=== PATIENT | female | born 1940 | race Caucasian/White ===

== ENCOUNTER 2019-01-29 08:20 | Emergency (ER) | payer OTHER, SELFPAY ==
[2019-01-29 08:32] VITALS: BP 151/79; PULSE 101; RESP 14; TEMP 36.7; O2SAT 96
--- NOTE | 2019-01-29 08:33 | DI.RAD_ITS ---
SYMPTOM/DIAGNOSIS: SOB, COUGH PA AND LATERAL CHEST: There are no prior comparison exams. The heart size is normal. The aorta is mildly tortuous. Surgical clips are seen in the left axilla. There is a patchy area of increased density seen in the lingula suspicious for a pneumonia. There is no evidence of pleural effusion. The bones appear osteopenic. There are severe degenerative changes of both shoulders. Scoliosis is noted at the thoracolumbar junction. There are mild mid-thoracic compression fractures likely old. IMPRESSION: Lingular infiltrates. Follow up exam is recommended following treatment.
[2019-01-29 08:54] LABS: Abs Immature Grans 0.02 k/cumm (0.0-0.09); Absolute Basophil Count 0.01 k/cumm (0.0-0.2); Absolute Eosinophil Count 0.37 k/cumm (0.0-0.7); Absolute Lymphocyte Count 0.78 k/cumm (1.2-3.4); Absolute Monocyte Count 1.53 k/cumm (0.11-0.7); Absolute Neutrophil Count 5.83 k/cumm (1.2-6.7); Basophils % 0.1; Eosinophils % 4.3; HCT 34.1 % (36.0-46.0); HGB 11.3 g/dL (12.0-15.5); Immature Grans % 0.2; Lymphocytes % 9.1; Mean Corp. HGB Concentration 33.1 g/dL (32.0-36.0); Mean Corpuscular Hemoglobin 27.8 pg (27.0-33.0); Mean Corpuscular Volume 83.8 fL (80-95); Monocytes % 17.9; Neutrophils % 68.4; Platelet Count 239 x1000/uL (130-400); RBC 4.07 m/cumm (4.00-5.20); RBC Distribution Width 14.5 % (11.7-14.6); White Blood Cell Count 8.54 k/cumm (4.4-10.8)
--- NOTE | 2019-01-29 08:58 | ED.GENADUL_ITS ---
Discharge Plan Disposition Patient Disposition: HOME Condition: Stable Discharge Details Chief Complaint: SOB Primary Care Provider: Nia Delcid ED Provider: Kenny Lara Home Meds and New Rx's Prescriptions: New prednisone 20 mg tablet 40 mg PO DAILY Qty: 8 RF: 0 amoxicillin-pot clavulanate 1,000-62.5 mg tablet extended release 12 hr 2 tab PO BID 10 Days Qty: 40 RF: 0 benzonatate 100 mg capsule 100 mg PO TID PRN (Reason: cough) Qty: 30 RF: 0 Continued multivitamin [Daily Multiple] 1 EACH tablet 1 ea PO DAILY RF: 0 aspirin 81 MG tablet,chewable 81 mg PO DAILY RF: 0 calcium-vitamin D3-vitamin K 1 EACH tablet,chewable 1 ea PO DAILY RF: 0 sucralfate 1 GM tablet 1 g PO QID Qty: 28 RF: 3 cetirizine [Zyrtec] 10 MG tablet 10 mg PO PRN PRNRF: 0 omeprazole 40 MG capsule,delayed release(DR/EC) 40 mg PO DAILY@0730 Qty: 30 RF: 3 Discharge Data Discharge Date/Time-TO BE ENTERED AT DEPARTURE: 01/29/19 13:15 Medical Decision Making <Kenny Lara REFRIGERATING TECHNICIAN - Last Filed: 02/02/19 11:54> Patient presenting to the emergency department for chief complaint of shortness of breath and coughing. She states that this is been going on for 1 week and has worsened over the past couple days. Patient states some chest discomfort that she mostly associated with coughing but denies any cardiac chest pain, irregular heartbeats. Patient is a smoker who has been diagnosed with COPD but has not required any medications or home oxygen at this point. Physical exam shows nontoxic appearing female patient with no obvious signs of respiratory distress, no hypoxia on room air, mild tachycardia, diffuse wheezing throughout all lung sounds. Plan to do chest x-ray, labs including d-dimer for rule out of PE, and EKG. I doubt at this time this is ACS or cardiac in nature but have suspicion of pneumonia versus COPD exacerbation. Pending results patient given DuoNeb. Review of results show no leukocytosis or anemia is noted, patient does have elevated anion gap, slightly low sodium, low magnesium of 1.3, negative troponin. Chest x-ray shows concerning findings for consolidation in the left lobe consistent with pneumonia. Patient does have an elevated d-dimer so I do feel that CT imaging of the chest is warranted. Pending these results patient given IV fluids along with magnesium. Pending CT imaging due to concerning findings of pneumonia patient given oral doxycycline and IV Rocephin. Review of CT imaging shows no signs of pulmonary embolism but confirmed suspicion of consolidation and concern of pneumonia. After further review of the literature decided to place patient on Augmentin, g osmel patient steroid burst, and albuterol inhaler. Patient's curb 65 score is low and given no severe signs of respiratory distress I do feel that she is an appropriate outpatient candidate. Did speak with on-call primary care provider whom stated that patient would be able to get an appointment in the next 1 to 2 days for reassessment. Patient was informed to call the office and arrange his appointment as soon as possible. Return precautions were discussed with patient and family. After discussion of diagnosis and plan of care patient and family have no further needs, questions, or concerns and states clear understanding to return to the emergency department for any worsening symptoms. <Wade Gutierrez MD - Last Filed: 01/30/19 14:50> 9:32 -- ecg reviewed and interpreted by me: nsr 94bpm, nl axis, rsr(v1). qrsd 79, qtc 440, nondiagnostic. HPI <Kenny Lara NP - Last Filed: 02/02/19 11:54> General Mode of arrival: ambulatory . Date/Time Provider Initiated Documentation: 01/29/19 08:25 . Limitations to Documentation: no limitations . Information obtained by: patient and RN notes reviewed . History of Present Illness 78 year old F presents to the emergency department with the chief complaint of Shortness of breath, described as moderate, with intensity rated at 2. Quality is described as aching, and is localized to the chest. Patient reports no radiation. Patient started experiencing this week(s) (1) and it has been constant. No relieving factors improve symptom(s), Other factors that worsen symptoms (Coughing increases chest discomfort) . Related Data Home Medications Medication Instructions Recorded Confirmed aspirin 81 mg PO DAILY tab-cap 01/27/17 02/05/17 calcium-vitamin D3-vitamin K 1 ea PO DAILY tab.chew 01/27/17 02/05/17 multivitamin [Daily Multiple] 1 ea PO DAILY 01/27/17 02/05/17 cetirizine [Zyrtec] 10 mg PO PRN PRN 02/05/17 02/05/17 omeprazole 40 mg PO DAILY@0730 #30 capcr 02/05/17 sucralfate 1 g PO QID #28 tab-cap 02/25/17 amoxicillin-pot clavulanate 2 tab PO BID 10 Days #40 tab 01/29/19 benzonatate 100 mg PO TID PRN #30 cap 01/29/19 prednisone 40 mg PO DAILY #8 tab 01/29/19 Previous Rx's Medication Instructions Recorded omeprazole 40 mg PO DAILY@0730 #30 capcr 02/05/17 amoxicillin-pot clavulanate 2 tab PO BID 10 Days #40 tab 01/29/19 benzonatate 100 mg PO TID PRN #30 cap 01/29/19 prednisone 40 mg PO DAILY #8 tab 01/29/19 Allergies Allergy/AdvReac Type Severity Reaction Status Date / Time No Known Allergies Allergy Unverified 02/05/17 11:40 General Stated Complaint: SOB YADY: 3 Review of Systems <Kenny Lara NP - Last Filed: 02/02/19 11:54> Constitutional Denies chills, Denies fever(s) and Denies malaise Cardiovascular Reports as per HPI, Denies chest pain, Reports chest pain with activity, Denies syncope, Denies irregular heart rhythm, Denies palpitations and Reports dyspnea Respiratory Reports as per HPI, Reports cough, Reports hemoptysis and Reports dyspnea Gastrointestinal Denies abdominal pain, Denies nausea and Denies vomiting Neurologic Denies syncope Psychiatric Denies anxiety Endocrine Denies palpitations PFSH <Kenny Lara NP - Last Filed: 02/02/19 11:54> Surgical History EGD - MAC (02/05/17) Family History Mother Lung disease Social History Smoking/Tobacco Use Status: Current every day Drug use: Never Exam <Kenny Lara NP - Last Filed: 02/02/19 11:54> Const General: cooperative, healthy appearing, comfortable, no acute distress, not diaphoretic and not ill appearing Nutritional Appearance: average body habitus Orientation: alert, awake and oriented x3 Limitations: mental status not altered Neck Neck: normal visual inspection, full ROM, trachea midline, supple and no anterior neck swelling Thyroid: thyroid normal Carotids: normal carotid upstroke and no bruits Chest Chest: normal inspection of the chest Resp Effort & Inspection: normal respiratory effort and able to speak in complete sentences Auscultation: wheezes expiratory wheezes and scattered wheezes Cardio Jugular venous pressure: no JVD Palpation: normal PMI Rate: regular rate Rhythm: regular rhythm Heart Sounds: S1 normal, S2 normal, no click, no gallops, no murmurs and no rubs Bruits: no abdominal aortic bruits and no carotid bruits Pulses: radial pulses present bilaterally 2+ GI Inspection: normal to inspection Palpation: soft, no aortic enlargement, no pulsatile masses and nontender Auscultation: normal bowel sounds Skin General skin exam: no rashes or lesions noted Neuro General: alert, awake, oriented x3, tone normal and moves all extremities Course <Kenny Lara NP - Last Filed: 02/02/19 11:54> Vital Signs Temperature 36.7 C 01/29/19 08:32 Pulse 101 H 01/29/19 08:32 Respiratory Rate 14 01/29/19 08:32 Blood Pressure 151/79 H 01/29/19 08:32 Pulse Oximetry 96 01/29/19 08:32 Temperature 36.7 C 01/29/19 08:32 Temperature Source Temporal Artery Scan 01/29/19 08:32 Pulse 101 H 01/29/19 08:32 Respiratory Rate 14 01/29/19 08:32 Blood Pressure 151/79 H 01/29/19 08:32 Blood Pressure Position Supine 01/29/19 08:32 Pulse Oximetry 96 01/29/19 08:32 Oxygen Delivery Method Room Air 01/29/19 08:32 Oxygen Flow Rate 0 01/29/19 08:32 Lab/Test Results Lab/Test Results: Laboratory Tests Range/Units 01/29/19 08:45 WBC (4.4-10.8) k/cumm 8.54 RBC (4.00-5.20) m/cumm 4.07 Hgb (12.0-15.5) g/dL 11.3 L Hct (36.0-46.0) % 34.1 L MCV (80-95) fL 83.8 MCH (27.0-33.0) pg 27.8 MCHC (32.0-36.0) g/dL 33.1 RDW (11.7-14.6) % 14.5 Plt Count (130-400) x1000/uL 239 MPV (8.0-11.0) fL 12.0 H Immature Gran % 0.2 Neutrophils % 68.4 Lymphocytes % 9.1 Monocytes % 17.9 Eosinophils % 4.3 Basophils % 0.1 Absolute Neutrophils (1.2-6.7) k/cumm 5.83 Absolute Lymphocytes (1.2-3.4) k/cumm 0.78 L Absolute Monocytes (0.11-0.7) k/cumm 1.53 H Absolute Eosinophils (0.0-0.7) k/cumm 0.37 Absolute Basophils (0.0-0.2) k/cumm 0.01
[2019-01-29 09:02] VITALS: RESP 18
[2019-01-29 09:08] LABS: PTT Activated 25.7 sec (21.0-31.4)
[2019-01-29 09:16] LABS: ALT 20 U/L (12-78); AST 37 U/L (15-37); Albumin 3.2 g/dL (3.4-5.0); Alkaline Phosphatase 91 U/L (46-116); Anion Gap 15.3 mmol/L (3-11); BUN 15 mg/dL (7-18); Bilirubin, Total 0.5 mg/dL (0.2-1.0); CO2 21.7 mmol/L (21.0-32.0); CREATININE 0.61 mg/dL (0.55-1.02); Calcium 9.1 mg/dL (8.5-10.1); Chloride 98 mmol/L (98-107); Glucose 109 mg/dL (70-100); Magnesium 1.3 mg/dL (1.8-2.4); Potassium 3.8 mmol/L (3.5-5.1); Sodium 135 mmol/L (136-145); Total Protein 8.2 g/dL (6.4-8.2)
[2019-01-29 09:18] LABS: Troponin I < 0.05 ng/mL (0.00-0.06)
[2019-01-29 09:22] LABS: D-Dimer 1352 ng/mlFEU (<500)
--- NOTE | 2019-01-29 09:22 | NUR.NOTE ---
pt taken to xray by [facility] Nursing Note:
--- NOTE | 2019-01-29 09:43 | DI.VRAD_ITS ---
EXAM: XR Chest, 2 Views EXAM DATE/TIME: 01/29/2019 8:35 AM CLINICAL HISTORY: 78 years old, female; Cough and shortness of breath; Patient HX: Cough/sob TECHNIQUE: Imaging protocol: XR of the chest, 2 views. COMPARISON: No relevant prior studies available. FINDINGS: Lungs: There are changes of COPD. There is patchy consolidation within the lingula of the left upper lobe. The findings are consistent with pneumonia in the proper clinical setting. An underlying neoplastic lesion cannot be excluded. Followup imaging to confirm resolution of this abnormality is recommended. Pleural space: No pleural effusion or pneumothorax is identified. Heart/Mediastinum: The cardiomediastinal silhouette and pulmonary vasculature are within normal limits. Bones/joints: Unremarkable. Soft tissues: The patient is status post partial left mastectomy. There are multiple surgical clips within the left axilla. IMPRESSION: Patchy consolidation within the lingula consistent with pneumonia. The proper clinical setting. Followup imaging to confirm resolution of this abnormality is recommended. Dictated and Authenticated by: Skyler Gandhi MD. Ordering:SUHAIL Cox MD
[2019-01-29] MEDS: Normal Saline Flush 10 ML SYR IVP (10:13)
[2019-01-29] MEDS: Normal Saline 250 ML IV (10:13)
[2019-01-29] MEDS: Albuterol/Ipratropium 3 ML UPD VIAL UPD (10:13)
[2019-01-29] MEDS: MAGNESIUM SULFATE 2 GM/50 ML BAG IVPB (10:14)
--- NOTE | 2019-01-29 10:17 | NUR.NOTE ---
pt medicated as per mdo provided with breathing treatment tolorating well lLAB AT BEDSIDE FOR 2ED SET OF BC Nursing Note:
--- NOTE | 2019-01-29 10:50 | NUR.NOTE ---
pt to ct Nursing Note:
--- NOTE | 2019-01-29 11:07 | DI.CT_ITS ---
SYMPTOM/DIAGNOSIS: SHORTNESS OF BREATH CHEST CT FOR PULMONARY EMBOLISM: CT angiography was performed with multi slice acquisition and multi planar and 3D reconstruction. Comparison is made with chest x-ray performed earlier the same day. The patchy infiltrate with some consolidation is seen in the lingula. There is underlying mild bronchiectasis as well as emphysematous changes. No pleural or pericardial effusions are seen. There is no evidence of pulmonary emboli or aortic dissection. The pulmonary arteries appear normal in diameter. There is some dilatation of the ascending aorta with a diameter of 3.7 cm. Coronary artery calcifications are seen. There is atherosclerotic plaque involving the descending aorta. The scan was continued to the upper abdomen. There is a small hiatal hernia. The liver, spleen, adrenals, pancreas and kidneys are unremarkable. There is question of tiny stones in independent portion of the gallbladder. There is no biliary dilatation or gallbladder wall thickening. The visualized portions of the bowel are unremarkable. The visualized vasculature appears intact. There is calcification of the abdominal aorta with no evidence of aneurysm. Degenerative changes and scoliosis are noted in the spine. IMPRESSION: Lingular pneumonia. No evidence of pulmonary emboli.
[2019-01-29] MEDS: Omnipaque 350 MG/ML 100 ML BTL IJ (11:08)
--- NOTE | 2019-01-29 11:26 | DI.VRAD_ITS ---
EXAM: CT Angiography Chest Without And With Contrast EXAM DATE/TIME: 01/29/2019 9:26 AM CLINICAL HISTORY: 78 years old, female; Shortness of breath; Patient HX: Copd TECHNIQUE: Imaging protocol: Axial computed tomographic angiography images of the chest without and with intravenous contrast using CT angiography protocol. Coronal and sagittal reformatted images were created and reviewed. 3D rendering: MIP reconstructed images were created and reviewed. Radiation optimization: All CT scans at this facility use at least one of these dose optimization techniques: automated exposure control; mA and/or kV adjustment per patient size (includes targeted exams where dose is matched to clinical indication); or iterative reconstruction. Contrast material: OMNI 350; Contrast volume: 53 ml; Contrast route: IV; COMPARISON: SC XR CHEST 2V PA LATERAL 01/29/2019 9:20 AM FINDINGS: Pulmonary arteries: Slightly suboptimal opacification of the pulmonary arteries. No filling defects identified to indicate pulmonary embolism. Aorta: Mild atherosclerosis of the thoracic aorta. Dilatation of the ascending thoracic aorta, measuring 3.4 cm in AP diameter. No thoracic aortic dissection. Moderate atherosclerosis of the abdominal aorta. Lungs: Consolidation within the anterior left upper lobe, consistent with pneumonia in the proper clinical setting. Followup CT scan to confirm resolution is recommended. No obstructing endobronchial mass identified. Minimal atelectasis and/or scar in the medial right lung base. Diffuse centrilobular pulmonary emphysema, most severe in the upper lung zones. Pleural space: Unremarkable. No pneumothorax. No pleural effusion. Heart: Mild coronary atherosclerosis. No cardiomegaly or pericardial effusion. Stomach and bowel: Small gastric hiatus hernia. Lymph nodes: Multiple slightly prominent mediastinal and left hilar lymph nodes, likely reactive. Bones/joints: Degenerative spondylosis of the thoracic and upper lumbar spine. No acute fracture. Soft tissues: Unremarkable. IMPRESSION: 1. Left upper lobe consolidation consistent with pneumonia in the proper clinical setting. Followup CT scan of the chest is recommended to confirm resolution. 2. Pulmonary emphysema. 3. Mild aneurysmal dilatation of the ascending thoracic aorta. 4. No pulmonary embolism. Dictated and Authenticated by: Skyler Gandhi MD. Ordering:SUHAIL Cox MD
[2019-01-29] MEDS: cefTRIAXone 1 GM/50 ML BAG IVPB (11:29)
[2019-01-29] MEDS: Doxycycline Hyclate 100 MG CAP PO (11:29)
--- NOTE | 2019-01-29 11:32 | NUR.NOTE ---
pt medicated as per mdo iv antibiotics in fusing pt resting in bed resp even unlabored no distress noted none stated Nursing Note:
[2019-01-29] MEDS: Albuterol HFA 8 GM 60 PUFF INH IH (12:46)
[2019-01-29] MEDS: Inhaler, Assist Device 1 EACH MC (12:48)
[2019-01-29] MEDS: predniSONE 20 MG TAB 40 MG PO (12:54)
--- NOTE | 2019-01-29 12:55 | NUR.NOTE ---
practioner at bedside for review of treatment pt medicated as per mdo vs no distress noted resp even unlabored iv removed dc/rx reviewed with pt able to verblize understnading Nursing Note:
== END 2019-01-29 13:15 | disposition home or self-care (01) ==
PROVIDERS: Emergency Provider Nurse Practitioner Family; PCP Family Medicine
DX: J18.9 Pneumonia, unspecified organism (principal); R79.89 Other specified abnormal findings of blood chemistry
CPT/HCPCS: 36415; 71275; 80053; 87040; 93005; 96361; 96365; 96366; 96368; 99285; 71046; 83735; 84484; 85025; 85379; 85610; 85730; 93010; 99284; J0696; J3490; J7512; J7620

== ENCOUNTER 2019-02-03 20:52 | Inpatient (IN) | payer OTHER, SELFPAY ==
[2019-02-03] VITALS (19 sets, daily range): BP systolic 108–131; BP diastolic 55–72; PULSE 78–108; RESP 8–40; TEMP 36.5–36.8; O2SAT 92–100
--- NOTE | 2019-02-03 21:23 | W.ED.GENAD ---
Discharge Plan Disposition Patient Disposition: [facility] INPATIENT Condition: Fair Discharge Details Chief Complaint: RespSymp Clinical Impression: COPD exacerbation, Pneumonia, Hypokalemia, Hypomagnesemia Primary Care Provider: Nia Delcid ED Provider: Alex Wellington Bonfield Jonas and New Rx's Prescriptions: No Action multivitamin [Daily Multiple] 1 EACH tablet 1 ea PO DAILY RF: 0 aspirin 81 MG tablet,chewable 81 mg PO DAILY RF: 0 calcium-vitamin D3-vitamin K 1 EACH tablet,chewable 1 ea PO DAILY RF: 0 amoxicillin-pot clavulanate 1,000-62.5 mg tablet extended release 12 hr 2 tab PO BID 10 Days Qty: 40 RF: 0 omeprazole 40 MG capsule,delayed release(DR/EC) 40 mg PO DAILY@0730 Qty: 30 RF: 3 albuterol sulfate 90 mcg/actuation Hfa Aerosol Inhaler 2 puff INHALATION Q6H PRNRF: 0 Chantix Starting Month Box 0.5 mg (11)- 1 mg (42) Tablets,Dose Pack See Rx Instructions .ROUTE .COMPLEX RF: 0 Medical Decision Making Patient presenting with worsening shortness of breath and wheezing despite steroids, antibiotics, albuterol. She has diminished breath sounds at the bases and some scattered wheezing. She denies chest pain or pressure. Will give DuoNeb and albuterol neb here. Will obtain EKG, laboratory studies, chest x-ray. Will likely need admission given the fact that she is already maxed out on outpatient therapy and worsening. Patient doing a little better after neb treatments. Steroids have been given. Her EKG shows no acute changes. Laboratory studies significant for a white count of 14.4 which could be related to steroids. Mild anemia with a hemoglobin of 11.1. Significant electrolyte abnormalities including a potassium of 2.7 and a magnesium of 1.4 both of which are being repleted IV. She is also ordered for oral potassium. Troponin is negative. Chest x-ray is read as improved lingular consolidation but new right perihilar consolidation. We will continue on her oral Augmentin and add IV doxycycline. Case discussed with hospitalist. Because of electrolyte abnormalities and IV replacement she will need telemetry. She is admitted in stable condition for further management of COPD exacerbation, pneumonia, electrolyte abnormalities. Medical Records Medical records reviewed: Yes I reviewed the patient's medical records. Imaging Data Radiologic Study: Imaging: X-Ray Radiologist's impression: TECHNIQUE: Imaging protocol: XR of the chest, 2 views. COMPARISON: SC XR CHEST 2V PA LATERAL 01/29/2019 9:20 AM FINDINGS: Lungs: Lungs are hyperinflated. Subtle, patchy consolidations. Pleural space: Unremarkable. No evidence of pneumothorax. Heart/Mediastinum: Unremarkable. Heart size within normal limits for technique. Bones/joints: Unremarkable. IMPRESSION: Patchy lung consolidations. The lingular consolidation has improved slightly. There is new, subtle right perihilar patchy airspace disease. Most likely a bronchopneumonia. Dictated and Authenticated by: Juan Humphrey MD. Lab Data Lab results reviewed: Yes I reviewed the patient's lab results. ECG Data Attestation: I personally reviewed and interpreted this ECG (s) as follows: Prior ECG tracings: not available for review Interpretation: Normal sinus rhythm at a rate of 87. Normal axis and intervals. No acute ST changes noted. HPI General Mode of arrival: wheelchair. Date/Time Provider Initiated Documentation: 02/03/19 21:16. Limitations to Documentation: no limitations. Information obtained by: patient. HPI Narrative: Patient presents to ED with increasing shortness of breath since last night. She was seen here last weekend and diagnosed with COPD/pneumonia. She has been on Augmentin and prednisone. She was also given an albuterol inhaler. The prednisone finished yesterday. She is still on the Augmentin. She has been using the inhaler. In the last 24 hours, she has had worsening shortness of breath. She has used the albuterol inhaler at least 6 or 7 times today. She denies having chest pain or tightness. She is unable to sleep because of difficulty breathing. She continues to have cough. She has no fever she is aware of. She does have some low back pain. There is no direct injury. She thinks is from coughing so much. Related Data Home Medications Medication Instructions Recorded Confirmed aspirin 81 mg PO DAILY tab-cap 01/27/17 02/03/19 calcium-vitamin D3-vitamin K 1 ea PO DAILY tab.chew 01/27/17 02/03/19 multivitamin [Daily Multiple] 1 ea PO DAILY 01/27/17 02/03/19 omeprazole 40 mg PO DAILY@0730 #30 capcr 06/30/17 06/28/19 amoxicillin-pot clavulanate 2 tab PO BID 10 Days #40 tab 01/29/19 02/03/19 albuterol sulfate 2 puff INHALATION Q6H PRN 02/03/19 02/03/19 varenicline [Chantix Starting See Rx Instructions .ROUTE .COMPLEX 02/03/19 02/03/19 Month Box] Previous Rx's Medication Instructions Recorded omeprazole 40 mg PO DAILY@0730 #30 capcr 02/05/17 amoxicillin-pot clavulanate 2 tab PO BID 10 Days #40 tab 01/29/19 Allergies Allergy/AdvReac Type Severity Reaction Status Date / Time No Known Allergies Allergy Unverified 02/03/19 21:38 General YADY: 3 Review of Systems Review of Systems 05/22 Review of Systems completed and is negative except as stated above in HPI (Systems reviewed: Const, Eyes, ENT, Resp, CV, GI, , MSK, Skin, Neuro) PFSH Medical History COPD (chronic obstructive pulmonary disease) (Chronic) GERD (gastroesophageal reflux disease) (Chronic) Breast cancer (Resolved) Surgical History Status post THR (total hip replacement) (Chronic) S/P breast lumpectomy (Inactive) EGD - MAC (Inactive 02/05/17) Social History Smoking/Tobacco Use Status: Current every day Tobacco Type: cigarettes Alcohol Intake: current Alcohol Intake frequency: holidays/special occasions only Drug use: Never Do you feel safe at home: Yes Do you feel safe in your relationship?: Yes Exam Narrative Exam Narrative: Vitals: Afebrile with normal vital signs and normal O2 sats on room air. Const: WDWN elderly female in NAD. HEENT: NC/AT. Normal facial exam. Eyes: Normal conjunctiva and sclera. Neck: Supple. Trachea midline. Lungs: Increased work of breathing with prolong expiratory phase. Lungs are diminished at the bases. There are scattered wheezing throughout. Cor: RRR without murmur/gallop. Good radial pulses. GI: Soft. NT/ND. No guarding or rebound. Back: No CVAT. Neuro: A+O x 3. CN grossly in tact. Good strength and no focal deficit. Ext: No C/C/E. No deformity or tenderness. Skin: Warm and dry without rash.
[2019-02-03] MEDS: Albuterol/Ipratropium 3 ML UPD VIAL UPD (21:43)
--- NOTE | 2019-02-03 22:14 | DI.RAD_ITS ---
SYMPTOM/DIAGNOSIS: WORSENING SOB/COUGH AP AND LATERAL CHEST: Comparison is made with 29 January 2019. There has been some improvement in the previously noted left lingular infiltrate. No new infiltrate, effusion or pneumothorax is seen. There are underlying fibrotic changes and emphysematous changes. IMPRESSION Mild interval improvement of lingular infiltrate.
[2019-02-03 22:24] LABS: Abs Immature Grans 0.06 k/cumm (0.0-0.09); Absolute Lymphocyte Count 1.55 k/cumm (1.2-3.4); Absolute Monocyte Count 1.93 k/cumm (0.11-0.7); Basophils % 0.1; Eosinophils % 2.8; HCT 33.9 % (36.0-46.0); HGB 11.1 g/dL (12.0-15.5); Immature Grans % 0.4; Lymphocytes % 10.7; Mean Corp. HGB Concentration 32.7 g/dL (32.0-36.0); Mean Corpuscular Hemoglobin 27.3 pg (27.0-33.0); Mean Corpuscular Volume 83.3 fL (80-95); Mean Platelet Volume 11.3 fL (8.0-11.0); Monocytes % 13.4; Neutrophils % 72.6; Platelet Count 370 x1000/uL (130-400); RBC 4.07 m/cumm (4.00-5.20); RBC Distribution Width 14.9 % (11.7-14.6); White Blood Cell Count 14.44 k/cumm (4.4-10.8)
[2019-02-03] MEDS: methylPREDNISolone SUCC 125 MG VIAL IVP (22:27)
[2019-02-03] MEDS: Albuterol 2.5 MG/3 ML INH SOLN VIAL UPD (22:27)
[2019-02-03 22:36] LABS: Absolute Basophil Count 0.01 k/cumm (0.0-0.2); Absolute Neutrophil Count 10.48 k/cumm (1.2-6.7)
[2019-02-03 22:38] LABS: ALT 20 U/L (12-78); AST 15 U/L (15-37); Albumin 3.3 g/dL (3.4-5.0); Alkaline Phosphatase 85 U/L (46-116); BUN 10 mg/dL (7-18); Bilirubin, Total 0.3 mg/dL (0.2-1.0); CREATININE 0.65 mg/dL (0.55-1.02); Calcium 9.1 mg/dL (8.5-10.1); Chloride 102 mmol/L (98-107); Glucose 98 mg/dL (70-100); Magnesium 1.4 mg/dL (1.8-2.4); NT-proBNP 152 pg/mL; Sodium 138 mmol/L (136-145); Total Protein 7.5 g/dL (6.4-8.2)
[2019-02-03 22:41] LABS: Potassium 2.7 mmol/L (3.5-5.1); Troponin I < 0.05 ng/mL (0.00-0.06)
[2019-02-03 22:52] LABS: Diff Comment Diff Reviewed; RBC Morphology Normal
--- NOTE | 2019-02-03 22:52 | DI.VRAD_ITS ---
EXAM: XR Chest, 2 Views EXAM DATE/TIME: 02/03/2019 10:15 PM CLINICAL HISTORY: 78 years old, female; Shortness of breath; Patient HX: SOB TECHNIQUE: Imaging protocol: XR of the chest, 2 views. COMPARISON: SC XR CHEST 2V PA LATERAL 01/29/2019 9:20 AM FINDINGS: Lungs: Lungs are hyperinflated. Subtle, patchy consolidations. Pleural space: Unremarkable. No evidence of pneumothorax. Heart/Mediastinum: Unremarkable. Heart size within normal limits for technique. Bones/joints: Unremarkable. IMPRESSION: Patchy lung consolidations. The lingular consolidation has improved slightly. There is new, subtle right perihilar patchy airspace disease. Most likely a bronchopneumonia. Dictated and Authenticated by: Juan Humphrey MD. Ordering:CHARO Johnson MD
[2019-02-03] MEDS: POTASSIUM CHLORIDE 20 MEQ, POTASSIUM CHLORIDE 10 MEQ 30 MEQ PO (23:10)
[2019-02-03] MEDS: DOXYCYCLINE 100 MG in Normal Saline 100 ML IVPB (23:11)
[2019-02-03] MEDS: MAGNESIUM SULFATE 2 GM/50 ML BAG IVPB (23:45)
--- NOTE | 2019-02-03 23:58 | W.PM.HP.N ---
Date of service: 02/03/19 Time of Service: 23:58 Assessment and Plan (1) COPD exacerbation: Start date: 02/03/19 Current visit: Yes Status: Acute This is a 78-year-old lady with recent exacerbation of COPD and left lingular pneumonia treated as an outpatient now not improving off oral prednisone and continuing on Augmentin. She will be admitted for IV antibiotics including Rocephin and doxycycline with IV Solu-Medrol and more aggressive nebulizer treatments. She appears comfortable and responding to treatment. She is full code. (2) Pneumonia: Start date: 02/03/19 Current visit: Yes Status: Acute IV antibiotics as above. Convert to oral therapy as she improves. Qualifiers: Laterality: bilateral Lung location: unspecified part of lung Pneumonia type: due to unspecified organism Qualified Code(s): J18.9 - Pneumonia, unspecified organism (3) Hypokalemia: Start date: 02/03/19 Current visit: Yes Status: Acute Continue IV and oral supplement with monitoring of labs and desk monitor. Patient is not chronically on diuretics and this may be a consequence of her recent prednisone pulse therapy. (4) Hypomagnesemia: Start date: 02/03/19 Current visit: Yes Status: Acute Patient has been given IV magnesium and will follow-up lab in the morning. History of Present Illness Chief Complaint: Persistent cough with shortness of breath Narrative: This is a 78-year-old lady who on his last week had exacerbation of COPD with left lingular pneumonia treated with Augmentin and oral prednisone after being seen in the ED last weekend. She slightly improved but prednisone finished the day prior to admission and she was having continued cough and shortness of breath. She also has some low back pain from persistent coughing. The patient did not improve with nebulizer treatments in the ED and was found to have electrolyte abnormalities after hydration and treatments. She was admitted for continued IV replacement of potassium and magnesium on cardiac monitoring during this process. She also had exacerbation of COPD and was started on IV Solu-Medrol with her antibiotic coverage expanded because of the new infiltrate in the right lung and partial clearing of her left lingular infiltrate seen on previous chest x-ray. At this time I saw the patient she was arousable but fatigued and sleepy after her long day. She offered no further history or new complaints on review of systems. Review of Systems Review of Systems 13 point review of systems otherwise unrevealing or stable. [facility] Medical History COPD (chronic obstructive pulmonary disease) (Chronic) GERD (gastroesophageal reflux disease) (Chronic) Breast cancer (Resolved) Surgical History Status post THR (total hip replacement) (Chronic) S/P breast lumpectomy (Inactive) EGD - MAC (Inactive 02/05/17) Family History Mother Lung disease Social History Smoking/Tobacco Use Status: Current every day Tobacco Type: cigarettes Alcohol Intake: current Alcohol Intake frequency: holidays/special occasions only Drug use: Never Do you feel safe at home: Yes Do you feel safe in your relationship?: Yes Meds Home Medications Medication Instructions Recorded Confirmed Type aspirin 81 mg PO DAILY tab-cap 01/27/17 02/03/19 History calcium-vitamin D3-vitamin K 1 ea PO DAILY tab.chew 01/27/17 02/03/19 History multivitamin [Daily Multiple] 1 ea PO DAILY 01/27/17 02/03/19 History omeprazole 40 mg PO DAILY@0730 #30 capcr 02/05/17 02/03/19 Rx amoxicillin-pot clavulanate 2 tab PO BID 10 Days #40 tab 01/29/19 02/03/19 Rx albuterol sulfate 2 puff INHALATION Q6H PRN 02/03/19 02/03/19 History varenicline [Chantix Starting See Rx Instructions .ROUTE .COMPLEX 02/03/19 02/03/19 History Month Box] Allergies Allergy/AdvReac Type Severity Reaction Status Date / Time No Known Allergies Allergy Unverified 02/03/19 21:38 Exam Narrative Exam Narrative: General: Patient appears appropriate for age, thin and well-developed. She is in no acute distress. She is alert and oriented x3. HEENT: Normocephalic. Eyes with pupils equal and reactive to light symmetrically, extraocular movements intact and sclera anicteric. Ears normal. Oropharynx with slightly dry oral mucosa and full denture plates above and below. Neck: Supple without JVD. Back: Slightly kyphotic without CVA tenderness. Lungs: Bronchovesicular breath sounds diffusely with fair aeration, increased expiratory phase with slight expiratory wheeze diffusely. No focalizing rales or rhonchi. Heart: Tachycardic rate with normal rhythm, no murmurs gallops appreciated and S1-S2 normal. Breast: Exam deferred. Abdomen: Scaphoid contour, soft and nontender to palpation with no palpable hepatosplenomegaly. Bowel sounds positive in all quadrants. Genitalia/rectal: Exam deferred. Extremities: Without clubbing, cyanosis or edema. Skin: Pale,warm and dry with no rashes appreciated. Neuro: Cranial nerves II through XII grossly intact, no focalizing motor deficits. Psych: Normal affect normal mood. Remote and recent memory appear to be intact. Results Imaging Imaging Studies: EXAM: XR Chest, 2 Views EXAM DATE/TIME: 02/03/2019 10:15 PM CLINICAL HISTORY: 78 years old, female; Shortness of breath; Patient HX: SOB TECHNIQUE: Imaging protocol: XR of the chest, 2 views. COMPARISON: SC XR CHEST 2V PA LATERAL 01/29/2019 9:20 AM FINDINGS: Lungs: Lungs are hyperinflated. Subtle, patchy consolidations. Pleural space: Unremarkable. No evidence of pneumothorax. Heart/Mediastinum: Unremarkable. Heart size within normal limits for technique. Bones/joints: Unremarkable. IMPRESSION: Patchy lung consolidations. The lingular consolidation has improved slightly. There is new, subtle right perihilar patchy airspace disease. Most likely a bronchopneumonia. Dictated and Authenticated by: Juan Humphrey MD. Labs : 02/03/19 21:58 02/03/19 21:58 Laboratory Results - last 24 hr 02/03/19 02/03/19 21:58 21:58 WBC 14.44 H RBC 4.07 Hgb 11.1 L Hct 33.9 L MCV 83.3 MCH 27.3 MCHC 32.7 RDW 14.9 H Plt Count 370 D MPV 11.3 H Immature Gran % 0.4 Neutrophils % 72.6 Lymphocytes % 10.7 Monocytes % 13.4 Eosinophils % 2.8 Basophils % 0.1 Absolute Neutrophils 10.48 H Absolute Lymphocytes 1.55 Absolute Monocytes 1.93 H Absolute Eosinophils 0.40 Absolute Basophils 0.01 Differential Comment Diff reviewed RBC Morphology Normal Sodium 138 Potassium 2.7 L* Chloride 102 Carbon Dioxide 24.0 Anion Gap 12.0 H BUN 10 Creatinine 0.65 Estimated GFR/1.73 m2 >= 60.00 Glucose 98 Calcium 9.1 Magnesium 1.4 L Total Bilirubin 0.3 AST 15 ALT 20 Alkaline Phosphatase 85 Troponin I < 0.05 NT-Pro-B Natriuret Pep 152 Total Protein 7.5 Albumin 3.3 L Last Vital Signs Temp 36.8 C 02/03/19 23:48 Pulse 101 H 02/03/19 23:31 Resp 21 02/03/19 23:31 BP 109/62 02/03/19 23:31 Pulse Ox 93 L 02/03/19 23:31
[2019-02-04] VITALS (23 sets, daily range): BP systolic 86–124; BP diastolic 49–71; PULSE 82–110; RESP 1–28; TEMP 36.5–37.4; O2SAT 92–98
[2019-02-04] MEDS: POTASSIUM CHLORIDE 10 MEQ/100 ML BAG 100 MEQ IVPB (00:20)
[2019-02-04] MEDS: POTASSIUM CHLORIDE/0.9% NACL 1,000 ML 125 MEQ IV ×2 (02:06→10:00)
[2019-02-04] MEDS: Albuterol/Ipratropium 3 ML UPD VIAL UPD ×4 (02:23→17:49)
[2019-02-04 02:41] LABS: Anion Gap 13.3 mmol/L (3-11); BUN 9 mg/dL (7-18); CO2 20.7 mmol/L (21.0-32.0); Calcium 8.6 mg/dL (8.5-10.1); Chloride 104 mmol/L (98-107); Glucose 131 mg/dL (70-100); Potassium 3.4 mmol/L (3.5-5.1); Sodium 138 mmol/L (136-145)
[2019-02-04] MEDS: methylPREDNISolone SUCC 125 MG VIAL 80 MG IVP ×3 (05:27→22:31)
[2019-02-04] MEDS: Heparin 5,000 UNITS/ML VIAL 5000 UNITS SC ×3 (05:28→22:31)
[2019-02-04 07:09] LABS: ALT 18 U/L (12-78); AST 9 U/L (15-37); Albumin 2.9 g/dL (3.4-5.0); Alkaline Phosphatase 77 U/L (46-116); Anion Gap 12.4 mmol/L (3-11); BUN 8 mg/dL (7-18); Bilirubin, Total 0.3 mg/dL (0.2-1.0); CO2 21.6 mmol/L (21.0-32.0); CREATININE 0.58 mg/dL (0.55-1.02); Calcium 8.5 mg/dL (8.5-10.1); Chloride 105 mmol/L (98-107); Glucose 151 mg/dL (70-100); Magnesium 1.8 mg/dL (1.8-2.4); Potassium 3.9 mmol/L (3.5-5.1); Sodium 139 mmol/L (136-145); Total Protein 6.9 g/dL (6.4-8.2)
[2019-02-04 07:16] LABS: TSH (W/Ref FT4) 0.19 uIU/mL (0.358-3.74)
--- NOTE | 2019-02-04 08:28 | PGE_ITS ---
Date of Service Date of service: 02/04/19 Time of Service: 08:26 Assessment and Plan (1) COPD exacerbation: Current visit: Yes Status: Acute Continue doxycycline, rocephin, IV steroids, nebs. Add symbicort. Obtain sputum culture. Add antitussives, acapella. (2) CAP (community acquired pneumonia): Current visit: Yes Status: Acute S/p failed outpatient therapy. As above (3) Hypokalemia: Current visit: Yes Status: Resolved D/c IVF with potassium (4) Hypomagnesemia: Current visit: Yes Status: Resolved Monitor (5) GERD (gastroesophageal reflux disease): Current visit: Yes Status: Chronic on PPI (6) Discharge planning issues: Current visit: Yes Status: Acute Full code (7) DVT prophylaxis: Current visit: Yes Status: Acute Heparin SC, TEDs, SCD's Subjective Interval history since last seen: C/o 03/18 headache overnight - resolved now. Denies dizziness, chest pain. Shortness of breath is a little better, but coughing spells are making her lissette lly short of breath. She is bringing up yellowish thick sputum. Denies nausea/vomiting/abdominal pain. Required 1 L of O2 last night; on room air now - 94%. Dropped to 88% last night - why 1L was started. 1200 cc voided overnight. Exam Narrative Exam Narrative: General: Very pleasant elderly female, A&Ox3, has several coughing spells while in front of me HEENT: EOMI, MMM Heart: RRR, no m/r/g Lungs: wheezing on expiration B GI: abdomen is soft, nontender, nondistended Extremities: no e/c/c BLE's Objective Objective Clinical Data: Abnormal lab results 02/03/19 02/03/19 02/04/19 Range/Units 21:58 21:58 02:15 WBC 14.44 H (4.4-10.8) k/cumm Hgb 11.1 L (12.0-15.5) g/dL Hct 33.9 L (36.0-46.0) % RDW 14.9 H (11.7-14.6) % MPV 11.3 H (8.0-11.0) fL Absolute Neutrophils 10.48 H (1.2-6.7) k/cumm Absolute Monocytes 1.93 H (0.11-0.7) k/cumm Potassium 2.7 L* 3.4 L (3.5-5.1) mmol/L Carbon Dioxide 20.7 L (21.0-32.0) mmol/L Anion Gap 12.0 H 13.3 H (3-11) mmol/L Glucose 131 H (70-100) mg/dL Magnesium 1.4 L (1.8-2.4) mg/dL AST (15-37) U/L Albumin 3.3 L (3.4-5.0) g/dL TSH (0.358-3.74) uIU/mL Free T4 (0.76-1.46) ng/dL 02/04/19 02/04/19 Range/Units 06:40 06:40 WBC (4.4-10.8) k/cumm Hgb (12.0-15.5) g/dL Hct (36.0-46.0) % RDW (11.7-14.6) % MPV (8.0-11.0) fL Absolute Neutrophils (1.2-6.7) k/cumm Absolute Monocytes (0.11-0.7) k/cumm Potassium (3.5-5.1) mmol/L Carbon Dioxide (21.0-32.0) mmol/L Anion Gap 12.4 H (3-11) mmol/L Glucose 151 H (70-100) mg/dL Magnesium (1.8-2.4) mg/dL AST 9 L (15-37) U/L Albumin 2.9 L (3.4-5.0) g/dL TSH 0.19 L (0.358-3.74) uIU/mL Free T4 1.50 H (0.76-1.46) ng/dL Vital Signs Temperature 36.5 C 02/04/19 03:00 Temperature Source Temporal Artery Scan 02/04/19 03:00 Pulse 93 H 02/04/19 02:53 Pulse 85 02/04/19 03:44 Respiratory Rate 21 02/04/19 03:44 Respiratory Effort 02/04/19 01:10 Respiratory Depth Shallow 02/04/19 01:10 Blood Pressure 108/67 02/04/19 03:44 Blood Pressure Mean 77 02/04/19 03:44 Blood Pressure Position Sitting 02/03/19 21:29 Pulse Oximetry 98 02/04/19 03:44 Oxygen Delivery Method Nasal Cannula 02/04/19 01:10 Oxygen Flow Rate 1 02/04/19 01:10 Pain Level 2 02/04/19 00:47 Intake & Output 02/03/19 02/03/19 02/04/19 11:59 23:59 11:59 Intake Total 250 / 250 Balance 250 / 250 Weight 43.091 kg 45.7 kg Intake: IV 250 / 250 Laboratory Results WBC 14.44 k/cumm (4.4-10.8) H 02/03/19 21:58 RBC 4.07 m/cumm (4.00-5.20) 02/03/19 21:58 Hgb 11.1 g/dL (12.0-15.5) L 02/03/19 21:58 Hct 33.9 % (36.0-46.0) L 02/03/19 21:58 MCV 83.3 fL (80-95) 02/03/19 21:58 MCH 27.3 pg (27.0-33.0) 02/03/19 21:58 MCHC 32.7 g/dL (32.0-36.0) 02/03/19 21:58 RDW 14.9 % (11.7-14.6) H 02/03/19 21:58 Plt Count 370 x1000/uL (130-400) D 02/03/19 21:58 MPV 11.3 fL (8.0-11.0) H 02/03/19 21:58 Immature Gran % 0.4 02/03/19 21:58 Neutrophils % 72.6 02/03/19 21:58 Lymphocytes % 10.7 02/03/19 21:58 Monocytes % 13.4 02/03/19 21:58 Eosinophils % 2.8 02/03/19 21:58 Basophils % 0.1 02/03/19 21:58 Absolute Neutrophils 10.48 k/cumm (1.2-6.7) H 02/03/19 21:58 Absolute Lymphocytes 1.55 k/cumm (1.2-3.4) 02/03/19 21:58 Absolute Monocytes 1.93 k/cumm (0.11-0.7) H 02/03/19 21:58 Absolute Eosinophils 0.40 k/cumm (0.0-0.7) 02/03/19 21:58 Absolute Basophils 0.01 k/cumm (0.0-0.2) 02/03/19 21:58 Differential Comment Diff reviewed 02/03/19 21:58 RBC Morphology Normal 02/03/19 21:58 Sodium 139 mmol/L (136-145) 02/04/19 06:40 Potassium 3.9 mmol/L (3.5-5.1) 02/04/19 06:40 Chloride 105 mmol/L (98-107) 02/04/19 06:40 Carbon Dioxide 21.6 mmol/L (21.0-32.0) 02/04/19 06:40 Anion Gap 12.4 mmol/L (3-11) H 02/04/19 06:40 BUN 8 mg/dL (7-18) 02/04/19 06:40 Creatinine 0.58 mg/dL (0.55-1.02) 02/04/19 06:40 Estimated GFR/1.73 m2 >= 60.00 (mL/min/1.73m2) 02/04/19 06:40 Glucose 151 mg/dL (70-100) H 02/04/19 06:40 Calcium 8.5 mg/dL (8.5-10.1) 02/04/19 06:40 Magnesium 1.8 mg/dL (1.8-2.4) 02/04/19 06:40 Total Bilirubin 0.3 mg/dL (0.2-1.0) 02/04/19 06:40 AST 9 U/L (15-37) L 02/04/19 06:40 ALT 18 U/L (12-78) 02/04/19 06:40 Alkaline Phosphatase 77 U/L (46-116) 02/04/19 06:40 Troponin I < 0.05 ng/mL (0.00-0.06) 02/03/19 21:58 NT-Pro-B Natriuret Pep 152 pg/mL (-299) 02/03/19 21:58 Total Protein 6.9 g/dL (6.4-8.2) 02/04/19 06:40 Albumin 2.9 g/dL (3.4-5.0) L 02/04/19 06:40 TSH 0.19 uIU/mL (0.358-3.74) L 02/04/19 06:40 Free T4 1.50 ng/dL (0.76-1.46) H 02/04/19 06:40
[2019-02-04 08:43] LABS: Abs Immature Grans 0.07 k/cumm (0.0-0.09); Absolute Basophil Count 0.01 k/cumm (0.0-0.2); Absolute Lymphocyte Count 0.54 k/cumm (1.2-3.4); Absolute Monocyte Count 0.09 k/cumm (0.11-0.7); Absolute Neutrophil Count 13.81 k/cumm (1.2-6.7); Basophils % 0.1; HCT 31.9 % (36.0-46.0); HGB 10.4 g/dL (12.0-15.5); Immature Grans % 0.5; Lymphocytes % 3.7; Mean Corp. HGB Concentration 32.6 g/dL (32.0-36.0); Mean Corpuscular Hemoglobin 27.4 pg (27.0-33.0); Mean Corpuscular Volume 84.2 fL (80-95); Mean Platelet Volume 11.8 fL (8.0-11.0); Monocytes % 0.6; Neutrophils % 95.1; Platelet Count 347 x1000/uL (130-400); RBC 3.79 m/cumm (4.00-5.20); White Blood Cell Count 14.52 k/cumm (4.4-10.8)
[2019-02-04] MEDS: Aspirin 81 MG CHEW PO (09:03)
[2019-02-04] MEDS: Omeprazole 20 MG CAPCR 40 MG PO (09:03)
--- NOTE | 2019-02-04 12:07 | PHARADMIT ---
Admission Pharmacy Clinical Review COPD exacerbation, pneumonia, electrolyte abnormality Code Status Full Code Current Weight 45.7 kg Renally Cleared and Narrow Therapeutic Index Meds Crcl ~43.16 mL/min current meds okay QTc Value / Action Taken QTc 423 BP Control, Fever BP 111/57 afebrile Electrolytes reviewed K+ 3.4 DVT Prophylaxis heparin Opiate Usage / Scheduled Bowel Regimen Ordered no/prn Plt/SCr for Heparin / Enoxaparin plt 347 SCr 0.60 INR for Warfarin n/a H/H stable, WBC/Bands h/h 10.4/31.9 wbc 14.52 Antibiotic appropriateness ceftriaxone and doxycyline Cultures and Sensitivities none Surgical ABX d/c within 24 hr n/a DM control / Insulin Dosing BG 131 none Heart Failure (Check EF%) (JIMENEZ's, B-Block, Diuretics) none IV to PO Switch n/a Home Meds Reviewed -multivitamin may increase the absorption of aluminum from sucralfate leading to an increase serum aluminum concentration; avoid chronic/excessive use of this combination and watch for aluminum related toxicity -separate admin of multivitamin from calcium Home Meds Not Ordered augmentin(failed this), calcium/vitD/vitK, multivitamin, sucralfate, varenicline Comments
[2019-02-04] MEDS: cefTRIAXone 1 GM/50 ML BAG IVPB (12:12)
[2019-02-04] MEDS: DOXYCYCLINE 100 MG in Normal Saline 100 ML IVPB (12:45)
[2019-02-04] MEDS: Benzonatate 100 MG CAP PO ×2 (14:50→20:23)
[2019-02-04] MEDS: Normal Saline Flush 10 ML SYR IVP ×2 (14:52→15:25)
[2019-02-04] MEDS: guaiFENesin 600 MG TABCR PO ×2 (15:24→20:23)
--- NOTE | 2019-02-04 15:52 | PDOC.CMIN ---
Care Management Initial Assess REASON FOR HOSPITALIZATION:: COPD Exacerbation, Pneumonia, Electrolyte abnormality PAST MEDICAL HISTORY/PAST SURGICAL HISTORY:: Medical: COPD (chronic obstructive pulmonary disease) (Chronic). GERD (gastroesophageal reflux disease) (Chronic); Breast cancer (Resolved). Surgical: Status post THR (total hip replacement) (Chronic); S/P breast lumpectomy (Inactive), EGD - MAC (Inactive 02/05/17) PREVIOUS FUNCTIONAL STATUS/SOCIAL/FAMILY SUPPORTS:: Lives in an apartment at Daughter and ADIS's home. Family is supportive. Independent at baseline and still drives to manage her errands. CURRENT FUNCTIONAL STATUS:: Lying in bed resting. [place] and has had several respiratory infections. Says everyone at [facility] has had a cold or something going on all year. ADVANCE DIRECTIVES:: None on file Has patient been provided with information about the portal?: No Did the patient sign up for the portal?: No CODE STATUS:: Full Code INSURANCE COVERAGE / FINANCIAL ISSUES:: [facility] PPO CURRENT HOME/COMMUNITY SERVICES/EQUIPMENT:: None at this time PRIMARY CARE PHYSICIAN:: Nia Delcid NP PATIENT/FAMILY EDUCATION NEEDS:: Discharge instructions ANTICIPATED BARRIERS TO DISCHARGE:: None identified TRANSPORTATION:: Family will transport by car PLAN:: Zulema will return home and no services will be needed. Readmission - Within the Past 30 Days Yes or No: N
--- NOTE | 2019-02-04 16:07 | NUR.NOTE ---
Nursing Note: Patient transferred from ICU bed 222 to Med/Surg bed 215 at 1345 via wheelchair
[2019-02-04] MEDS: Budesonide/Formoterol 160/4.5 6 GM 60 PUFF INH IH (20:37)
[2019-02-05] VITALS (7 sets, daily range): BP systolic 100–134; BP diastolic 63–74; PULSE 93–98; RESP 16–19; TEMP 36.6–37.7; O2SAT 93–97
[2019-02-05] MEDS: DOXYCYCLINE 100 MG in Normal Saline 100 ML IVPB ×3 (00:11→23:58)
[2019-02-05] MEDS: Albuterol/Ipratropium 3 ML UPD VIAL UPD ×4 (00:11→17:47)
[2019-02-05] MEDS: Heparin 5,000 UNITS/ML VIAL 5000 UNITS SC ×3 (05:42→21:40)
[2019-02-05] MEDS: methylPREDNISolone SUCC 125 MG VIAL 80 MG IVP ×2 (05:42→13:21)
[2019-02-05] MEDS: Normal Saline Flush 10 ML SYR IVP ×4 (05:43→23:57)
[2019-02-05 07:39] LABS: Abs Immature Grans 0.12 k/cumm (0.0-0.09); Absolute Lymphocyte Count 0.67 k/cumm (1.2-3.4); Basophils % 0.1; HGB 9.5 g/dL (12.0-15.5); Immature Grans % 0.6; Lymphocytes % 3.5; Mean Corp. HGB Concentration 32.8 g/dL (32.0-36.0); Mean Corpuscular Hemoglobin 27.5 pg (27.0-33.0); Mean Corpuscular Volume 83.8 fL (80-95); Mean Platelet Volume 11.6 fL (8.0-11.0); Monocytes % 3.3; Neutrophils % 92.5; Platelet Count 340 x1000/uL (130-400); RBC 3.46 m/cumm (4.00-5.20); White Blood Cell Count 19.01 k/cumm (4.4-10.8)
[2019-02-05 07:43] LABS: Anion Gap 13.1 mmol/L (3-11); BUN 15 mg/dL (7-18); CO2 18.9 mmol/L (21.0-32.0); CREATININE 0.53 mg/dL (0.55-1.02); Calcium 8.8 mg/dL (8.5-10.1); Chloride 108 mmol/L (98-107); Glucose 169 mg/dL (70-100); Magnesium 1.4 mg/dL (1.8-2.4); Sodium 140 mmol/L (136-145)
[2019-02-05] MEDS: Budesonide/Formoterol 160/4.5 6 GM 60 PUFF INH IH ×2 (07:45→19:59)
[2019-02-05 07:46] LABS: Absolute Basophil Count 0.02 k/cumm (0.0-0.2); Absolute Monocyte Count 0.63 k/cumm (0.11-0.7); Absolute Neutrophil Count 17.58 k/cumm (1.2-6.7)
[2019-02-05] MEDS: Benzonatate 100 MG CAP PO ×2 (08:08→16:42)
[2019-02-05] MEDS: guaiFENesin 600 MG TABCR PO ×2 (08:08→19:59)
[2019-02-05] MEDS: Omeprazole 20 MG CAPCR 40 MG PO (08:09)
[2019-02-05] MEDS: Aspirin 81 MG CHEW PO (08:09)
--- NOTE | 2019-02-05 09:41 | DI.RAD_ITS ---
SYMPTOM/DIAGNOSIS: FOLLOW UP PNEUMONIA PA AND LATERAL CHEST: 02/05/19 Comparison is made with 03 February 2019 There has been continued improvement of the lingular infiltrate. Underlying emphysematous and fibrotic changes are again noted. The heart size remains normal. Prominent scoliosis is noted at the thoracolumbar junction. There are surgical clips in the left axilla. IMPRESSION: Continued improvement of lingular infiltrate.
[2019-02-05] MEDS: Potassium Chloride 20 MEQ TABCR 40 MEQ PO ×2 (10:44→16:17)
[2019-02-05] MEDS: cefTRIAXone 1 GM/50 ML BAG IVPB (11:14)
[2019-02-05 11:27] LABS: Lactate-non-spesis 2.8 mmol/l (0.6-1.4)
--- NOTE | 2019-02-05 12:07 | DI.VRAD_ITS ---
EXAM: XR Chest, 2 Views EXAM DATE/TIME: 02/05/2019 11:08 AM CLINICAL HISTORY: 78 years old, female; Other: Follow up pneumonia TECHNIQUE: Imaging protocol: XR of the chest, 2 views. COMPARISON: CR XR CHEST 2V PA LATERAL 02/03/2019 10:11 PM FINDINGS: Lungs: Improving aeration bilaterally, with mild patchy opacities remaining in the left midlung zone. Pleural space: Unremarkable. No pleural effusion. No pneumothorax. Heart/Mediastinum: Unremarkable. No cardiomegaly. Bones/joints: Unremarkable. IMPRESSION: Improving aeration bilaterally, with mild patchy opacities remaining in the left midlung zone. Dictated and Authenticated by: Orin Caicedo MD. Ordering:ALANIS Mckeon MD
[2019-02-05] MEDS: MAGNESIUM SULFATE 4 GM/100 ML BAG IVPB (12:20)
--- NOTE | 2019-02-05 16:56 | INITIAL_ITS ---
Care Management Initial Assess REASON FOR HOSPITALIZATION:: COPD Exacerbation, Pneumonia, Electrolyte abnormality PAST MEDICAL HISTORY/PAST SURGICAL HISTORY:: Medical: COPD (chronic obstructive pulmonary disease) (Chronic). GERD (gastroesophageal reflux disease) (Chronic); Breast cancer (Resolved). Surgical: Status post THR (total hip replacement) (Chronic); S/P breast lumpectomy (Inactive), EGD - MAC (Inactive 02/05/17) PREVIOUS FUNCTIONAL STATUS/SOCIAL/FAMILY SUPPORTS:: Lives in an apartment at Daughter and ADIS's home. Family is supportive. Independent at baseline and still drives to manage her errands. CURRENT FUNCTIONAL STATUS:: Lying in bed resting. States [place] and has had several respiratory infections. Says everyone at [facility] has had a cold or something going on all year. ADVANCE DIRECTIVES:: None on file Has patient been provided with information about the portal?: No Did the patient sign up for the portal?: No CODE STATUS:: Full Code INSURANCE COVERAGE / FINANCIAL ISSUES:: [facility] PPO CURRENT HOME/COMMUNITY SERVICES/EQUIPMENT:: None at this time PRIMARY CARE PHYSICIAN:: Nia Delcid NP PATIENT/FAMILY EDUCATION NEEDS:: Discharge instructions ANTICIPATED BARRIERS TO DISCHARGE:: None identified TRANSPORTATION:: Family will transport by car PLAN:: Zulema will return home and no services will be needed. Readmission - Within the Past 30 Days Yes or No: N
--- NOTE | 2019-02-05 16:56 | PDOC.CMPRO ---
Care Management Progress Note S/O: Lying in bed watching TV. States she is feeling much better today but still gets SOB with activity. A: 78 y..o. female admitted for COPD Exacerbation, pneumonia and electrolyte abnormalities. P: Zulema will return home and no services will be needed.
--- NOTE | 2019-02-05 17:32 | W.PM.PROGNOT ---
Date of Service Date of service: 02/05/19 Time of Service: 17:32 Assessment and Plan (1) COPD exacerbation: Current visit: Yes Status: Acute Improved. Continue doxycycline, rocephin. Convert steroids to PO given drastic improvement. Continue symbicort and nebs. Continue antitussives, acapella. (2) CAP (community acquired pneumonia): Current visit: Yes Status: Acute With marked improvement both clinically and radiologically. S/p failed outpatient therapy. As above I expect that the patient will be able to be discharged home tomorrow (3) Hypokalemia: Current visit: Yes Status: Acute Replete (4) Hypomagnesemia: Current visit: Yes Status: Acute Replete (5) GERD (gastroesophageal reflux disease): Current visit: Yes Status: Chronic Continue PPI (6) Discharge planning issues: Current visit: Yes Status: Acute Full code Expected discharge home tomorrow (7) DVT prophylaxis: Current visit: Yes Status: Acute Heparin SC, TEDs, SCD's Subjective Interval history since last seen: States she feels a lot better - well enough that she would like to go home tomorrow. Cough and wheezing have both gotten better. Denies dizziness, chest pain, nausea, vomiting. Not requiring oxygen. Exam Narrative Exam Narrative: General: Very pleasant elderly female, A&Ox3, looks much better HEENT: EOMI, MMM Heart: RRR, no m/r/g Lungs: very minimal rhonchi heard on expiration B GI: abdomen is soft, nontender, nondistended Extremities: no e/c/c BLE's Objective Objective Clinical Data: Abnormal lab results 02/05/19 02/05/19 02/05/19 Range/Units 07:17 07:17 11:17 WBC 19.01 H D (4.4-10.8) k/cumm RBC 3.46 L (4.00-5.20) m/cumm Hgb 9.5 L (12.0-15.5) g/dL Hct 29.0 L (36.0-46.0) % RDW 15.0 H (11.7-14.6) % MPV 11.6 H (8.0-11.0) fL Absolute Neutrophils 17.58 H (1.2-6.7) k/cumm Absolute Lymphocytes 0.67 L (1.2-3.4) k/cumm Potassium 3.0 L (3.5-5.1) mmol/L Chloride 108 H (98-107) mmol/L Carbon Dioxide 18.9 L (21.0-32.0) mmol/L Anion Gap 13.1 H (3-11) mmol/L Creatinine 0.53 L (0.55-1.02) mg/dL Glucose 169 H (70-100) mg/dL Lactate 2.8 H (0.6-1.4) mmol/l Magnesium 1.4 L (1.8-2.4) mg/dL Vital Signs Temperature 37.4 C 02/05/19 15:50 Temperature Source Tympanic 02/05/19 15:50 Pulse 97 H 02/05/19 15:50 Pulse Rhythm Regular 02/05/19 08:10 Pulse 93 H 02/04/19 09:54 Respiratory Rate 16 02/05/19 15:50 Respiratory Effort Incrsd Work of Breathing 02/05/19 08:10 Respiratory Depth Shallow 02/05/19 08:10 Respiratory Pattern Tachypnea 02/05/19 08:10 Blood Pressure 106/63 02/05/19 15:50 Blood Pressure Mean 70 02/04/19 09:54 Blood Pressure Position Sitting 02/03/19 21:29 Pulse Oximetry 94 L 02/05/19 15:50 Oxygen Delivery Method Room Air 02/05/19 15:50 Oxygen Flow Rate 0 02/05/19 15:50 Pain Level 0 02/05/19 15:50 Intake & Output 02/04/19 02/05/19 02/05/19 23:59 11:59 23:59 Intake Total 1328.083 / 3125.583 1140 / 2180 1040 / 2180 Output Total 700 / 2260 200 / 400 200 / 400 Balance 628.083 / 865.583 940 / 1780 840 / 1780 Weight 44.2 kg Intake: IV 848.083 / 5.583 160 / 360 200 / 360 Oral 480 / 1040 980 / 1820 840 / 1820 Output: Urine 700 / 2260 200 / 400 200 / 400 Other: Urine Color Yellow Yellow Yellow Urine Appearance Clear Clear Clear Urine Odor Normal Comment pt states that she voided in the toilet Stool Size Moderate Moderate Stool Characteristics Soft Liquid Formed Liquid Brown Voiding Methods Toilet Toilet Toilet Laboratory Results WBC 19.01 k/cumm (4.4-10.8) H D 02/05/19 07:17 RBC 3.46 m/cumm (4.00-5.20) L 02/05/19 07:17 Hgb 9.5 g/dL (12.0-15.5) L 02/05/19 07:17 Hct 29.0 % (36.0-46.0) L 02/05/19 07:17 MCV 83.8 fL (80-95) 02/05/19 07:17 MCH 27.5 pg (27.0-33.0) 02/05/19 07:17 MCHC 32.8 g/dL (32.0-36.0) 02/05/19 07:17 RDW 15.0 % (11.7-14.6) H 02/05/19 07:17 Plt Count 340 x1000/uL (130-400) 02/05/19 07:17 MPV 11.6 fL (8.0-11.0) H 02/05/19 07:17 Immature Gran % 0.6 02/05/19 07:17 Neutrophils % 92.5 02/05/19 07:17 Lymphocytes % 3.5 02/05/19 07:17 Monocytes % 3.3 02/05/19 07:17 Eosinophils % 0.0 02/05/19 07:17 Basophils % 0.1 02/05/19 07:17 Absolute Neutrophils 17.58 k/cumm (1.2-6.7) H 02/05/19 07:17 Absolute Lymphocytes 0.67 k/cumm (1.2-3.4) L 02/05/19 07:17 Absolute Monocytes 0.63 k/cumm (0.11-0.7) 02/05/19 07:17 Absolute Eosinophils 0.00 k/cumm (0.0-0.7) 02/05/19 07:17 Absolute Basophils 0.02 k/cumm (0.0-0.2) 02/05/19 07:17 Differential Comment Diff reviewed 02/03/19 21:58 RBC Morphology Normal 02/03/19 21:58 Sodium 140 mmol/L (136-145) 02/05/19 07:17 Potassium 3.0 mmol/L (3.5-5.1) L 02/05/19 07:17 Chloride 108 mmol/L (98-107) H 02/05/19 07:17 Carbon Dioxide 18.9 mmol/L (21.0-32.0) L 02/05/19 07:17 Anion Gap 13.1 mmol/L (3-11) H 02/05/19 07:17 BUN 15 mg/dL (7-18) D 02/05/19 07:17 Creatinine 0.53 mg/dL (0.55-1.02) L 02/05/19 07:17 Estimated GFR/1.73 m2 >= 60.00 (mL/min/1.73m2) 02/05/19 07:17 Glucose 169 mg/dL (70-100) H 02/05/19 07:17 Lactate 2.8 mmol/l (0.6-1.4) H 02/05/19 11:17 Calcium 8.8 mg/dL (8.5-10.1) 02/05/19 07:17 Magnesium 1.4 mg/dL (1.8-2.4) L 02/05/19 07:17 Total Bilirubin 0.3 mg/dL (0.2-1.0) 02/04/19 06:40 AST 9 U/L (15-37) L 02/04/19 06:40 ALT 18 U/L (12-78) 02/04/19 06:40 Alkaline Phosphatase 77 U/L (46-116) 02/04/19 06:40 Troponin I < 0.05 ng/mL (0.00-0.06) 02/03/19 21:58 NT-Pro-B Natriuret Pep 152 pg/mL (-299) 02/03/19 21:58 Total Protein 6.9 g/dL (6.4-8.2) 02/04/19 06:40 Albumin 2.9 g/dL (3.4-5.0) L 02/04/19 06:40 TSH 0.19 uIU/mL (0.358-3.74) L 02/04/19 06:40 Free T4 1.50 ng/dL (0.76-1.46) H 02/04/19 06:40 CXR: Improving aeration bilaterally, with mild patchy opacities remaining in the left midlung zone.
[2019-02-05] MEDS: predniSONE 20 MG TAB 60 MG PO (20:00)
[2019-02-05] MEDS: Magnesium Chloride 64 MG TABCR PO (20:00)
[2019-02-05] MEDS: Normal Saline 500 ML 30 ML IV (23:57)
[2019-02-06] VITALS (10 sets, daily range): BP systolic 115–134; BP diastolic 69–85; PULSE 81–113; RESP 2–95; TEMP 36.6–37.1; O2SAT 95–98
[2019-02-06] MEDS: Benzonatate 100 MG CAP PO ×2 (00:03→07:34)
[2019-02-06] MEDS: Albuterol/Ipratropium 3 ML UPD VIAL UPD ×3 (00:04→11:47)
[2019-02-06] MEDS: Heparin 5,000 UNITS/ML VIAL 5000 UNITS SC (06:43)
[2019-02-06] MEDS: Aspirin 81 MG CHEW PO (07:34)
[2019-02-06] MEDS: Magnesium Chloride 64 MG TABCR PO (07:34)
[2019-02-06] MEDS: Omeprazole 20 MG CAPCR 40 MG PO (07:34)
[2019-02-06] MEDS: predniSONE 20 MG TAB 60 MG PO (07:34)
[2019-02-06] MEDS: guaiFENesin 600 MG TABCR PO (07:34)
[2019-02-06] MEDS: Budesonide/Formoterol 160/4.5 6 GM 60 PUFF INH IH (07:39)
[2019-02-06 07:42] LABS: HCT 30.7 % (36.0-46.0); HGB 9.9 g/dL (12.0-15.5); Mean Corp. HGB Concentration 32.2 g/dL (32.0-36.0); Mean Corpuscular Hemoglobin 26.8 pg (27.0-33.0); Mean Corpuscular Volume 83.2 fL (80-95); Mean Platelet Volume 11.5 fL (8.0-11.0); Platelet Count 333 x1000/uL (130-400); RBC 3.69 m/cumm (4.00-5.20); White Blood Cell Count 13.91 k/cumm (4.4-10.8)
[2019-02-06 08:05] LABS: Absolute Lymphocyte Count 1.39 k/cumm (1.2-3.4); Absolute Monocyte Count 0.42 k/cumm (0.11-0.7); Atypical Lymphocytes % 2; Diff Comment Manual Differential
[2019-02-06 08:06] LABS: Anisocytosis 1+; Poikilocytes 2+; Polychromasia Present
[2019-02-06 08:07] LABS: BUN 17 mg/dL (7-18); CO2 20.9 mmol/L (21.0-32.0); CREATININE 0.71 mg/dL (0.55-1.02); Calcium 8.8 mg/dL (8.5-10.1); Glucose 124 mg/dL (70-100); Magnesium 1.9 mg/dL (1.8-2.4)
[2019-02-06 08:40] LABS: Anion Gap 14.1 mmol/L (3-11); Chloride 107 mmol/L (98-107); Potassium 3.3 mmol/L (3.5-5.1); Sodium 142 mmol/L (136-145)
[2019-02-06] MEDS: Potassium Chloride 20 MEQ TABCR 40 MEQ PO (10:48)
[2019-02-06] MEDS: DOXYCYCLINE 100 MG in Normal Saline 100 ML IVPB (11:24)
[2019-02-06] MEDS: Normal Saline Flush 10 ML SYR IVP (11:25)
[2019-02-06 11:38] LABS: Lactate-non-spesis 2.1 mmol/l (0.6-1.4)
--- NOTE | 2019-02-06 11:42 | PDOC.CMDIS ---
- If Service Date Differs Date of service: 02/06/19 Time of Service: 11:42 LACE Index Scoring Tool - Questions: Length of Stay (in days): 3 Acuity (Admit via E.D.?): Yes Comorbidities: Chronic Pulmonary Disease, Any Tumor E.D. Visits: 2 - Answers: Total Score: 13 Risk of Readmission: High Risk Care Management Discharge Reason for Hospitalization: COPD Exacerbation, Pneumonia, Electrolyte abnormality Discharge Plan: Zulema is being discharged home today she will have new medications including antibioitcs and oral steroids. She will follow up with her provider on 02/13/19 at 11:25. Zulema will be transported home by family at time of discharge. Patient/Family Education Needs: Discharge plan, limitations and follow up plan.
--- NOTE | 2019-02-06 12:04 | DSE_ITS ---
Date of service: 02/06/19 Time of Service: 12:01 DS: Diagnosis Discharge Diagnosis (1) COPD exacerbation: Status: Acute (2) CAP (community acquired pneumonia): Status: Acute (3) Hypokalemia: Status: Acute (4) Hypomagnesemia: Status: Acute (5) GERD (gastroesophageal reflux disease): Status: Chronic Discharge Plan Disposition Patient Disposition: HOME Condition: Good Discharge Details Reason For Visit: COPD EXACERBATION;PNEUMONIA;ELECTROLYTE ABNORMALIT Admit Date/Time: 02/03/19 23:17 Admit Provider: Sandeep Garland Attending Provider: Sandeep Garland Primary Care Provider: Nia Delcid [facility] Course Hospital Course: Ms Pierson is a 78 year old female with PMHx of COPD, GERD, tobacco abuse, GERD, admitted to [facility] on 02/03/19 for acute exacerbation of COPD due to L lingular pneumonia, having failed outpatient therapy with augmentin. In the hospital, she was initiated on IV rocephin, doxycycline, IV solumedrol, and nebs. With this therapy, we saw rapid improvement in symptoms. On 02/06/19, the patient is tolerating oral steroids, reporting improvement to the point of feeling ready to be discharged home. She does not require oxygen on ambulatory pulse ox testing. We do think that she would benefit from having a nebulizer at home, which we are prescribing on discharge. The patient has received 3 days of antibiotics in the hospital - we will discharge her home with 2 more days (ceftin, doxycycine) in addition to a steroid taper. The patient may take zyrtec during high allergen times to see if it helps her not get exacerbations of COPD. Labs are to be rechecked in 1 week. 45 minutes were spent on care of patient as well as completion of discharge paperwork on the day of discharge Home Meds and New Rx's Prescriptions: New ipratropium-albuterol 0.5 mg-3 mg(2.5 mg base)/3 mL Solution For Nebulization 3 ml UPD Q4H PRN PRN (Reason: shortness of breath or wheezing) Qty: 180 RF: 1 benzonatate 100 mg Capsule 100 mg PO Q8H PRN PRNQty: 0 RF: 0 Symbicort 160-4.5 mcg/actuation Hfa Aerosol Inhaler 2 puff Inhalation BID Qty: 6 RF: 0 prednisone 20 mg Tablet See Rx Instructions .ROUTE .COMPLEX Qty: 26 RF: 0 magnesium chloride [Mag 64] 64 mg Tablet,Delayed Release (Dr/Ec) 64 mg PO BID Qty: 20 RF: 0 guaifenesin [Mucinex] 600 mg Tablet Extended Release 12hr 600 mg PO BID Qty: 10 RF: 0 cefuroxime axetil 250 mg tablet 250 mg PO Q12H 2 Days Qty: 4 RF: 0 doxycycline hyclate 100 mg capsule 100 mg PO BID Qty: 5 RF: 0 Continued multivitamin [Daily Multiple] 1 EACH tablet 1 ea PO DAILY RF: 0 aspirin 81 MG tablet,chewable 81 mg PO DAILY RF: 0 calcium-vitamin D3-vitamin K 1 EACH tablet,chewable 1 ea PO DAILY RF: 0 omeprazole 40 MG capsule,delayed release(DR/EC) 40 mg PO DAILY@0730 Qty: 30 RF: 3 albuterol sulfate 90 mcg/actuation Hfa Aerosol Inhaler 2 puff INHALATION Q6H PRNRF: 0 Chantix Starting Month Box 0.5 mg (11)- 1 mg (42) Tablets,Dose Pack See Rx Instructions .ROUTE .COMPLEX RF: 0 Discontinued amoxicillin-pot clavulanate 1,000-62.5 mg tablet extended release 12 hr 2 tab PO BID 10 Days Qty: 40 RF: 0 Discharge Instructions Instructions: Cefuroxime (By mouth), Doxycycline (By mouth), Prednisone (By mouth), Budesonide/Formoterol (By breathing), How to Use a Nebulizer (DC) Additional Instructions: Finish your antibiotics and steroids as prescribed. Return to the hospital with any fever, bleeding, chest pain, or shortness of breath. Follow up with your PCP as scheduled. Continue to attempt to quit smoking. Bloodwork in 1 week. Stand Alone Forms: Nursing Discharge Form Referrals: Nia Delcid [Primary Care Provider] - 02/13/19 11:25 am Activity:: Activity as Tolerated Equipment/Supplies:: nebulizer Diet:: As Tolerated Discharge Orders Discharge Orders: Discharge Order (Routine); Ordered 02/06/19 Ordered By: Linda López Other Ambulatory Orders: Basic Metabolic Panel (Routine) Timeframe: 1 Week Location: Determined by Patient Ordered By: Linda López Magnesium (Routine) Timeframe: 1 Week Location: Determined by Patient Ordered By: Linda López Exam Narrative Exam Narrative: General: Very pleasant elderly female, A&Ox3, seen while ambulating in the hallway - looks much better HEENT: EOMI, MMM Heart: RRR, no m/r/g Lungs: quiet expiratory wheezing bilaterally. GI: abdomen is soft, nontender, nondistended Extremities: no e/c/c BLE's DS: Data Vitals/I&O Vitals and I&O: Vital Signs Temperature 36.7 C 02/06/19 07:31 Temperature Source Tympanic 02/06/19 07:31 Pulse 87 02/06/19 07:31 Pulse Rhythm Regular 02/06/19 07:26 Pulse 93 H 02/04/19 09:54 Respiratory Rate 17 02/06/19 07:31 Respiratory Effort Non-Labored 02/06/19 07:26 Respiratory Depth Normal 02/06/19 07:26 Respiratory Pattern Normal 02/06/19 07:26 Blood Pressure 115/74 02/06/19 07:31 Blood Pressure Mean 70 02/04/19 09:54 Blood Pressure Position Sitting 02/03/19 21:29 Pulse Oximetry 97 02/06/19 08:25 Oxygen Delivery Method Room Air 02/06/19 08:25 Oxygen Flow Rate 0 02/06/19 08:25 Pain Level 0 02/05/19 15:50 Intake & Output 02/05/19 02/06/19 02/06/19 23:59 11:59 23:59 Intake Total 1770 / 2910 1018.5 / 1018.5 Output Total 1200 / 1400 500 / 500 Balance 570 / 1510 518.5 / 518.5 Weight 44.2 kg Intake: IV 200 / 360 118.5 / 118.5 Oral 1570 / 2550 900 / 900 Output: Urine 1200 / 1400 500 / 500 Other: Urine Color Yellow Yellow Urine Appearance Clear Clear Urine Odor None Normal Comment pt gets up AD AHMET to void. Stool Size Moderate Small Stool Characteristics Liquid Voiding Methods Toilet Toilet Completed studies during hospitalization [Text1]: CXR 02/03/19: Mild interval improvement of lingular infiltrate. CXR 02/05/19: Continued improvement of lingular infiltrate. Labs on day of discharge: Labs from last 24 hours 02/06/19 02/06/19 02/06/19 11:16 07:28 07:28 WBC 13.91 H RBC 3.69 L Hgb 9.9 L Hct 30.7 L MCV 83.2 MCH 26.8 L MCHC 32.2 RDW 15.0 H Plt Count 333 MPV 11.5 H Immature Gran % 0.0 Neutrophils % 87.0 Lymphocytes % 8.0 Atypical Lymphs % 2 Monocytes % 3.0 Eosinophils % 0.0 Basophils % 0.0 Absolute Neutrophils 12.10 H Absolute Lymphocytes 1.39 Absolute Monocytes 0.42 Absolute Eosinophils 0.00 Absolute Basophils 0.00 Differential Comment Manual differential RBC Morphology See below Polychromasia Present Poikilocytosis 2+ Anisocytosis 1+ Sodium 142 Potassium 3.3 L Chloride 107 Carbon Dioxide 20.9 L Anion Gap 14.1 H BUN 17 Creatinine 0.71 Estimated GFR/1.73 m2 >= 60.00 Glucose 124 H Lactate 2.1 H Calcium 8.8 Magnesium 1.9 Preliminary micro results at discharge 02/04/19 15:30 Sputum Culture - Preliminary Sputum YEAST Normal Lauren [facility] Medical History COPD (chronic obstructive pulmonary disease) (Chronic) GERD (gastroesophageal reflux disease) (Chronic) Breast cancer (Resolved) Surgical History Status post THR (total hip replacement) (Chronic) S/P breast lumpectomy (Inactive) EGD - MAC (Inactive 02/05/17) Family History Mother Lung disease Social History Smoking/Tobacco Use Status: Current every day Tobacco Type: cigarettes Alcohol Intake: current Alcohol Intake frequency: holidays/special occasions only Drug use: Never Do you feel safe at home: Yes Do you feel safe in your relationship?: Yes
[2019-02-06] MEDS: cefTRIAXone 1 GM/50 ML BAG IVPB (12:49)
== END 2019-02-06 13:39 | disposition home or self-care (01) | DRG 190 ==
LOC: ER 23:40 → ICU 02-04 00:55 → MS 02-04 13:58 → ICU 02-08 10:44 → MS 02-08 10:44
PROVIDERS: Admitting Provider Family Medicine; Emergency Provider Emergency Medicine; PCP Family Medicine; Visit Provider Internal Medicine
DX: J44.0 Chronic obstructive pulmonary disease with (acute) lower respiratory infection (principal); J18.9 Pneumonia, unspecified organism; J44.1 Chronic obstructive pulmonary disease with (acute) exacerbation; E83.42 Hypomagnesemia; K21.9 Gastro-esophageal reflux disease without esophagitis; F17.210 Nicotine dependence, cigarettes, uncomplicated; R09.02 Hypoxemia; E87.6 Hypokalemia
CPT/HCPCS: 36415; 80048; 80053; 85027; 87077; 93005; 94618; 94640; 96365; 96367; 99223; 99232; 99239; 99285; 71046; 83605; 83735; 83880; 84439; 84443; 84484; 85025; 87070; 87205; 93010; J0696; J1644; J2930; J3475; J3480; J7512; J7613; J7620

== ENCOUNTER 2019-02-16 15:10 | Outpatient (REF) | payer OTHER, SELFPAY ==
[2019-02-16 20:53] LABS: HCT 33.5 % (36.0-46.0); HGB 11.1 g/dL (12.0-15.5); Mean Corp. HGB Concentration 33.1 g/dL (32.0-36.0); Mean Corpuscular Volume 87.5 fL (80-95); Mean Platelet Volume 11.8 fL (8.0-11.0); Platelet Count 225 x1000/uL (130-400); RBC 3.83 m/cumm (4.00-5.20); RBC Distribution Width 16.6 % (11.7-14.6); White Blood Cell Count 8.43 k/cumm (4.4-10.8)
[2019-02-16 21:26] LABS: Anion Gap 13.7 mmol/L (3-11); BUN 16 mg/dL (7-18); CO2 22.3 mmol/L (21.0-32.0); CREATININE 0.45 mg/dL (0.55-1.02); Calcium 9.2 mg/dL (8.5-10.1); Chloride 99 mmol/L (98-107); Glucose 95 mg/dL (70-100); NT-proBNP 60 pg/mL; Potassium 3.2 mmol/L (3.5-5.1); Sodium 135 mmol/L (136-145)
== END 2019-02-16 15:30 ==
LOC: NCHCN 15:10
PROVIDERS: PCP Nurse Practitioner Family; Visit Provider Nurse Practitioner Family
DX: J44.9 Chronic obstructive pulmonary disease, unspecified (principal); R06.89 Other abnormalities of breathing
CPT/HCPCS: 80048; 85027; 83880

== ENCOUNTER 2019-02-16 15:21 | Outpatient (CLI) | payer OTHER, SELFPAY ==
--- NOTE | 2019-02-16 15:05 | DI.RAD_ITS ---
SYMPTOM/DIAGNOSIS: COPD, J44.9 PA AND LATERAL CHEST: Comparison is made with 02/05/19. Heart size and pulmonary vasculature are within normal limits. The lungs are hyperinflated consistent with COPD. There has been continued improvement of the left infiltrate. No new infiltrates, effusions or pneumothoraces are identified. There is a thoracolumbar scoliosis present. Age appropriate degenerative changes are seen in the spine. There are surgical clips in the left axilla. IMPRESSION: Near complete resolution of the left lingular infiltrate since 02/05/19.
== END 2019-02-16 15:41 ==
PROVIDERS: PCP Nurse Practitioner Family; Visit Provider Nurse Practitioner Family
DX: R91.8 Other nonspecific abnormal finding of lung field (principal); J44.9 Chronic obstructive pulmonary disease, unspecified
CPT/HCPCS: 71046

== ENCOUNTER 2019-02-28 13:06 | Emergency (ER) | payer OTHER, SELFPAY ==
[2019-02-28 13:11] VITALS: BP 120/65; PULSE 81; RESP 18; TEMP 36.7; O2SAT 96
--- NOTE | 2019-02-28 13:50 | DI.CT_ITS ---
SYMPTOMS/DIAGNOSIS: UPPER ABDOMINAL PAIN, NAUSEA, VOMITING, ? CHOLELITHIASIS/APPENDICITIS/SMALL BOWEL OBSTRUCTION CT SCAN OF THE ABDOMEN AND PELVIS: CT scan examination was performed following the uneventful administration of intravenous contrast material. Emphysematous changes are seen in the lung bases. There is an infiltrate seen in the right lung base. This may represent atelectasis, scarring or pneumonia. The liver is normal in size. There is focal fatty infiltration seen at the ligamentum teres. No suspicious hepatic masses seen. The portal, superior mesenteric and splenic vein are patent. The gallbladder is negative. There is no biliary ductal dilatation. The pancreas is unremarkable, as are the spleen and adrenal glands. The kidneys show normal and symmetric enhancement. No evidence of obstruction is seen. The urinary bladder is intact. There are calcifications seen in the uterus consistent with calcified fibroids. The abdominal aorta is of normal caliber. no evidence of abdominal or pelvic adenopathy, ascites or pneumoperitoneum. The bowel shows no evidence of obstruction or inflammation. No evidence of an acute appendicitis is present. There is a moderate-sized hiatal hernia. There is apparent thickening of the wall of the proximal stomach. This may be due to underdistention, but gastritis cannot be excluded. The patient has orthopedic hardware in the hips bilaterally. This does obscure the pelvic structures. Degenerative changes are seen in the spine. The bones are osteopenic. Multilevel central spinal canal neural foraminal stenosis is seen in the spine. There is a right convex scoliotic curvature of the thoracolumbar spine. IMPRESSION: Gastric wall thickening. This may be due to underdistention versus an infectious or inflammatory process. Otherwise, no evidence of an acute abdomen. The findings were discussed with the Emergency Department on the date of the examination.
--- NOTE | 2019-02-28 13:52 | W.ED.GENAD ---
Discharge Plan Disposition Patient Disposition: HOME Condition: Improving Discharge Details Chief Complaint: Abd Prob Clinical Impression: Abdominal pain, Nausea & vomiting Primary Care Provider: Nia Delcid ED Provider: Estrella Greenfield Home Meds and New Rx's Prescriptions: New ondansetron HCl [Zofran] 4 mg tablet 4 mg PO Q6H PRN (Reason: nausea and vomiting) Qty: 7 RF: 0 famotidine [Pepcid] 20 mg tablet 20 mg PO DAILY Qty: 14 RF: 0 Continued multivitamin [Daily Multiple] 1 EACH tablet 1 ea PO DAILY RF: 0 aspirin 81 MG tablet,chewable 81 mg PO DAILY RF: 0 calcium-vitamin D3-vitamin K 1 EACH tablet,chewable 1 ea PO DAILY RF: 0 omeprazole 40 MG capsule,delayed release(DR/EC) 40 mg PO DAILY@0730 Qty: 30 RF: 3 albuterol sulfate 90 mcg/actuation Hfa Aerosol Inhaler 2 puff INHALATION Q6H PRNRF: 0 Chantix Starting Month Box 0.5 mg (11)- 1 mg (42) Tablets,Dose Pack See Rx Instructions .ROUTE .COMPLEX RF: 0 ipratropium-albuterol 0.5 mg-3 mg(2.5 mg base)/3 mL Solution For Nebulization 3 ml UPD Q4H PRN PRN (Reason: shortness of breath or wheezing) Qty: 180 RF: 1 benzonatate 100 mg Capsule 100 mg PO Q8H PRN PRNQty: 0 RF: 0 Symbicort 160-4.5 mcg/actuation Hfa Aerosol Inhaler 2 puff Inhalation BID Qty: 6 RF: 0 guaifenesin [Mucinex] 600 mg Tablet Extended Release 12hr 600 mg PO BID Qty: 10 RF: 0 Discharge Instructions Instructions: Acute Nausea and Vomiting (ED), Abdominal Pain (ED) Additional Instructions: Take the Zofran as needed directed for any nausea or vomiting. Take the Pepcid daily for the next 2 weeks. Follow-up with your primary care doctor in 2 days for reevaluation and for referral to surgery if your symptoms do not improve or worsen for further evaluation or possible endoscopy. Return immediately to the emergency department if you develop any worsening or new concerning symptoms. Referrals: Iman Villaseñor MD [ [facility] STAFF PHYSICIAN] - Discharge Data Discharge Date/Time-TO BE ENTERED AT DEPARTURE: 02/28/19 18:50 Discharge Physician: Estrella Greenfield Medical Decision Making 78-year-old female with a history of GERD, breast cancer and COPD who presents with epigastric abdominal pain and vomiting 2 times for the past week. She was admitted last month for pneumonia and finished antibiotics 2 weeks ago. Vitals within normal limits. She appears nontoxic. She denies any chest pain or shortness of breath and history presentation not consistent with ACS. Considering patient's age and history, will do a cardiac work-up in addition to screening labs and CT abdomen and pelvis. Labs reviewed and note a normal white blood cell count. Potassium 3, repleted. Magnesium 1.6, repleted. Troponin negative. Lipase within normal limits. UA notes 3-5 WBCs, trace leukocyte esterase, negative nitrite. Urine culture sent. Patient has no fever and normal white blood cell count so we will hold on antibiotics at this time EKG notes a rate of 74, sinus with no acute ST elevation or depression. Chest x-ray unremarkable. CT notes findings consistent with gastritis but no other acute abdominal process. Patient was able to drink fluids and eat crackers and feels much better and is requesting to go home. She is instructed to follow-up with primary care doctor and for referral to surgery if her symptoms not improve or worsen for possible endoscopy for evaluation for possible peptic ulcer disease, gastritis, esophagitis or GERD. Patient advised to return here at any time if worse. Medical Records Medical records reviewed: Yes I reviewed the patient's medical records. Imaging Data Radiologic Study: Radiologist's impression: CT SCAN OF THE ABDOMEN AND PELVIS: CT scan examination was performed following the uneventful administration of intravenous contrast material. Emphysematous changes are seen in the lung bases. There is an infiltrate seen in the right lung base. This may represent atelectasis, scarring or pneumonia. The liver is normal in size. There is focal fatty infiltration seen at the ligamentum teres. No suspicious hepatic masses seen. The portal, superior mesenteric and splenic vein are patent. The gallbladder is negative. There is no biliary ductal dilatation. The pancreas is unremarkable, as are the spleen and adrenal glands. The kidneys show normal and symmetric enhancement. No evidence of obstruction is seen. The urinary bladder is intact. There are calcifications seen in the uterus consistent with calcified fibroids. The abdominal aorta is of normal caliber. no evidence of abdominal or pelvic adenopathy, ascites or pneumoperitoneum. The bowel shows no evidence of obstruction or inflammation. No evidence of an acute appendicitis is present. There is a moderate-sized hiatal hernia. There is apparent thickening of the wall of the proximal stomach. This may be due to underdistention, but gastritis cannot be excluded. The patient has orthopedic hardware in the hips bilaterally. This does obscure the pelvic structures. Degenerative changes are seen in the spine. The bones are osteopenic. Multilevel central spinal canal neural foraminal stenosis is seen in the spine. There is a right convex scoliotic curvature of the thoracolumbar spine. IMPRESSION: Gastric wall thickening. This may be due to underdistention versus an infectious or inflammatory process. Otherwise, no evidence of an acute abdomen. Lab Data Lab results reviewed: Yes I reviewed the patient's lab results. 02/28/19 15:27 Urine - Reflex from Ua Urine Culture - Pending Laboratory Tests Range/Units 02/28/19 02/28/19 02/28/19 13:35 13:35 13:35 WBC (4.4-10.8) k/cumm 5.13 RBC (4.00-5.20) m/cumm 4.11 Hgb (12.0-15.5) g/dL 11.5 L Hct (36.0-46.0) % 34.9 L MCV (80-95) fL 84.9 MCH (27.0-33.0) pg 28.0 MCHC (32.0-36.0) g/dL 33.0 RDW (11.7-14.6) % 16.8 H Plt Count (130-400) x1000/uL 280 MPV (8.0-11.0) fL 11.0 Immature Gran % 0.2 Neutrophils % 71.7 Lymphocytes % 14.0 Monocytes % 12.1 Eosinophils % 1.8 Basophils % 0.2 Absolute Neutrophils (1.2-6.7) k/cumm 3.68 Absolute Lymphocytes (1.2-3.4) k/cumm 0.72 L Absolute Monocytes (0.11-0.7) k/cumm 0.62 Absolute Eosinophils (0.0-0.7) k/cumm 0.09 Absolute Basophils (0.0-0.2) k/cumm 0.01 Sodium (136-145) mmol/L 133 L Potassium (3.5-5.1) mmol/L 3.0 L Chloride (98-107) mmol/L 96 L Carbon Dioxide (21.0-32.0) mmol/L 25.1 Anion Gap (3-11) mmol/L 11.9 H BUN (7-18) mg/dL 10 Creatinine (0.55-1.02) mg/dL 0.49 L Estimated GFR/1.73 m2 (mL/min/1.73m2) >= 60.00 Glucose (70-100) mg/dL 100 Calcium (8.5-10.1) mg/dL 10.1 Magnesium (1.8-2.4) mg/dL 1.6 L Total Bilirubin (0.2-1.0) mg/dL 0.4 AST (15-37) U/L 9 L ALT (12-78) U/L 19 Alkaline Phosphatase (46-116) U/L 79 Troponin I (0.00-0.06) ng/mL < 0.05 Total Protein (6.4-8.2) g/dL 7.5 Albumin (3.4-5.0) g/dL 3.4 Lipase (73-393) U/L 149 Urine Color (Yellow) Urine Clarity (Clear) Urine pH (5-8) Ur Specific [place] (1.005-1.025) Urine Protein (Negative) mg/dL Urine Ketones (Negative) mg/dL Urine Blood (Negative) Urine Nitrite (Negative) Urine Bilirubin (Negative) Urine Urobilinogen (Up TO 0.2) EU/dL Ur Leukocyte Esterase (Negative) Urine RBC (0-2) Urine WBC (0-5) HPF Ur Epithelial Cells (Negative) HPF Urine Crystals (Negative) HPF Urine Bacteria (Negative) HPF Urine Casts (Negative) LPF Urine Mucus (Negative) Urine Other (Negative) Ur Culture Indicated? Urine Glucose (Negative) mg/dL Range/Units 02/28/19 15:27 WBC (4.4-10.8) k/cumm RBC (4.00-5.20) m/cumm Hgb (12.0-15.5) g/dL Hct (36.0-46.0) % MCV (80-95) fL MCH (27.0-33.0) pg MCHC (32.0-36.0) g/dL RDW (11.7-14.6) % Plt Count (130-400) x1000/uL MPV (8.0-11.0) fL Immature Gran % Neutrophils % Lymphocytes % Monocytes % Eosinophils % Basophils % Absolute Neutrophils (1.2-6.7) k/cumm Absolute Lymphocytes (1.2-3.4) k/cumm Absolute Monocytes (0.11-0.7) k/cumm Absolute Eosinophils (0.0-0.7) k/cumm Absolute Basophils (0.0-0.2) k/cumm Sodium (136-145) mmol/L Potassium (3.5-5.1) mmol/L Chloride (98-107) mmol/L Carbon Dioxide (21.0-32.0) mmol/L Anion Gap (3-11) mmol/L BUN (7-18) mg/dL Creatinine (0.55-1.02) mg/dL Estimated GFR/1.73 m2 (mL/min/1.73m2) Glucose (70-100) mg/dL Calcium (8.5-10.1) mg/dL Magnesium (1.8-2.4) mg/dL Total Bilirubin (0.2-1.0) mg/dL AST (15-37) U/L ALT (12-78) U/L Alkaline Phosphatase (46-116) U/L Troponin I (0.00-0.06) ng/mL Total Protein (6.4-8.2) g/dL Albumin (3.4-5.0) g/dL Lipase (73-393) U/L Urine Color (Yellow) Yellow Urine Clarity (Clear) Cloudy Urine pH (5-8) 8.5 H Ur Specific [place] (1.005-1.025) 1.015 Urine Protein (Negative) mg/dL Negative Urine Ketones (Negative) mg/dL 15 H Urine Blood (Negative) Negative Urine Nitrite (Negative) Negative Urine Bilirubin (Negative) Negative Urine Urobilinogen (Up TO 0.2) EU/dL 0.2 Ur Leukocyte Esterase (Negative) Trace H Urine RBC (0-2) 0-2 Urine WBC (0-5) HPF 3-5 Ur Epithelial Cells (Negative) HPF Rare Urine Crystals (Negative) HPF Many amorphous Urine Bacteria (Negative) HPF Few Urine Casts (Negative) LPF 10-20 coarsegranular Urine Mucus (Negative) Negative Urine Other (Negative) Ur Culture Indicated? Yes Urine Glucose (Negative) mg/dL Negative ECG Data Attestation: I personally reviewed and interpreted this ECG (s) as follows: Interpretation: Rate of 74, sinus, T wave inversion in V2 which is new from previous, T wave inversion in aVL which is seen in previous EKG. No acute ST elevation or depression. QTc 406. QRS 77. HPI General Mode of arrival: ambulatory. Date/Time Provider Initiated Documentation: 02/28/19 13:13. Limitations to Documentation: no limitations. Information obtained by: patient. HPI Narrative: Patient is a 78-year-old female with a history of GERD, breast cancer and COPD who presents to the ED with complaint of abdominal pain for the past 4 days and nausea and vomiting 2 times over the past week. She states the abdominal pain has been constant and crampy worse in the upper abdomen. She states the pain is worse when she is supine and better with nothing. She has not taken any medication for symptoms. She admits to decreased appetite. She states the vomitus was bile in consistency. She denies any diarrhea and states she was more constipated over the past few days for which she is mag citrate 2 times in the past week which cleaned her out. She denies fever, chest pain, shortness of breath or urinary symptoms. Of note, patient was admitted here 1 month ago for pneumonia and was on a regimen of antibiotics which she states had caused diarrhea for several days. She states she finished the antibiotics 2 weeks ago. Related Data Home Medications Medication Instructions Recorded Confirmed aspirin 81 mg PO DAILY tab-cap 01/27/17 02/28/19 calcium-vitamin D3-vitamin K 1 ea PO DAILY tab.chew 01/27/17 02/28/19 multivitamin [Daily Multiple] 1 ea PO DAILY 01/27/17 02/28/19 omeprazole 40 mg PO DAILY@0730 #30 capcr 02/05/17 02/28/19 Chantix Starting Month Box See Rx Instructions .ROUTE .COMPLEX 02/03/19 02/28/19 albuterol sulfate 2 puff INHALATION Q6H PRN 02/03/19 02/28/19 Symbicort 2 puff INHALATION BID #6 gm 02/06/19 02/28/19 benzonatate 100 mg PO Q8H PRN PRN #0 cap 02/06/19 02/28/19 guaifenesin [Mucinex] 600 mg PO BID #10 tab 02/06/19 02/28/19 ipratropium-albuterol 3 ml UPD Q4H PRN PRN #180 ml 02/06/19 02/28/19 famotidine [Pepcid] 20 mg PO DAILY #14 tab 02/28/19 ondansetron HCl [Zofran] 4 mg PO Q6H PRN #7 tab 02/28/19 Previous Rx's Medication Instructions Recorded omeprazole 40 mg PO DAILY@729 #30 capcr 02/05/17 Symbicort 2 puff INHALATION BID #6 gm 02/06/19 benzonatate 100 mg PO Q8H PRN PRN #0 cap 02/06/19 guaifenesin [Mucinex] 600 mg PO BID #10 tab 02/06/19 ipratropium-albuterol 3 ml UPD Q4H PRN PRN #180 ml 02/06/19 famotidine [Pepcid] 20 mg PO DAILY #14 tab 02/28/19 ondansetron HCl [Zofran] 4 mg PO Q6H PRN #7 tab 02/28/19 Allergies Allergy/AdvReac Type Severity Reaction Status Date / Time No Known Allergies Allergy Unverified 02/28/19 13:18 General Stated Complaint: Abd Prob YADY: 3 Review of Systems Review of Systems All systems reviewed & are unremarkable except as noted in HPI and below Constitutional Reports as per HPI, Denies chills and Denies fever(s) Eyes Denies blurry vision ENT Denies dizziness, Denies sore throat and Denies throat swelling Cardiovascular Denies chest pain and Denies dyspnea Respiratory Denies cough and Denies dyspnea Gastrointestinal Denies abdominal pain, Denies diarrhea and Denies vomiting Genitourinary Reports hematuria and Denies dysuria Musculoskeletal Denies back pain and Denies numbness Integumentary/Breasts Denies lesions and Denies rash Neurologic Denies dizziness, Denies focal weakness and Denies numbness Allergic/Immunologic Denies throat swelling PFSH Medical History Breast cancer (Resolved) COPD (chronic obstructive pulmonary disease) (Chronic) GERD (gastroesophageal reflux disease) (Chronic) Surgical History EGD - MAC (Inactive 02/05/17) S/P breast lumpectomy (Inactive) Status post THR (total hip replacement) (Chronic) Family History Mother Lung disease Social History Smoking/Tobacco Use Status: Current every day Tobacco Type: cigarettes Alcohol Intake: current Alcohol Intake frequency: holidays/special occasions only Drug use: Never Do you feel safe at home: Yes Do you feel safe in your relationship?: Yes Exam Const General: cooperative, healthy appearing and no acute distress HENMT Head: normal to inspection Face and sinus: normal facial exam Eyes General: appearance normal, both eyes and all related structures EOM: EOM intact bilaterally Neck Neck: normal visual inspection and No submandibular swelling Lymphatic: no lymphadenopathy noted Chest Chest: normal inspection of the chest and no tenderness Resp Effort & Inspection: normal respiratory effort and able to speak in complete sentences Auscultation: clear to auscultation bilaterally Cardio Rate: regular rate Rhythm: regular rhythm GI Inspection: normal to inspection Palpation: soft, not firm, not rigid and tender in the epigastrum, in the LUQ and in the RUQ Auscultation: normal bowel sounds Skin General skin exam: no rashes or lesions noted Neuro General: alert, awake and oriented x3 Cognition: normal cognition Speech: speech normal Motor: muscle tone normal throughout Sensory Exam: no sensory deficits noted Extrem General: normal to inspection, full ROM, normal capillary refill, no calf tenderness bilaterally and no edema Psych Appearance: grossly normal Mental Status: mental status grossly normal Speech and Movement: speech and movement normal Affect: normal affect Course Vital Signs Temperature 98.1 F 02/28/19 13:11 Pulse 81 02/28/19 13:11 Respiratory Rate 18 02/28/19 13:11 Blood Pressure 120/65 02/28/19 13:11 Pulse Oximetry 96 02/28/19 13:11 Temperature 98.1 F 02/28/19 13:11 Temperature Source Oral 02/28/19 13:11 Pulse 81 02/28/19 13:11 Respiratory Rate 18 02/28/19 13:11 Respiratory Effort Non-Labored 02/28/19 13:17 Blood Pressure 120/65 02/28/19 13:11 Blood Pressure Position Sitting 02/28/19 13:11 Pulse Oximetry 96 02/28/19 13:11 Oxygen Delivery Method Room Air 02/28/19 13:11 Oxygen Flow Rate 0 02/28/19 13:11 Pain Level 10 02/28/19 13:11
[2019-02-28] MEDS: Normal Saline 250 ML IV (14:00)
--- NOTE | 2019-02-28 14:00 | DI.RAD_ITS ---
SYMPTOMS/DIAGNOSIS: EPIGASTRIC PAIN, RECENT PNEUMONIA, ? ACUTE DISEASE CHEST X-RAY, FRONTAL AND LATERAL VIEWS: Comparison is 02/16/19. The heart size and pulmonary vasculature are stable and within normal limits. The lungs are clear. No effusions or pneumothoraces are identified. The lungs are hyperinflated consistent with underlying COPD. Age- appropriate degenerative changes are seen in the spine. Surgical clips are seen in the left axilla. IMPRESSION: No acute pulmonary process.
[2019-02-28 14:09] LABS: Abs Immature Grans 0.01 k/cumm (0.0-0.09); Absolute Basophil Count 0.01 k/cumm (0.0-0.2); Absolute Eosinophil Count 0.09 k/cumm (0.0-0.7); Absolute Lymphocyte Count 0.72 k/cumm (1.2-3.4); Absolute Monocyte Count 0.62 k/cumm (0.11-0.7); Absolute Neutrophil Count 3.68 k/cumm (1.2-6.7); Basophils % 0.2; Eosinophils % 1.8; HCT 34.9 % (36.0-46.0); HGB 11.5 g/dL (12.0-15.5); Immature Grans % 0.2; Mean Corpuscular Volume 84.9 fL (80-95); Monocytes % 12.1; Neutrophils % 71.7; Platelet Count 280 x1000/uL (130-400); RBC 4.11 m/cumm (4.00-5.20); RBC Distribution Width 16.8 % (11.7-14.6); White Blood Cell Count 5.13 k/cumm (4.4-10.8)
[2019-02-28] MEDS: Ondansetron 4 MG/2 ML VIAL IVP (14:24)
[2019-02-28 14:28] LABS: ALT 19 U/L (12-78); AST 9 U/L (15-37); Albumin 3.4 g/dL (3.4-5.0); Alkaline Phosphatase 79 U/L (46-116); Anion Gap 11.9 mmol/L (3-11); BUN 10 mg/dL (7-18); Bilirubin, Total 0.4 mg/dL (0.2-1.0); CO2 25.1 mmol/L (21.0-32.0); CREATININE 0.49 mg/dL (0.55-1.02); Calcium 10.1 mg/dL (8.5-10.1); Chloride 96 mmol/L (98-107); Glucose 100 mg/dL (70-100); Sodium 133 mmol/L (136-145); Total Protein 7.5 g/dL (6.4-8.2)
[2019-02-28 14:32] LABS: Lipase 149 U/L (73-393); Magnesium 1.6 mg/dL (1.8-2.4)
[2019-02-28 14:34] LABS: Troponin I < 0.05 ng/mL (0.00-0.06)
[2019-02-28] MEDS: Omnipaque 350 MG/ML 100 ML BTL IJ (15:00)
[2019-02-28 15:33] LABS: Bilirubin Negative (Negative); Blood Negative (Negative); Clarity Cloudy (Clear); Glucose Negative (Negative); Ketones 15 mg/dL (Negative); Leukocyte Esterase Trace (Negative); Nitrite Negative (Negative); Specific Gravity 1.015 (1.005-1.025); Urobilinogen 0.2 EU/dL (Up TO 0.2); pH 8.5 (5-8)
[2019-02-28] MEDS: Potassium Chloride 20 MEQ TABCR 40 MEQ PO (15:39)
[2019-02-28] MEDS: FAMOTIDINE 20 MG/50 ML BAG 200 MG IVPB (15:39)
[2019-02-28 15:45] LABS: Bacteria Few HPF (Negative); Epithelial Cells Rare HPF (Negative); RBC 0-2 (0-2)
[2019-02-28 15:46] LABS: C & S Indicated? Yes; Crystals Many Amorphous HPF (Negative); Mucus Negative (Negative)
--- NOTE | 2019-02-28 15:51 | NUR.NOTE ---
pt medicated as per mdo tolorating po intake Nursing Note:
[2019-02-28] MEDS: MAGNESIUM SULFATE 1 GM/100 ML BAG IVPB (16:01)
--- NOTE | 2019-02-28 16:44 | NUR.NOTE ---
pt tolorating po intake well ivf infusing Nursing Note:
[2019-02-28 18:45] VITALS: BP 136/84; PULSE 77; RESP 16; O2SAT 97
== END 2019-02-28 18:50 | disposition home or self-care (01) ==
PROVIDERS: Emergency Provider Physician Assistant; PCP Family Medicine
DX: R10.13 Epigastric pain (principal); R11.2 Nausea with vomiting, unspecified; J44.9 Chronic obstructive pulmonary disease, unspecified; F17.210 Nicotine dependence, cigarettes, uncomplicated
CPT/HCPCS: 36415; 80053; 83690; 93005; 96361; 96365; 96375; 99285; 71046; 74177; 81003; 81015; 83735; 84484; 85025; 87086; 93010; J2405; J3475; J3490

== ENCOUNTER 2019-03-06 16:59 | Emergency (ER) | payer OTHER, SELFPAY ==
[2019-03-06 17:11] VITALS: BP 126/71; PULSE 80; RESP 16; TEMP 36.6; O2SAT 98
--- NOTE | 2019-03-06 17:31 | ED.GENADUL_ITS ---
Discharge Plan Disposition Patient Disposition: HOME Condition: Stable Discharge Details Chief Complaint: Abd Prob Clinical Impression: Constipation Primary Care Provider: Nia Delcid ED Provider: Gordy Patrick Home Meds and New Rx's Prescriptions: [place] Bisacodyl 10 mg/30 mL enema 10 mg UT DAILY PRN (Reason: constipation) Qty: 888 RF: 0 No Action multivitamin [Daily Multiple] 1 EACH tablet 1 ea PO DAILY RF: 0 aspirin 81 MG tablet,chewable 81 mg PO DAILY RF: 0 calcium-vitamin D3-vitamin K 1 EACH tablet,chewable 1 ea PO DAILY RF: 0 ondansetron HCl [Zofran] 4 mg tablet 4 mg PO Q6H PRN (Reason: nausea and vomiting) Qty: 7 RF: 0 famotidine [Pepcid] 20 mg tablet 20 mg PO DAILY Qty: 14 RF: 0 omeprazole 40 MG capsule,delayed release(DR/EC) 40 mg PO DAILY@0730 Qty: 30 RF: 3 albuterol sulfate 90 mcg/actuation Hfa Aerosol Inhaler 2 puff INHALATION Q6H PRNRF: 0 Chantix Starting Month Box 0.5 mg (11)- 1 mg (42) Tablets,Dose Pack See Rx Instructions .ROUTE .COMPLEX RF: 0 ipratropium-albuterol 0.5 mg-3 mg(2.5 mg base)/3 mL Solution For Nebulization 3 ml UPD Q4H PRN PRN (Reason: shortness of breath or wheezing) Qty: 180 RF: 1 benzonatate 100 mg Capsule 100 mg PO Q8H PRN PRNQty: 0 RF: 0 Symbicort 160-4.5 mcg/actuation Hfa Aerosol Inhaler 2 puff Inhalation BID Qty: 6 RF: 0 guaifenesin [Mucinex] 600 mg Tablet Extended Release 12hr 600 mg PO BID Qty: 10 RF: 0 Discharge Instructions Instructions: Constipation (ED) Additional Instructions: if symptoms continue follow up with your primary care provider if you have severe abdominal pain or persistent vomit or feel more ill return to the emergency department for reevaluation Medical Decision Making 78 yo female comes in with complaints of not having a bowel movement for 9 days. She was seen earlier this month for abdominal pain with negative labs and ct showing possible gastritis otherwise unremarkable. She states her pain is gone and has not had any vomit, just hasn't had a bm. She is in no distress on exam, no distention or tenderness on abdominal exam so doubt sbo, appendicitis or other surgical pathology. I suspect constipation and she has had decreased appetitie so is likely notmaking as much stool as before. Will have nursing try enema and reassess. pt had a BM and feels better, still no abdominal pain. Given her exam I doubt sbo but still offered to do labs and imaging but she declined this at this time. Will d/c and advised f/u with pcp and return precautions given Differential Diagnosis constipation, sbo, ileus HPI General Mode of arrival: ambulatory . Date/Time Provider Initiated Documentation: 03/06/19 17:17 . Limitations to Documentation: no limitations . Information obtained by: patient . History of Present Illness 78 year old F presents to the emergency department with the chief complaint of not able to have bowel movement, and it has been constant. No relieving factors improve symptom(s), No exacerbating factors reported . Related Data Home Medications Medication Instructions Recorded Confirmed aspirin 81 mg PO DAILY tab-cap 01/27/17 02/28/19 calcium-vitamin D3-vitamin K 1 ea PO DAILY tab.chew 01/27/17 02/28/19 multivitamin [Daily Multiple] 1 ea PO DAILY 01/27/17 02/28/19 omeprazole 40 mg PO DAILY@0730 #30 capcr 02/05/17 02/28/19 Chantix Starting Month Box See Rx Instructions .ROUTE .COMPLEX 02/03/19 02/28/19 albuterol sulfate 2 puff INHALATION Q6H PRN 02/03/19 02/28/19 Symbicort 2 puff INHALATION BID #6 gm 02/06/19 02/28/19 benzonatate 100 mg PO Q8H PRN PRN #0 cap 02/06/19 02/28/19 guaifenesin [Mucinex] 600 mg PO BID #10 tab 02/06/19 02/28/19 ipratropium-albuterol 3 ml UPD Q4H PRN PRN #180 ml 02/06/19 02/28/19 famotidine [Pepcid] 20 mg PO DAILY #14 tab 02/28/19 ondansetron HCl [Zofran] 4 mg PO Q6H PRN #7 tab 02/28/19 bisacodyl [Fleet Bisacodyl] 10 mg UT DAILY PRN #888 ml 03/06/19 Previous Rx's Medication Instructions Recorded omeprazole 40 mg PO DAILY@0730 #30 capcr 02/05/17 Symbicort 2 puff INHALATION BID #6 gm 02/06/19 benzonatate 100 mg PO Q8H PRN PRN #0 cap 02/06/19 guaifenesin [Mucinex] 600 mg PO BID #10 tab 02/06/19 ipratropium-albuterol 3 ml UPD Q4H PRN PRN #180 ml 02/06/19 famotidine [Pepcid] 20 mg PO DAILY #14 tab 02/28/19 ondansetron HCl [Zofran] 4 mg PO Q6H PRN #7 tab 02/28/19 bisacodyl [Fleet Bisacodyl] 10 mg UT DAILY PRN #888 ml 03/06/19 Allergies Allergy/AdvReac Type Severity Reaction Status Date / Time No Known Allergies Allergy Unverified 02/28/19 13:18 General Stated Complaint: Abd Prob YADY: 3 Review of Systems Review of Systems All systems reviewed & are unremarkable except as noted in HPI and below Constitutional Denies chills, Denies fever(s) and Denies weakness Cardiovascular Denies chest pain and Denies dyspnea Respiratory Denies cough and Denies dyspnea Gastrointestinal Denies abdominal pain, Denies nausea and Denies vomiting Integumentary/Breasts Denies rash Neurologic Denies weakness [facility] Social History Smoking/Tobacco Use Status: Current every day Tobacco Type: cigarettes Alcohol Intake: current Alcohol Intake frequency: holidays/special occasions only Drug use: Never Do you feel safe at home: Yes Do you feel safe in your relationship?: Yes Exam Const General: no acute distress Orientation: alert HENMT Head: normal to inspection Ears: external ears normal General nose exam: external nose normal Mouth: moist mucous membranes Eyes General: appearance normal, both eyes and all related structures Neck Neck: normal visual inspection Resp Effort & Inspection: normal respiratory effort and able to speak in complete sentences Cardio Rate: regular rate GI Palpation: soft Skin General skin exam: no rashes or lesions noted Neuro General: alert and oriented x3 Extrem General: normal to inspection Psych Mental Status: mental status grossly normal Course Vital Signs Temperature 36.6 C 03/06/19 17:11 Pulse 80 03/06/19 17:11 Respiratory Rate 16 03/06/19 17:11 Blood Pressure 126/71 03/06/19 17:11 Pulse Oximetry 98 03/06/19 17:11 Temperature 36.6 C 03/06/19 17:11 Temperature Source Skin 03/06/19 17:11 Pulse 80 03/06/19 17:11 Respiratory Rate 16 03/06/19 17:11 Blood Pressure 126/71 03/06/19 17:11 Blood Pressure Position Sitting 03/06/19 17:11 Pulse Oximetry 98 03/06/19 17:11 Oxygen Delivery Method Room Air 03/06/19 17:11 Oxygen Flow Rate 0 03/06/19 17:11 Pain Level 1 03/06/19 17:11
--- NOTE | 2019-03-06 18:29 | NUR.NOTE ---
Nursing Note: pt has one small brown BM, pt states that she feels, much better.
[2019-03-06 19:08] VITALS: BP 97/69; PULSE 86; RESP 16; O2SAT 97
== END 2019-03-06 19:10 | disposition home or self-care (01) ==
PROVIDERS: Emergency Provider Emergency Medicine; PCP Family Medicine
DX: K59.00 Constipation, unspecified (principal)
CPT/HCPCS: 99282

== ENCOUNTER 2019-03-13 16:26 | Outpatient (REF) | payer OTHER, SELFPAY | END 2019-03-13 16:46 | LOC: NCHCN 16:26 | PROVIDERS: PCP Family Medicine; Visit Provider Family Medicine | DX: R30.0 Dysuria (principal) | CPT/HCPCS: 87077; 87086; 87186 ==

== ENCOUNTER → 2019-04-06 10:11 | Outpatient (BNVA) | payer OTHER, SELFPAY | PROVIDERS: PCP Family Medicine; Referring Provider Family Medicine; Visit Provider Physical Therapy Assistant | DX: R13.10 Dysphagia, unspecified (principal); J44.9 Chronic obstructive pulmonary disease, unspecified; Z87.891 Personal history of nicotine dependence | CPT/HCPCS: 99213 ==

== ENCOUNTER 2019-04-14 09:56 | Day surgery (SDC) | payer OTHER, SELFPAY ==
[2019-04-14 10:20] VITALS: BP 156/91; PULSE 98; RESP 18; TEMP 35.9; O2SAT 96
[2019-04-14] MEDS: Lactated Ringers 1,000 ML 80 ML IV (10:27)
--- NOTE | 2019-04-14 10:43 | W.PM.DSUDISC ---
Discharge Plan Disposition Patient Disposition: HOME Condition: Good Discharge Details Reason For Visit: EGD Attending Provider: Inez Ruffin Primary Care Provider: Nia Delcid Home Meds and New Rx's Prescriptions: New sucralfate [Carafate] 100 mg/mL suspension 10 ml PO BID Qty: 600 RF: 1 Continued benzonatate 100 mg capsule 100 mg PO Q8H PRN RF: 0 multivitamin [Daily Multiple] 1 EACH tablet 1 ea PO DAILY RF: 0 aspirin 81 MG tablet,chewable 81 mg PO DAILY RF: 0 calcium-vitamin D3-vitamin K 1 EACH tablet,chewable 1 ea PO DAILY RF: 0 omeprazole 40 MG capsule,delayed release(DR/EC) 40 mg PO DAILY@0730 Qty: 30 RF: 3 albuterol sulfate 90 mcg/actuation Hfa Aerosol Inhaler 2 puff INHALATION Q6H PRNRF: 0 Symbicort 160-4.5 mcg/actuation Hfa Aerosol Inhaler 2 puff Inhalation BID PRNQty: 6 RF: 0 Discharge Instructions Additional Instructions: Findings: Your EGD showed a hiatal hernia with some chronic inflammation in the esophagus. A dilation was performed. Biopsies were done, my office will call with biopsy results. Follow up: Call if symptoms return for repeat dilation. Please call if you develop: fevers >101.5 Nausea or Vomiting Abdominal pain that is not transient DAY SURGERY UNIT POST EGD INSTRUCTIONS 1. Because there will be medication in your system for the next 24 hours, you may feel a little sleepy. Your coordination will be affected. Therefore: a. Do not drive or operate dangerous equipment for 24 hours. b. Do not drink alcohol beverages for 24 hours (not even beer). c. Plan to go home and rest for the day. 2. Generally there are no restrictions on your activity after a day or so has gone by, but you may feel a bit fatigued for a few days. 3 After you arrive home you may have a light meal and return to a normal diet as you can tolerate it without feeling sick to your stomach. 4. After surgery, you may feel pain or discomfort. This should be only transient, but if it persists please contact your doctor. 5. If there are any questions regarding the findings of your procedure, please feel free to contact your doctor. 6. If you are unable to contact your doctor with a problem, contact the hospital at [phone]. 7. Continue all your regular medications unless directed otherwise. I understand the above instructions and have no questions. Signature of Patient or Responsible Adult Escort Date/Time Name of Responsible Adult Escort Signature of Nurse Date/Time Activity:: Activity as Tolerated Diet:: As Tolerated Discharge Orders Discharge Orders: Discharge Order (Routine); Ordered 04/14/19 Ordered By: Inez Ruffin DS: Diagnosis Discharge Diagnosis (1) GERD (gastroesophageal reflux disease): Status: Chronic (2) Hiatal hernia: Status: Chronic
--- NOTE | 2019-04-14 10:58 | ESO_PTH ---
PATIENT: Zulema Urban LOC: [facility] U#:[id number] AGE/SX: 79/F ROOM: RE04/14/[address]: Inez Ruffin MD : [id number] BED: DIS: 04/14/2019 SPEC #: [id number] RECD: 04/14/19 12:41 STATUS: ZELALEM BIANCHI #: [id number] KERRI: 04/14/19 10:[address]: Inez Ruffin DEPT: Surgical Specimen RECD BY: Alicia Anderson ENTERED: 04/14/19 12:42 SP TYPE: Eso OTHR DR: Nia Delcid Tissues: 1 - ESOPHAGUS BIOPSY Procedures: GROSS AND MICRO LEVEL 4 Comments: [id number]
[2019-04-14 11:40] VITALS: BP 135/87; PULSE 78; RESP 16; TEMP 36.1; O2SAT 96
--- NOTE | 2019-04-14 13:30 | ENDO_ITS ---
REPORT OF OPERATIVE PROCEDURE DATE OF PROCEDURE April 14, 2019 PREOPERATIVE DIAGNOSIS Dysphagia. POSTOPERATIVE DIAGNOSES 1. Chronic esophagitis. 2. 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 3. Hiatal hernia. PROCEDURES 1. EGD with distal esophageal biopsies and balloon dilation of the esophagus. SURGEON Inez Ruffin M.D. ANESTHESIA General. INDICATION This is a 79-year-old woman, dysphagia frequently for solid foods. She has needed EGD with dilation t wo years ago and also prior to that. PROCEDURE DESCRIPTION She was placed in the left lateral decubitus position. Propofol was titrated to sedation. The scope w as advanced into the esophagus under direct visualization and down into the stomach and the duodenum. 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 There was no inflammation. The stomach itself showed no inf lammation. Retroflexed view of the fundus and the lesser curvature showed a moderate size hiatal niraj ia. The GE junction exhibited chronic inflammatory change extending from the GE junction about 5 cent imeters into the proximal esophagus. There was relative narrowing associated with that. The scope pas sed through it, but the lumen was felt not to be much larger than the EGD scope. There was no Schatzk i ring. There were some changes possibly consistent with Beasley's esophagus that were biopsied. The 10, 11, 12-mm balloon was selected and inflated. The 10-mm size was too loose, as was the 11, but the 12 mm appeared to be the proper size. This was held in place for a minute and deflated. There was no significant trauma to the vicinity. The air was suctioned from the stomach and the scope withdrawn w ith no other esophageal lesions found. She tolerated the procedure well and was stable to Recovery. W ith the hiatal hernia, it is likely she will have continued reflux with inflammation and narrowing. A t this point, I advised adding Carafate to her antacid regimen. It is likely she will need a dilation in the future. We also briefly discussed laparoscopic Jerri fundoplication, however, the patient pr efers not to have surgery at her age, so we agreed to start with additional medical management. She w ill contact me if her symptoms persist or return. CC: Nia Delcid M.D.
== END 2019-04-14 12:03 | disposition home or self-care (01) ==
PROVIDERS: PCP Family Medicine; Visit Provider Surgery
PROC: 0D758ZZ Dilation of Esophagus, Via Natural or Artificial Opening Endoscopic (ICD-10-PCS; CPT 43249; principal; 2019-04-14 12:00)
DX: R13.10 Dysphagia, unspecified (principal); K22.70 Barrett's esophagus without dysplasia; K20.9 Esophagitis, unspecified; K44.9 Diaphragmatic hernia without obstruction or gangrene; K22.2 Esophageal obstruction; J44.9 Chronic obstructive pulmonary disease, unspecified
CPT/HCPCS: 43249; 43239; 88305

== ENCOUNTER 2019-05-10 11:48 | Inpatient (IN) | payer OTHER, SELFPAY ==
[2019-05-10] VITALS (35 sets, daily range): BP systolic 100–166; BP diastolic 60–135; PULSE 78–98; RESP 16–20; TEMP 36.4–36.7; O2SAT 94–100
--- NOTE | 2019-05-10 11:57 | DI.RAD_ITS ---
EXAM: XR FEMUR LT INDICATION: fracture distal femur. COMPARISON: XR KNEE LT 2V AP,LAT from 05/10/2019 TECHNIQUE: 2D digital imaging was performed. FINDINGS: There is a comminuted fracture through the distal metaphysis of the left femur. The distal fracture and lower leg are posteriorly displaced relative to the proximal femur. On the lateral view of the kn ee, there is a question of irregularity involving the posterior aspect of the patella. A nondisplace d fracture cannot be excluded. Note is made of an intramedullary jane and screw within the proximal l eft femur. The orthopedic hardware appears unremarkable. There is soft tissue swelling around the k nee. Vascular calcifications are present. The bones are osteopenic. IMPRESSION: Comminuted displaced fracture through the distal metaphysis of the left femur. The distal fracture i s posteriorly displaced relative to the femoral shaft.
--- NOTE | 2019-05-10 11:57 | DI.RAD_ITS ---
EXAM: XR CHEST 1V IN DI DEPT INDICATION: pre-op xray. COMPARISON: XR CHEST 2V PA LATERAL from 02/28/2019 TECHNIQUE: 2D digital imaging was performed. FINDINGS: The heart size is within normal limits. The pulmonary vasculature is unremarkable. The lungs are hy perinflated suggesting underlying COPD. No focal consolidating infiltrates, effusions, or pneumothor aces are identified. There is a right convex scoliotic curvature of the thoracolumbar spine. Surgic al clips are seen in the left axilla. IMPRESSION: No acute pulmonary process.
--- NOTE | 2019-05-10 12:01 | W.ED.GENAD ---
Discharge Plan Disposition Patient Disposition: [facility] INPATIENT Condition: Stable Discharge Details Chief Complaint: Trauma Clinical Impression: Femoral distal fracture, Patellar fracture, Fracture of tibial plateau Primary Care Provider: Nia Delcid ED Provider: Royal Chaudhary Home Meds and New Rx's Prescriptions: No Action benzonatate 100 mg capsule 100 mg PO Q8H PRN RF: 0 multivitamin [Daily Multiple] 1 EACH tablet 1 ea PO DAILY RF: 0 aspirin 81 MG tablet,chewable 81 mg PO DAILY RF: 0 calcium-vitamin D3-vitamin K 1 EACH tablet,chewable 1 ea PO DAILY RF: 0 sucralfate [Carafate] 100 mg/mL suspension 10 ml PO BID Qty: 600 RF: 1 omeprazole 40 MG capsule,delayed release(DR/EC) 40 mg PO DAILY@0730 Qty: 30 RF: 3 albuterol sulfate 90 mcg/actuation Hfa Aerosol Inhaler 2 puff INHALATION Q6H PRNRF: 0 Symbicort 160-4.5 mcg/actuation Hfa Aerosol Inhaler 2 puff Inhalation BID PRNQty: 6 RF: 0 Medical Decision Making This is a pleasant 79-year-old female with a past medical history of osteopenia, previous fractures, previous left knee fracture, who presents today for evaluation of suspected left femur fracture. She fell earlier today via mechanical fall. She denies any syncope. She did lightly bumped her left forehead. She had no loss of consciousness. She was unable to get up secondary to the pain in her left leg. EMS was called, required aircraft electrical systems specialist for pain management, patient was brought to the ER in the splint. Notable deformity of the distal femur, bedside ultrasound shows notable comminuted fracture. Suspect femur fracture. Pain is currently 1 out of 10. No evidence of neurovascular compromise distal to the injury site, no evidence of any other trauma. No midline cervical spine tenderness, no restriction for range of motion for the neck. No evidence of clinical pathology for the neck. CT scan of the head will be ordered, get a screening chest x-ray for suspected operative management, EKG and basic labs. 5:14 PM X-ray shows evidence of acute distal femur fracture, confirming initial suspicions. CT head and chest x-ray negative for acute process. Case is discussed with orthopedics Dr. Abel, he does request CT scan for further assessment. CT scan shows evidence of comminuted impacted distal femur fracture, as well as a mildly depressed tibial plateau fracture, and a nondisplaced patella fracture. Did discuss the case with the orthopedic surgeon and medicine team, and per med staff the patient will be admitted to medicine and consulted with Ortho. I discussed the case with , he agrees with the assessment and plan. I have extensively reviewed the treatment plan with the patient. I have addressed all patient concerns at this time. I have also discussed the plan with the admitting physician and they agree with the current assessment and plan and have agreed to assume responsibility for the patient. All parties demonstrate verbal understanding and agreement with our assessment and plan at this time. At time of disposition to the floor the patient maintained good neurovascular status, showing no evidence of significant neurovascular compromise. We have asked anesthesia to come in place a femoral block for better pain management. EKG 12: 09 Rate 94, RI 148, QTc 475, sinus rhythm, no significant ST elevations or depressions, no evidence of STEMI. Significant T wave inversions except for in V1. No large Q waves. FINDINGS: The heart size is within normal limits. The pulmonary vasculature is unremarkable. The lungs are hyperinflated suggesting underlying COPD. No focal consolidating infiltrates, effusions, or pneumothoraces are identified. There is a right convex scoliotic curvature of the thoracolumbar spine. Surgical clips are seen in the left axilla. IMPRESSION: No acute pulmonary process. FINDINGS: There is a comminuted fracture through the distal metaphysis of the left femur. The distal fracture and lower leg are posteriorly displaced relative to the proximal femur. On the lateral view of the knee, there is a question of irregularity involving the posterior aspect of the patella. A nondisplaced fracture cannot be excluded. Note is made of an intramedullary jane and screw within the proximal left femur. The orthopedic hardware appears unremarkable. There is soft tissue swelling around the knee. Vascular calcifications are present. The bones are osteopenic. IMPRESSION: Comminuted displaced fracture through the distal metaphysis of the left femur. The distal fracture is posteriorly displaced relative to the femoral shaft. FINDINGS: There is a comminuted fracture through the distal metaphysis of the left femur. The distal fracture and lower leg are posteriorly displaced relative to the proximal femur. On the lateral view of the knee, there is a question of irregularity involving the posterior aspect of the patella. A nondisplaced fracture cannot be excluded. Note is made of an intramedullary jane and screw within the proximal left femur. The orthopedic hardware appears unremarkable. There is soft tissue swelling around the knee. Vascular calcifications are present. The bones are osteopenic. IMPRESSION: Comminuted displaced fracture through the distal metaphysis of the left femur. The distal fracture is posteriorly displaced relative to the femoral shaft. FINDINGS: Ventricles and Extra axial spaces: Normal in size and morphology for the patient's age. Hemorrhage: None. Cerebral parenchyma: Normal. Midline shift: None. Brainstem/Cerebellum: Normal. Calvarium: Normal. Visualized Paranasal sinuses/Mastoids: Mild mucosal thickening seen in the left maxillary sinus. The remaining visualized paranasal sinuses are clear. IMPRESSION: No acute intracranial process. DATA REPOSITORY: All CT scans at this facility are submitted to the National Radiology Data Registry (NRDR) Dose Index Registry (DIR) with the [employer] (ACR). RADIATION OPTIMIZATION: All CT scans at this facility use at least one of these dose optimization techniques: automated exposure control; mA and/or kV adjustment per patient size (includes targeted exams where dose is matched to clinical indication); or iterative reconstruction. FINDINGS: There is a comminuted fracture involving the distal left femur. There is a transverse component to the fracture through the distal metaphysis. There is also a component of the fracture that extends into the intercondylar notch. The fracture is impacted. The condylar components of the fracture are displaced. There also appears to be a nondisplaced fracture involving the superior and posterior patella. There is a mildly depressed fracture involving the medial tibial plateau. There is a hemarthrosis present. IMPRESSION: 1. Comminuted impacted fracture involving the distal femur. The fracture involves the distal metaphysis and extends distally into the intercondylar notch. 2. Mildly depressed medial tibial plateau fracture. 3. Nondisplaced patellar fracture. HPI General Date/Time Provider Initiated Documentation: 05/10/19 11:56. HPI Narrative: This is a pleasant 79-year-old female with a past medical history of osteopenia, multiple orthopedic fractures in the past including previous fracture of her left knee, who presents today for evaluation of suspected fracture. Patient states that she was at home today when she had a mechanical slip and landed on her right knee. She did lightly bump her left front forehead. She recalls the entire event, she did not lose consciousness. She has notable deformity of the left distal femur, she was unable to get herself up, EMS was contacted, aircraft electrical systems specialist was eventually contacted for pain control. Patient denies any numbness or tingling. Pain seems to be localized at the left knee. She denies any chest head neck abdominal pain. No pain in her upper extremities. No other complaints at this time. She does not take any blood thinners but does take a daily aspirin. Related Data Home Medications Medication Instructions Recorded Confirmed aspirin 81 mg PO DAILY tab-cap 01/27/17 04/14/19 calcium-vitamin D3-vitamin K 1 ea PO DAILY tab.chew 01/27/17 04/14/19 multivitamin [Daily Multiple] 1 ea PO DAILY 01/27/17 04/14/19 omeprazole 40 mg PO DAILY@0730 #30 capcr 02/05/17 04/14/19 albuterol sulfate 2 puff INHALATION Q6H PRN 02/03/19 04/14/19 benzonatate 100 mg capsule 100 mg PO Q8H PRN cap 04/06/19 04/14/19 Symbicort 2 puff INHALATION BID PRN #6 gm 04/12/19 04/14/19 sucralfate [Carafate] 10 ml PO BID #600 ml 04/14/19 Previous Rx's Medication Instructions Recorded omeprazole 40 mg PO DAILY@0730 #30 capcr 02/05/17 Symbicort 2 puff INHALATION BID PRN #6 gm 04/12/19 sucralfate [Carafate] 10 ml PO BID #600 ml 04/14/19 Allergies Allergy/AdvReac Type Severity Reaction Status Date / Time varenicline [From Chantix] AdvReac stomach Verified 05/10/19 12:00 problems General Stated Complaint: Trauma YADY: 3 Review of Systems Review of Systems ROS Unobtainable: All systems reviewed & are unremarkable except as noted in HPI and below PFS Medical History (Updated 04/14/19 @ 11:18 by Inez Ruffin MD) BCC (basal cell carcinoma), face (Acute) Bilateral hip pain (Acute) Breast cancer (Resolved) Chronic insomnia (Acute) COPD (chronic obstructive pulmonary disease) (Chronic) Depression (Chronic) DVT prophylaxis (Inactive) Dysphagia (Acute) Former smoker (Acute) GERD (gastroesophageal reflux disease) (Chronic) Hiatal hernia (Chronic) History of breast cancer (Acute) History of traumatic fracture of hip (Acute) Hypokalemia (Acute) Hypomagnesemia (Acute) Irregular heart rate (Acute) Left knee pain (Acute) Low back pain (Acute) Surgical History EGD - MAC (Inactive 02/05/17) Dr Marcial, [facility], EGD with balloon dilation. S/P breast lumpectomy (Inactive) Status post THR (total hip replacement) (Chronic) Social History (Updated 04/06/19 @ 10:56 by JOANNA Velasquez) Smoking/Tobacco Use Status: Current every day Tobacco Type: cigarettes Alcohol Intake: current Alcohol Intake frequency: holidays/special occasions only Drug use: Never Do you feel safe at home: Yes Do you feel safe in your relationship?: Yes Exam Narrative Exam Narrative: 1.Const: Well-nourished, Well-developed, appearing stated age 2.Eyes: PERRL, no conjunctival injection, and symmetrical lids. 3.ENT: Atraumatic external nose and ears. Moist MM. Neck: Symmetric, trachea midline, No thyromegaly. There is no evidence of raccoon eyes, maya sign, CSF rhinorrhea, mastoid tenderness, cranial crepitus, hemotympanum, exophthalmos, or hyphema. Patient demonstrates intact dentition with no signs of tooth avulsion or fracture, no signs of jaw deformity, no evidence of a LeFort's fracture, with an intact palate, nose and orbital region. There is no evidence of a nasal septal hematoma. No proptosis. Jaw closes symmetrically. Airway is clear. 4.CVS: +S1/S2, No murmurs or gallops. Peripheral pulses 2+ and equal in all extremities. Brisk capillary refill in all extremities. 5.RESP: Unlabored respiratory effort. Clear to auscultation bilaterally. No wheezes rales or rhonchi 6.GI: Soft, Nontender/Nondistended, No hepatosplenomegaly. No guarding or rebound. 7.MSK: Notable swelling and tenderness over the distal femur on the left lower extremity, minimal pain in the left knee. No pain in the tibia or fibula. Patient is able to plantar and dorsiflex, she has normal sensation throughout the foot, no evidence of decreased sensation. Capillary refill is brisk, dorsalis pedis and posterior tibial pulse +2 bilaterally. No significant tenderness at the proximal or midshaft of the femur. No significant hip pain. Patient is currently splinted. No midline cervical spine tenderness, no evidence of trauma on the head or scalp. Portable limited bedside ultrasound demonstrates evidence of distal femur fracture. 8.Skin: Warm, Dry. No rashes or lesions. 9.Neuro: coil wrapper II-XII grossly intact. Sensation grossly intact, no focal neurologic deficits. 10.Psych: (AAO) x3. Appropriate mood and affect Course Vital Signs Vital signs: Vital Signs Temperature 36.7 C 05/10/19 11:50 Pulse 97 H 05/10/19 11:50 Respiratory Rate 20 05/10/19 11:50 Blood Pressure 166/87 H 05/10/19 11:50 Pulse Oximetry 98 05/10/19 11:50 Temperature 36.7 C 05/10/19 11:50 Temperature Source Skin 05/10/19 11:50 Pulse 97 H 05/10/19 11:50 Respiratory Rate 20 05/10/19 11:50 Respiratory Effort Non-Labored 05/10/19 11:55 Respiratory Depth Normal 05/10/19 11:55 Respiratory Pattern Normal 05/10/19 11:55 Blood Pressure 166/87 H 05/10/19 11:50 Blood Pressure Position Supine 05/10/19 11:50 Pulse Oximetry 98 05/10/19 11:50 Oxygen Delivery Method Room Air 05/10/19 11:50 Oxygen Flow Rate 0 05/10/19 11:50 Pain Level 1 05/10/19 11:55
[2019-05-10 12:35] LABS: Absolute Lymphocyte Count 0.72 k/cumm (1.2-3.4); Absolute Monocyte Count 0.69 k/cumm (0.11-0.7); Absolute Neutrophil Count 6.88 k/cumm (1.2-6.7); HCT 29.9 % (36.0-46.0); HGB 9.5 g/dL (12.0-15.5); Lymphocytes % 8.7; Mean Corp. HGB Concentration 31.8 g/dL (32.0-36.0); Mean Corpuscular Hemoglobin 27.2 pg (27.0-33.0); Mean Corpuscular Volume 85.7 fL (80-95); Mean Platelet Volume 11.5 fL (8.0-11.0); Monocytes % 8.3; Platelet Count 271 x1000/uL (130-400); RBC 3.49 m/cumm (4.00-5.20); RBC Distribution Width 14.7 % (11.7-14.6); White Blood Cell Count 8.29 k/cumm (4.4-10.8)
[2019-05-10] MEDS: fentaNYL 100 MCG/2 ML VIAL ×2 (12:40→13:16)
[2019-05-10 12:45] LABS: PTT Activated 21.9 sec (21.0-31.4)
[2019-05-10 12:52] LABS: ALT 16 U/L (14-59); AST 16 U/L (15-37); Albumin 3.6 g/dL (3.4-5.0); Alkaline Phosphatase 78 U/L (46-116); Anion Gap 10.9 mmol/L (3-11); BUN 17 mg/dL (7-18); Bilirubin, Total 0.3 mg/dL (0.2-1.0); CO2 24.1 mmol/L (21.0-32.0); CREATININE 0.59 mg/dL (0.55-1.02); Calcium 9.1 mg/dL (8.5-10.1); Chloride 103 mmol/L (98-107); Glucose 123 mg/dL (70-100); Potassium 3.3 mmol/L (3.5-5.1); Sodium 138 mmol/L (136-145); Total Protein 7.3 g/dL (6.4-8.2)
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
--- NOTE | 2019-05-10 14:01 | DI.CT_ITS ---
EXAM: CT LOWER EXTREMITY LT WO CLINICAL HISTORY: distal femur fracture. TECHNIQUE: Multiple contiguous axial images of the left femur were obtained. Sagittal and coronal r eformatted images were evaluated. COMPARISON: XR FEMUR LT from 05/10/2019 XR KNEE LT 2V AP,LAT from 05/10/2019 FINDINGS: There is a comminuted fracture involving the distal left femur. There is a transverse component to t he fracture through the distal metaphysis. There is also a component of the fracture that extends in to the intercondylar notch. The fracture is impacted. The condylar components of the fracture are d isplaced. There also appears to be a nondisplaced fracture involving the superior and posterior reed lla. There is a mildly depressed fracture involving the medial tibial plateau. There is a hemarthro sis present. IMPRESSION: 1. Comminuted impacted fracture involving the distal femur. The fracture involves the distal metaphy sis and extends distally into the intercondylar notch. 2. Mildly depressed medial tibial plateau fracture. 3. Nondisplaced patellar fracture.
[2019-05-10] MEDS: Bupivacaine LIPOSOME/PF 133 MG/10 ML VIAL IJ (17:01)
[2019-05-10] MEDS: Bupivacaine 0.5% Pres-Free 30 ML VIAL (17:01)
--- NOTE | 2019-05-10 17:13 | OCONE_ITS ---
Date of service: 05/10/19 Time of Service: 17:13 History of Present Illness Narrative: Chief Complaint: Left thigh pain HPI: 79-year-old female status post mechanical fall today onto left side with left distal thigh pain and knee pain significant deformity unable to bear weight. Pain was severe and sudden in onset. Prior history of left knee arthritic pain managed at [facility] with hyaluronic acid injections. Last done 1 month ago. Also history of severe chronic nearly disabling arthritic and low back pain. Managed by a pain management provider. Relevant history of left hip fracture and intramedullary nailing. Also history of right hip fracture and intramedullary narrowing and bilateral proximal humerus fractures. Severe osteoporosis. prior injury: As above and also past left knee fracture as well numbness/tingling: Denies PMH: Largely negative except for above arthritic and low back pain diabetes: Denies allergies: Chantix FH: non-contributory SH: hand dominance: Right occupation: Retired smoke cigarettes: Yes currently half pack per day Consult Reason Orthopedic surgical evaluation and management Assessment and Plan Assessment and plan (1) Closed fracture of left distal femur: Status: Acute Assessment and plan: 79-year-old female with left distal femur intra- articular fracture and significant history of fragility fractures and prior ipsilateral left hip fracture and cephalo-medullary nailing -Recommend medical admission and optimization for orthopedic surgical intervention -Knee immobilizer immobilization and elevation while on bedrest pending surgery -SCDs and NINO stockings on right lower extremity for mechanical DVT prophylaxis -Recommend repeating H&H prior to starting any chemo DVT prophylaxis as patient's hemoglobin is only 9 and will likely trend lower given her femur fracture. Ideally preoperative hemoglobin would be above 8 or 9 prior to open femur surgery. -Planned surgery left distal femur ORIF on Saturday 05/12 around noon -Anesthesia consult for regional nerve block done by ER -Recommend fragility fracture work-up and optimization of osteoporosis as outpatient -Case discussed with Dr. Galvan who agrees with assessment, plan, and will assist with surgery All questions answered Patient and daughter agree and understand treatment plan Will call if any changes or concerns Qualifiers: Encounter type: initial encounter Fracture morphology: other fracture Qualified Code(s): S72.492A - Other fracture of lower end of left femur, initial encounter for closed fracture Review of Systems Review of Systems ROS Unobtainable: All systems reviewed & are unremarkable except as noted in HPI and below Constitutional Constitutional: Denies chills and Denies fever(s) Eyes Eyes: Denies diplopia and Denies loss of vision ENT Ears, Nose, Mouth, and Throat: Denies dental pain and Denies other (cavities) Comments: Dentures Cardiovascular Cardiovascular: Denies chest pain with activity, Denies irregular heart rhythm and Denies dyspnea Respiratory Respiratory: Denies cough and Denies dyspnea Gastrointestinal Gastrointestinal: Denies nausea and Denies vomiting Musculoskeletal Musculoskeletal: Reports as per HPI Integumentary/Breasts Skin/Breast: Denies rash and Denies wounds Neurologic Neurologic: Reports as per HPI and Denies loss of vision Psychiatric Psychiatric: Denies anxiety and Denies depression Hematologic/Lymphatic Hematologic/Lymphatic: Denies easy bleeding and Denies easy bruising Allergic/Immunologic Allergic/Immunologic: Reports as per HPI [facility] Medical History BCC (basal cell carcinoma), face (Acute) Bilateral hip pain (Acute) Breast cancer (Resolved) Chronic insomnia (Acute) COPD (chronic obstructive pulmonary disease) (Chronic) Depression (Chronic) DVT prophylaxis (Inactive) Dysphagia (Acute) Former smoker (Acute) GERD (gastroesophageal reflux disease) (Chronic) Hiatal hernia (Chronic) History of breast cancer (Acute) History of traumatic fracture of hip (Acute) Hypokalemia (Acute) Hypomagnesemia (Acute) Irregular heart rate (Acute) Left knee pain (Acute) Low back pain (Acute) Surgical History EGD - MAC (Inactive 02/05/17) Dr Marcial, [facility], EGD with balloon dilation. S/P breast lumpectomy (Inactive) Status post THR (total hip replacement) (Chronic) Family History Mother Lung disease Social History Smoking/Tobacco Use Status: Current every day Tobacco Type: cigarettes Alcohol Intake: current Alcohol Intake frequency: holidays/special occasions only Drug use: Never Do you feel safe at home: Yes Do you feel safe in your relationship?: Yes Exam Narrative Exam Narrative: Left lower extremity obvious deformity and external rotation at the distal femur. All thigh and leg compartments soft and compressible. Brisk cap refill neurovascularly intact distally Able to straight leg from field splint and placed into knee immobilizer No skin breakdown Const General: cooperative, comfortable and no acute distress Orientation: alert, awake and not confused Limitations: mental status not altered and no language barrier [facility] Head: normocephalic and atraumatic Neck Neck: normal visual inspection and full ROM Resp Effort & Inspection: normal respiratory effort, able to speak in complete sentences, no audible wheezes and no grunting Cardio Other: No pedal edema. 2+ dorsalis pedis pulse. General: deferred Skin General skin exam: no rashes or lesions noted Neuro General: alert, awake and oriented x3 Cognition: normal cognition Speech: speech normal Psych Appearance: grossly normal Mental Status: mental status grossly normal Speech and Movement: speech and movement normal Affect: normal affect Attitude: cooperative Results Last Vital Signs Temp 36.7 C 05/10/19 11:50 Pulse 87 05/10/19 16:15 Resp 20 05/10/19 11:50 BP 133/63 05/10/19 16:15 Pulse Ox 99 05/10/19 16:20 Labs Result diagrams: 05/10/19 12:20 05/10/19 12:20 Labs: Laboratory Results - last 24 hr 05/10/19 05/10/19 05/10/19 12:20 12:20 12:20 WBC 8.29 RBC 3.49 L Hgb 9.5 L Hct 29.9 L MCV 85.7 MCH 27.2 MCHC 31.8 L RDW 14.7 H Plt Count 271 MPV 11.5 H Immature Gran % 0.0 Neutrophils % 83.0 Lymphocytes % 8.7 Monocytes % 8.3 Eosinophils % 0.0 Basophils % 0.0 Absolute Neutrophils 6.88 H Absolute Lymphocytes 0.72 L Absolute Monocytes 0.69 Absolute Eosinophils 0.00 Absolute Basophils 0.00 PT 10.0 INR 1.0 APTT 21.9 Sodium 138 Potassium 3.3 L Chloride 103 Carbon Dioxide 24.1 Anion Gap 10.9 BUN 17 Creatinine 0.59 Estimated GFR/1.73 m2 >= 60.00 Glucose 123 H Calcium 9.1 Total Bilirubin 0.3 AST 16 ALT 16 Alkaline Phosphatase 78 Total Protein 7.3 Albumin 3.6 Imaging Additional studies: Left knee and femur x-rays independently reviewed as well as CT scan of the left femur: Complex, intra-articular distal femur fracture low to the knee joint with significant comminution and osteoporosis. Intact left hip cephalo-medullary nailing.
[2019-05-10 18:12] LABS: Magnesium 1.6 mg/dL (1.8-2.4)
[2019-05-10] MEDS: fentaNYL 100 MCG/2 ML VIAL IVP (19:06)
[2019-05-10] MEDS: Heparin 5,000 UNITS/ML VIAL 5000 UNITS SC (19:21)
[2019-05-10] MEDS: Normal Saline Flush 10 ML SYR IVP (19:22)
[2019-05-10] MEDS: Potassium Chloride 10 MEQ TABCR 20 MEQ PO (20:17)
[2019-05-10] MEDS: Potassium Chloride 20 MEQ TABCR 40 MEQ PO ×2 (20:18→20:37)
[2019-05-10] MEDS: ACETAMINOPHEN 1,000 MG/100 ML BTL 400 MG IVPB (20:20)
--- NOTE | 2019-05-10 21:28 | W.PM.HP.N ---
Date of service: 05/10/19 Time of Service: 21:29 Assessment and Plan Assessment and plan (1) Closed fracture of left distal femur: Status: Acute Assessment and plan: immobilization; analgesic control; orthopedic consultation for ORIF Qualifiers: Encounter type: initial encounter Fracture morphology: other fracture Qualified Code(s): S72.492A - Other fracture of lower end of left femur, initial encounter for closed fracture (2) Hypokalemia: Status: Chronic Assessment and plan: I have ordered oral supplementation and will recheck her levels in the a.m. This is probably nutritional in origin and exacerbated by her chronic use of PPI causing her low magnesium levels. (3) Hypomagnesemia: Status: Chronic Assessment and plan: probably nutritional and due to chronic PPI use. I have ordered both iv and PO supplementation and will repeat her levels in the a.m. (4) GERD (gastroesophageal reflux disease): Status: Chronic Assessment and plan: She has hx of dysphagia which has improved since her EGD and esophageal dilatation in 04/14/2019. she is maintained on carafate and omeprazole Qualifiers: Esophagitis presence: with esophagitis Qualified Code(s): K21.0 - Gastro-esophageal reflux disease with esophagitis (5) COPD (chronic obstructive pulmonary disease): Status: Chronic Assessment and plan: stable. she is not chronically on aerosols or inhalers. Although she has Symbicort from her treatment of her COPD and pneumonia last summer, she does not regularly use her Symbicort and is asymptomatic from any wheezing or chronic cough. She is not on chronic oxygen nor has she been on chronic prednisone. Qualifiers: COPD type: unspecified COPD Qualified Code(s): J44.9 - Chronic obstructive pulmonary disease, unspecified (6) Normocytic normochromic anemia: Status: Acute Assessment and plan: probably d/t chronic blood loss from her esophagitis although no active bleeding was noted at time of her EGD on 04/14/2019 but she was noted to have chronic esophagitis. I will check iron levels, B12 and folate levels as well as LDH and reticulocyte. I suspect she has a chronic iron deficiency. As long as her Hb remains around 9 gm she will probably not require transfusion but if she drops significantly prior to her surgery, then I would recommend preoperative transfusion to keep her above 8 gm. If her iron levels are low, then I would give her parenteral iron since she has chronic esophagitis w/ hx of esophageal narrowing and oral iron would only worsen her symptoms. (7) Bilateral carotid bruits: Status: Acute Assessment and plan: symptomatic. she did not have syncope w/ her fall; nevertheless I will assess her carotids w/ US in the a.m. She denies any stroke like symptoms and denies any PMH of CVA. History of Present Illness History of Present Illness Chief Complaint: left distal femur fracture Narrative: 79 yr old female w/ PMH of GERD, chronic anemia, breast CA s/p lumpectomy, smoker, COPD, fragility fractures (s/p prior R. and L. hip fractures w/ ORIF w/ IM nailing; prior bilateral prox. humeral fractures, chronic back pain from spinal stenosis, osteoporosis who presents w/ mechanical fall w/out LOC who landed on her left knee and was unable to stand up on her own due to severe pain in her left leg and knee. She arrived to the ER via EMS and found to have obvious deformity of her distal left femur. X-rays of her left femur and knee demonstrated a comminuted fracture through her distal metaphysis of her left femur with posterior displacement of the distal femur relative to the proximal femur. CT scan of her leg confirmed the x-ray findings. Because she sustained a soft tissue contusion to her head a CT scan of her head was performed and demonstrated no acute intracranial findings. Lab demonstrated a chronic anemia w/ hemoglobin of 9.5 gm and HCT of 29%. Coagulation studies (protime and aPtt) were normal. CMP demonstrated low potassium of 3.3 and magnesium of 1.6 but otherwise normal electrolytes and renal and liver function tests. EKG demonstrated NSR rate of 74 bpm with no acute ischemic ST-T changes. The patient was treated w/ morphine and fentanyl while in the ER and anesthesia was consulted to perform a femoral nerve block to help control her pain. Dr. Abel, orthopedics was consulted by Dr. Chaudahry for orthopedic management and the patient was admitted to the hospitalist service. The patient is scheduled for surgical repair of her fracture on Wednesday. Review of Systems Review of Systems ROS Unobtainable: All systems reviewed & are unremarkable except as noted in HPI and below Constitutional Constitutional: Reports system reviewed and no additional complaints, except as docu Cardiovascular Cardiovascular: Reports system reviewed and no additional complaints, except as docu, Denies chest pain, Denies chest pain at rest, Denies chest pain with activity, Denies syncope, Denies rapid heart rate and Denies lightheadedness Respiratory Respiratory: Reports system reviewed and no additional complaints, except as docu Gastrointestinal Gastrointestinal: Reports system reviewed and no additional complaints, except as docu, Denies abdominal pain, Denies melena and Denies hematochezia Musculoskeletal Musculoskeletal: Reports as per HPI Neurologic Neurologic: Reports system reviewed and no additional complaints, except as docu and Denies syncope Hematologic/Lymphatic Hematologic/Lymphatic: Reports system reviewed and no additional complaints, except as docu PFSH Medical History (Updated 05/10/19 @ 23:06 by Antony Reed) BCC (basal cell carcinoma), face (Acute) Bilateral hip pain (Acute) Breast cancer (Resolved) Chronic insomnia (Acute) COPD (chronic obstructive pulmonary disease) (Chronic) COPD exacerbation (Resolved) Depression (Chronic) DVT prophylaxis (Inactive) Dysphagia (Acute) Former smoker (Acute) GERD (gastroesophageal reflux disease) (Chronic) Hiatal hernia (Chronic) History of breast cancer (Acute) History of traumatic fracture of hip (Acute) Hypokalemia (Chronic) Hypomagnesemia (Chronic) Irregular heart rate (Acute) Left knee pain (Acute) Low back pain (Acute) Pneumonia (Inactive) Surgical History (Updated 05/10/19 @ 22:43 by Antony Reed) EGD - MAC (Inactive 02/05/17) Dr Marcial, [facility], EGD with balloon dilation; repeat procedure 04/14/2019, Dr. Inez Ruffin S/P breast lumpectomy (Inactive) left breast lumpectomy; follow up XRT, 2002 Status post THR (total hip replacement) (Chronic) Family History (Updated 05/10/19 @ 22:44 by Antony Reed) Mother Lung disease Daughter Lung disease Substance abuse Social History (Updated 05/10/19 @ 22:45 by Antony Reed) Smoking/Tobacco Use Status: Current every day Tobacco Type: cigarettes Alcohol Intake: current Alcohol Intake frequency: holidays/special occasions only Drug use: Never Household members: children What is your relationship status?: Panel score (0-1 are the most socially isolated patients): 0 Do you feel safe at home: Yes Do you feel safe in your relationship?: Yes History History 3 Para Hx # Term Pregnancies 3 Multiple births Hx # Pregnancies Ectopic pregnancies AB induced Hx Number of Living Children 2 AB spontaneous Meds Home Medications and Allergies Home Medications Medication Instructions Recorded Confirmed Type aspirin 81 mg PO DAILY tab-cap 01/27/17 05/10/19 History calcium-vitamin D3-vitamin K 1 ea PO DAILY tab.chew 01/27/17 05/10/19 History multivitamin [Daily Multiple] 1 ea PO DAILY 01/27/17 05/10/19 History omeprazole 40 mg PO DAILY@0730 #30 capcr 02/05/17 05/10/19 Rx Symbicort 2 puff INHALATION BID PRN #6 gm 04/12/19 05/10/19 Rx sucralfate [Carafate] 10 ml PO BID #600 ml 04/14/19 05/10/19 Rx Allergies Allergy/AdvReac Type Severity Reaction Status Date / Time varenicline [From Chantix] AdvReac stomach Verified 05/10/19 12:00 problems Exam Const General: cooperative, comfortable and frail appearing Nutritional Appearance: thin and underweight Orientation: alert, awake and oriented x3 HENMT Head: normal to inspection, no palpable skull fracture and normocephalic Ears: hearing grossly normal bilaterally, external ears normal and TM's normal bilaterally General nose exam: external nose normal, nares normal and nasal mucous membranes and turbinates normal Face and sinus: normal facial exam and face symmetric Mouth: oral mucosae normal, lip normal, tongue normal and oropharynx normal Teeth and gingiva: poor dentition (edentulous on upper; only few front teeth on lower row) Eyes Visual May: normal visual may by confrontation Alignment and Position: alignment normal Periorbital: periorbital findings normal Eyelids: eyelids normal Conjunctivae: conjunctivae normal Sclera: sclerae normal Cornea: corneas normal Pupils: pinpoint bilaterally EOM: EOM intact bilaterally Neck Neck: normal visual inspection, full ROM, no lymphadenopathy, trachea midline, supple and no JVD Thyroid: thyroid normal Carotids: normal carotid upstroke and bruit bilaterally Lymphatic: no lymphadenopathy noted Chest Chest: normal inspection of the chest and normal palpation of entire chest wall Resp Effort & Inspection: normal respiratory effort and able to speak in complete sentences Auscultation: clear to auscultation bilaterally Cardio Jugular venous pressure: no JVD Palpation: normal PMI Rate: regular rate Rhythm: regular rhythm Heart Sounds: S1 normal, S2 normal and normal, physiologic split S2 Bruits: no abdominal aortic bruits and carotid bruit bilaterally Pulses: normal peripheral pulses GI Inspection: scaphoid Palpation: soft and no hepatosplenomegaly Percussion: normal to percussion Auscultation: normal bowel sounds Rectal Exam - female: deferred Skin General skin exam: no rashes or lesions noted, elasticity normal and turgor normal Neuro General: alert, awake, oriented x3, normal light touch, pain and propioception, no focal motor deficits and CN's II-XI intact bilaterally Motor: muscle tone normal throughout, strength 5/5 throughout (unable to assess strenght nor range of motion in her left femur d/t frx) and no movement abnormalities noted Sensory Exam: no sensory deficits noted Plantar Reflexes: Downgoing: bilateral Extrem General: normal capillary refill and no clubbing, cyanosis or edema Left lower extremity: knee (left thigh and knee in immobilizer d/t frx and therefore unable to assess) Psych Appearance: grossly normal Mental Status: mental status grossly normal Speech and Movement: speech and movement normal Mood: congruent mood Affect: normal affect Attitude: cooperative Thought Process: normal Thought Content: normal Insight: insight good Judgment: judgment good Results Imaging Chest x-ray: report reviewed (No acute pulmonary process.) Additional studies: Exam(s) a RAD:XR femur LT EXAM: XR FEMUR LT INDICATION: fracture distal femur. COMPARISON: XR KNEE LT 2V AP,LAT from 05/10/2019 TECHNIQUE: 2D digital imaging was performed. FINDINGS: There is a comminuted fracture through the distal metaphysis of the left femur. The distal fracture and lower leg are posteriorly displaced relative to the proximal femur. On the lateral view of the knee, there is a question of irregularity involving the posterior aspect of the patella. A nondisplaced fracture cannot be excluded. Note is made of an intramedullary jane and screw within the proximal left femur. The orthopedic hardware appears unremarkable. There is soft tissue swelling around the knee. Vascular calcifications are present. The bones are osteopenic. IMPRESSION: Comminuted displaced fracture through the distal metaphysis of the left femur. The distal fracture is posteriorly displaced relative to the femoral shaft. Ordered By: Royal Chaudhary DO CC: Dictated By: Alex Nelson M.D. 05/10/19 1412 Exam(s) a RAD:XR knee LT 2V AP,lat EXAM: XR FEMUR LT INDICATION: fracture distal femur. COMPARISON: XR KNEE LT 2V AP,LAT from 05/10/2019 TECHNIQUE: 2D digital imaging was performed. FINDINGS: There is a comminuted fracture through the distal metaphysis of the left femur. The distal fracture and lower leg are posteriorly displaced relative to the proximal femur. On the lateral view of the knee, there is a question of irregularity involving the posterior aspect of the patella. A nondisplaced fracture cannot be excluded. Note is made of an intramedullary jane and screw within the proximal left femur. The orthopedic hardware appears unremarkable. There is soft tissue swelling around the knee. Vascular calcifications are present. The bones are osteopenic. IMPRESSION: Comminuted displaced fracture through the distal metaphysis of the left femur. The distal fracture is posteriorly displaced relative to the femoral shaft. Ordered By: Royal Chaudhary DO CC: Dictated By: Alex Nelson M.D. 05/10/19 1412 EKG: image reviewed Imaging Studies: Exam(s) a CT:CT lower extremity LT wo EXAM: CT LOWER EXTREMITY LT WO CLINICAL HISTORY: distal femur fracture. TECHNIQUE: Multiple contiguous axial images of the left femur were obtained. Sagittal and coronal reformatted images were evaluated. COMPARISON: XR FEMUR LT from 05/10/2019 XR KNEE LT 2V AP,LAT from 05/10/2019 FINDINGS: There is a comminuted fracture involving the distal left femur. There is a transverse component to the fracture through the distal metaphysis. There is also a component of the fracture that extends into the intercondylar notch. The fracture is impacted. The condylar components of the fracture are displaced. There also appears to be a nondisplaced fracture involving the superior and posterior patella. There is a mildly depressed fracture involving the medial tibial plateau. There is a hemarthrosis present. IMPRESSION: 1. Comminuted impacted fracture involving the distal femur. The fracture involves the distal metaphysis and extends distally into the intercondylar notch. 2. Mildly depressed medial tibial plateau fracture. 3. Nondisplaced patellar fracture. [id number]: Total DLP = 0.00 mGy-cm Ordered By: Royal Chaudhary DO CC: Dictated By: Alex Nelson M.D. 05/10/19 1540 05/10/19 0746 Transcribed By: Karan Nelson Labs Result diagrams: 05/10/19 12:20 05/10/19 12:20 Labs: Laboratory Results - last 24 hr 05/10/19 05/10/19 05/10/19 12:20 12:20 12:20 WBC 8.29 RBC 3.49 L Hgb 9.5 L Hct 29.9 L MCV 85.7 MCH 27.2 MCHC 31.8 L RDW 14.7 H Plt Count 271 MPV 11.5 H Immature Gran % 0.0 Neutrophils % 83.0 Lymphocytes % 8.7 Monocytes % 8.3 Eosinophils % 0.0 Basophils % 0.0 Absolute Neutrophils 6.88 H Absolute Lymphocytes 0.72 L Absolute Monocytes 0.69 Absolute Eosinophils 0.00 Absolute Basophils 0.00 PT 10.0 INR 1.0 APTT 21.9 Sodium 138 Potassium 3.3 L Chloride 103 Carbon Dioxide 24.1 Anion Gap 10.9 BUN 17 Creatinine 0.59 Estimated GFR/1.73 m2 >= 60.00 Glucose 123 H Calcium 9.1 Magnesium 1.6 L Total Bilirubin 0.3 AST 16 ALT 16 Alkaline Phosphatase 78 Total Protein 7.3 Albumin 3.6 Last Vital Signs Temp 36.5 C 05/10/19 19:26 Pulse 85 05/10/19 19:26 Resp 16 10/02/19 19:26 BP 126/68 05/10/19 19:26 Pulse Ox 96 05/10/19 19:26
[2019-05-10] MEDS: Budesonide/Formoterol 160/4.5 6 GM 60 PUFF INH IH (21:30)
[2019-05-10] MEDS: MAGNESIUM SULFATE 4 GM/100 ML BAG IVPB (23:18)
[2019-05-11] MEDS: ACETAMINOPHEN 1,000 MG/100 ML BTL 400 MG IVPB ×3 (01:26→18:26)
[2019-05-11] MEDS: Normal Saline Flush 10 ML SYR IVP ×9 (01:30→22:36)
[2019-05-11] MEDS: Heparin 5,000 UNITS/ML VIAL 5000 UNITS SC (01:31)
--- NOTE | 2019-05-11 01:55 | NUR.NOTE ---
Nursing Note: Pt was admitted in Rm 227, AO x 3, with hip/knee/leg left pain, pulses positive on affected pedals. Immobilizer inplaced, Medicated with fentanyl IVP and with good relief. Pt complaints of lots of pain when repositioning on the left side. Vasques draining well. Oriented care transition mgr lights system.
[2019-05-11] MEDS: fentaNYL 100 MCG/2 ML VIAL IVP ×4 (05:53→11:58)
--- NOTE | 2019-05-11 07:00 | DI.US_ITS ---
EXAM: US CAROTID CLINICAL HISTORY: bilateral carotid bruits; s/p fall. TECHNIQUE: Ultrasound performed using standard protocol. COMPARISON: US OR ANESTHESIA from 05/10/2019 FINDINGS: Duplex evaluation of the carotid circulation was performed according to the usual protocol. There is moderate calcific plaque noted in the carotid bulb on the left. Proximal internal carotid artery sh ows flow velocity elevation to 266 cm/second consistent with greater than 70 percent luminal diameter ICA stenosis. Right common and internal carotid artery carotid artery show normal vascular flow. T here is bilateral antegrade vertebral flow. IMPRESSION: Findings consistent with greater than 70 percent luminal diameter stenosis proximal left ICA, maximum observed systolic velocity was 266 cm/second.
[2019-05-11 07:15] LABS: Absolute Eosinophil Count 0.04 k/cumm (0.0-0.7); Absolute Lymphocyte Count 1.07 k/cumm (1.2-3.4); Absolute Monocyte Count 0.94 k/cumm (0.11-0.7); Absolute Neutrophil Count 4.06 k/cumm (1.2-6.7); Eosinophils % 0.7; HCT 27.6 % (36.0-46.0); HGB 8.4 g/dL (12.0-15.5); Lymphocytes % 17.5; Mean Corp. HGB Concentration 30.4 g/dL (32.0-36.0); Mean Corpuscular Hemoglobin 26.3 pg (27.0-33.0); Mean Corpuscular Volume 86.5 fL (80-95); Mean Platelet Volume 11.9 fL (8.0-11.0); Monocytes % 15.4; Neutrophils % 66.4; Platelet Count 265 x1000/uL (130-400); RBC 3.19 m/cumm (4.00-5.20); RBC Distribution Width 14.6 % (11.7-14.6); Reticulocyte 1.7 % (0.5-2.4); White Blood Cell Count 6.11 k/cumm (4.4-10.8)
[2019-05-11 07:38] VITALS: BP 110/69; PULSE 81; RESP 18; TEMP 37; O2SAT 95
[2019-05-11 07:47] LABS: Anion Gap 8.5 mmol/L (3-11); BUN 14 mg/dL (7-18); CO2 25.5 mmol/L (21.0-32.0); CREATININE 0.66 mg/dL (0.55-1.02); Calcium 8.5 mg/dL (8.5-10.1); Chloride 103 mmol/L (98-107); Ferritin 19 ng/mL (8-388); Glucose 110 mg/dL (70-100); Magnesium 2.6 mg/dL (1.8-2.4); Potassium 4.7 mmol/L (3.5-5.1); Sodium 137 mmol/L (136-145)
[2019-05-11 07:58] LABS: Anisocytosis 1+; Diff Comment RBC Morph Reviewed
[2019-05-11 07:59] LABS: Hypochromasia 2+; Microcytosis 1+; Polychromasia Present
[2019-05-11 08:00] LABS: Poikilocytes 1+
[2019-05-11 08:07] LABS: LDH 141 U/L (81-234)
[2019-05-11 08:11] LABS: Folate 19.7 ng/mL (8.6-20.0); Vitamin B12 440 pg/mL (193-986)
[2019-05-11 08:13] LABS: Iron 17 ug/dL (50-175); Total Iron Binding Capacity 359 ug/dL (250-450); Transferrin Sat 5 % (15-50)
[2019-05-11] MEDS: Magnesium Gluconate 500 MG TAB PO (09:23)
[2019-05-11] MEDS: Multivitamin TAB 1 TAB PO (09:23)
[2019-05-11] MEDS: Omeprazole 20 MG CAPCR 40 MG PO (09:23)
[2019-05-11] MEDS: Potassium Chloride 10 MEQ TABCR 20 MEQ PO (09:23)
--- NOTE | 2019-05-11 10:55 | PHARADMIT ---
Addendum entered by Tanya Diez 05/13/19 14:15: Pharmacy Note Subjective Objective Temp 37.7, BP ok, HR 90-100's, K 3.4, Mag 1.5 H/H 7.1/23.3 Assessment Mag 4gram IV x1, Potassium orally x 2 doses getting one unit of blood On Lovenox, Heparin SQ dc'd, Toradol added for pain Pt refusing some doses of Symbicort Cefazolin post-op will finish today Plan working w/PT, follow H/H, lytes Addendum entered by Oxana Palmer 05/12/19 15:25: Pharmacy Note Subjective pt went to OR today for repair of femur fracture Objective VS okay h/h-8.0/25.8(down) Assessment waiting for post op med orders pt refusing symbicort at times as per nursing she hasn't been taking this since January Plan watch h/h post op Original Note: Admission Pharmacy Clinical Review femur fracture Code Status Full Code Current Weight 45.6 kg Renally Cleared and Narrow Therapeutic Index Meds Crcl ~42.39 mL/min acetaminophen ordered 1 gram Q6H scheduled which is greater than the max dose for patients age 65 and older. Page send to QTc Value / Action Taken QTc 475 has ondansetron ordered BP Control, Fever BP 110/69 afebrile Electrolytes reviewed mag 2.6, was low yesterday got IV and PO replacement DVT Prophylaxis heparin, concern for bleeding but high risk for DVT/PE per morning report Opiate Usage / Scheduled Bowel Regimen Ordered prn/prn Plt/SCr for Heparin / Enoxaparin plt 265 SCr 0.66 INR for Warfarin n/a H/H stable, WBC/Bands h/h 8.4/27.6 (down), repeat scheduled for 1400 WBC 6.11 Antibiotic appropriateness none Cultures and Sensitivities none Surgical ABX d/c within 24 hr n/a DM control / Insulin Dosing BG 110 none Heart Failure (Check EF%) (JIMENEZ's, B-Block, Diuretics) none IV to PO Switch n/a Home Meds Reviewed separate admin of multivitamin from calcium carbonate/vit D multivitamins may increase the serum concentration of sucralfate, watch for adverse/toxic effects Home Meds Not Ordered aspirin Comments watch h/h and mag (got IV replacement yesterday and PO doses scheduled BID) plan is for surgery tomorrow (had to order special parts so cannot do today)
--- NOTE | 2019-05-11 12:28 | PDOC.CMIN ---
Care Management Initial Assess REASON FOR HOSPITALIZATION:: Femur Fracture PAST MEDICAL HISTORY/PAST SURGICAL HISTORY:: BCC, Bilat Hip Pain, Breast CA, Chronic insomnia, COPD (exacerbations), depression, DVT prophylaxis, dysphagia, former smoker, GERD, hiatal hernia, hx of breast CA, traumatic fracture of hip, hypokalemia, hypomagnesemia, irregular heart rate, left knee pain, low back pain, pnemonia, EGC, breast lumpectomy, total hip replacement. hx of dysphagia which has improved since her EGD and esophageal dilatation in 04/14/2019 PREVIOUS FUNCTIONAL STATUS/SOCIAL/FAMILY SUPPORTS:: Zulema resides in an apartment at her daughter and son in laws home. She reports her family is supportive, she is independent at baseline and transports herself. CURRENT FUNCTIONAL STATUS:: Zulema was lying in bed with her leg elevated. She reported pain only in the top of her patella and reported her pain was well managed at this time. She was pleasant in interaction and forthcoming with information. ADVANCE DIRECTIVES:: On file at [facility], Yamilka Bojorquez as Agent, Tor Bojorquez as alternate. Has patient been provided with information about the portal?: Yes Did the patient sign up for the portal?: No CODE STATUS:: Full Code INSURANCE COVERAGE / FINANCIAL ISSUES:: [facility] CURRENT HOME/COMMUNITY SERVICES/EQUIPMENT:: No current services, shower chair, FWW, stair lift. Reports her daughter is planning on obtaining a hospital bed and commode to support Zulema rehabiliation at home. PRIMARY CARE PHYSICIAN:: Nia Delcid POTENTIAL DISCHARGE NEEDS:: Surgical intervention, PT evaluation for discharge considerations. PATIENT/FAMILY EDUCATION NEEDS:: Review discharge instructions, discuss Ask Me Three. ANTICIPATED BARRIERS TO DISCHARGE:: None identified at this time. TRANSPORTATION:: Via private vehicle with her daughter. PLAN:: Zulema has planned surgery tomorrow, 05/12/19 at approx 1200. She will work with PT over the weekend. Zulema intends on returning home post surgically, she reports her daughter is home during the day and planning on caring for her. Zulema reports they are working on renting a hospital bed and borrowing a commode from a friend. Anticipate with returning home she will have new orders for [facility] PT/OT as well. CM will continue to follow and support discharge planning considerations.
[2019-05-11] MEDS: MORPHine 2 MG/ML SYR IVP ×3 (13:17→22:37)
[2019-05-11] MEDS: oxyCODONE 5 MG TAB PO (14:02)
[2019-05-11 14:20] LABS: HCT 25.8 % (36.0-46.0); HGB 8.2 g/dL (12.0-15.5)
--- NOTE | 2019-05-11 14:32 | W.PM.PROGNOT ---
Date of Service Date of service: 05/11/19 Time of Service: 14:32 Assessment and Plan Assessment and plan (1) Closed fracture of left distal femur: Status: Acute Assessment and plan: Left knee immobilizer in place. Continue pain control. Discontinue fentanyl. Oral oxycodone and IV morphine for pain control. Has been seen by Ortho, for OR tomorrow for repair of distal left femur fracture. Qualifiers: Encounter type: initial encounter Fracture morphology: other fracture Qualified Code(s): S72.492A - Other fracture of lower end of left femur, initial encounter for closed fracture (2) Bilateral carotid bruits: Status: Acute Assessment and plan: Denies syncope related to her fall. Carotid artery ultrasounds shows: Findings consistent with greater than 70 percent luminal diameter stenosis proximal left ICA, maximum observed systolic velocity was 266 cm/second. Will require outpatient follow up. (3) Normocytic normochromic anemia: Status: Acute Assessment and plan: History of esophagitis, now with femur fracture. Hemoglobin and Hematocrit down slightly today to 8.2 at 1400. Repeat in the morning. (4) Hypokalemia: Status: Chronic Assessment and plan: Resolved with supplementation- now with hyperkalemia. Monitor. (5) Hypomagnesemia: Status: Chronic Assessment and plan: resolved with supplementation. Monitor. (6) GERD (gastroesophageal reflux disease): Status: Chronic Assessment and plan: Continue PPI therapy. Qualifiers: Esophagitis presence: with esophagitis Qualified Code(s): K21.0 - Gastro-esophageal reflux disease with esophagitis (7) COPD (chronic obstructive pulmonary disease): Status: Chronic Assessment and plan: Smokes 1/2 ppd. Not in acute exacerbation. Offer nicotine replacement, encourage smoking cessation. Qualifiers: COPD type: unspecified COPD Qualified Code(s): J44.9 - Chronic obstructive pulmonary disease, unspecified (8) DVT prophylaxis: Status: Inactive Assessment and plan: Hold chemical DVT prophylaxis in the setting of falling hgb and with surgery scheduled for tomorrow. Nursing to check with orthopedics. Continue TEDs and SCDs. (9) Discharge planning issues: Status: Resolved Assessment and plan: She is a FULL CODE. She is scheduled for the OR tomorrow for repair of her distal left femur fracture. This case was discussed with Dr. Beck who is in agreement. Subjective Subjective Interval history since last seen: Zulema Urban reports significant pain in her left knee, she received a block from anesthesia last evening which is no longer effective. Her nurse reported that she was requiring frequent IV fentanyl administration with partial pain relief. The patient reports that she was given morphine in the ED with relief. She she denies abdominal pain, nausea, vomiting or diarrhea. No shortness of breath, coughing, wheezing, chest pain/pressure, palpitations, syncope or pre-syncope. The plan is for her to go to the OR tomorrow for repair of her left distal femur fracture. Exam Narrative Exam Narrative: General: Thin female, appears younger than stated age, alert and oriented, pleasant and cooperative. Answers questions appropriately. HEENT: normocehpalic, atraumatic, pupils equal and round, EOMI, mucous membranes moist. Neck: supple, no JVD. Respiratory: respirations even and unlabored, lung sounds clear bilaterally. Cardiovascular: Heart has regular rate and rhythm, nontachycardic, no murmur appreciated. GI: abdomen soft and flat, normoactive bowel sounds, nondistended, nontender on palpation. Extremities: LLE with knee immobilizer in place- not removed, elevated on pillows. Bilateral lower extremities with palpable pulses, no edema. Objective Objective Clinical Data: Abnormal lab results 05/10/19 05/11/19 05/11/19 Range/Units 12:20 06:36 06:36 RBC 3.19 L (4.00-5.20) m/cumm Hgb 8.4 L (12.0-15.5) g/dL Hct 27.6 L (36.0-46.0) % MCH 26.3 L (27.0-33.0) pg MCHC 30.4 L (32.0-36.0) g/dL MPV 11.9 H (8.0-11.0) fL Absolute Lymphocytes 1.07 L (1.2-3.4) k/cumm Absolute Monocytes 0.94 H (0.11-0.7) k/cumm Glucose 110 H (70-100) mg/dL Magnesium 1.6 L 2.6 H (1.8-2.4) mg/dL Iron (50-175) ug/dL Transferrin % Sat (15-50) % 05/11/19 05/11/19 Range/Units 06:36 14:05 RBC (4.00-5.20) m/cumm Hgb 8.2 L (12.0-15.5) g/dL Hct 25.8 L (36.0-46.0) % MCH (27.0-33.0) pg MCHC (32.0-36.0) g/dL MPV (8.0-11.0) fL Absolute Lymphocytes (1.2-3.4) k/cumm Absolute Monocytes (0.11-0.7) k/cumm Glucose (70-100) mg/dL Magnesium (1.8-2.4) mg/dL Iron 17 L (50-175) ug/dL Transferrin % Sat 5 L (15-50) % Vital Signs Temperature 37 C 05/11/19 07:38 Temperature Source Tympanic 05/11/19 07:38 Pulse 81 05/11/19 07:38 Pulse Rhythm Regular 05/11/19 06:00 Respiratory Rate 18 05/11/19 07:38 Respiratory Effort Non-Labored 05/11/19 06:00 Respiratory Depth Normal 05/11/19 06:00 Respiratory Pattern Normal 05/11/19 06:00 Blood Pressure 110/69 05/11/19 07:38 Blood Pressure Mean 81 05/10/19 16:15 Blood Pressure Position Supine 05/10/19 11:50 Pulse Oximetry 95 05/11/19 07:38 Oxygen Delivery Method Room Air 05/11/19 07:38 Oxygen Flow Rate 0 05/11/19 07:38 Pain Level 2 05/11/19 14:02 Intake & Output 05/10/19 05/11/19 05/11/19 23:59 11:59 23:59 Intake Total 100 / 100 500 / 500 Output Total 600 / 600 1650 / 1650 Balance -500 / -500 -1150 / -1150 Weight 43.091 kg 45.6 kg Intake: IV 100 / 100 100 / 100 Oral 400 / 400 Output: Urine 600 / 600 1650 / 1650 Other: Urine Color Light Yamile Yellow Urine Appearance Clear Clear Urine Odor None Laboratory Results WBC 6.11 k/cumm (4.4-10.8) 05/11/19 06:36 RBC 3.19 m/cumm (4.00-5.20) L 05/11/19 06:36 Hgb 8.2 g/dL (12.0-15.5) L 05/11/19 14:05 Hct 25.8 % (36.0-46.0) L 05/11/19 14:05 MCV 86.5 fL (80-95) 05/11/19 06:36 MCH 26.3 pg (27.0-33.0) L 05/11/19 06:36 MCHC 30.4 g/dL (32.0-36.0) L 05/11/19 06:36 RDW 14.6 % (11.7-14.6) 05/11/19 06:36 Plt Count 265 x1000/uL (130-400) 05/11/19 06:36 MPV 11.9 fL (8.0-11.0) H 05/11/19 06:36 Immature Gran % 0.0 05/11/19 06:36 Neutrophils % 66.4 05/11/19 06:36 Lymphocytes % 17.5 05/11/19 06:36 Monocytes % 15.4 05/11/19 06:36 Eosinophils % 0.7 05/11/19 06:36 Basophils % 0.0 05/11/19 06:36 Absolute Neutrophils 4.06 k/cumm (1.2-6.7) 05/11/19 06:36 Absolute Lymphocytes 1.07 k/cumm (1.2-3.4) L 05/11/19 06:36 Absolute Monocytes 0.94 k/cumm (0.11-0.7) H 05/11/19 06:36 Absolute Eosinophils 0.04 k/cumm (0.0-0.7) 05/11/19 06:36 Absolute Basophils 0.00 k/cumm (0.0-0.2) 05/11/19 06:36 Differential Comment Rbc morph reviewed 05/11/19 06:36 RBC Morphology See below 05/11/19 06:36 Polychromasia Present 05/11/19 06:36 Hypochromasia 2+ 05/11/19 06:36 Poikilocytosis 1+ 05/11/19 06:36 Anisocytosis 1+ 05/11/19 06:36 Microcytosis 1+ 05/11/19 06:36 Retic Count 1.7 % (0.5-2.4) 05/11/19 06:36 PT 10.0 sec (9.3-11.0) 05/10/19 12:20 INR 1.0 (0.9-1.1) 05/10/19 12:20 APTT 21.9 sec (21.0-31.4) 05/10/19 12:20 Sodium 137 mmol/L (136-145) 05/11/19 06:36 Potassium 4.7 mmol/L (3.5-5.1) D 05/11/19 06:36 Chloride 103 mmol/L (98-107) 05/11/19 06:36 Carbon Dioxide 25.5 mmol/L (21.0-32.0) 05/11/19 06:36 Anion Gap 8.5 mmol/L (3-11) 05/11/19 06:36 BUN 14 mg/dL (7-18) 05/11/19 06:36 Creatinine 0.66 mg/dL (0.55-1.02) 05/11/19 06:36 Estimated GFR/1.73 m2 >= 60.00 (mL/min/1.73m2) 05/11/19 06:36 Glucose 110 mg/dL (70-100) H 05/11/19 06:36 Calcium 8.5 mg/dL (8.5-10.1) 05/11/19 06:36 Magnesium 2.6 mg/dL (1.8-2.4) H 05/11/19 06:36 Iron 17 ug/dL (50-175) L 05/11/19 06:36 TIBC 359 ug/dL (250-450) 05/11/19 06:36 Transferrin % Sat 5 % (15-50) L 05/11/19 06:36 Ferritin 19 ng/mL (8-388) 05/11/19 06:36 Total Bilirubin 0.3 mg/dL (0.2-1.0) 05/10/19 12:20 AST 16 U/L (15-37) 05/10/19 12:20 ALT 16 U/L (14-59) 05/10/19 12:20 Alkaline Phosphatase 78 U/L (46-116) 05/10/19 12:20 Lactate Dehydrogenase 141 U/L (81-234) 05/11/19 06:36 Total Protein 7.3 g/dL (6.4-8.2) 05/10/19 12:20 Albumin 3.6 g/dL (3.4-5.0) 05/10/19 12:20 Vitamin B12 440 pg/mL (193-986) 05/11/19 06:36 Folate 19.7 ng/mL (8.6-20.0) 05/11/19 06:36 Patient ABO/Rh A Positive 05/10/19 20:00 Antibody Screen Negative 05/10/19 20:00
[2019-05-11 15:55] VITALS: BP 118/71; PULSE 90; RESP 17; TEMP 37.5; O2SAT 94
--- NOTE | 2019-05-11 18:03 | W.PM.PROGNOT ---
Date of Service Date of service: 05/11/19 Time of Service: 13:07 Assessment and Plan Assessment and plan (1) Closed fracture of left distal femur: Status: Acute Assessment and plan: 79-year-old female with a complex intra-articular left distal femur fracture. Plan is for medical optimization and surgery tomorrow with myself and Dr. Galvan for left distal femur open reduction internal fixation. Continue multimodal pain control, knee immobilizer (not tight) for mobilization, and elevation Stop subcutaneous heparin tonight in anticipation for open surgery tomorrow Repeat H&H in a.m. and transfuse as needed for preoperative hemoglobin greater than 8.0 Mechanical DVT prophylaxis as ordered Nonweightbearing left lower extremity, bedrest All questions answered Agree and understand treatment plan Will call if any changes or concerns Qualifiers: Encounter type: initial encounter Fracture morphology: other fracture Qualified Code(s): S72.492A - Other fracture of lower end of left femur, initial encounter for closed fracture Subjective Subjective Interval history since last seen: Comfortable no complaints except knee immobilizer is too tight Exam Narrative Exam Narrative: Left lower extremity is constricted in a knee immobilizer that is too tight with pillows causing the knee to be flexed at the fracture site. The knee immobilizer was loosened. There is no skin breakdown. Patient's left lower extremity is repositioned in bed so that the distal extremity is still elevated but she has not angulated through the fracture site. All compartments remain soft. 2+ dorsalis pedis pulse. Neurovascularly intact throughout. Objective Objective Clinical Data: Abnormal lab results 05/10/19 05/11/19 05/11/19 Range/Units 12:20 06:36 06:36 RBC 3.19 L (4.00-5.20) m/cumm Hgb 8.4 L (12.0-15.5) g/dL Hct 27.6 L (36.0-46.0) % MCH 26.3 L (27.0-33.0) pg MCHC 30.4 L (32.0-36.0) g/dL MPV 11.9 H (8.0-11.0) fL Absolute Lymphocytes 1.07 L (1.2-3.4) k/cumm Absolute Monocytes 0.94 H (0.11-0.7) k/cumm Glucose 110 H (70-100) mg/dL Magnesium 1.6 L 2.6 H (1.8-2.4) mg/dL Iron (50-175) ug/dL Transferrin % Sat (15-50) % 05/11/19 05/11/19 Range/Units 06:36 14:05 RBC (4.00-5.20) m/cumm Hgb 8.2 L (12.0-15.5) g/dL Hct 25.8 L (36.0-46.0) % MCH (27.0-33.0) pg MCHC (32.0-36.0) g/dL MPV (8.0-11.0) fL Absolute Lymphocytes (1.2-3.4) k/cumm Absolute Monocytes (0.11-0.7) k/cumm Glucose (70-100) mg/dL Magnesium (1.8-2.4) mg/dL Iron 17 L (50-175) ug/dL Transferrin % Sat 5 L (15-50) % Vital Signs Temperature 37.5 C 05/11/19 15:55 Temperature Source Tympanic 05/11/19 15:55 Pulse 90 05/11/19 15:55 Pulse Rhythm Regular 05/11/19 15:35 Respiratory Rate 17 05/11/19 15:55 Respiratory Effort Non-Labored 05/11/19 15:35 Respiratory Depth Normal 05/11/19 15:35 Respiratory Pattern Normal 05/11/19 15:35 Blood Pressure 118/71 05/11/19 15:55 Blood Pressure Mean 81 05/10/19 16:15 Blood Pressure Position Supine 05/10/19 11:50 Pulse Oximetry 94 L 05/11/19 15:55 Oxygen Delivery Method Room Air 05/11/19 15:55 Oxygen Flow Rate 0 05/11/19 15:55 Pain Level 8 05/11/19 16:42 Intake & Output 05/10/19 05/11/19 05/11/19 23:59 11:59 23:59 Intake Total 100 / 100 600 / 600 Output Total 600 / 600 1650 / 1650 Balance -500 / -500 -1050 / -1050 Weight 43.091 kg 45.6 kg Intake: IV 100 / 100 200 / 200 Oral 400 / 400 Output: Urine 600 / 600 1650 / 1650 Other: Urine Color Light Yamile Yellow Urine Appearance Clear Clear Clear Urine Odor None Laboratory Results WBC 6.11 k/cumm (4.4-10.8) 05/11/19 06:36 RBC 3.19 m/cumm (4.00-5.20) L 05/11/19 06:36 Hgb 8.2 g/dL (12.0-15.5) L 05/11/19 14:05 Hct 25.8 % (36.0-46.0) L 05/11/19 14:05 MCV 86.5 fL (80-95) 05/11/19 06:36 MCH 26.3 pg (27.0-33.0) L 05/11/19 06:36 MCHC 30.4 g/dL (32.0-36.0) L 05/11/19 06:36 RDW 14.6 % (11.7-14.6) 05/11/19 06:36 Plt Count 265 x1000/uL (130-400) 05/11/19 06:36 MPV 11.9 fL (8.0-11.0) H 05/11/19 06:36 Immature Gran % 0.0 05/11/19 06:36 Neutrophils % 66.4 05/11/19 06:36 Lymphocytes % 17.5 05/11/19 06:36 Monocytes % 15.4 05/11/19 06:36 Eosinophils % 0.7 05/11/19 06:36 Basophils % 0.0 05/11/19 06:36 Absolute Neutrophils 4.06 k/cumm (1.2-6.7) 05/11/19 06:36 Absolute Lymphocytes 1.07 k/cumm (1.2-3.4) L 05/11/19 06:36 Absolute Monocytes 0.94 k/cumm (0.11-0.7) H 05/11/19 06:36 Absolute Eosinophils 0.04 k/cumm (0.0-0.7) 05/11/19 06:36 Absolute Basophils 0.00 k/cumm (0.0-0.2) 05/11/19 06:36 Differential Comment Rbc morph reviewed 05/11/19 06:36 RBC Morphology See below 05/11/19 06:36 Polychromasia Present 05/11/19 06:36 Hypochromasia 2+ 05/11/19 06:36 Poikilocytosis 1+ 05/11/19 06:36 Anisocytosis 1+ 05/11/19 06:36 Microcytosis 1+ 05/11/19 06:36 Retic Count 1.7 % (0.5-2.4) 05/11/19 06:36 PT 10.0 sec (9.3-11.0) 05/10/19 12:20 INR 1.0 (0.9-1.1) 05/10/19 12:20 APTT 21.9 sec (21.0-31.4) 05/10/19 12:20 Sodium 137 mmol/L (136-145) 05/11/19 06:36 Potassium 4.7 mmol/L (3.5-5.1) D 05/11/19 06:36 Chloride 103 mmol/L (98-107) 05/11/19 06:36 Carbon Dioxide 25.5 mmol/L (21.0-32.0) 05/11/19 06:36 Anion Gap 8.5 mmol/L (3-11) 05/11/19 06:36 BUN 14 mg/dL (7-18) 05/11/19 06:36 Creatinine 0.66 mg/dL (0.55-1.02) 05/11/19 06:36 Estimated GFR/1.73 m2 >= 60.00 (mL/min/1.73m2) 05/11/19 06:36 Glucose 110 mg/dL (70-100) H 05/11/19 06:36 Calcium 8.5 mg/dL (8.5-10.1) 05/11/19 06:36 Magnesium 2.6 mg/dL (1.8-2.4) H 05/11/19 06:36 Iron 17 ug/dL (50-175) L 05/11/19 06:36 TIBC 359 ug/dL (250-450) 05/11/19 06:36 Transferrin % Sat 5 % (15-50) L 05/11/19 06:36 Ferritin 19 ng/mL (8-388) 05/11/19 06:36 Total Bilirubin 0.3 mg/dL (0.2-1.0) 05/10/19 12:20 AST 16 U/L (15-37) 10/02/19 12:20 ALT 16 U/L (14-59) 05/10/19 12:20 Alkaline Phosphatase 78 U/L (46-116) 05/10/19 12:20 Lactate Dehydrogenase 141 U/L (81-234) 05/11/19 06:36 Total Protein 7.3 g/dL (6.4-8.2) 05/10/19 12:20 Albumin 3.6 g/dL (3.4-5.0) 05/10/19 12:20 Vitamin B12 440 pg/mL (193-986) 05/11/19 06:36 Folate 19.7 ng/mL (8.6-20.0) 05/11/19 06:36 Patient ABO/Rh A Positive 05/10/19 20:00 Antibody Screen Negative 05/10/19 20:00
[2019-05-11] MEDS: Ondansetron 4 MG/2 ML VIAL IVP (19:18)
[2019-05-11] MEDS: Budesonide/Formoterol 160/4.5 6 GM 60 PUFF INH IH (20:29)
[2019-05-11 23:27] VITALS: BP 95/64; PULSE 84; RESP 17; TEMP 37.1; O2SAT 95
[2019-05-12] VITALS (9 sets, daily range): BP systolic 100–120; BP diastolic 48–85; PULSE 74–95; RESP 13–22; TEMP 36–37.6; O2SAT 91–99
[2019-05-12] MEDS: Normal Saline 1,000 ML 100 ML IV ×3 (00:31→17:14)
[2019-05-12] MEDS: ACETAMINOPHEN 1,000 MG/100 ML BTL 400 MG IVPB ×3 (01:21→17:13)
[2019-05-12] MEDS: MORPHine 2 MG/ML SYR IVP ×3 (03:30→09:27)
[2019-05-12 07:11] LABS: Abs Immature Grans 0.01 k/cumm (0.0-0.09); Absolute Basophil Count 0.01 k/cumm (0.0-0.2); Absolute Lymphocyte Count 1.55 k/cumm (1.2-3.4); Absolute Monocyte Count 1.77 k/cumm (0.11-0.7); Absolute Neutrophil Count 5.05 k/cumm (1.2-6.7); Basophils % 0.1; Eosinophils % 1.2; HCT 25.8 % (36.0-46.0); Immature Grans % 0.1; Lymphocytes % 18.3; Mean Corpuscular Hemoglobin 27.1 pg (27.0-33.0); Mean Corpuscular Volume 87.5 fL (80-95); Monocytes % 20.8; Neutrophils % 59.5; Platelet Count 236 x1000/uL (130-400); RBC 2.95 m/cumm (4.00-5.20); RBC Distribution Width 14.3 % (11.7-14.6); White Blood Cell Count 8.49 k/cumm (4.4-10.8)
[2019-05-12 07:17] LABS: Anion Gap 9.6 mmol/L (3-11); BUN 12 mg/dL (7-18); CO2 24.4 mmol/L (21.0-32.0); Calcium 8.4 mg/dL (8.5-10.1); Chloride 104 mmol/L (98-107); Glucose 105 mg/dL (70-100); Potassium 4.4 mmol/L (3.5-5.1); Sodium 138 mmol/L (136-145)
[2019-05-12 08:05] LABS: Anisocytosis 1+; Diff Comment Diff Reviewed; Polychromasia Present
[2019-05-12] MEDS: Bupivacaine 0.25% Pres-Free 30 ML VIAL ×2 (12:31→15:20)
--- NOTE | 2019-05-12 12:52 | W.PM.PROGNOT ---
Date of Service Date of service: 05/12/19 Time of Service: 12:52 Assessment and Plan Assessment and plan (1) Closed fracture of left distal femur: Status: Acute Assessment and plan: Left knee immobilizer in place. Continue pain control with oral oxycodone and IV morphine. OR today for repair of distal left femur fracture with Dr. Abel and Cole. Qualifiers: Encounter type: initial encounter Fracture morphology: other fracture Qualified Code(s): S72.492A - Other fracture of lower end of left femur, initial encounter for closed fracture (2) Bilateral carotid bruits: Status: Acute Assessment and plan: Denies syncope related to her fall. Carotid artery ultrasounds shows: Findings consistent with greater than 70 percent luminal diameter stenosis proximal left ICA, maximum observed systolic velocity was 266 cm/second. Will require outpatient follow up. (3) Normocytic normochromic anemia: Status: Acute Assessment and plan: History of esophagitis, now with femur fracture. Hemoglobin and Hematocrit down to 8.0 today. Monitor H&H post-surgery, transfuse as indicated. (4) Hypokalemia: Status: Chronic Assessment and plan: Resolved. Monitor. (5) Hypomagnesemia: Status: Chronic Assessment and plan: Resolved. Monitor. (6) GERD (gastroesophageal reflux disease): Status: Chronic Assessment and plan: Continue PPI therapy. Qualifiers: Esophagitis presence: with esophagitis Qualified Code(s): K21.0 - Gastro-esophageal reflux disease with esophagitis (7) COPD (chronic obstructive pulmonary disease): Status: Chronic Assessment and plan: Smokes 1/2 ppd. Not in acute exacerbation. Offer nicotine replacement, encourage smoking cessation. Qualifiers: COPD type: unspecified COPD Qualified Code(s): J44.9 - Chronic obstructive pulmonary disease, unspecified (8) DVT prophylaxis: Status: Inactive Assessment and plan: Continue TEDs and SCDs. Defer to ortho on when to resume chemical DVT prophylaxis postoperatively. (9) Discharge planning issues: Status: Resolved Assessment and plan: She is a FULL CODE. OR today for repair of her distal left femur fracture. This case was discussed with Dr. Beck who is in agreement. Subjective Subjective Interval history since last seen: Zulema Urban is scheduled for the operating room today. She has been NPO since midnight. Her pain is under better control today. She reports that she slept fairly well last night. She has a cough in the morning which is typical for her. She smokes 1/2 ppd. She denies shortness of breath, wheezing, chest pain, abdominal pain, nausea, vomiting or diarrhea. She is looking forward to going to the OR for repair of her fracture. Exam Narrative Exam Narrative: General: Thin female, appears younger than stated age, alert and oriented, pleasant and cooperative. Answers questions appropriately, laying in bed with HOB elevated, in NAD. HEENT: normocehpalic, atraumatic, pupils equal and round, EOMI, mucous membranes moist. Neck: supple, no JVD. Respiratory: respirations even and unlabored, lung sounds clear bilaterally. Cardiovascular: Heart has regular rate and rhythm, nontachycardic, no murmur appreciated. GI: abdomen soft and flat, normoactive bowel sounds, nondistended, nontender on palpation. Extremities: LLE with knee immobilizer in place- not removed, elevated on pillows. Bilateral lower extremities with palpable pulses, no edema. Objective Objective Clinical Data: Abnormal lab results 05/11/19 05/12/19 05/12/19 Range/Units 14:05 06:15 06:15 RBC 2.95 L (4.00-5.20) m/cumm Hgb 8.2 L 8.0 L (12.0-15.5) g/dL Hct 25.8 L 25.8 L (36.0-46.0) % MCHC 31.0 L (32.0-36.0) g/dL MPV 12.0 H (8.0-11.0) fL Absolute Monocytes 1.77 H (0.11-0.7) k/cumm Glucose 105 H (70-100) mg/dL Calcium 8.4 L (8.5-10.1) mg/dL Vital Signs Temperature 37.1 C 05/12/19 12:10 Temperature Source Tympanic 05/12/19 12:10 Pulse 86 05/12/19 12:10 Pulse Rhythm Regular 05/12/19 09:12 Respiratory Rate 18 05/12/19 12:10 Respiratory Effort Non-Labored 05/12/19 09:12 Respiratory Depth Normal 05/12/19 09:12 Respiratory Pattern Normal 05/12/19 09:12 Blood Pressure 116/67 05/12/19 12:10 Blood Pressure Mean 81 05/10/19 16:15 Blood Pressure Position Supine 05/10/19 11:50 Pulse Oximetry 93 L 05/12/19 12:10 Oxygen Delivery Method Room Air 05/12/19 12:10 Oxygen Flow Rate 0 05/12/19 12:10 Pain Level 0 05/12/19 12:10 Intake & Output 05/11/19 05/12/19 05/12/19 23:59 11:59 23:59 Intake Total 580 / 1180 1100 / 1100 Output Total 1000 / 2650 950 / 950 Balance -420 / -1470 150 / 150 Intake: IV 100 / 300 1100 / 1100 Oral 480 / 880 Output: Urine 1000 / 2650 950 / 950 Other: Urine Color Yellow Yellow Urine Appearance Clear Clear Laboratory Results WBC 8.49 k/cumm (4.4-10.8) D 05/12/19 06:15 RBC 2.95 m/cumm (4.00-5.20) L 05/12/19 06:15 Hgb 8.0 g/dL (12.0-15.5) L 05/12/19 06:15 Hct 25.8 % (36.0-46.0) L 05/12/19 06:15 MCV 87.5 fL (80-95) 05/12/19 06:15 MCH 27.1 pg (27.0-33.0) 05/12/19 06:15 MCHC 31.0 g/dL (32.0-36.0) L 05/12/19 06:15 RDW 14.3 % (11.7-14.6) 05/12/19 06:15 Plt Count 236 x1000/uL (130-400) 05/12/19 06:15 MPV 12.0 fL (8.0-11.0) H 05/12/19 06:15 Immature Gran % 0.1 05/12/19 06:15 Neutrophils % 59.5 05/12/19 06:15 Lymphocytes % 18.3 05/12/19 06:15 Monocytes % 20.8 05/12/19 06:15 Eosinophils % 1.2 05/12/19 06:15 Basophils % 0.1 05/12/19 06:15 Absolute Neutrophils 5.05 k/cumm (1.2-6.7) 05/12/19 06:15 Absolute Lymphocytes 1.55 k/cumm (1.2-3.4) 05/12/19 06:15 Absolute Monocytes 1.77 k/cumm (0.11-0.7) H 05/12/19 06:15 Absolute Eosinophils 0.10 k/cumm (0.0-0.7) 05/12/19 06:15 Absolute Basophils 0.01 k/cumm (0.0-0.2) 05/12/19 06:15 Differential Comment Diff reviewed 05/12/19 06:15 RBC Morphology See below 05/12/19 06:15 Polychromasia Present 05/12/19 06:15 Hypochromasia 2+ 05/11/19 06:36 Poikilocytosis 1+ 05/11/19 06:36 Anisocytosis 1+ 05/12/19 06:15 Microcytosis 1+ 05/11/19 06:36 Retic Count 1.7 % (0.5-2.4) 05/11/19 06:36 PT 10.0 sec (9.3-11.0) 05/10/19 12:20 INR 1.0 (0.9-1.1) 05/10/19 12:20 APTT 21.9 sec (21.0-31.4) 05/10/19 12:20 Sodium 138 mmol/L (136-145) 05/12/19 06:15 Potassium 4.4 mmol/L (3.5-5.1) 05/12/19 06:15 Chloride 104 mmol/L (98-107) 05/12/19 06:15 Carbon Dioxide 24.4 mmol/L (21.0-32.0) 05/12/19 06:15 Anion Gap 9.6 mmol/L (3-11) 05/12/19 06:15 BUN 12 mg/dL (7-18) 05/12/19 06:15 Creatinine 0.60 mg/dL (0.55-1.02) 05/12/19 06:15 Estimated GFR/1.73 m2 >= 60.00 (mL/min/1.73m2) 05/12/19 06:15 Glucose 105 mg/dL (70-100) H 05/12/19 06:15 Calcium 8.4 mg/dL (8.5-10.1) L 05/12/19 06:15 Magnesium 2.6 mg/dL (1.8-2.4) H 05/11/19 06:36 Iron 17 ug/dL (50-175) L 05/11/19 06:36 TIBC 359 ug/dL (250-450) 05/11/19 06:36 Transferrin % Sat 5 % (15-50) L 05/11/19 06:36 Ferritin 19 ng/mL (8-388) 05/11/19 06:36 Total Bilirubin 0.3 mg/dL (0.2-1.0) 05/10/19 12:20 AST 16 U/L (15-37) 05/10/19 12:20 ALT 16 U/L (14-59) 05/10/19 12:20 Alkaline Phosphatase 78 U/L (46-116) 05/10/19 12:20 Lactate Dehydrogenase 141 U/L (81-234) 05/11/19 06:36 Total Protein 7.3 g/dL (6.4-8.2) 05/10/19 12:20 Albumin 3.6 g/dL (3.4-5.0) 05/10/19 12:20 Vitamin B12 440 pg/mL (193-986) 05/11/19 06:36 Folate 19.7 ng/mL (8.6-20.0) 05/11/19 06:36 Patient ABO/Rh A Positive 05/10/19 20:00 Antibody Screen Negative 05/10/19 20:00
[2019-05-12] MEDS: FAMOTIDINE 20 MG/50 ML BAG 100 MG (12:55)
[2019-05-12] MEDS: ceFAZolin 2,000 MG in Normal Saline 100 ML 200 MG IVPB (13:06)
[2019-05-12] MEDS: Lactated Ringers 1,000 ML 30 ML IV (13:10)
[2019-05-12] MEDS: Bupivacaine LIPOSOME/PF 133 MG/10 ML VIAL IJ (15:20)
--- NOTE | 2019-05-12 15:35 | DI.RAD_ITS ---
EXAM: XR KNEE LT 1V CLINICAL HISTORY: FRACTURED LEFT DISTAL FEMUR. TECHNIQUE: 2D and realtime digital imaging was performed. COMPARISON: XR KNEE LT 2V AP,LAT from 05/10/2019 FINDINGS: C-arm fluoroscopy was utilized by Dr. Abel during open reduction and internal fixation of femoral fr acture. Hard copies show improved alignment of the fracture fragments which are in nearly anatomic a lignment with plate and screw fixation in place. Fluoro time: 89.1 seconds
[2019-05-12] MEDS: fentaNYL 100 MCG/2 ML VIAL IVP (16:10)
[2019-05-12] MEDS: Normal Saline Flush 10 ML SYR IVP (17:14)
--- NOTE | 2019-05-12 17:32 | ROE_ITS ---
DATE OF SURGERY: May 12, 2019 PREOPERATIVE DIAGNOSIS: Left distal femur fracture. POSTOPERATIVE DIAGNOSIS: Left distal femur fracture. SURGERY: Open reduction and internal fixation of left distal femur fracture. SURGEON: George Galvan M.D. EKG/ECG TECHNICIAN: Annemarie Han PA-C ANESTHESIA: General. ESTIMATED BLOOD LOSS: 200 cc's COMPLICATIONS: None. DISPOSITION: The patient was awakened from anesthesia and taken to the PACU in a stable condition. INDICATION FOR PROCEDURE: Zulema is a 79-year-old who had a fall onto her left side. She suffered a distal femur fracture. This comminuted intraarticular fracture was below a short femoral nail. Gi lui the displacement and comminution surgery was recommended. I reviewed the technical details of th e surgery. I also reviewed the risks and benefits to include bleeding, infection, pain, stiffness, n onunion, malunion, worsening arthritis, need for repeat procedures, prominent hardware, hardware fail ure, damage to nerves and vessels, blood clot, cardiopulmonary demise. Despite these risks, she elec yee to proceed. PROCEDURE DESCRIPTION: Zulema was greeted in the preoperative holding area. Her identity was giles teresa and the correct side was identified and marked. The patient was taken back to the PACU where a fascia iliac block was performed. After this administration of the block she was then taken to the o perating room and a general anesthetic was administered. She was positioned in the supine position o nto the bed. All bony prominences were well-padded. The left leg was placed onto a bone foam ramp. She was secured to the table. The left leg was prepped with ChloraPrep and draped in a standard fas hion. Prophylactic antibiotics in the form of Cefazolin were given. Tranexamic acid 1 gram was also given prior to incision. A time-out was performed for safe surgery. A lateral-based incision was then made starting at the tibial tubercle and extending towards the IT b and. This was slightly more anterior than a typical direct lateral approach so that we could perform a lateral parapatellar arthrotomy with manipulation of the articular surfaces. Once the skin was in cised sharply, the deeper tissues and retinacular structures were identified. A lateral parapatellar arthrotomy was then made using a Bovie and [place] scissors. This was kept just lateral to the patella r tendon, lateral to the patella and then staying posterior to the vastus lateralis tendon. The vast us lateralis was elevated off of the lateral femur with a Candelario elevator, so we had excellent submuscu lar access to the lateral femur. The patella was able to be translated medially to allow visualizati on of the comminuted intraarticular fracture. The bone was quite soft. There were multiple pieces seen medially and anteriorly. There were two ma in condylar pieces, so it was primarily like a Y fracture pattern. A K-Wire from the 4.0 mm cannulat ed screw set was used to joystick the lateral fragment. It was manipulated along with the medial seg ment so that they were able to be lined up. The fracture line within the notch was identified as a p rimary surface. The fracture edges were debrided with a curette and with aggressive irrigation. The fracture hematoma was removed completely. I then manually manipulated the fracture pieces so that t hey lined up in what appeared to be in anatomic location. The K-Wire was driven across from the late ral side to medial side. This second one was placed in the more distal aspect, just underneath the a rticular surface. Once these two K-Wires were placed, an x-ray was used to confirm what appeared to be appropriate positioning. I did not worry about the metaphyseal comminution or its exact location in relation to the shaft. I then placed two 4.0 mm cannulated screws. A third cannulated screw was placed in a similar fashion slightly more posteriorly. These screws were made sure to be outside of the notch and of appropriate length. This gave excellent reconstruction of the distal articular segm ent. There was a large cortical piece of bone extending from the superior aspect of the articular ma rgin into the medial metaphysis. It was free and was not supported. It seemed to be an important st ructural piece and I was worried about this big defect if it was removed, or if it moved to impede wi th motion of the patella and quadriceps mechanism. Therefore, I placed an anterior to posterior scre w from this piece into the medial femoral condyle. This was ensured not to be long. Prior to arsenin g this screw all the way, I used some bone graft to pack underneath this segment to support it and ho pefully improve bony union rates. Once this was fully placed, I then slid the 14-hole, variable angl e distal femur locking plate up the side of the leg. I positioned it over the distal, lateral femur appropriately. It was then secured with a single K-Wire. X-rays confirmed good position proximally and distally. Once I had it where I wanted it distally, I secured it with a K-Wire and placed three locking screws. I was then able to distract the leg and apply some traction to orient the distal art icular segment onto the femoral shaft. A single non-locking screw was placed in the proximal portion of the plate to bring the plate down to the bone with excellent positioning in the lateral plane. T he x-rays were used to evaluate our reduction of the articular segment. It did seem like we may be s lightly posterior to the shaft and may be slightly lateral, although the contours of the bone were re ally close. And given the excellent fixation that we had, I did not change this and accepted it. I placed two locking screws proximal to the non-locking screw away from the fracture site within the sh aft. I then also placed two unicortical screws above the tip of her short femoral nail. This was no w secured and the knee was taken through range of motion. I had range measuring from 0 to 120 degree s without any displacement of the articular segment. There was no crepitus with range of motion. Th ere was a small articular segment within the central portion of the proximal notch which was loose. It was too small to place a single screw through, but I did wedge it between the two pieces of bone a nd once again ranged the knee and found it not to move. The wound was thoroughly irrigated with norm al saline and Irrisept. The proximal wounds were closed with jonnie. The parapatellar arthrotomy was closed with a #1 Vicry l. The deep tissues were closed with #2-0 Vicryl and the skin was closed with jonnie. The soft tis sues areas around the knee and the femur were injected with a mixture of 0.25% Bupivacaine and 10 cc' s of Exparel. The wounds were dressed with Xeroform, 4x4's, Medipore tape. She was placed in a [facility] knee brace. At the end of the case all counts were correct.
--- NOTE | 2019-05-12 18:06 | DI.RAD_ITS ---
EXAM: XR FEMUR LT INDICATION: s/p L femur ORIF. COMPARISON: XR FEMUR LT from 05/10/2019 TECHNIQUE: 2D digital imaging was performed. FINDINGS: Patient is status post sideplate and screw fixation of a distal femoral fracture. The components of w hich appear to be in excellent apposition and alignment.
--- NOTE | 2019-05-12 18:09 | PDOC.CMPRO ---
- If Service Date Differs Date of service: 05/12/19 Time of Service: 18:09 Care Management Progress Note S/O: CM met with Zulema, her daughter and son in law in the room. Zulema is alert and engaged she knows and understands she is having a repair of her left femur today. She is planning on discharged to her home/daughters home when she is ready. CM reviewed benefits with the family they would like a hospital bed if she qualifies at home. CM did review the request with PT and they will evaluate for equipment post op. A: Zulema is a 79 year old female admitted with a left femur fracture r/t a fall at home. P: Zulema has surgical repair of her femur today. She will work with PT over the weekend to determine needs. Zulema intends on returning home post surgically with her daughter and son in law, she reports her daughter is home during the day and planning on caring for her. Zulema family would like to obtain a hospital bed through her insurance if she qualifies. She lives in her daughters home in the basement she will be moving to their downstairs while she is recovering. They can borrow a commode from a friend. Anticipate with returning home she will have new orders for [facility] PT/OT. CM to coordinate hospital bed if needed. CM will continue to follow and support discharge planning considerations.
[2019-05-12 18:46] LABS: HCT 24.8 % (36.0-46.0); HGB 7.6 g/dL (12.0-15.5); Mean Corp. HGB Concentration 30.6 g/dL (32.0-36.0); Mean Corpuscular Volume 87.9 fL (80-95); Mean Platelet Volume 10.9 fL (8.0-11.0); Platelet Count 214 x1000/uL (130-400); RBC 2.82 m/cumm (4.00-5.20); RBC Distribution Width 14.5 % (11.7-14.6); White Blood Cell Count 12.16 k/cumm (4.4-10.8)
--- NOTE | 2019-05-12 19:00 | DI.VRAD_ITS ---
PROCEDURE INFORMATION: Exam: XR Left Femur Exam date and time: 05/12/2019 6:00 PM Clinical history: 79 years old, female; Other: Recent chest pain TECHNIQUE: Imaging protocol: XR Left femur. Views: 2 views. COMPARISON: CR XR FEMUR LT 05/10/2019 12:44 PM FINDINGS: Bones/joints: Short intramedullary jane. Screw in the left hip Long plate and screws along the femoral shaft. Multiple screws in the femoral condyles Fracture fragments are in good alignment Soft tissues: South overlie the lateral thigh and knee consistent with recent surgery IMPRESSION: Fracture fragments are in good alignment ORIF as described above Dictated and Authenticated by: Lisbet Chaudhari MD. Ordering:DRISS Vazquez MD
[2019-05-12] MEDS: Budesonide/Formoterol 160/4.5 6 GM 60 PUFF INH IH (20:25)
[2019-05-12] MEDS: oxyCODONE 5 MG TAB PO (20:25)
--- NOTE | 2019-05-12 23:06 | NUR.NOTE ---
Patient came up from the PACU this evening after having femur fracture repair under general anesthesia. She was a little drowsy when she came to the floor but alert and orient. State she was not having any pain at the moment but state she is feeling tired because she had not slept much for the passed couple of nights. She has a dressings to the left hip and above the knee, a small soil noted to the hip dressing same marked. Inch brace in place at this time. Pt has good pedal pulses and able to wiggle toes also has good sensation feet. Vitals done and charted.
[2019-05-13] VITALS (15 sets, daily range): BP systolic 96–136; BP diastolic 62–77; PULSE 89–107; RESP 16–18; TEMP 36.9–37.9; O2SAT 93–97
[2019-05-13] MEDS: oxyCODONE 5 MG TAB PO ×3 (01:42→15:21)
[2019-05-13] MEDS: ACETAMINOPHEN 1,000 MG/100 ML BTL 400 MG IVPB ×2 (01:43→18:12)
[2019-05-13] MEDS: Normal Saline 1,000 ML 100 ML IV ×2 (03:32→20:10)
[2019-05-13 07:07] LABS: HCT 23.3 % (36.0-46.0); HGB 7.1 g/dL (12.0-15.5); Mean Corp. HGB Concentration 30.5 g/dL (32.0-36.0); Mean Corpuscular Hemoglobin 26.7 pg (27.0-33.0); Mean Corpuscular Volume 87.6 fL (80-95); Platelet Count 217 x1000/uL (130-400); RBC 2.66 m/cumm (4.00-5.20); RBC Distribution Width 14.2 % (11.7-14.6)
[2019-05-13 07:14] LABS: Anion Gap 11.4 mmol/L (3-11); BUN 8 mg/dL (7-18); CO2 22.6 mmol/L (21.0-32.0); CREATININE 0.55 mg/dL (0.55-1.02); Calcium 8.4 mg/dL (8.5-10.1); Chloride 104 mmol/L (98-107); Glucose 111 mg/dL (70-100); Potassium 3.4 mmol/L (3.5-5.1); Sodium 138 mmol/L (136-145)
--- NOTE | 2019-05-13 08:24 | W.PM.PROGNOT ---
Date of Service Date of service: 05/13/19 Time of Service: 08:24 Assessment and Plan Assessment and plan (1) Closed fracture of left distal femur: Status: Acute Assessment and plan: Sue is a 79-year-old postop day #1 from a ORIF of the left distal femur fracture. She is doing well. Her pain is been managed. She did have some pain overnight but seems to be recovering with the medications on board. Her hemoglobin has dropped and she will require transfusion. She is touchdown weightbearing the left leg. The brace may be removed while she is in bed but should mostly be in place to prevent any angular loads to the knee. Physical therapy consult. Lovenox 40 mg daily for DVT prophylaxis. Qualifiers: Encounter type: initial encounter Fracture morphology: other fracture Qualified Code(s): S72.492A - Other fracture of lower end of left femur, initial encounter for closed fracture Subjective Subjective Interval history since last seen: Gabino reports to have had some pain last night. She did well until early in the morning hours. She has had some pain medication and has felt some relief. She has been able to move herself in bed and has been working on foot motions. All of this feels better than it did from before surgery. She denies any chest pain or shortness of breath. Exam Narrative Exam Narrative: Laying supine in the bed. Dressings clean dry and intact. Brace is in place. She has active ankle dorsiflexion, plantarflexion, eversion and inversion. Sensation intact light touch over the deep and superficial peroneal nerves and tibial nerve. Objective Objective Clinical Data: Abnormal lab results 05/10/19 05/12/19 05/13/19 Range/Units 20:00 18:35 06:35 WBC 12.16 H D (4.4-10.8) k/cumm RBC 2.82 L (4.00-5.20) m/cumm Hgb 7.6 L (12.0-15.5) g/dL Hct 24.8 L (36.0-46.0) % MCH (27.0-33.0) pg MCHC 30.6 L (32.0-36.0) g/dL MPV (8.0-11.0) fL Potassium 3.4 L D (3.5-5.1) mmol/L Anion Gap 11.4 H (3-11) mmol/L Glucose 111 H (70-100) mg/dL Calcium 8.4 L (8.5-10.1) mg/dL Crossmatch See Detail 05/13/19 Range/Units 06:35 WBC (4.4-10.8) k/cumm RBC 2.66 L (4.00-5.20) m/cumm Hgb 7.1 L (12.0-15.5) g/dL Hct 23.3 L (36.0-46.0) % MCH 26.7 L (27.0-33.0) pg MCHC 30.5 L (32.0-36.0) g/dL MPV 12.0 H (8.0-11.0) fL Potassium (3.5-5.1) mmol/L Anion Gap (3-11) mmol/L Glucose (70-100) mg/dL Calcium (8.5-10.1) mg/dL Crossmatch Vital Signs Temperature 37.2 C 05/13/19 02:05 Temperature Source Tympanic 05/13/19 02:05 Pulse 98 H 05/13/19 02:05 Pulse Rhythm Regular 05/13/19 01:45 Respiratory Rate 17 05/13/19 02:05 Respiratory Effort 05/13/19 01:45 Respiratory Depth Normal 05/13/19 01:45 Respiratory Pattern Normal 05/13/19 01:45 Blood Pressure 109/66 05/13/19 02:05 Blood Pressure Mean 81 05/10/19 16:15 Blood Pressure Position Supine 05/10/19 11:50 Pulse Oximetry 93 L 05/13/19 02:05 Respiratory End-tidal CO2 29 05/12/19 16:33 Oxygen Delivery Method Room Air 05/13/19 02:05 Oxygen Flow Rate 0 05/13/19 02:05 Pain Level 9 05/13/19 06:51 Comment 05/12/19 22:10 Intake & Output 05/12/19 05/12/19 05/13/19 11:59 23:59 11:59 Intake Total 1200 / 3110 1910 / 3110 2064.5 / 2064.5 Output Total 950 / 2450 1500 / 2450 1250 / 1250 Balance 250 / 660 410 / 660 814.5 / 814.5 Intake: IV 1200 / 2870 1670 / 2870 1664.5 / 1664.5 Oral 240 / 240 400 / 400 Output: Urine 950 / 2150 1200 / 2150 1250 / 1250 Estimated Blood Loss 300 / 300 Other: Urine Color Yellow Yellow Yellow Urine Appearance Clear Clear Cloudy Emesis Description None Laboratory Results WBC 9.10 k/cumm (4.4-10.8) 05/13/19 06:35 RBC 2.66 m/cumm (4.00-5.20) L 05/13/19 06:35 Hgb 7.1 g/dL (12.0-15.5) L 05/13/19 06:35 Hct 23.3 % (36.0-46.0) L 05/13/19 06:35 MCV 87.6 fL (80-95) 05/13/19 06:35 MCH 26.7 pg (27.0-33.0) L 05/13/19 06:35 MCHC 30.5 g/dL (32.0-36.0) L 05/13/19 06:35 RDW 14.2 % (11.7-14.6) 05/13/19 06:35 Plt Count 217 x1000/uL (130-400) 05/13/19 06:35 MPV 12.0 fL (8.0-11.0) H 05/13/19 06:35 Immature Gran % 0.1 05/12/19 06:15 Neutrophils % 59.5 05/12/19 06:15 Lymphocytes % 18.3 05/12/19 06:15 Monocytes % 20.8 05/12/19 06:15 Eosinophils % 1.2 05/12/19 06:15 Basophils % 0.1 05/12/19 06:15 Absolute Neutrophils 5.05 k/cumm (1.2-6.7) 05/12/19 06:15 Absolute Lymphocytes 1.55 k/cumm (1.2-3.4) 05/12/19 06:15 Absolute Monocytes 1.77 k/cumm (0.11-0.7) H 05/12/19 06:15 Absolute Eosinophils 0.10 k/cumm (0.0-0.7) 05/12/19 06:15 Absolute Basophils 0.01 k/cumm (0.0-0.2) 05/12/19 06:15 Differential Comment Diff reviewed 05/12/19 06:15 RBC Morphology See below 05/12/19 06:15 Polychromasia Present 05/12/19 06:15 Hypochromasia 2+ 05/11/19 06:36 Poikilocytosis 1+ 05/11/19 06:36 Anisocytosis 1+ 05/12/19 06:15 Microcytosis 1+ 05/11/19 06:36 Retic Count 1.7 % (0.5-2.4) 05/11/19 06:36 PT 10.0 sec (9.3-11.0) 05/10/19 12:20 INR 1.0 (0.9-1.1) 05/10/19 12:20 APTT 21.9 sec (21.0-31.4) 05/10/19 12:20 Sodium 138 mmol/L (136-145) 05/13/19 06:35 Potassium 3.4 mmol/L (3.5-5.1) L D 05/13/19 06:35 Chloride 104 mmol/L (98-107) 05/13/19 06:35 Carbon Dioxide 22.6 mmol/L (21.0-32.0) 05/13/19 06:35 Anion Gap 11.4 mmol/L (3-11) H 05/13/19 06:35 BUN 8 mg/dL (7-18) 05/13/19 06:35 Creatinine 0.55 mg/dL (0.55-1.02) 05/13/19 06:35 Estimated GFR/1.73 m2 >= 60.00 (mL/min/1.73m2) 05/13/19 06:35 Glucose 111 mg/dL (70-100) H 05/13/19 06:35 Calcium 8.4 mg/dL (8.5-10.1) L 05/13/19 06:35 Magnesium 2.6 mg/dL (1.8-2.4) H 05/11/19 06:36 Iron 17 ug/dL (50-175) L 05/11/19 06:36 TIBC 359 ug/dL (250-450) 05/11/19 06:36 Transferrin % Sat 5 % (15-50) L 05/11/19 06:36 Ferritin 19 ng/mL (8-388) 05/11/19 06:36 Total Bilirubin 0.3 mg/dL (0.2-1.0) 05/10/19 12:20 AST 16 U/L (15-37) 05/10/19 12:20 ALT 16 U/L (14-59) 05/10/19 12:20 Alkaline Phosphatase 78 U/L (46-116) 05/10/19 12:20 Lactate Dehydrogenase 141 U/L (81-234) 05/11/19 06:36 Total Protein 7.3 g/dL (6.4-8.2) 05/10/19 12:20 Albumin 3.6 g/dL (3.4-5.0) 05/10/19 12:20 Vitamin B12 440 pg/mL (193-986) 05/11/19 06:36 Folate 19.7 ng/mL (8.6-20.0) 05/11/19 06:36 Patient ABO/Rh A Positive 05/10/19 20:00 Antibody Screen Negative 05/10/19 20:00 Crossmatch See Detail 05/10/19 20:00
[2019-05-13] MEDS: Aspirin 81 MG CHEW PO (08:28)
[2019-05-13] MEDS: Multivitamin TAB 1 TAB PO (08:28)
[2019-05-13] MEDS: Omeprazole 20 MG CAPCR 40 MG PO (08:28)
[2019-05-13] MEDS: Ketorolac 15 MG/ML VIAL IVP ×3 (08:28→19:37)
[2019-05-13] MEDS: Enoxaparin 40 MG/0.4 ML SYR SC (08:29)
[2019-05-13] MEDS: Normal Saline Flush 10 ML SYR IVP ×3 (08:30→15:54)
[2019-05-13] MEDS: Potassium Chloride 20 MEQ TABCR 40 MEQ PO ×2 (08:34→15:54)
[2019-05-13 08:36] LABS: Magnesium 1.5 mg/dL (1.8-2.4)
[2019-05-13] MEDS: Acetaminophen 325 MG TAB 650 MG PO (09:13)
[2019-05-13] MEDS: diphenhydrAMINE 25 MG CAP PO (09:13)
--- NOTE | 2019-05-13 10:18 | IN_ITS ---
Date of service: 05/13/19 Time of Service: 10:18 PT Notes Inpatient Physical Therapy Evaluation Date: 05/13/2019 Referring Doctor: George Galvan MD PT Orders: PT CONSULT: Status post ORIF left distal femur fracture. Touchdown weightbearing with knee extension brace. Range of motion okay Precautions: Fall risk Patient Profile/Admitting Diagnosis: A 79-year-old female who fell 3 days ago resulting in a comminuted distal left femoral fracture. She underwent an ORIF postop day #1 PMHX: GERD, anemia, status post breast CA with lumpectomy, COPD, bilateral humeral fractures, bilateral hip fracture status post ORIF, spinal stenosis, osteoporosis. Social History/Home Situation: Has an apartment in the basement of her daughter's home. Prior to her fall, she was driving, doing grocery shopping and walking short distances up to 5 to 10 minutes. She is hoping to return home. A few steps entering the home with a railing, that her son-in-law has installed a ramp Current Functional Limitations: Requires assistance with all ADLs Equipment Owned/DME: Has a stair lift from the basement to the first floor, walking shower with a shower chair, grab bars for the toilet, a walker. Subjective: Patient complains of intermittent discomfort throughout the anterior aspect of the right distal thigh with quad contraction associated with the tingling sensation throughout the anterior lateral aspect of the mid left femur. She is no resting pain. Objective: [] General Observation: Pleasant, cooperative, and no abnormal pain behavior noted. Apprehensive regarding movement but anxious to get out of bed and start walking etc. Hoping to return home soon Mental Status: Alert and oriented x3 Pain: No complaints of resting pain, but discomfort when performing a quad set w hich is of sharper quality Vital Signs: Her resting pulse is 103 bpm and O2 sat was 96% ROM: She has functional range of motion of her upper extremities with hypomobility with shoulder abduction and flexion but without pain on movement. Her right knee, hip, talocrural, subtalar, midtarsal joints have good functional range without pain on movement. She is able to dorsi and plantarflex her left foot, and her active assistive range of motion of her left knee is 0 to 30 degrees within range drawing throughout the anterior aspect of the knee with flexion. Strength: She is full motor control throughout and right upper extremity strength generally rated -5/5 along with her right lower extremity. She will perform glutes sets but notices difficulty performing a strong contraction on the left. She is unable to perform a supine straight leg raise, but does have a visual quad contraction. Sensation: Intact Bed Mobility/Transfers: Patient requires assistance with her left lower extremity and trunk when assuming the supine to sitting position, and vice versa. I was unable to assess her standing capabilities due to nursing interruption for a blood transfusion. Gait: Not tested Balance: [] Static Sitting: Good Dynamic Sitting: Good Static Standing: Not tested Dynamic Standing: Not tested Special Tests: Mobility Limitations Standardized Measure [facility] AM-PAC 6 clicks Basic Mobility Inpatient Short Form: Raw Score: 11 standardized Score: 29.04 CMS Score: 70.42 CMS Modifier: CL Informed Consent/Education: Patient instructed in purpose of PT consult and plan of care. Assessment: Patient is a 79 year old female referred to physical therapy services with the diagnosis of comminuted distal left femoral fracture status post ORIF.. Patient presents with clinical signs and symptoms consistent with diagnosis, as demonstrated by the following impairment level findings: Loss of range of motion of the left knee, decreased strength throughout the entire left lower extremity, assistance with all bed mobility activities, etc. Impairments are contributing to the following functional limitation, as listed above. AMPAC score. CL Patient is assessed as a [] Moderate 01175 complexity based on the following: History: See comorbidities and social history Examination: See above for functional limitations and impairments Presentation: Evolving Decision Making: Moderate complexity based on her clinical findings and problem list Goals: Goals X1 week 1. Supine-Sit minimal assist 2. Sit-Supine minimal assist 3. Sit-Stand independent 4. Stand-Sit independent 5. Bed-Chair independent 6. Chair-Bed independent 7. Gait independent with a wheeled walker touchdown weightbearing 8. Stairs independent with a railing Plan of Care/Treatment Plan: 1-2x/day, 7 days/week x 1 week. Plan of care has been reviewed with the HEALTH INFORMATION MANAGEMENT DIRECTOR providing the service under Physical Therapy direction. Initiate Physical Therapy intervention for strengthening, bed mobility, transfers, gait, stairs, balance training, use of assistive device. I discussed patient's condition with the nursing staff, and later this afternoon when she is done with her blood transfusion, she should be able to stand at bedside with a wheeled walker touchdown weightbearing, and stable enough with a walk few steps to the recliner. Should be seen tomorrow for gait training, active assistive range of motion left knee, and eventual stairclimbing etc. DISCHARGE RECOMMENDATIONS: Appears to have a support of family at home with all appropriate adaptive equipment. TREATMENT CODE/TIME: 9716 2/60 minutes Disclaimer: This note was created using [employer] voice recognition software. It was reviewed for major content. However, there may be multiple small discrepancies and errors due to the voice recognition aspects of the software.
[2019-05-13] MEDS: MAGNESIUM SULFATE 4 GM/100 ML BAG IVPB (10:45)
[2019-05-13] MEDS: Budesonide/Formoterol 160/4.5 6 GM 60 PUFF INH IH (10:59)
--- NOTE | 2019-05-13 11:51 | W.PM.PROGNOT ---
Date of Service Date of service: 05/13/19 Time of Service: 11:51 Assessment and Plan Assessment and plan (1) Closed fracture of left distal femur: Start date: 05/13/19 Start time: 11:54 Status: Acute Assessment and plan: ORIF POD 2. Pain well controlled. Leg in immobilizer. Receiving 1 unit PRBC for hemoglobin 7.1, enoxaparin started. Recheck cbc in am. Qualifiers: Encounter type: initial encounter Fracture morphology: other fracture Qualified Code(s): S72.492A - Other fracture of lower end of left femur, initial encounter for closed fracture (2) Bilateral carotid bruits: Start date: 05/13/19 Start time: 11:55 Status: Acute Assessment and plan: Denies, dizzines, syncope upon falling. 70% stenosis in proximal left ICA. Started on atorvastatin and ASA 81 mg resumed. Patient verbalizes agreement to follow up as outpatient as she is asymptomatic at this time. (3) Normocytic normochromic anemia: Start date: 05/13/19 Start time: 11:57 Status: Acute Assessment and plan: Hemoglobin 7.1 today. Transfuse 1 unit and repeat CBC in am. (4) Hypokalemia: Start date: 05/13/19 Start time: 11:57 Status: Chronic Assessment and plan: Repleted and continue to monitor. (5) Hypomagnesemia: Start date: 05/13/19 Start time: 11:58 Status: Chronic Assessment and plan: Repletetd and recheck in am. Monitor. (6) GERD (gastroesophageal reflux disease): Start date: 05/13/19 Start time: 11:58 Status: Chronic Assessment and plan: Continue PPI therapy. Qualifiers: Esophagitis presence: with esophagitis Qualified Code(s): K21.0 - Gastro-esophageal reflux disease with esophagitis (7) COPD (chronic obstructive pulmonary disease): Start date: 05/13/19 Start time: 11:58 Status: Chronic Assessment and plan: Smokes 1/2 ppd. Not in acute exacerbation. Productive cough with slight expiratory wheezing. Breathing treatment this am. Sputum clear at this time. ICS encouraged. Spoke with patient about smoking cessation, she appears interested. Will follow up with outpatient provider to continue cessation. Previously tried chantix and had a reaction. Qualifiers: COPD type: unspecified COPD Qualified Code(s): J44.9 - Chronic obstructive pulmonary disease, unspecified (8) DVT prophylaxis: Start date: 05/13/19 Start time: 12:00 Status: Inactive Assessment and plan: Resume enoxaparin SUB Cu (9) Discharge planning issues: Start date: 05/13/19 Start time: 12:00 Status: Resolved Assessment and plan: She is a FULL CODE. Will go home with services when medically ready This case was discussed with Dr. López who is in agreement. Subjective Subjective Patient reports: feels better Interval history since last seen: Doing well today. No pain. Receiving 1 unit PRBC for hemoglobin 7.1. Atorvastatin started and ASA 81 mg resumed. Denies CP, SOB, N/V/D. Exam Narrative Exam Narrative: General: Thin female, appears younger than stated age, alert and oriented, pleasant and cooperative. Answers questions appropriately, laying in bed with HOB elevated, in NAD. HEENT: normocehpalic, atraumatic, pupils equal and round, EOMI, mucous membranes moist. Neck: supple, no JVD. Respiratory: respirations even and unlabored, lung sounds with wheezing to bilateral lower lobes, productive cough with clear phlegm Cardiovascular: Heart has regular rate and rhythm, nontachycardic, no murmur appreciated. GI: abdomen soft and flat, normoactive bowel sounds, nondistended, nontender on palpation. Extremities: LLE with knee immobilizer in place- not removed, elevated on pillows. Bilateral lower extremities with palpable pulses, no edema. Objective Objective Clinical Data: Abnormal lab results 05/10/19 05/12/19 05/13/19 Range/Units 20:00 18:35 06:35 WBC 12.16 H D (4.4-10.8) k/cumm RBC 2.82 L (4.00-5.20) m/cumm Hgb 7.6 L (12.0-15.5) g/dL Hct 24.8 L (36.0-46.0) % MCH (27.0-33.0) pg MCHC 30.6 L (32.0-36.0) g/dL MPV (8.0-11.0) fL Potassium 3.4 L D (3.5-5.1) mmol/L Anion Gap 11.4 H (3-11) mmol/L Glucose 111 H (70-100) mg/dL Calcium 8.4 L (8.5-10.1) mg/dL Magnesium 1.5 L (1.8-2.4) mg/dL Crossmatch See Detail 05/13/19 Range/Units 06:35 WBC (4.4-10.8) k/cumm RBC 2.66 L (4.00-5.20) m/cumm Hgb 7.1 L (12.0-15.5) g/dL Hct 23.3 L (36.0-46.0) % MCH 26.7 L (27.0-33.0) pg MCHC 30.5 L (32.0-36.0) g/dL MPV 12.0 H (8.0-11.0) fL Potassium (3.5-5.1) mmol/L Anion Gap (3-11) mmol/L Glucose (70-100) mg/dL Calcium (8.5-10.1) mg/dL Magnesium (1.8-2.4) mg/dL Crossmatch Vital Signs Temperature 37.4 C 05/13/19 11:30 Temperature Source Tympanic 05/13/19 07:10 Pulse 98 H 05/13/19 11:30 Pulse Rhythm Regular 05/13/19 08:50 Respiratory Rate 18 05/13/19 11:30 Respiratory Effort 05/13/19 08:50 Respiratory Depth Normal 05/13/19 08:50 Respiratory Pattern Normal 05/13/19 08:50 Blood Pressure 108/69 05/13/19 11:30 Blood Pressure Mean 81 05/10/19 16:15 Blood Pressure Position Supine 05/10/19 11:50 Pulse Oximetry 97 05/13/19 11:30 Respiratory End-tidal CO2 29 05/12/19 16:33 Oxygen Delivery Method Room Air 05/13/19 11:30 Oxygen Flow Rate 0 05/13/19 11:30 Pain Level 3 05/13/19 08:50 Comment 05/12/19 22:10 Intake & Output 05/12/19 05/12/19 05/13/19 11:59 23:59 11:59 Intake Total 1200 / 3110 1910 / 3110 2736.167 / 2736.167 Output Total 950 / 2450 1500 / 2450 1250 / 1250 Balance 250 / 660 410 / 660 1486.167 / 1486.167 Intake: IV 1200 / 2870 1670 / 2870 2336.167 / 2336.167 Oral 240 / 240 400 / 400 Output: Urine 950 / 2150 1200 / 2150 1250 / 1250 Estimated Blood Loss 300 / 300 Other: Urine Color Yellow Yellow Yellow Urine Appearance Clear Clear Clear Emesis Description None Laboratory Results WBC 9.10 k/cumm (4.4-10.8) 05/13/19 06:35 RBC 2.66 m/cumm (4.00-5.20) L 05/13/19 06:35 Hgb 7.1 g/dL (12.0-15.5) L 05/13/19 06:35 Hct 23.3 % (36.0-46.0) L 05/13/19 06:35 MCV 87.6 fL (80-95) 05/13/19 06:35 MCH 26.7 pg (27.0-33.0) L 05/13/19 06:35 MCHC 30.5 g/dL (32.0-36.0) L 05/13/19 06:35 RDW 14.2 % (11.7-14.6) 05/13/19 06:35 Plt Count 217 x1000/uL (130-400) 05/13/19 06:35 MPV 12.0 fL (8.0-11.0) H 05/13/19 06:35 Immature Gran % 0.1 05/12/19 06:15 Neutrophils % 59.5 05/12/19 06:15 Lymphocytes % 18.3 05/12/19 06:15 Monocytes % 20.8 05/12/19 06:15 Eosinophils % 1.2 05/12/19 06:15 Basophils % 0.1 05/12/19 06:15 Absolute Neutrophils 5.05 k/cumm (1.2-6.7) 05/12/19 06:15 Absolute Lymphocytes 1.55 k/cumm (1.2-3.4) 05/12/19 06:15 Absolute Monocytes 1.77 k/cumm (0.11-0.7) H 05/12/19 06:15 Absolute Eosinophils 0.10 k/cumm (0.0-0.7) 05/12/19 06:15 Absolute Basophils 0.01 k/cumm (0.0-0.2) 05/12/19 06:15 Differential Comment Diff reviewed 05/12/19 06:15 RBC Morphology See below 05/12/19 06:15 Polychromasia Present 05/12/19 06:15 Hypochromasia 2+ 05/11/19 06:36 Poikilocytosis 1+ 05/11/19 06:36 Anisocytosis 1+ 05/12/19 06:15 Microcytosis 1+ 05/11/19 06:36 Retic Count 1.7 % (0.5-2.4) 05/11/19 06:36 PT 10.0 sec (9.3-11.0) 05/10/19 12:20 INR 1.0 (0.9-1.1) 05/10/19 12:20 APTT 21.9 sec (21.0-31.4) 05/10/19 12:20 Sodium 138 mmol/L (136-145) 05/13/19 06:35 Potassium 3.4 mmol/L (3.5-5.1) L D 05/13/19 06:35 Chloride 104 mmol/L (98-107) 05/13/19 06:35 Carbon Dioxide 22.6 mmol/L (21.0-32.0) 05/13/19 06:35 Anion Gap 11.4 mmol/L (3-11) H 05/13/19 06:35 BUN 8 mg/dL (7-18) 05/13/19 06:35 Creatinine 0.55 mg/dL (0.55-1.02) 05/13/19 06:35 Estimated GFR/1.73 m2 >= 60.00 (mL/min/1.73m2) 05/13/19 06:35 Glucose 111 mg/dL (70-100) H 05/13/19 06:35 Calcium 8.4 mg/dL (8.5-10.1) L 05/13/19 06:35 Magnesium 1.5 mg/dL (1.8-2.4) L 05/13/19 06:35 Iron 17 ug/dL (50-175) L 05/11/19 06:36 TIBC 359 ug/dL (250-450) 05/11/19 06:36 Transferrin % Sat 5 % (15-50) L 05/11/19 06:36 Ferritin 19 ng/mL (8-388) 05/11/19 06:36 Total Bilirubin 0.3 mg/dL (0.2-1.0) 05/10/19 12:20 AST 16 U/L (15-37) 05/10/19 12:20 ALT 16 U/L (14-59) 05/10/19 12:20 Alkaline Phosphatase 78 U/L (46-116) 05/10/19 12:20 Lactate Dehydrogenase 141 U/L (81-234) 05/11/19 06:36 Total Protein 7.3 g/dL (6.4-8.2) 05/10/19 12:20 Albumin 3.6 g/dL (3.4-5.0) 05/10/19 12:20 Vitamin B12 440 pg/mL (193-986) 05/11/19 06:36 Folate 19.7 ng/mL (8.6-20.0) 05/11/19 06:36 Patient ABO/Rh A Positive 05/10/19 20:00 Antibody Screen Negative 05/10/19 20:00 Crossmatch See Detail 05/10/19 20:00
--- NOTE | 2019-05-13 17:01 | PDOC.CMPRO ---
Care Management Progress Note S/O: Zulema was lying in bed when CM met with her. She remains pleasant in interaction and reports being motivated to get moving. Discharge plan reviewed with Zulema reporting agreement and awareness to discharge planning considerations. CM continues to follow. A: 79 year old female admitted to [facility] 05/13/19 for Femur Fracture P: Zulema continues to work with PT; Frank reports Zulema was motivated working with him this morning. over the weekend. Zulema will likely return home where she resides with her daughter and son in law. Medical necessity for hospital bed reviewed, CM agreed to provide rental information but encouraged Zulema to discuss more affordable and likely more comfortable options. Zulema has a basement apartment with a stair lift and DME, though her daughter will be caring for her on the main floor post discharge. She intends on borrowing a commode from a friend. Anticipate with returning home she will have new orders for [facility] PT/OT as well. CM will continue to follow and support discharge planning considerations.
[2019-05-13] MEDS: Atorvastatin 40 MG TAB PO (19:39)
[2019-05-13] MEDS: MORPHine 2 MG/ML SYR IVP (23:43)
[2019-05-14] MEDS: ACETAMINOPHEN 1,000 MG/100 ML BTL 400 MG IVPB ×3 (02:08→17:21)
[2019-05-14] MEDS: Ketorolac 15 MG/ML VIAL IVP ×3 (02:09→13:17)
[2019-05-14] MEDS: MORPHine 2 MG/ML SYR IVP (02:41)
[2019-05-14] MEDS: Normal Saline 1,000 ML 100 ML IV (06:10)
[2019-05-14 07:04] LABS: Abs Immature Grans 0.01 k/cumm (0.0-0.09); Absolute Basophil Count 0.01 k/cumm (0.0-0.2); Absolute Eosinophil Count 0.26 k/cumm (0.0-0.7); Absolute Lymphocyte Count 1.16 k/cumm (1.2-3.4); Absolute Monocyte Count 1.83 k/cumm (0.11-0.7); Absolute Neutrophil Count 5.19 k/cumm (1.2-6.7); Basophils % 0.1; Eosinophils % 3.1; HCT 29.3 % (36.0-46.0); HGB 9.6 g/dL (12.0-15.5); Immature Grans % 0.1; Lymphocytes % 13.7; Mean Corp. HGB Concentration 32.8 g/dL (32.0-36.0); Mean Corpuscular Hemoglobin 29.4 pg (27.0-33.0); Mean Corpuscular Volume 89.6 fL (80-95); Monocytes % 21.6; Neutrophils % 61.4; Platelet Count 196 x1000/uL (130-400); RBC 3.27 m/cumm (4.00-5.20); RBC Distribution Width 14.9 % (11.7-14.6); White Blood Cell Count 8.46 k/cumm (4.4-10.8)
[2019-05-14 07:22] LABS: Anion Gap 10.5 mmol/L (3-11); BUN 13 mg/dL (7-18); CO2 19.5 mmol/L (21.0-32.0); CREATININE 0.58 mg/dL (0.55-1.02); Calcium 8.2 mg/dL (8.5-10.1); Chloride 109 mmol/L (98-107); Glucose 101 mg/dL (70-100); Magnesium 1.8 mg/dL (1.8-2.4); Potassium 4.2 mmol/L (3.5-5.1); Sodium 139 mmol/L (136-145)
[2019-05-14 07:30] VITALS: BP 136/76; PULSE 81; RESP 17; TEMP 37.3; O2SAT 97
[2019-05-14] MEDS: Budesonide/Formoterol 160/4.5 6 GM 60 PUFF INH IH (07:45)
[2019-05-14] MEDS: Omeprazole 20 MG CAPCR 40 MG PO (07:51)
[2019-05-14] MEDS: Enoxaparin 40 MG/0.4 ML SYR SC (07:52)
[2019-05-14] MEDS: Aspirin 81 MG CHEW PO (07:52)
[2019-05-14] MEDS: Multivitamin TAB 1 TAB PO (07:52)
[2019-05-14 08:03] LABS: Diff Comment Diff Reviewed
--- NOTE | 2019-05-14 10:55 | PT.INTREAT ---
Date of service: 05/14/19 Time of Service: 09:45 PT Notes Inpatient Physical Therapy Treatment Note [facility] Date: 05/14/19 PRECAUTIONS: Fall and TDWB on the left SUBJECTIVE: Stated her pain level was about a 2 post mobilization with PT today. Patient's daughter expressed concern about her mom ambulating with PT if the doctor said she has to use a w/c at home. Discussed the need for patient to be able to go to the bathroom and get in and out of bed. OBJECTIVE: PAIN: 2/10 on 0-10 pain scale post PT visit BED MOBILITY/TRANSFERS Sit-stand: CGA and verbal cueing Stand-sit: CGA and verbal cueing GAIT Assistive Device: FWW Weight bearing: TDWB on left Assist: CGA and verbal cueing Distance: 2ft commode to chair THEREX: Performed ankle pumps for 20 reps, quad sets/ glut sets for 10 reps each and independent SLR with brace in place x 5 reps. AAROM : 0-5 degrees extension to approximately 40 degrees flexion today. Top 2 brace straps were loosed a little today due to complaints of them feeling too tight. Lotion was applied to back of leg by daughter and patient while brace was removed in chair. ASSESSMENT: Tolerated her PT session very well with good effort with her exercises. Indicated she has been practicing the AP, GS, QS and SLRs prior to my arrival today. PLAN: Continue to focus on functional mobility as able to tolerate. TREATMENT CODE/TIME: 09051l3/ 12608t2, 9:45 to 10:10 (25 minutes)
[2019-05-14] MEDS: Polyethylene Glycol 3350 17 GM PACKET PO (14:00)
--- NOTE | 2019-05-14 14:08 | W.PM.PROGNOT ---
Date of Service Date of service: 05/14/19 Time of Service: 14:08 Assessment and Plan Assessment and plan (1) Closed fracture of left distal femur: Start date: 05/14/19 Start time: 14:11 Status: Acute Assessment and plan: ORIF POD 2. Pain well controlled. Leg in immobilizer. Hemoglobin stable at 9.6. continue to montior. Qualifiers: Encounter type: initial encounter Fracture morphology: other fracture Qualified Code(s): S72.492A - Other fracture of lower end of left femur, initial encounter for closed fracture (2) Bilateral carotid bruits: Start date: 05/14/19 Start time: 14:12 Status: Acute Assessment and plan: Denies, dizzines, syncope upon falling. 70% stenosis in proximal left ICA. Started on atorvastatin and ASA 81 mg resumed. Patient verbalizes agreement to follow up as outpatient as she is asymptomatic at this time. (3) Normocytic normochromic anemia: Start date: 05/14/19 Start time: 14:12 Status: Acute Assessment and plan: improved. Repeat CBC in am (4) Hypokalemia: Start date: 05/14/19 Start time: 14:12 Status: Chronic Assessment and plan: Improved. continue to monitor. (5) Hypomagnesemia: Start date: 05/14/19 Start time: 14:12 Status: Chronic Assessment and plan: Improved, continue to monitor. (6) GERD (gastroesophageal reflux disease): Start date: 05/14/19 Start time: 14:12 Status: Chronic Assessment and plan: Continue PPI therapy. Qualifiers: Esophagitis presence: with esophagitis Qualified Code(s): K21.0 - Gastro-esophageal reflux disease with esophagitis (7) COPD (chronic obstructive pulmonary disease): Start date: 05/14/19 Start time: 14:12 Status: Chronic Assessment and plan: Smokes 1/2 ppd. Not in acute exacerbation. Lung sounds with fine crackles. Sputum clear at this time. ICS encouraged. Spoke with patient about smoking cessation, she appears interested. Will follow up with outpatient provider to continue cessation. Previously tried chantix and had a reaction. Qualifiers: COPD type: unspecified COPD Qualified Code(s): J44.9 - Chronic obstructive pulmonary disease, unspecified (8) DVT prophylaxis: Start date: 05/14/19 Start time: 14:13 Status: Inactive Assessment and plan: Resume enoxaparin SUB Cu with ASA on discharge. (9) Discharge planning issues: Start date: 05/14/19 Start time: 14:13 Status: Resolved Assessment and plan: She is a FULL CODE. Will go home with services when medically ready This case was discussed with Dr. López who is in agreement. Subjective Subjective Patient reports: feels better Interval history since last seen: POD 2 of ORIF, doing well. Hemoglobin stable at 9.6. Continue to monitor. Exam Narrative Exam Narrative: General: Thin female, appears younger than stated age, alert and oriented, pleasant and cooperative. Answers questions appropriately, sitting up in chair, NAD HEENT: normocehpalic, atraumatic, pupils equal and round, EOMI, mucous membranes moist. Neck: supple, no JVD. Respiratory: respirations even and unlabored, lung sounds with fine crackles to bilateral bases, productive cough with clear sputum Cardiovascular: Heart has regular rate and rhythm, nontachycardic, no murmur appreciated. GI: abdomen soft and flat, normoactive bowel sounds, nondistended, nontender on palpation. Extremities: LLE with knee immobilizer in place- not removed. Bilateral lower extremities with palpable pulses, no edema. Objective Objective Clinical Data: Abnormal lab results 05/10/19 05/14/19 05/14/19 Range/Units 20:00 06:20 06:20 RBC 3.27 L (4.00-5.20) m/cumm Hgb 9.6 L D (12.0-15.5) g/dL Hct 29.3 L D (36.0-46.0) % RDW 14.9 H (11.7-14.6) % MPV 12.0 H (8.0-11.0) fL Absolute Lymphocytes 1.16 L (1.2-3.4) k/cumm Absolute Monocytes 1.83 H (0.11-0.7) k/cumm Chloride 109 H (98-107) mmol/L Carbon Dioxide 19.5 L (21.0-32.0) mmol/L Glucose 101 H (70-100) mg/dL Calcium 8.2 L (8.5-10.1) mg/dL Crossmatch See Detail Vital Signs Temperature 37.3 C 05/14/19 07:30 Temperature Source Tympanic 05/14/19 07:30 Pulse 81 05/14/19 07:30 Pulse Rhythm Regular 05/14/19 09:25 Respiratory Rate 17 05/14/19 07:30 Respiratory Effort 05/14/19 09:25 Respiratory Depth Normal 05/14/19 09:25 Respiratory Pattern Normal 05/14/19 09:25 Blood Pressure 136/76 05/14/19 07:30 Blood Pressure Mean 81 05/10/19 16:15 Blood Pressure Position Supine 05/10/19 11:50 Pulse Oximetry 97 05/14/19 07:30 Respiratory End-tidal CO2 29 05/12/19 16:33 Oxygen Delivery Method Room Air 05/14/19 07:30 Oxygen Flow Rate 0 05/14/19 07:30 Pain Level 1 05/14/19 13:17 Comment 05/12/19 22:10 Intake & Output 05/13/19 05/14/19 05/14/19 23:59 11:59 23:59 Intake Total 2060 / 4796.167 1700 / 1950 250 / 1950 Output Total 1500 / 2750 750 / 1400 650 / 1400 Balance 560 / 2046.167 950 / 550 -400 / 550 Intake: IV 830 / 3166.167 1100 / 1100 Oral 480 / 880 600 / 850 250 / 850 Blood Product 750 / 750 Rbc Leuko Reduced Unit 500 / 500 [id number] Rbc Leuko Reduced Unit 250 / 250 [id number] Output: Urine 1500 / 2750 750 / 1400 650 / 1400 Other: Urine Color Light Yamile Yellow Yellow Urine Appearance Clear Clear Clear Urine Odor Strong Strong Voiding Methods Bedside Commode Bedside Commode Laboratory Results WBC 8.46 k/cumm (4.4-10.8) 05/14/19 06:20 RBC 3.27 m/cumm (4.00-5.20) L 05/14/19 06:20 Hgb 9.6 g/dL (12.0-15.5) L D 05/14/19 06:20 Hct 29.3 % (36.0-46.0) L D 05/14/19 06:20 MCV 89.6 fL (80-95) 05/14/19 06:20 MCH 29.4 pg (27.0-33.0) 05/14/19 06:20 MCHC 32.8 g/dL (32.0-36.0) 05/14/19 06:20 RDW 14.9 % (11.7-14.6) H 05/14/19 06:20 Plt Count 196 x1000/uL (130-400) 05/14/19 06:20 MPV 12.0 fL (8.0-11.0) H 05/14/19 06:20 Immature Gran % 0.1 05/14/19 06:20 Neutrophils % 61.4 05/14/19 06:20 Lymphocytes % 13.7 05/14/19 06:20 Monocytes % 21.6 05/14/19 06:20 Eosinophils % 3.1 05/14/19 06:20 Basophils % 0.1 05/14/19 06:20 Absolute Neutrophils 5.19 k/cumm (1.2-6.7) 05/14/19 06:20 Absolute Lymphocytes 1.16 k/cumm (1.2-3.4) L 05/14/19 06:20 Absolute Monocytes 1.83 k/cumm (0.11-0.7) H 05/14/19 06:20 Absolute Eosinophils 0.26 k/cumm (0.0-0.7) 05/14/19 06:20 Absolute Basophils 0.01 k/cumm (0.0-0.2) 05/14/19 06:20 Differential Comment Diff reviewed 05/14/19 06:20 RBC Morphology See below 05/12/19 06:15 Polychromasia Present 05/12/19 06:15 Hypochromasia 2+ 05/11/19 06:36 Poikilocytosis 1+ 05/11/19 06:36 Anisocytosis 1+ 05/12/19 06:15 Microcytosis 1+ 05/11/19 06:36 Retic Count 1.7 % (0.5-2.4) 05/11/19 06:36 PT 10.0 sec (9.3-11.0) 05/10/19 12:20 INR 1.0 (0.9-1.1) 05/10/19 12:20 APTT 21.9 sec (21.0-31.4) 05/10/19 12:20 Sodium 139 mmol/L (136-145) 05/14/19 06:20 Potassium 4.2 mmol/L (3.5-5.1) D 05/14/19 06:20 Chloride 109 mmol/L (98-107) H 05/14/19 06:20 Carbon Dioxide 19.5 mmol/L (21.0-32.0) L 05/14/19 06:20 Anion Gap 10.5 mmol/L (3-11) 05/14/19 06:20 BUN 13 mg/dL (7-18) 05/14/19 06:20 Creatinine 0.58 mg/dL (0.55-1.02) 05/14/19 06:20 Estimated GFR/1.73 m2 >= 60.00 (mL/min/1.73m2) 05/14/19 06:20 Glucose 101 mg/dL (70-100) H 05/14/19 06:20 Calcium 8.2 mg/dL (8.5-10.1) L 05/14/19 06:20 Magnesium 1.8 mg/dL (1.8-2.4) 05/14/19 06:20 Iron 17 ug/dL (50-175) L 05/11/19 06:36 TIBC 359 ug/dL (250-450) 05/11/19 06:36 Transferrin % Sat 5 % (15-50) L 05/11/19 06:36 Ferritin 19 ng/mL (8-388) 05/11/19 06:36 Total Bilirubin 0.3 mg/dL (0.2-1.0) 05/10/19 12:20 AST 16 U/L (15-37) 05/10/19 12:20 ALT 16 U/L (14-59) 05/10/19 12:20 Alkaline Phosphatase 78 U/L (46-116) 05/10/19 12:20 Lactate Dehydrogenase 141 U/L (81-234) 05/11/19 06:36 Total Protein 7.3 g/dL (6.4-8.2) 05/10/19 12:20 Albumin 3.6 g/dL (3.4-5.0) 05/10/19 12:20 Vitamin B12 440 pg/mL (193-986) 05/11/19 06:36 Folate 19.7 ng/mL (8.6-20.0) 05/11/19 06:36 Patient ABO/Rh A Positive 05/10/19 20:00 Antibody Screen Negative 05/10/19 20:00 Crossmatch See Detail 05/10/19 20:00
[2019-05-14] MEDS: oxyCODONE 5 MG TAB PO (15:45)
[2019-05-14 16:16] VITALS: BP 121/67; PULSE 93; RESP 17; TEMP 37.8; O2SAT 96
--- NOTE | 2019-05-14 16:29 | CMPROGNOTE_ITS ---
Care Management Progress Note S/O: Zulema was lying in bed when CM met with her. She remains pleasant in interaction remains motivated working with nursing and PT. Her pain is well managed at this time and she is no longer requiring IV pain meds. No change to overall plan, Zulema met with her family today and they are no longer seeking hospital bed. CM continues to follow. A: 79 year old female admitted to [facility] 05/13/19 for Femur Fracture P: Zulema continues to work with PT; Frank reports Zulema was motivated working with him this morning. over the weekend. Zulema will likely return home where she resides with her daughter and son in law. Zulema has a basement apartment with a stair lift and DME, though her daughter will be caring for her on the main floor post discharge. She intends on borrowing a commode from a friend. Anticipate with returning home she will have new orders for [facility] PT/OT as well. CM will continue to follow and support discharge planning considerations.
[2019-05-14 20:15] VITALS: BP 117/72; PULSE 94; RESP 18; TEMP 37.5; O2SAT 95
[2019-05-14] MEDS: Atorvastatin 40 MG TAB PO (20:15)
--- NOTE | 2019-05-14 20:35 | W.PM.PROGNOT ---
Date of Service Date of service: 05/14/19 Time of Service: 08:35 Assessment and Plan Assessment and plan (1) Closed fracture of left distal femur: Status: Acute Assessment and plan: Gabino is a 79-year-old status post ORIF of the left distal femur. She is doing well. She is managing her restrictions very well. She still needs some continued physical therapy to ready herself for home. Continue Lovenox for DVT prevention while she is here and then may transition to aspirin after 2 weeks. Touchdown weightbearing left lower extremity. Qualifiers: Encounter type: initial encounter Fracture morphology: other fracture Qualified Code(s): S72.492A - Other fracture of lower end of left femur, initial encounter for closed fracture Subjective Subjective Interval history since last seen: Gabino reports to be doing well. She has had some pain but it is controlled with medications. She has been able to move the knee slightly and get up out of the bed while maintaining her weightbearing restrictions. She has had no nausea or vomiting. She has had no fever or chills. Exam Narrative Exam Narrative: Dressing with very minimal amount of sanguinous discharge. Hinged knee brace in place. She is able to actively dorsiflex and plantar flex left ankle as well as invert and mindi. Sensation intact light touch over the deep and superficial peroneal nerves and tibial nerve. The foot is warm and well-perfused. Objective Objective Clinical Data: Abnormal lab results 05/14/19 05/14/19 Range/Units 06:20 06:20 RBC 3.27 L (4.00-5.20) m/cumm Hgb 9.6 L D (12.0-15.5) g/dL Hct 29.3 L D (36.0-46.0) % RDW 14.9 H (11.7-14.6) % MPV 12.0 H (8.0-11.0) fL Absolute Lymphocytes 1.16 L (1.2-3.4) k/cumm Absolute Monocytes 1.83 H (0.11-0.7) k/cumm Chloride 109 H (98-107) mmol/L Carbon Dioxide 19.5 L (21.0-32.0) mmol/L Glucose 101 H (70-100) mg/dL Calcium 8.2 L (8.5-10.1) mg/dL Vital Signs Temperature 37.8 C H 05/14/19 16:16 Temperature Source Tympanic 05/14/19 16:16 Pulse 93 H 05/14/19 16:16 Pulse Rhythm Regular 05/14/19 15:42 Respiratory Rate 17 05/14/19 16:16 Respiratory Effort 05/14/19 15:42 Respiratory Depth Normal 05/14/19 15:42 Respiratory Pattern Normal 05/14/19 15:42 Blood Pressure 121/67 05/14/19 16:16 Blood Pressure Mean 81 05/10/19 16:15 Blood Pressure Position Supine 05/10/19 11:50 Pulse Oximetry 96 05/14/19 16:16 Respiratory End-tidal CO2 29 05/12/19 16:33 Oxygen Delivery Method Room Air 05/14/19 16:16 Oxygen Flow Rate 0 05/14/19 16:16 Pain Level 2 05/14/19 17:21 Comment 05/12/19 22:10 Intake & Output 05/13/19 05/14/19 05/14/19 23:59 11:59 23:59 Intake Total 2060 / 4796.167 1800 / 2866.667 1066.667 / 2866.667 Output Total 1500 / 2750 750 / 1400 650 / 1400 Balance 560 / 2046.167 1050 / 1466.667 416.667 / 1466.667 Intake: IV 830 / 3166.167 1200 / 2015.667 816.667 / 2015.7 Oral 480 / 880 600 / 850 250 / 850 Blood Product 750 / 750 Rbc Leuko Reduced Unit 500 / 500 [id number] Rbc Leuko Reduced Unit 250 / 250 [id number] Output: Urine 1500 / 2750 750 / 1400 650 / 1400 Other: Urine Color Light Yamile Yellow Yellow Urine Appearance Clear Clear Clear Urine Odor Strong Strong Voiding Methods Bedside Commode Bedside Commode Laboratory Results WBC 8.46 k/cumm (4.4-10.8) 05/14/19 06:20 RBC 3.27 m/cumm (4.00-5.20) L 05/14/19 06:20 Hgb 9.6 g/dL (12.0-15.5) L D 05/14/19 06:20 Hct 29.3 % (36.0-46.0) L D 05/14/19 06:20 MCV 89.6 fL (80-95) 05/14/19 06:20 MCH 29.4 pg (27.0-33.0) 05/14/19 06:20 MCHC 32.8 g/dL (32.0-36.0) 05/14/19 06:20 RDW 14.9 % (11.7-14.6) H 05/14/19 06:20 Plt Count 196 x1000/uL (130-400) 05/14/19 06:20 MPV 12.0 fL (8.0-11.0) H 05/14/19 06:20 Immature Gran % 0.1 05/14/19 06:20 Neutrophils % 61.4 05/14/19 06:20 Lymphocytes % 13.7 05/14/19 06:20 Monocytes % 21.6 05/14/19 06:20 Eosinophils % 3.1 05/14/19 06:20 Basophils % 0.1 05/14/19 06:20 Absolute Neutrophils 5.19 k/cumm (1.2-6.7) 05/14/19 06:20 Absolute Lymphocytes 1.16 k/cumm (1.2-3.4) L 05/14/19 06:20 Absolute Monocytes 1.83 k/cumm (0.11-0.7) H 05/14/19 06:20 Absolute Eosinophils 0.26 k/cumm (0.0-0.7) 05/14/19 06:20 Absolute Basophils 0.01 k/cumm (0.0-0.2) 05/14/19 06:20 Differential Comment Diff reviewed 05/14/19 06:20 RBC Morphology See below 05/12/19 06:15 Polychromasia Present 05/12/19 06:15 Hypochromasia 2+ 05/11/19 06:36 Poikilocytosis 1+ 05/11/19 06:36 Anisocytosis 1+ 05/12/19 06:15 Microcytosis 1+ 05/11/19 06:36 Retic Count 1.7 % (0.5-2.4) 05/11/19 06:36 PT 10.0 sec (9.3-11.0) 05/10/19 12:20 INR 1.0 (0.9-1.1) 05/10/19 12:20 APTT 21.9 sec (21.0-31.4) 05/10/19 12:20 Sodium 139 mmol/L (136-145) 05/14/19 06:20 Potassium 4.2 mmol/L (3.5-5.1) D 05/14/19 06:20 Chloride 109 mmol/L (98-107) H 05/14/19 06:20 Carbon Dioxide 19.5 mmol/L (21.0-32.0) L 05/14/19 06:20 Anion Gap 10.5 mmol/L (3-11) 05/14/19 06:20 BUN 13 mg/dL (7-18) 05/14/19 06:20 Creatinine 0.58 mg/dL (0.55-1.02) 05/14/19 06:20 Estimated GFR/1.73 m2 >= 60.00 (mL/min/1.73m2) 05/14/19 06:20 Glucose 101 mg/dL (70-100) H 05/14/19 06:20 Calcium 8.2 mg/dL (8.5-10.1) L 05/14/19 06:20 Magnesium 1.8 mg/dL (1.8-2.4) 05/14/19 06:20 Iron 17 ug/dL (50-175) L 05/11/19 06:36 TIBC 359 ug/dL (250-450) 05/11/19 06:36 Transferrin % Sat 5 % (15-50) L 05/11/19 06:36 Ferritin 19 ng/mL (8-388) 05/11/19 06:36 Total Bilirubin 0.3 mg/dL (0.2-1.0) 05/10/19 12:20 AST 16 U/L (15-37) 05/10/19 12:20 ALT 16 U/L (14-59) 05/10/19 12:20 Alkaline Phosphatase 78 U/L (46-116) 05/10/19 12:20 Lactate Dehydrogenase 141 U/L (81-234) 05/11/19 06:36 Total Protein 7.3 g/dL (6.4-8.2) 05/10/19 12:20 Albumin 3.6 g/dL (3.4-5.0) 05/10/19 12:20 Vitamin B12 440 pg/mL (193-986) 05/11/19 06:36 Folate 19.7 ng/mL (8.6-20.0) 05/11/19 06:36 Patient ABO/Rh A Positive 05/10/19 20:00 Antibody Screen Negative 05/10/19 20:00 Crossmatch See Detail 05/10/19 20:00
[2019-05-14] MEDS: Acetaminophen 500 MG TAB 1000 MG PO (21:24)
[2019-05-15] MEDS: oxyCODONE 5 MG TAB PO ×2 (01:53→11:15)
[2019-05-15] MEDS: Acetaminophen 500 MG TAB 1000 MG PO ×2 (06:10→13:09)
[2019-05-15 07:30] VITALS: BP 156/78; PULSE 92; RESP 17; TEMP 37.4; O2SAT 95
[2019-05-15 07:30] LABS: Abs Immature Grans 0.02 k/cumm (0.0-0.09); HCT 29.9 % (36.0-46.0); HGB 9.7 g/dL (12.0-15.5); Mean Corp. HGB Concentration 32.4 g/dL (32.0-36.0); Mean Corpuscular Volume 89.5 fL (80-95); Mean Platelet Volume 11.7 fL (8.0-11.0); Platelet Count 239 x1000/uL (130-400); RBC 3.34 m/cumm (4.00-5.20); RBC Distribution Width 15.3 % (11.7-14.6); White Blood Cell Count 9.89 k/cumm (4.4-10.8)
[2019-05-15 07:41] LABS: Anion Gap 9.3 mmol/L (3-11); BUN 14 mg/dL (7-18); CO2 23.7 mmol/L (21.0-32.0); CREATININE 0.57 mg/dL (0.55-1.02); Calcium 8.5 mg/dL (8.5-10.1); Chloride 104 mmol/L (98-107); Glucose 103 mg/dL (70-100); Magnesium 1.4 mg/dL (1.8-2.4); Potassium 3.6 mmol/L (3.5-5.1); Sodium 137 mmol/L (136-145)
[2019-05-15] MEDS: Budesonide/Formoterol 160/4.5 6 GM 60 PUFF INH IH (07:55)
[2019-05-15 08:21] LABS: Absolute Lymphocyte Count 1.38 k/cumm (1.2-3.4); Absolute Monocyte Count 1.09 k/cumm (0.11-0.7); Absolute Neutrophil Count 7.22 k/cumm (1.2-6.7)
[2019-05-15 08:22] LABS: Diff Comment Manual Differential; Polychromasia Present
[2019-05-15] MEDS: Aspirin 81 MG CHEW PO (08:40)
[2019-05-15] MEDS: Omeprazole 20 MG CAPCR 40 MG PO (08:40)
[2019-05-15] MEDS: Multivitamin TAB 1 TAB PO (08:40)
[2019-05-15] MEDS: Enoxaparin 40 MG/0.4 ML SYR SC (08:40)
--- NOTE | 2019-05-15 08:49 | W.PM.PROGNOT ---
Date of Service Date of service: 05/15/19 Time of Service: 07:50 Assessment and Plan Assessment and plan (1) Closed fracture of left distal femur: Status: Acute Assessment and plan: Zulema is a 79-year-old status post left femur ORIF. She is doing well. I am actually impressed with how much she has been able to physical therapy. She is toe-touch weightbearing. Unfortunately, the brace is causing irritation. At this point, she can discontinue the brace while she is in bed. If she is mobilizing she should have the brace on. We can consider a more standard foam knee immobilizer if that may be easier for her and the family in the early stages and as we start increasing range of motion can transition back to the hinged knee brace. She should keep the leg elevated as much as possible. The Mepilex dressings were applied today over all of her wounds and area of blistering. This can stay in place for at least a week. From the orthopedic perspective I think she will be okay to go home with the help of her family. She must maintain touchdown weightbearing precautions. DVT prophylaxis will be fine with 2 weeks of Lovenox followed by aspirin. I will see her back in 2 weeks from the initial surgery. Qualifiers: Encounter type: initial encounter Fracture morphology: other fracture Qualified Code(s): S72.492A - Other fracture of lower end of left femur, initial encounter for closed fracture Subjective Subjective Interval history since last seen: Gabino reports be doing well. She has had some pain. She was able mobilize with physical therapy. Her pain has been improved occasions. She has not used any IV medications. She did lose her IV last night and has not been replaced. She is anxious to return home. Exam Narrative Exam Narrative: Laying supine in the bed. In no acute distress. Evaluation of the left lower extremity shows some minor sling was discharged on the dressings. The brace is removed. There is some minor skin irritation medially at the level of the knee. The dressings are removed and there is no signs of infection. There is no active drainage. However, there is a blister seen over the posterior margin of the most distal dressing. This appears to be due to the adhesive and possibly some irritation of the brace. She tolerates some gentle motion from 5 to 35 degrees. She has intact ankle dorsiflexion, plantar flexion, eversion and inversion of the foot. Sensation intact light touch of the deep and superficial peroneal nerves and tibial nerve. Objective Objective Clinical Data: Abnormal lab results 05/15/19 05/15/19 Range/Units 06:48 06:48 RBC 3.34 L (4.00-5.20) m/cumm Hgb 9.7 L (12.0-15.5) g/dL Hct 29.9 L (36.0-46.0) % RDW 15.3 H (11.7-14.6) % MPV 11.7 H (8.0-11.0) fL Absolute Neutrophils 7.22 H (1.2-6.7) k/cumm Absolute Monocytes 1.09 H (0.11-0.7) k/cumm Glucose 103 H (70-100) mg/dL Magnesium 1.4 L (1.8-2.4) mg/dL Vital Signs Temperature 37.4 C 05/15/19 07:30 Temperature Source Tympanic 05/15/19 07:30 Pulse 92 H 05/15/19 07:30 Pulse Rhythm Regular 05/15/19 00:30 Respiratory Rate 17 05/15/19 07:30 Respiratory Effort Non-Labored 05/15/19 00:30 Respiratory Depth Normal 05/15/19 00:30 Respiratory Pattern Normal 05/15/19 00:30 Blood Pressure 156/78 H 05/15/19 07:30 Blood Pressure Mean 81 05/10/19 16:15 Blood Pressure Position Supine 05/10/19 11:50 Pulse Oximetry 95 05/15/19 07:30 Respiratory End-tidal CO2 29 05/12/19 16:33 Oxygen Delivery Method Room Air 05/15/19 07:30 Oxygen Flow Rate 0 05/15/19 07:30 Pain Level 1 05/15/19 07:30 Comment 05/12/19 22:10 Intake & Output 05/14/19 05/14/19 05/15/19 11:59 23:59 11:59 Intake Total 1800 / 2866.667 1066.667 / 2866.667 200 / 200 Output Total 750 / 2100 1350 / 2100 1900 / 1900 Balance 1050 / 766.667 -283.333 / 766.667 -1700 / -1700 Intake: IV 1199 / 667 816.667 / 667 Oral 600 / 850 250 / 850 200 / 200 Output: Urine 750 / 2100 1350 / 2100 1900 / 1900 Other: Urine Color Yellow Yellow Yellow Urine Appearance Clear Clear Clear Urine Odor Strong None None Stool Size Large Moderate Stool Characteristics Formed Formed Brown Brown Voiding Methods Bedside Commode Bedside Commode Bedside Commode Laboratory Results WBC 9.89 k/cumm (4.4-10.8) 05/15/19 06:48 RBC 3.34 m/cumm (4.00-5.20) L 05/15/19 06:48 Hgb 9.7 g/dL (12.0-15.5) L 05/15/19 06:48 Hct 29.9 % (36.0-46.0) L 05/15/19 06:48 MCV 89.5 fL (80-95) 05/15/19 06:48 MCH 29.0 pg (27.0-33.0) 05/15/19 06:48 MCHC 32.4 g/dL (32.0-36.0) 05/15/19 06:48 RDW 15.3 % (11.7-14.6) H 05/15/19 06:48 Plt Count 239 x1000/uL (130-400) 05/15/19 06:48 MPV 11.7 fL (8.0-11.0) H 05/15/19 06:48 Immature Gran % See Differential 05/15/19 06:48 Neutrophils % 72.0 05/15/19 06:48 Band Neutrophils % 1.0 % 05/15/19 06:48 Lymphocytes % 14.0 05/15/19 06:48 Monocytes % 11.0 05/15/19 06:48 Eosinophils % 2.0 05/15/19 06:48 Basophils % 0.0 05/15/19 06:48 Absolute Neutrophils 7.22 k/cumm (1.2-6.7) H 05/15/19 06:48 Absolute Lymphocytes 1.38 k/cumm (1.2-3.4) 05/15/19 06:48 Absolute Monocytes 1.09 k/cumm (0.11-0.7) H 05/15/19 06:48 Absolute Eosinophils 0.20 k/cumm (0.0-0.7) 05/15/19 06:48 Absolute Basophils 0.00 k/cumm (0.0-0.2) 05/15/19 06:48 Differential Comment Manual differential 05/15/19 06:48 RBC Morphology See below 05/15/19 06:48 Polychromasia Present 05/15/19 06:48 Hypochromasia 2+ 05/11/19 06:36 Poikilocytosis 1+ 05/11/19 06:36 Anisocytosis 1+ 05/12/19 06:15 Microcytosis 1+ 05/11/19 06:36 Retic Count 1.7 % (0.5-2.4) 05/11/19 06:36 PT 10.0 sec (9.3-11.0) 05/10/19 12:20 INR 1.0 (0.9-1.1) 05/10/19 12:20 APTT 21.9 sec (21.0-31.4) 05/10/19 12:20 Sodium 137 mmol/L (136-145) 05/15/19 06:48 Potassium 3.6 mmol/L (3.5-5.1) 05/15/19 06:48 Chloride 104 mmol/L (98-107) 05/15/19 06:48 Carbon Dioxide 23.7 mmol/L (21.0-32.0) 05/15/19 06:48 Anion Gap 9.3 mmol/L (3-11) 05/15/19 06:48 BUN 14 mg/dL (7-18) 05/15/19 06:48 Creatinine 0.57 mg/dL (0.55-1.02) 05/15/19 06:48 Estimated GFR/1.73 m2 >= 60.00 (mL/min/1.73m2) 05/15/19 06:48 Glucose 103 mg/dL (70-100) H 05/15/19 06:48 Calcium 8.5 mg/dL (8.5-10.1) 05/15/19 06:48 Magnesium 1.4 mg/dL (1.8-2.4) L 05/15/19 06:48 Iron 17 ug/dL (50-175) L 05/11/19 06:36 TIBC 359 ug/dL (250-450) 05/11/19 06:36 Transferrin % Sat 5 % (15-50) L 05/11/19 06:36 Ferritin 19 ng/mL (8-388) 05/11/19 06:36 Total Bilirubin 0.3 mg/dL (0.2-1.0) 05/10/19 12:20 AST 16 U/L (15-37) 05/10/19 12:20 ALT 16 U/L (14-59) 05/10/19 12:20 Alkaline Phosphatase 78 U/L (46-116) 05/10/19 12:20 Lactate Dehydrogenase 141 U/L (81-234) 05/11/19 06:36 Total Protein 7.3 g/dL (6.4-8.2) 05/10/19 12:20 Albumin 3.6 g/dL (3.4-5.0) 05/10/19 12:20 Vitamin B12 440 pg/mL (193-986) 05/11/19 06:36 Folate 19.7 ng/mL (8.6-20.0) 05/11/19 06:36 Patient ABO/Rh A Positive 05/10/19 20:00 Antibody Screen Negative 05/10/19 20:00 Crossmatch See Detail 05/10/19 20:00
[2019-05-15] MEDS: Magnesium Oxide 400 MG TAB PO (10:13)
--- NOTE | 2019-05-15 10:35 | W.PM.DS.N ---
Documented by User: Bhakti Lundberg NP 05/15/19 10:55 Date of service: 05/15/19 Time of Service: 10:35 DS: Diagnosis Discharge Diagnosis (1) Closed fracture of left distal femur: Start date: 05/15/19 Start time: 10:35 Status: Acute Asessment and Plan: ORIF repair. Received 2 units POD 1 and feeling better. Hemoglobin 9.6. PT feels patient is ready to go. Patient feels she is ready to be discharged. She will be discharged with PT/OT and RN services Discharge Plan Disposition Patient Disposition: HOME W/HOME HEALTH SERVICE Condition: Improving Discharge Details Chief Complaint: Trauma Clinical Impression: Femoral distal fracture, Patellar fracture, Fracture of tibial plateau Reason For Visit: FEMUR FRACTURE Admit Date/Time: 05/10/19 17:12 Admit Provider: Antony Reed Attending Provider: Linda López Primary Care Provider: Nia Delcid ED Provider: Royal Chaudhary Hospital Course Hospital Course: Mrs. Holder is a 79 y.o Female admitted to [facility] medical surgical floor on 05/10/19 for left femoral fracture after a mechanical fall. She was taken to OR by Dr. Galvan for ORIF. Initially following surgery her hemoglobin was 7.1 and she was transfused with 2 units PRBC. Hemoglobin today 9.6. Upon admission she had a carotid u/s revealing a 70% left ICA stenosis. At this time she is asymptomatic and her fall was not from syncope or dizziness; therefore ASA 81 mg and a statin were started which will be continued at home. As an outpatient she has agreed to follow up with Vascular. PT/OT has been working with her and feel she is ready to be discharge. She denies CP, SOB, Dizziness N/V/D. PT/OT, RN services will be ordered for home. Continue ASA and statin with a follow up to vascular. Home Meds and New Rx's Prescriptions: New atorvastatin [Lipitor] 40 mg Tablet 40 mg PO QPM Qty: 30 RF: 0 docusate sodium [Colace] 100 mg Capsule 100 mg PO TID PRN PRNQty: 30 RF: 0 oxycodone 5 mg Tablet 5 mg PO Q4H PRN PRNQty: 20 RF: 0 Continued multivitamin [Daily Multiple] 1 EACH tablet 1 ea PO DAILY RF: 0 aspirin 81 MG tablet,chewable 81 mg PO DAILY RF: 0 calcium-vitamin D3-vitamin K 1 EACH tablet,chewable 1 ea PO DAILY RF: 0 sucralfate [Carafate] 100 mg/mL suspension 10 ml PO BID Qty: 600 RF: 1 omeprazole 40 MG capsule,delayed release(DR/EC) 40 mg PO DAILY@0730 Qty: 30 RF: 3 Symbicort 160-4.5 mcg/actuation Hfa Aerosol Inhaler 2 puff Inhalation BID PRNQty: 6 RF: 0 Discharge Instructions Instructions: Iron Rich Diet (DC), Carotid Artery Disease (GEN), Iron Deficiency Anemia (GEN), Cholesterol and Your Health (GEN), Hip Fracture (GEN), ORIF of Hip Fracture (GEN) Additional Instructions: Follow up with Vascular, you have been started on atorvastatin for your carotid artery. Take every evening. Seek treatment if you have decreased urine output or cramping. Take pain medication as needed. You can take with tylenol Take colace twice a day until you have three loose stools, then stop unless constipated. Pain medication can constipate you. DO NOT Remove dressings from knee. Dr. Galvan will change them on post op appt. Stand Alone Forms: Nursing Discharge Form Referrals: [facility] [Other] (The office will call you within a few days) George Galvan MD [ [facility] STAFF PHYSICIAN] - 06/01/19 1:00 pm Activity:: Activity as Tolerated Equipment/Supplies:: No Equipment Needed Diet:: As Tolerated Discharge Orders Discharge Orders: Discharge Order (Routine); Ordered 05/15/19 Ordered By: Bhakti Lundberg Discharge Data Discharge Date/Time-TO BE ENTERED AT DEPARTURE: 05/15/19 14:42 DS: Summary Status at Discharge Functional status at discharge: uses cane/walker Overall status at discharge: patient is progressing back to baseline Mental Status: mental status grossly normal Speech and Movement: speech and movement normal Mood: congruent mood Affect: normal affect Exam Narrative Exam Narrative: General: Thin female, appears younger than stated age, alert and oriented, pleasant and cooperative. Answers questions appropriately, sitting up in chair, NAD HEENT: normocehpalic, atraumatic, pupils equal and round, EOMI, mucous membranes moist. Neck: supple, no JVD. Respiratory: respirations even and unlabored, lung sounds with fine crackles to bilateral bases, productive cough with clear sputum Cardiovascular: Heart has regular rate and rhythm, nontachycardic, no murmur appreciated. GI: abdomen soft and flat, normoactive bowel sounds, nondistended, nontender on palpation. Extremities: LLE with swelling +3. Bilateral lower extremities with palpable pulses, no edema. Psych Mental Status: mental status grossly normal Speech and Movement: speech and movement normal Mood: congruent mood Affect: normal affect DS: Data Vitals/I&O Vitals and I&O: Vital Signs Temperature 37.4 C 05/15/19 07:30 Temperature Source Tympanic 05/15/19 07:30 Pulse 92 H 05/15/19 07:30 Pulse Rhythm Regular 05/15/19 09:31 Respiratory Rate 17 05/15/19 07:30 Respiratory Effort Non-Labored 05/15/19 09:31 Respiratory Depth Normal 05/15/19 09:31 Respiratory Pattern Normal 05/15/19 09:31 Blood Pressure 156/78 H 05/15/19 07:30 Blood Pressure Mean 81 05/10/19 16:15 Blood Pressure Position Supine 05/10/19 11:50 Pulse Oximetry 95 05/15/19 07:30 Respiratory End-tidal CO2 29 05/12/19 16:33 Oxygen Delivery Method Room Air 05/15/19 07:30 Oxygen Flow Rate 0 05/15/19 07:30 Pain Level 1 05/15/19 07:30 Comment 05/12/19 22:10 Intake & Output 05/14/19 05/14/19 05/15/19 11:59 23:59 11:59 Intake Total 1800 / 2866.667 1066.667 / 2866.667 200 / 200 Output Total 750 / 2100 1350 / 2100 1900 / 1900 Balance 1050 / 766.667 -283.333 / 766.667 -1700 / -1700 Intake: IV 1200 / 2015.7 816.667 / 7 Oral 600 / 850 250 / 850 200 / 200 Output: Urine 750 / 2100 1350 / 2100 1900 / 1900 Other: Urine Color Yellow Yellow Yellow Urine Appearance Clear Clear Clear Urine Odor Strong None None Stool Size Large Moderate Stool Characteristics Formed Formed Brown Brown Voiding Methods Bedside Commode Bedside Commode Bedside Commode Data Completed and Pending Pending studies at discharge: Exam(s) a CT:CT head wo EXAM: CT HEAD WO CLINICAL HISTORY: hit left face. TECHNIQUE: Imaging Protocol: Axial computed tomography images with coronal and sagittal reformatted images were created and reviewed COMPARISON: No exams were available for comparison FINDINGS: Ventricles and Extra axial spaces: Normal in size and morphology for the patient's age. Hemorrhage: None. Cerebral parenchyma: Normal. Midline shift: None. Brainstem/Cerebellum: Normal. Calvarium: Normal. Visualized Paranasal sinuses/Mastoids: Mild mucosal thickening seen in the left maxillary sinus. The remaining visualized paranasal sinuses are clear. IMPRESSION: No acute intracranial process. Exam(s) a CT:CT lower extremity LT wo EXAM: CT LOWER EXTREMITY LT WO CLINICAL HISTORY: distal femur fracture. TECHNIQUE: Multiple contiguous axial images of the left femur were obtained. Sagittal and coronal reformatted images were evaluated. COMPARISON: XR FEMUR LT from 05/10/2019 XR KNEE LT 2V AP,LAT from 05/10/2019 FINDINGS: There is a comminuted fracture involving the distal left femur. There is a transverse component to the fracture through the distal metaphysis. There is also a component of the fracture that extends into the intercondylar notch. The fracture is impacted. The condylar components of the fracture are displaced. There also appears to be a nondisplaced fracture involving the superior and posterior patella. There is a mildly depressed fracture involving the medial tibial plateau. There is a hemarthrosis present. IMPRESSION: 1. Comminuted impacted fracture involving the distal femur. The fracture involves the distal metaphysis and extends distally into the intercondylar notch. 2. Mildly depressed medial tibial plateau fracture. 3. Nondisplaced patellar fracture. Exam(s) a US:US carotid EXAM: US CAROTID CLINICAL HISTORY: bilateral carotid bruits; s/p fall. TECHNIQUE: Ultrasound performed using standard protocol. COMPARISON: US OR ANESTHESIA from 05/10/2019 FINDINGS: Duplex evaluation of the carotid circulation was performed according to the usual protocol. There is moderate calcific plaque noted in the carotid bulb on the left. Proximal internal carotid artery shows flow velocity elevation to 266 cm/second consistent with greater than 70 percent luminal diameter ICA stenosis. Right common and internal carotid artery carotid artery show normal vascular flow. There is bilateral antegrade vertebral flow. IMPRESSION: Findings consistent with greater than 70 percent luminal diameter stenosis proximal left ICA, maximum observed systolic velocity was 266 cm/second. Exam(s) a RAD:XR knee LT 1V EXAM: XR KNEE LT 1V CLINICAL HISTORY: FRACTURED LEFT DISTAL FEMUR. TECHNIQUE: 2D and realtime digital imaging was performed. COMPARISON: XR KNEE LT 2V AP,LAT from 05/10/2019 FINDINGS: C-arm fluoroscopy was utilized by Dr. Abel during open reduction and internal fixation of femoral fracture. Hard copies show improved alignment of the fracture fragments which are in nearly anatomic alignment with plate and screw fixation in place. Fluoro time: 89.1 seconds Exam(s) a RAD:XR femur LT EXAM: XR FEMUR LT INDICATION: s/p L femur ORIF. COMPARISON: XR FEMUR LT from 05/10/2019 TECHNIQUE: 2D digital imaging was performed. FINDINGS: Patient is status post sideplate and screw fixation of a distal femoral fracture. The components of which appear to be in excellent apposition and alignment. Exam(s) PROCEDURE INFORMATION: Exam: XR Left Femur Exam date and time: 05/12/2019 6:00 PM Clinical history: 79 years old, female; Other: Recent chest pain TECHNIQUE: Imaging protocol: XR Left femur. Views: 2 views. COMPARISON: CR XR FEMUR LT 05/10/2019 12:44 PM FINDINGS: Bones/joints: Short intramedullary jane. Screw in the left hip Long plate and screws along the femoral shaft. Multiple screws in the femoral condyles Fracture fragments are in good alignment Soft tissues: South overlie the lateral thigh and knee consistent with recent surgery IMPRESSION: Fracture fragments are in good alignment ORIF as described above Labs on day of discharge: Labs from last 24 hours 05/15/19 05/15/19 06:48 06:48 WBC 9.89 RBC 3.34 L Hgb 9.7 L Hct 29.9 L MCV 89.5 MCH 29.0 MCHC 32.4 RDW 15.3 H Plt Count 239 MPV 11.7 H Immature Gran % See Differential Neutrophils % 72.0 Band Neutrophils % 1.0 Lymphocytes % 14.0 Monocytes % 11.0 Eosinophils % 2.0 Basophils % 0.0 Absolute Neutrophils 7.22 H Absolute Lymphocytes 1.38 Absolute Monocytes 1.09 H Absolute Eosinophils 0.20 Absolute Basophils 0.00 Differential Comment Manual differential RBC Morphology See below Polychromasia Present Sodium 137 Potassium 3.6 Chloride 104 Carbon Dioxide 23.7 Anion Gap 9.3 BUN 14 Creatinine 0.57 Estimated GFR/1.73 m2 >= 60.00 Glucose 103 H Calcium 8.5 Magnesium 1.4 L PFSH Medical History BCC (basal cell carcinoma), face (Acute) Bilateral hip pain (Acute) Breast cancer (Resolved) Chronic insomnia (Acute) COPD (chronic obstructive pulmonary disease) (Chronic) COPD exacerbation (Resolved) Depression (Chronic) DVT prophylaxis (Inactive) Dysphagia (Acute) Former smoker (Acute) GERD (gastroesophageal reflux disease) (Chronic) Hiatal hernia (Chronic) History of breast cancer (Acute) History of traumatic fracture of hip (Acute) Hypokalemia (Chronic) Hypomagnesemia (Chronic) Irregular heart rate (Acute) Left knee pain (Acute) Low back pain (Acute) Pneumonia (Inactive) Surgical History EGD - MAC (Inactive 02/05/17) Dr Marcial, [facility], EGD with balloon dilation; repeat procedure 04/14/2019, Dr. Inez Ruffin S/P breast lumpectomy (Inactive) left breast lumpectomy; follow up XRT, 2002 Status post THR (total hip replacement) (Chronic) Family History Mother Lung disease Daughter Lung disease Substance abuse Social History Smoking/Tobacco Use Status: Current every day Tobacco Type: cigarettes Alcohol Intake: current Alcohol Intake frequency: holidays/special occasions only Drug use: Never Household members: children What is your relationship status?: Panel score (0-1 are the most socially isolated patients): 0 Do you feel safe at home: Yes Do you feel safe in your relationship?: Yes History History 3 Para Hx # Term Pregnancies 3 Multiple births Hx # Pregnancies Ectopic pregnancies AB induced Hx Number of Living Children 2 AB spontaneous Documented by User: Linda López MD 05/19/19 19:31 Discharge Plan Disposition Patient Disposition: HOME W/HOME HEALTH SERVICE Condition: Improving Discharge Details Chief Complaint: Trauma Clinical Impression: Femoral distal fracture, Patellar fracture, Fracture of tibial plateau Reason For Visit: FEMUR FRACTURE Admit Date/Time: 05/10/19 17:12 Admit Provider: Antony Reed Attending Provider: Linda López Primary Care Provider: Nia Delcid ED Provider: Royal Chaudhary Hospital Course Hospital Course: Mrs. Holder is a 79 y.o Female admitted to [facility] medical surgical floor on 05/10/19 for left femoral fracture after a mechanical fall. She was taken to OR by Dr. Galvan for ORIF. Initially following surgery her hemoglobin was 7.1 and she was transfused with 2 units PRBC. Hemoglobin today 9.6. Upon admission she had a carotid u/s revealing a 70% left ICA stenosis. At this time she is asymptomatic and her fall was not from syncope or dizziness; therefore ASA 81 mg and a statin were started which will be continued at home. As an outpatient she has agreed to follow up with Vascular. PT/OT has been working with her and feel she is ready to be discharge. She denies CP, SOB, Dizziness N/V/D. PT/OT, RN services will be ordered for home. Continue ASA and statin with a follow up to vascular. Home Meds and New Rx's Prescriptions: New atorvastatin [Lipitor] 40 mg Tablet 40 mg PO QPM Qty: 30 RF: 0 docusate sodium [Colace] 100 mg Capsule 100 mg PO TID PRN PRNQty: 30 RF: 0 oxycodone 5 mg Tablet 5 mg PO Q4H PRN PRNQty: 20 RF: 0 Continued multivitamin [Daily Multiple] 1 EACH tablet 1 ea PO DAILY RF: 0 aspirin 81 MG tablet,chewable 81 mg PO DAILY RF: 0 calcium-vitamin D3-vitamin K 1 EACH tablet,chewable 1 ea PO DAILY RF: 0 sucralfate [Carafate] 100 mg/mL suspension 10 ml PO BID Qty: 600 RF: 1 omeprazole 40 MG capsule,delayed release(DR/EC) 40 mg PO DAILY@729 Qty: 30 RF: 3 Symbicort 160-4.5 mcg/actuation Hfa Aerosol Inhaler 2 puff Inhalation BID PRNQty: 6 RF: 0 Discharge Instructions Instructions: Iron Rich Diet (DC), Carotid Artery Disease (GEN), Iron Deficiency Anemia (GEN), Cholesterol and Your Health (GEN), Hip Fracture (GEN), ORIF of Hip Fracture (GEN) Additional Instructions: Follow up with Vascular, you have been started on atorvastatin for your carotid artery. Take every evening. Seek treatment if you have decreased urine output or cramping. Take pain medication as needed. You can take with tylenol Take colace twice a day until you have three loose stools, then stop unless constipated. Pain medication can constipate you. DO NOT Remove dressings from knee. Dr. Galvan will change them on post op appt. Stand Alone Forms: Nursing Discharge Form Referrals: [facility] [Other] (The office will call you within a few days) George Galvan MD [ [facility] STAFF PHYSICIAN] - 06/01/19 1:00 pm Activity:: Activity as Tolerated Equipment/Supplies:: No Equipment Needed Diet:: As Tolerated Discharge Orders Discharge Orders: Discharge Order (Routine); Ordered 05/15/19 Ordered By: Bhakti Lundberg Discharge Data Discharge Date/Time-TO BE ENTERED AT DEPARTURE: 05/15/19 14:42 [facility] Medical History BCC (basal cell carcinoma), face (Acute) Bilateral hip pain (Acute) Breast cancer (Resolved) Chronic insomnia (Acute) COPD (chronic obstructive pulmonary disease) (Chronic) COPD exacerbation (Resolved) Depression (Chronic) DVT prophylaxis (Inactive) Dysphagia (Acute) Former smoker (Acute) GERD (gastroesophageal reflux disease) (Chronic) Hiatal hernia (Chronic) History of breast cancer (Acute) History of traumatic fracture of hip (Acute) Hypokalemia (Chronic) Hypomagnesemia (Chronic) Irregular heart rate (Acute) Left knee pain (Acute) Low back pain (Acute) Pneumonia (Inactive) Surgical History EGD - MAC (Inactive 02/05/17) Dr Marcial, [facility], EGD with balloon dilation; repeat procedure 04/14/2019, Dr. Inez Ruffin S/P breast lumpectomy (Inactive) left breast lumpectomy; follow up XRT, 2002 Status post THR (total hip replacement) (Chronic) Family History Mother Lung disease Daughter Lung disease Substance abuse Social History Smoking/Tobacco Use Status: Current every day Tobacco Type: cigarettes Alcohol Intake: current Alcohol Intake frequency: holidays/special occasions only Drug use: Never Household members: children What is your relationship status?: Panel score (0-1 are the most socially isolated patients): 0 Do you feel safe at home: Yes Do you feel safe in your relationship?: Yes History History 3 Para Hx # Term Pregnancies 3 Multiple births Hx # Pregnancies Ectopic pregnancies AB induced Hx Number of Living Children 2 AB spontaneous
--- NOTE | 2019-05-15 11:24 | PDOC.HHF2F ---
Home Health Certification Home Health Certification: 1. Encounter Date and Reason I certify that MATTHEW LUIS was seen by Bhakti Lundberg on 05/15/19 and that I had a [id number] encounter with this patient that meets the physician face to face encounter requirements. 2. Clinical Findings Supporting Skilled Need and Homebound Status I certify that home health services are medically necessary, include either intermittent retirement and/or physical/speech therapy, and that this patient is homebound in that absences from the home require considerable and taxing effort and are infrequent or of short duration, or are attributable to the need to receive medical care. [X] (a) Attached documentation from encounter provides clinical findings supporting skilled need and homebound status (including what assistance patient requires to leave the home). The encounter with the patient was in whole, or in part, for the following medical condition, which is the primary reason for home health care: FEMUR FRACTURE Penitentiary: Would benefit from nursing services to help with meds, dressing changes Physical Therapy: Would benefit from Occupational and Physical therapy to increase strength and balance following hip surgery Speech Therapy: Homebound: 3. Certification and Authentication I certify that I composed the above information based on my clinical judgement relating to this patient's medical condition and, if applicable, clinical findings communicated to me by the NPP or inpatient physician who performed the Home Health Referral. All further orders will be obtained through (Community Based Physician - PCP)
--- NOTE | 2019-05-15 12:09 | PT.INTREAT ---
Date of service: 05/15/19 Time of Service: 12:09 PT Notes Inpatient Physical Therapy Treatment Note [facility] Date: 05/15/19 PRECAUTIONS: Fall, TDWB R SUBJECTIVE: Zulema states that she would like to be discharged home today. Her daughter, Yamilka, is present, she will be patient's primary caregiver during her recovery. Zulema and Yamilka discuss her home set up, stating that they will need to picking supervisor a commode on the way home today. Otherwise they feel that they are all set to bring her home today. OBJECTIVE: I spoke with Dr. Galvan who states that patient may perform knee flexion to tolerance without limitation. He also states that patient is allowed to doff brace while in seated and supine positions, donning brace for mobilization only. Patient may start active knee flexion performing heel slides and dangling at EOB as tolerated. PAIN: Patient c/o minimal pain in R LE BED MOBILITY/TRANSFERS Supine-sit: I with [facility] flat Sit-supine: I with [facility] flat Sit-stand: SBA Stand-sit: SBA Bed-Chair: SBA Chair-bed: CGA GAIT Assistive Device: FWW Weight bearing: TDWB R Assist: CGA?SBA Distance: 2' x2 +6' Deviation: Cueing for maintaining weight bear status THEREX: Patient completed ankle pumps, glute and quad sets, and heel slides in a long-sit position, as per flow sheet. CAREGIVER TRAINING: Education in donning/doffing and positioning of DonJoy brace. Weight bear status training. Equipment use and set up. TOILETING: Patient toileted with SBA for transfers. ASSESSMENT: Patient tolerated session well, with minimal c/o R LE pain. She was able to demonstrate independence with bed mobility at this time. Patient was also able to tolerate a progression in gait distance with FWW support requiring minimal cueing to maintain weight bear status. Patient would benefit from continued gait and transfer training as well as strengthening for improved mobility and progression towards independence with functional daily activities. PLAN: Continue with PTs POC TREATMENT CODE/TIME: 50 minutes; [id number] x2, [id number]
[2019-05-15] MEDS: Magnesium Oxide 400 MG TAB 800 MG PO (12:11)
[2019-05-15 12:29] LABS: Calculated LDL 62 mg/dL; Cholesterol 135 mg/dL (50-200); HDL Cholesterol 58 mg/dL (40-60); Triglyceride 78 mg/dL (30-150)
--- NOTE | 2019-05-15 20:56 | PDOC.CMDIS ---
LACE Index Scoring Tool - Questions: Length of Stay (in days): 4 - 6 Acuity (Admit via E.D.?): Yes Comorbidities: Chronic Pulmonary Disease, Any Tumor E.D. Visits: 5 - Answers: Total Score: 16 Risk of Readmission: High Risk Care Management Discharge Reason for Hospitalization: Femur Fracture Discharge Plan: Zulema will return home where she resides with her daughter and son in law. Zulema has a basement apartment with a stair lift and DME, though her daughter will be caring for her on the main floor post discharge. She will have new orders for Home health including RN/PT/OT, and follow up with her PCP and plan of care as prescribed. She will transport via private vehicle with her daughter. Patient/Family Education Needs: Review of discharge instructions, DME needs, recommendations and self care discussion Ask Me Three. Zulema reports feeling confident in recovering at home with the support of [facility] and her daughter and [facility]. Services Needed at Discharge: Home Health Care Services ([facility] PT/OT/RN)
--- NOTE | 2019-05-17 08:47 | PT.INDS ---
Date of service: 05/16/19 PT Notes Inpatient Physical Therapy Discharge Summary Dates: 05/16/2019 Dates of Service: 05/13/2019 through 05/15/2019 This is a clinical summary of care provided on the duration of dates listed above. No charge was made in the completion of this documentation. Referring Doctor: George Galvan MD PT Orders: PT CONSULT: Status post ORIF left distal femur fracture. Touchdown weightbearing with knee extension brace. Precautions: Fall risk Patient Profile/Admitting Diagnosis: A 79-year-old female who fell 3 days ago resulting in a comminuted distal left femoral fracture. She underwent an ORIF postop day #1 PMHX: GERD, anemia, status post breast CA with lumpectomy, COPD, bilateral humeral fractures, bilateral hip fracture status post ORIF, spinal stenosis, osteoporosis. Social History/Home Situation: Has an apartment in the basement of her daughter's home. Prior to her fall, she was driving, doing grocery shopping and walking short distances up to 5 to 10 minutes. She is hoping to return home. A few steps entering the home with a railing, that her son-in-law has installed a ramp Current Functional Limitations: Requires assistance with all ADLs Equipment Owned/DME: Has a stair lift from the basement to the first floor, walking shower with a shower chair, grab bars for the toilet, a walker. Subjective: NT Objective: General Observation: NT Mental Status: NT Pain: NT ROM: She has functional range of motion of her upper extremities with hypomobility with shoulder abduction and flexion but without pain on movement. Her right knee, hip, talocrural, subtalar, midtarsal joints have good functional range without pain on movement. She is able to dorsi and plantarflex her left foot, and her active assistive range of motion of her left knee is 0 to 30 degrees within range drawing throughout the anterior aspect of the knee with flexion. Strength: She is full motor control throughout and right upper extremity strength generally rated -5/5 along with her right lower extremity. Sensation: Intact Bed Mobility/Transfers: SBA for all bed mobility skills and transfers Gait: 2' + 2' +6' TDWB CGA with FWW Balance: Static Sitting: Good Dynamic Sitting: Good Static Standing: Fair Dynamic Standing: fair Assessment: Patient is a 79 year old female referred to physical therapy services with the diagnosis of comminuted distal left femoral fracture status post ORIF.. Patient presents with clinical signs and symptoms consistent with diagnosis, as demonstrated by the following impairment level findings: Loss of range of motion of the left knee, decreased strength throughout the entire left lower extremity, assistance with all bed mobility activities, etc. Impairments are contributing to the following functional limitation, as listed above. AMPAC score. CL Goals: Goals X1 week 1. Supine-Sit minimal assist MET 2. Sit-Supine minimal assist MET 3. Sit-Stand independent NOT MET 4. Stand-Sit independent NOT MET 5. Bed-Chair independent NOT MET 6. Chair-Bed independent NOT MET 7. Gait independent with a wheeled walker touchdown weightbearing NOT MET 8. Stairs independent with a railing NOT MET DISCHARGE RECOMMENDATIONS: Patient will benefit from home health PT services in order to progress mobility level using least restrictive assistive ambulatory device, assess home safety, identify additional equipment needs, and establish a functional maintenance program that will increase ability of patient to remain at home. TREATMENT CODE/TIME: [place] Thank you very much for this referral. Tabatha Crystal PT, DPT, CLT [facility]
== END 2019-05-15 14:42 | disposition home health service (06) | DRG 482 ==
LOC: ER 17:17 → MS 18:44
PROVIDERS: Internal Medicine; Nurse Practitioner; Nurse Practitioner Family; Student in an Organized Health Care Education/Training Program; Admitting Provider Internal Medicine; Emergency Provider Student in an Organized Health Care Education/Training Program; PCP Family Medicine; Visit Provider Internal Medicine
PROC: 0QSC04Z Reposition Left Lower Femur with Internal Fixation Device, Open Approach (ICD-10-PCS; CPT 27514; principal; 2019-05-12 10:30)
DX: S72.492A Other fracture of lower end of left femur, initial encounter for closed fracture (principal); M81.0 Age-related osteoporosis without current pathological fracture; Z87.310 Personal history of (healed) osteoporosis fracture; S00.93XA Contusion of unspecified part of head, initial encounter; W18.30XA Fall on same level, unspecified, initial encounter; I65.22 Occlusion and stenosis of left carotid artery; D64.89 Other specified anemias; M25.562 Pain in left knee; G89.18 Other acute postprocedural pain; E87.6 Hypokalemia; E83.42 Hypomagnesemia; K21.9 Gastro-esophageal reflux disease without esophagitis; J44.9 Chronic obstructive pulmonary disease, unspecified; F17.210 Nicotine dependence, cigarettes, uncomplicated; Z23 Encounter for immunization
CPT/HCPCS: 27514; 36415; 36430; 73552; 76942; 80048; 80053; 80061; 85027; 86850; 86900; 86901; 86920; 93005; 94640; 96374; 96375; 97110; 97162; 97530; 99222; 99223; 99232; 99233; 99239; 99254; 99285; J1650; NC; 70450; 71045; 73560; 73700; 82607; 82728; 82746; 83540; 83550; 83615; 83735; 85014; 85018; 85025; 85045; 85610; 85730; 93010; 93880; J0131; J0690; J1644; J1885; J2270; J2370; J2405; J3010; J3475; L1830; L1833; P9016

== ENCOUNTER 2019-06-01 12:58 | Outpatient (CLI) | payer OTHER, SELFPAY ==
--- NOTE | 2019-06-01 12:52 | DI.RAD_ITS ---
EXAM: XR FEMUR LT CLINICAL HISTORY: f/u status post left femur fracture TECHNIQUE: Three views of the femur and two views of the knee COMPARISON: XR KNEE LT 2V AP,LAT from 05/10/2019 XR KNEE LT 1V from 05/12/2019 XR FEMUR LT from 05/12/2019 XR KNEE LT 2V AP,LAT from 06/01/2019 FINDINGS: Three views of the femur and two views of the knee were obtained and show previously described fractu re of distal femur with plate and screw fixation in place as well as a gamma nail in place transfixin g proximal femoral fracture. Alignment appears grossly unchanged in comparison with intraoperative f ilms of May 12 and postoperative films of May 12.
== END 2019-06-01 13:18 ==
PROVIDERS: PCP Family Medicine; Referring Provider Family Medicine; Visit Provider Student in an Organized Health Care Education/Training Program
DX: S72.492A Other fracture of lower end of left femur, initial encounter for closed fracture (principal); X58.XXXA Exposure to other specified factors, initial encounter
CPT/HCPCS: 73552; 73560

== ENCOUNTER 2019-06-29 09:47 | Outpatient (REF) | payer OTHER, SELFPAY ==
[2019-06-29 13:36] LABS: HCT 40.5 % (36.0-46.0); HGB 12.9 g/dL (12.0-15.5); Mean Corp. HGB Concentration 31.9 g/dL (32.0-36.0); Mean Platelet Volume 12.4 fL (8.0-11.0); Platelet Count 283 x1000/uL (130-400); RBC 4.45 m/cumm (4.00-5.20); RBC Distribution Width 17.4 % (11.7-14.6); White Blood Cell Count 7.44 k/cumm (4.4-10.8)
[2019-06-29 14:06] LABS: ALT 35 U/L (14-59); AST 21 U/L (15-37); Albumin 4.3 g/dL (3.4-5.0); Alkaline Phosphatase 132 U/L (46-116); Anion Gap 13.8 mmol/L (3-11); BUN 17 mg/dL (7-18); Bilirubin, Total 0.4 mg/dL (0.2-1.0); CO2 24.2 mmol/L (21.0-32.0); CREATININE 0.61 mg/dL (0.55-1.02); Calculated LDL 73 mg/dL; Chloride 102 mmol/L (98-107); Cholesterol 166 mg/dL (<200); Glucose 105 mg/dL (74-106); HDL Cholesterol 78 mg/dL (40-60); Sodium 140 mmol/L (136-145); TSH (W/Ref FT4) 0.83 uIU/mL (0.36-3.74); Triglyceride 76 mg/dL (<150)
== END 2019-06-29 10:07 ==
LOC: NCHCN 09:47
PROVIDERS: PCP Family Medicine; Visit Provider Family Medicine
DX: R30.0 Dysuria (principal); I49.9 Cardiac arrhythmia, unspecified; F17.200 Nicotine dependence, unspecified, uncomplicated; R63.6 Underweight; L65.9 Nonscarring hair loss, unspecified
CPT/HCPCS: 80053; 80061; 85027; 87077; 84443; 87086; 87186

== ENCOUNTER 2019-06-29 13:48 | Outpatient (CLI) | payer OTHER, SELFPAY ==
--- NOTE | 2019-06-29 12:06 | DI.RAD_ITS ---
EXAM: XR KNEE LT 2V AP,LAT INDICATION: F/U FRACTURE. COMPARISON: XR KNEE LT 2V AP,LAT from 06/01/2019 TECHNIQUE: 2D digital imaging was performed. FINDINGS: There are again seen side plate and screws transfixing the fracture of the distal left femur. There h as been no change in alignment of the orthopedic hardware or fracture components compared to the prio r examination from 06/01/2019. The bones are osteopenic. The soft tissues are unremarkable.
== END 2019-06-29 14:08 ==
PROVIDERS: PCP Family Medicine; Referring Provider Family Medicine; Visit Provider Student in an Organized Health Care Education/Training Program
DX: S72.492D Other fracture of lower end of left femur, subsequent encounter for closed fracture with routine healing (principal); M85.88 Other specified disorders of bone density and structure, other site; X58.XXXD Exposure to other specified factors, subsequent encounter
CPT/HCPCS: L1820; L1830; 73560

== ENCOUNTER 2019-07-20 12:30 | Outpatient (REF) | payer OTHER, SELFPAY | END 2019-07-20 12:50 | LOC: NCHCN 12:30 | PROVIDERS: PCP Family Medicine; Visit Provider Family Medicine | DX: R30.0 Dysuria (principal) | CPT/HCPCS: 87086 ==

== ENCOUNTER 2019-07-31 12:54 | Outpatient (CLI) | payer OTHER, SELFPAY ==
--- NOTE | 2019-07-31 13:21 | DI.RAD_ITS ---
EXAM: XR KNEE LT 2V AP,LAT CLINICAL HISTORY: f/u ORIF L distal femur frx TECHNIQUE: COMPARISON: XR KNEE LT 2V AP,LAT from 06/29/2019 FINDINGS: Three views were obtained and show previously described fixation of the femur. No change in alignmen t of distal femoral fracture fragments in comparison with examination of June 29 with fixation apparatus in [address]. Moderate degenerative changes of the joints of the knee noted. IMPRESSION:
== END 2019-07-31 13:14 ==
PROVIDERS: PCP Family Medicine; Visit Provider Student in an Organized Health Care Education/Training Program
DX: S72.492D Other fracture of lower end of left femur, subsequent encounter for closed fracture with routine healing (principal); M17.12 Unilateral primary osteoarthritis, left knee; X58.XXXD Exposure to other specified factors, subsequent encounter
CPT/HCPCS: 73560

== ENCOUNTER 2019-10-02 13:56 | Outpatient (CLI) | payer OTHER, SELFPAY ==
--- NOTE | 2019-10-02 13:15 | DI.RAD_ITS ---
EXAM: XR KNEE LT 2V AP,LAT CLINICAL HISTORY: F/U FEMUR FX TECHNIQUE: COMPARISON: XR KNEE LT 2V AP,LAT from 07/31/2019 FINDINGS: Two views were obtained. Previously described plate and screw fixation of fracture of the distal fem ur is again noted, no gross interval change in alignment in comparison with previous examination Dece mber 2018. IMPRESSION:
== END 2019-10-02 14:16 ==
PROVIDERS: PCP Family Medicine; Referring Provider Family Medicine; Visit Provider Student in an Organized Health Care Education/Training Program
DX: S72.492D Other fracture of lower end of left femur, subsequent encounter for closed fracture with routine healing; X58.XXXD Exposure to other specified factors, subsequent encounter
CPT/HCPCS: 99213; 73560

== ENCOUNTER 2019-12-15 09:56 | Emergency (ER) | payer OTHER, SELFPAY ==
[2019-12-15 10:04] VITALS: BP 130/77; PULSE 98; RESP 18; TEMP 37; O2SAT 97
[2019-12-15] MEDS: Glucagon 1 MG VIAL IVP (10:28)
[2019-12-15] MEDS: Normal Saline 1,000 ML 1000 ML IV (10:29)
[2019-12-15] MEDS: Simethicone/Sod Bicarb/Cit Ac, 4 gram PACKET 1 PACKET PO (10:49)
--- NOTE | 2019-12-15 11:37 | W.ED.GENAD ---
Discharge Plan Disposition Patient Disposition: HOME Condition: Stable Discharge Details Chief Complaint: ThroatFB Clinical Impression: Food impaction of esophagus Primary Care Provider: Nia Delcid ED Provider: Antony Boykin Home Meds and New Rx's Prescriptions: No Action multivitamin [Daily Multiple] 1 EACH tablet 1 ea PO DAILY RF: 0 aspirin 81 MG tablet,chewable 81 mg PO DAILY RF: 0 calcium-vitamin D3-vitamin K 1 EACH tablet,chewable 1 ea PO DAILY RF: 0 sucralfate [Carafate] 100 mg/mL suspension 10 ml PO BID Qty: 600 RF: 1 atorvastatin [Lipitor] 40 mg Tablet 40 mg PO QPM Qty: 30 RF: 0 docusate sodium [Colace] 100 mg Capsule 100 mg PO TID PRN PRNQty: 30 RF: 0 oxycodone 5 mg Tablet 5 mg PO Q4H PRN PRNQty: 20 RF: 0 diclofenac potassium 50 mg Tablet 50 mg PO BID RF: 0 gabapentin 100 mg Capsule 100 mg PO TID RF: 0 omeprazole 40 MG capsule,delayed release(DR/EC) 40 mg PO DAILY@0730 Qty: 30 RF: 3 Symbicort 160-4.5 mcg/actuation Hfa Aerosol Inhaler 2 puff Inhalation BID PRNQty: 6 RF: 0 Discharge Instructions Instructions: Food Impaction (ED) Additional Instructions: At this time it appears as though your food bolus has resolved. Please watch for new or worsening symptoms and return to the ER for any concerns. I do recommend contacting your primary care provider for prompt outpatient reevaluation. If this continues to be an issue you may need to discuss options with your surgical team once again. Medical Decision Making 79-year-old female presents with an esophageal food bolus, a hot dog, that been present for the last 2 days. She has a history of esophagitis, GERD, strictures that required dilatation in the past. She appears well, nontoxic. Able to speak in full sentences, no respiratory distress, able to manage her secretions without difficulty. Given her history, we discussed our options. She will be given a single amp of glucagon, a liter of fluid, and we will try EZ gas effervescent granules. She understands that if this does not work she will likely need to be seen by surgery for endoscopy. Upon reevaluation patient reports that she thinks the food bolus has passed. She was given a water, drink without difficulty. Patient reports that the food bolus has passed and is now requesting discharge. She is currently asymptomatic. It would appear that she is now able to swallow without difficulty. The effervescent granules and glucagon have successfully cleared her bolus. We discussed the importance of chewing her food carefully, outpatient follow-up with surgery if symptoms persist, and return to the ER for new or worsening symptoms. Medical Records Medical records reviewed: Yes I reviewed the patient's medical records. HPI General Mode of arrival: ambulatory. Date/Time Provider Initiated Documentation: 12/15/19 09:57. Limitations to Documentation: no limitations. Information obtained by: patient. HPI Narrative: This is a 79-year-old female with a history of COPD, hiatal hernia, GERD, former smoker, esophageal narrowing requiring dilatation. She presents today reporting that she has a food impaction, specifically a hot dog, that she ate 2 days ago. She felt the food gets stuck in her throat, since that time has had difficulty eating or swallowing. Has only been able to take fluids and small sips. She reports a general discomfort because of the food impaction, worsens when she attempts to swallow. She denies any recent illness or trauma. No other concerns or complaints at this time. Related Data Home Medications Medication Instructions Recorded Confirmed aspirin 81 mg PO DAILY tab-cap 01/27/17 12/15/19 calcium-vitamin D3-vitamin K 1 ea PO DAILY tab.chew 01/27/17 12/15/19 multivitamin [Daily Multiple] 1 ea PO DAILY 01/27/17 12/15/19 omeprazole 40 mg PO DAILY@0730 #30 capcr 02/05/17 12/15/19 Symbicort 2 puff INHALATION BID PRN #6 gm 04/12/19 07/31/19 sucralfate [Carafate] 10 ml PO BID #600 ml 04/14/19 12/15/19 atorvastatin [Lipitor] 40 mg PO QPM #30 tab 05/15/19 12/15/19 docusate sodium [Colace] 100 mg PO TID PRN PRN #30 cap 05/15/19 12/15/19 oxycodone 5 mg PO Q4H PRN PRN #20 tab 05/15/19 12/15/19 diclofenac potassium 50 mg PO BID 12/15/19 12/15/19 gabapentin 100 mg PO TID 12/15/19 12/15/19 Previous Rx's Medication Instructions Recorded omeprazole 40 mg PO DAILY@0730 #30 capcr 02/05/17 Symbicort 2 puff INHALATION BID PRN #6 gm 04/12/19 sucralfate [Carafate] 10 ml PO BID #600 ml 04/14/19 atorvastatin [Lipitor] 40 mg PO QPM #30 tab 05/15/19 docusate sodium [Colace] 100 mg PO TID PRN PRN #30 cap 05/15/19 oxycodone 5 mg PO Q4H PRN PRN #20 tab 05/15/19 Allergies Allergy/AdvReac Type Severity Reaction Status Date / Time varenicline [From Chantix] AdvReac stomach Verified 12/15/19 10:10 problems General Stated Complaint: ThroatFB YADY: 3 Review of Systems Constitutional Constitutional: Denies fever(s) ENT Ears, Nose, Mouth, and Throat: Denies sore throat Cardiovascular Cardiovascular: Denies chest pain and Denies dyspnea Respiratory Respiratory: Denies cough and Denies dyspnea Gastrointestinal Gastrointestinal: Denies abdominal pain, Denies nausea and Reports vomiting (When attempting to eat) Musculoskeletal Musculoskeletal: Reports back pain (Chronic) Integumentary/Breasts Skin/Breast: Denies rash [facility] Medical History BCC (basal cell carcinoma), face (Acute) Bilateral hip pain (Acute) Breast cancer (Resolved) Chronic insomnia (Acute) COPD (chronic obstructive pulmonary disease) (Chronic) COPD exacerbation (Resolved) Depression (Chronic) DVT prophylaxis (Inactive) Dysphagia (Acute) Former smoker (Acute) GERD (gastroesophageal reflux disease) (Chronic) Hiatal hernia (Chronic) History of breast cancer (Acute) History of traumatic fracture of hip (Acute) Hypokalemia (Chronic) Hypomagnesemia (Chronic) Irregular heart rate (Acute) Left knee pain (Acute) Low back pain (Acute) Pneumonia (Inactive) Surgical History EGD - MAC (Inactive 02/05/17) Dr Marcial, [facility], EGD with balloon dilation; repeat procedure 04/14/2019, Dr. Inez Ruffin S/P breast lumpectomy (Inactive) left breast lumpectomy; follow up XRT, 2002 Status post THR (total hip replacement) (Chronic) Family History Mother Lung disease Daughter Lung disease Substance abuse Social History Smoking/Tobacco Use Status: Current every day Tobacco Type: cigarettes Alcohol Intake: current Alcohol Intake frequency: holidays/special occasions only Drug use: Never Substance use type: does not use Household members: children Current gender identity: female What is your relationship status?: Panel score (0-1 are the most socially isolated patients): 0 Do you feel safe at home: Yes Do you feel safe in your relationship?: Yes History History 3 Para Hx # Term Pregnancies 3 Multiple births Hx # Pregnancies Ectopic pregnancies AB induced Hx Number of Living Children 2 AB spontaneous Exam Const General: cooperative, healthy appearing, comfortable and no acute distress Orientation: alert, awake and oriented x3 HENMT Head: normal to inspection, normocephalic and atraumatic Mouth: moist mucous membranes Throat: posterior oropharynx normal Eyes Conjunctivae: conjunctivae normal Neck Neck: normal visual inspection, full ROM, trachea midline, supple and nontender Resp Effort & Inspection: normal respiratory effort and able to speak in complete sentences Auscultation: clear to auscultation bilaterally Cardio Rate: regular rate Rhythm: regular rhythm GI Inspection: normal to inspection Palpation: soft, not firm, no guarding, not rigid and nontender Auscultation: bowels sounds not normal Skin General skin exam: no rashes or lesions noted Neuro General: patient alert, patient awake, patient oriented x3, moves all extremities and no focal motor deficits Speech: speech normal Motor: muscle tone normal throughout Sensory Exam: no sensory deficits noted Psych Appearance: grossly normal Mental Status: mental status grossly normal Course Vital Signs Vital signs: Vital Signs Temperature 37 C 12/15/19 10:04 Pulse 98 H 12/15/19 10:04 Respiratory Rate 18 12/15/19 10:04 Blood Pressure 130/77 12/15/19 10:04 Pulse Oximetry 97 12/15/19 10:04 Temperature 37 C 12/15/19 10:04 Temperature Source Temporal Artery Scan 12/15/19 10:04 Pulse 98 H 12/15/19 10:04 Respiratory Rate 18 12/15/19 10:04 Respiratory Effort Non-Labored 12/15/19 10:08 Respiratory Pattern Normal 12/15/19 10:08 Blood Pressure 130/77 12/15/19 10:04 Blood Pressure Position Sitting 12/15/19 10:04 Pulse Oximetry 97 12/15/19 10:04 Oxygen Delivery Method Room Air 12/15/19 10:04 Oxygen Flow Rate 0 12/15/19 10:04 Pain Level 4 12/15/19 10:04
== END 2019-12-15 12:01 | disposition home or self-care (01) ==
PROVIDERS: Emergency Provider Physician Assistant; PCP Family Medicine
DX: T18.128A Food in esophagus causing other injury, initial encounter (principal); K22.2 Esophageal obstruction; K21.9 Gastro-esophageal reflux disease without esophagitis; J44.9 Chronic obstructive pulmonary disease, unspecified; F17.210 Nicotine dependence, cigarettes, uncomplicated
CPT/HCPCS: 96361; 96374; 99284; 99283; J1610

== ENCOUNTER 2020-11-06 09:50 | Outpatient (REF) | payer OTHER, SELFPAY ==
[2020-11-06 13:38] LABS: HCT 39.2 % (36.0-46.0); HGB 13.2 g/dL (11.2-15.7); MCH 31.5 pg (27.0-33.0); MCHC 33.7 % (32.0-36.0); MCV 93.6 fL (80-95); MPV 12.7 fL (8.0-11.0); Platelet Count 200 10^3/uL (130-400); RBC 4.19 10^6/uL (3.93-5.22); RDW 12.6 % (11.7-14.6); RDW-SD 43.6 fL; WBC 5.99 10^3/uL (4.4-10.8)
[2020-11-06 13:48] LABS: ALT 27 U/L (14-59); AST 19 U/L (15-37); Albumin 4.3 g/dL (3.4-5.0); Alkaline Phosphatase 77 U/L (46-116); Anion Gap 4.9 mmol/L (3-11); BUN 21 mg/dL (7-18); Bilirubin, Total 0.5 mg/dL (0.2-1.0); CO2 25.1 mmol/L (21.0-32.0); CREATININE 0.8 mg/dL (0.55-1.02); Calculated LDL 63 mg/dL (<100); Chloride 100 mmol/L (98-107); Cholesterol 165 mg/dL (<200); Glucose 99 mg/dL (74-106); HDL Cholesterol 88 mg/dL (40-60); Potassium 3.8 mmol/L (3.5-5.1); Sodium 130 mmol/L (136-145); Total Protein 7.3 g/dL (6.4-8.2); Triglyceride 70 mg/dL (<150)
== END 2020-11-06 09:51 | disposition home or self-care (01) ==
LOC: NCHCN 09:50
PROVIDERS: PCP Family Medicine; Visit Provider Family Medicine
DX: R63.6 Underweight (principal); I49.9 Cardiac arrhythmia, unspecified; J44.9 Chronic obstructive pulmonary disease, unspecified; R79.89 Other specified abnormal findings of blood chemistry
CPT/HCPCS: 80053; 80061; 85027

== ENCOUNTER 2022-02-02 08:35 | Inpatient (IN) | payer OTHER, SELFPAY ==
[2022-02-02] VITALS (27 sets, daily range): BP systolic 89–148; BP diastolic 42–83; PULSE 84–125; RESP 2–38; TEMP 31–37.3; O2SAT 87–97
--- NOTE | 2022-02-02 08:30 | DI.RAD_ITS ---
Exam(s) XR PORTABLE CHEST AP EXAM: XR PORTABLE CHEST AP CLINICAL HISTORY: SOB. TECHNIQUE: 2D digital imaging was performed. COMPARISON: CR XR CHEST 1V IN DI DEPT from 05/10/2019 FINDINGS: Single AP portable view. Some mild cardiomegaly again noted. Scoliosis. There is patchy infiltrate in the mid-lower right lung. No pleural effusion. The opposite-left lung is clear. IMPRESSION: Patchy infiltrate in the lower right lung field. No obvious pleural effusions DATA REPOSITORY: RADIATION DOSE DELIVERED: All CT scans at this facility use at least one of these dose optimization techniques: automated exposure control; mA and/or kV adjustment per patient size (includes targeted e xams where dose is matched to clinical indication); or iterative reconstruction.
--- NOTE | 2022-02-02 08:30 | RT.EKG_ITS ---
APPROVED REPORT Exam: Resting ECG Reason for Exam: SOB Patient Location: E HR:120 bpm ECG Measurements Heart Rate 120 AXIS MT 145 P 86 QRSd 83 QRS 57 QT 333 T 73 QTc 458 Conclusion Sinus tachycardia...rate> 99 Paired ventricular premature complexes...sequence of 2 V complexes Probable left atrial enlargement...P >50mS, <-0.10mV V1 sinus tachycardia at 120, ectopy present, normal axis, no STEMI
--- NOTE | 2022-02-02 08:36 | W.ED.GENAD ---
Discharge Plan Disposition Patient Disposition: [facility] INPATIENT Condition: Good Discharge Details Chief Complaint: SOB Clinical Impression: Acute exacerbation of chronic obstructive pulmonary disease (COPD), Pneumonia Admit Date/Time: 02/02/22 10:10 Admit Provider: Linda López Attending Provider: Linda López Primary Care Provider: Nia Delcid ED Provider: Lynnette Gutierrez Discharge Instructions Activity:: Activity as Tolerated Equipment/Supplies:: Nebulizer Diet:: resume usual diet Discharge Orders Discharge Orders: Discharge Order (Routine); Ordered 02/04/22 Ordered By: Efren Santoyo Discharge Data Discharge Date/Time-TO BE ENTERED AT DEPARTURE: 02/02/22 12:04 Medical Decision Making Zulema Bonner is a 81-year-old woman with history of COPD, GERD presenting to the emergency department with shortness of breath. Patient reports that she has been feeling short of breath for the past 2 days, gradually worsening. She reports that she is not on home oxygen, does not have nebulizers at home, does have albuterol inhaler which she has been using with some relief. Patient reports that she also has cough productive of yellow sputum that began on Wednesday as well. She denies fevers, pain, vomiting, diarrhea, numbness, weakness, swelling, rash. Patient reports that she does not have home oxygen at home. She is a current smoker. On exam Pt is non-toxic appearing. Mild to moderate respiratory distress, speaking in short sentences, diffuse wheeze throughout. Hypoxic to mid-80s on RA, sats ~90% on 3L NC, unknown baseline. Concern for COPD exacerbation, PNA, covid, dehydration, other. Possible early sepsis. Doubt ACS, pulmonary embolism. Exam/hx at this time not c/w acute aortic pathology, acute emergent intra-abdominal pathology. Plan for EKG, IV placement, telemetry, IVF hydration, screening labs, duoneb, IV magnesium. Pt recieved duoneb x2 and IV solumedrol from EMS. Pt reports improvement after meds. Tachycardia improved from 120 to 110. Pt reports worsening of SOB. Wheeze had improved, now worsened. Plan for breathing treatment, BIPAP. Pt not tolerating BIPAP but improved after meds, not retaining CO2 per VBG, plan for high flow O2. CXR shows PNA. Will treat with abx. CT chest obtained for elevated d-dimer, neg for PE. Pt admitted. Medical Records Medical records reviewed: Yes I reviewed the patient's medical records. Imaging Data Radiologic Study: Attestation: I personally reviewed and interpreted this imaging study as follows: Radiologist's impression: EXAM:? XR PORTABLE CHEST AP CLINICAL HISTORY: ? SOB. ? TECHNIQUE:? 2D digital imaging was performed. COMPARISON:? CR XR CHEST 1V IN DI DEPT from 05/10/2019 FINDINGS: Single AP portable view. Some mild cardiomegaly again noted.? Scoliosis. There is patchy infiltrate in the mid-lower right lung.? No pleural effusion. The opposite-left lung is clear. IMPRESSION: Patchy infiltrate in the lower right lung field.? No obvious pleural effusions Lab Data Lab results reviewed: Yes I reviewed the patient's lab results. ECG Data Attestation: I personally reviewed and interpreted this ECG (s) as follows: Interpretation: EKG shows sinus tachycardia at 120, ectopy present, normal axis, no STEMI HPI General Mode of arrival: EMS. Date/Time Provider Initiated Documentation: 02/02/22 08:42. Limitations to Documentation: no limitations. Information obtained by: patient, EMS, RN notes reviewed and old records reviewed. HPI Narrative: Zulema Bonner is a 81-year-old woman with history of COPD, GERD presenting to the emergency department with shortness of breath. Patient reports that she has been feeling short of breath for the past 2 days, gradually worsening. She reports that she is not on home oxygen, does not have nebulizers at home, does have albuterol inhaler which she has been using with some relief. Patient reports that she also has cough productive of yellow sputum that began on Wednesday as well. She denies fevers, pain, vomiting, diarrhea, numbness, weakness, swelling, rash. Patient reports that she does not have home oxygen at home. She is a current smoker. Related Data Home Medications Medication Instructions Recorded Confirmed aspirin 81 mg chewable tablet 81 mg PO DAILY 01/27/17 02/02/22 calcium-vitamin D3-vitamin K 500 1 ea PO DAILY 01/27/17 02/02/22 mg-1,000 unit-40 mcg chewable tablet multivitamin (Daily Multiple 1 ea PO DAILY 01/27/17 02/02/22 tablet) atorvastatin 40 mg tablet (Lipitor) 40 mg PO QPM #30 tabs 05/15/19 02/02/22 docusate sodium 100 mg capsule 100 mg PO TID PRN PRN #30 caps 05/15/19 02/02/22 (Colace) diclofenac potassium 50 mg tablet 50 mg PO BID PRN PRN 12/15/19 02/02/22 gabapentin 100 mg capsule 200 mg PO TID PRN PRN 12/15/19 02/02/22 albuterol sulfate 90 mcg/actuation 1 puff inhalation Q4H PRN PRN 02/02/22 02/02/22 aerosol inhaler bisacodyl 10 mg/30 mL enema (Fleet 10 mg DE DAILY PRN PRN 02/02/22 02/02/22 Bisacodyl) omeprazole 20 mg capsule,delayed 20 mg PO DAILY 02/02/22 02/02/22 release sucralfate 1 gram tablet 1 g PO BID 02/02/22 02/02/22 amoxicillin 875 mg-potassium 1 tab PO BID #10 tabs 02/04/22 clavulanate 125 mg tablet budesonide-formoterol HFA 160 2 puff inhalation BID #1 g 02/04/22 mcg-4.5 mcg/actuation aerosol inhaler (Symbicort) ipratropium 0.5 mg-albuterol 3 mg 3 ml inhalation QID PRN #90 mL 02/04/22 (2.5 mg base)/3 mL nebulization soln Previous Rx's Medication Instructions Recorded atorvastatin 40 mg tablet (Lipitor) 40 mg PO QPM #30 tabs 05/15/19 docusate sodium 100 mg capsule 100 mg PO TID PRN PRN #30 caps 05/15/19 (Colace) amoxicillin 875 mg-potassium 1 tab PO BID #10 tabs 02/04/22 clavulanate 125 mg tablet budesonide-formoterol HFA 160 2 puff inhalation BID #1 g 02/04/22 mcg-4.5 mcg/actuation aerosol inhaler (Symbicort) ipratropium 0.5 mg-albuterol 3 mg 3 ml inhalation QID PRN #90 mL 02/04/22 (2.5 mg base)/3 mL nebulization soln Allergies Allergy/AdvReac Type Severity Reaction Status Date / Time varenicline [From Chantix] AdvReac stomach Verified 02/02/22 08:35 problems General Stated Complaint: SOB YADY: 3 Review of Systems Narrative: Constitutional: denies fevers Eyes: denies eye pain ENT: denies ear pain, dental pain, sore throat Cardiovascular: denies chest pain, edema Respiratory: reports SOB, cough GI: denies abdominal pain, vomiting, diarrhea : denies flank pain MSK: denies back pain, neck pain, arthralgias, myalgias Skin: denies rash Neuro: denies headaches, numbness, weakness PFSH All Active Problems (Updated 02/04/22 @ 23:09 by Lynnette Gutierrez MD) Pneumonia (Acute) Discharge planning issues (Acute) Dysphagia (Acute) DVT prophylaxis (Acute) Acute exacerbation of chronic obstructive pulmonary disease (COPD) (Acute) Aspiration pneumonia (Acute) Sepsis (Acute) Acute respiratory failure with hypoxia (Acute) Bilateral carotid bruits (Acute) Normocytic normochromic anemia (Acute) COPD (chronic obstructive pulmonary disease) (Chronic) Closed fracture of left distal femur (Acute 05/10/19) S/P ORIF on 05/12/19 Hiatal hernia (Chronic) Hypokalemia (Chronic) Hypomagnesemia (Chronic) GERD (gastroesophageal reflux disease) (Chronic) Medical History (Updated 02/04/22 @ 23:09 by Lynnette Gutierrez MD) BCC (basal cell carcinoma), face Bilateral hip pain Breast cancer Chronic insomnia COPD exacerbation Depression Former smoker GERD (gastroesophageal reflux disease) History of breast cancer History of traumatic fracture of hip Irregular heart rate Left knee pain Low back pain Pneumonia Surgical History EGD - MAC (02/05/17) Dr Marcial, [facility], EGD with balloon dilation; repeat procedure 04/14/2019, Dr. Inez Ruffin S/P breast lumpectomy left breast lumpectomy; follow up XRT, 2002 Status post THR (total hip replacement) Family History Mother Lung disease Daughter Lung disease Substance abuse Hypertension Maternal Aunt Colon cancer Heart disease Social History Smoking/Tobacco Use Status: Current every day Tobacco Type: cigarettes Smoking risk assessment performed?: Yes Alcohol Intake: current Alcohol Intake frequency: holidays/special occasions only Drug use: Never Substance use type: does not use Household members: children Current gender identity: female What is your relationship status?: Panel score (0-1 are the most socially isolated patients): 0 Do you feel safe at home: Yes Do you feel safe in your relationship?: Yes History History 3 Para Hx # Term Pregnancies 3 Multiple births Hx # Pregnancies Ectopic pregnancies AB induced Hx Number of Living Children 2 AB spontaneous Exam Narrative Exam Narrative: Constitutional: frail but acutely [id number], mild respiratory distress HENT: head atraumatic/normocephalic/normal inspection, mucous membranes dry Eyes: conjunctiva normal, sclera normal, pupils 3mm b/l Neck: no stridor, normal ROM, trachea midline Chest: normal inspection Resp: tachypneic, speaking in short sentences, diffuse wheeze throughout b/l, no rales, no rhonchi Cardio: tachycardic rate, normal rhythm, no murmur appreciated GI: abdomen soft, non-tender, non-distended Back: normal inspection, no rash Skin: warm, dry, normal color, no rash Neuro: alert, not altered, grossly non-focal, normal tone Ext: no edema, no posterior calf TTP Psych: normal mood, normal affect, normal behavior Course Vital Signs Vital signs: Vital Signs Temperature 36.7 C 02/02/22 08:20 Pulse 125 H 02/02/22 08:20 Respiratory Rate 32 H 02/02/22 08:20 Blood Pressure 148/78 H 02/02/22 08:20 Pulse Oximetry 92 02/02/22 08:20 Temperature 36.7 C 02/02/22 08:20 Pulse 125 H 02/02/22 08:20 Respiratory Rate 32 H 02/02/22 08:20 Respiratory Effort Labored 02/02/22 08:34 Blood Pressure 148/78 H 02/02/22 08:20 Blood Pressure Position Sitting 02/02/22 08:20 Pulse Oximetry 92 02/02/22 08:20 Oxygen Delivery Method Nasal Cannula 02/02/22 08:20 Oxygen Flow Rate 2 02/02/22 08:20 Pain Level 0 02/02/22 08:20 Critical Care Time Critical Care Time Attestation: I have spent more than 35 minutes of critical care time with this critically ill patient, including frequent bedside reassessments, discussion with family.
[2022-02-02] MEDS: MAGNESIUM SULFATE 2 GM/50 ML BAG IVPB (09:04)
[2022-02-02] MEDS: Normal Saline 500 ML IV ×4 (09:06→17:19)
[2022-02-02] MEDS: Levalbuterol 1.25 MG/3 ML UPD VIAL (09:10)
[2022-02-02 09:25] LABS: BE (Venous) -1 mmol/L (-2-3); HCO3 (Venous) 26 mmol/L (23-28); HCT 31.9 % (36.0-46.0); HGB 10.7 g/dL (11.2-15.7); MCH 27.9 pg (27.0-33.0); MCHC 33.5 % (32.0-36.0); MCV 83 fL (80-95); MPV 10.9 fL (8.0-11.0); O2 Sat (Venous) 52 %; Platelet Count 264 10^3/uL (130-400); RBC 3.84 10^6/uL (3.93-5.22); RDW 13.3 % (11.7-14.6); RDW-SD 40.3 fL; TCO2 (Venous) 24 mmol/L (24-29); WBC 12.54 10^3/uL (4.4-10.8); pCO2 (Venous) 51 mmHg (41-51); pH (Venous) 7.31 (7.31-7.41); pO2 (Venous) 31 mmHg
[2022-02-02 09:49] LABS: ALT 23 U/L (14-59); AST 20 U/L (15-37); Albumin 2.8 g/dL (3.4-5.0); Alkaline Phosphatase 107 U/L (46-116); BUN 19 mg/dL (7-18); Bilirubin, Total 0.6 mg/dL (0.2-1.0); CO2 25.3 mmol/L (21.0-32.0); CREATININE 0.7 mg/dL (0.55-1.02); Chloride 88 mmol/L (98-107); Glucose 131 mg/dL (74-106); Magnesium 1.6 mg/dL (1.8-2.4); Total Protein 7.2 g/dL (6.4-8.2); Troponin I < 50 ng/L (<or=60)
[2022-02-02 09:50] LABS: Absolute Neutrophil Count 10.53 10^3/uL (1.2-6.7); Bands % 9; Diff Comment Manual Differential; RBC Morphology Normal
[2022-02-02] MEDS: cefTRIAXone 1 GM/50 ML BAG IVPB (09:58)
[2022-02-02 10:04] LABS: Anion Gap 11.7 mmol/L (3-11); Sodium 125 mmol/L (136-145)
[2022-02-02 10:07] LABS: COVID-19 PCR Negative (Negative); Influenza A PCR Negative (Negative); Influenza B PCR Negative (Negative); RSV PCR Negative (Negative)
[2022-02-02 10:09] LABS: D-Dimer 2893 ng/mlFEU (<500)
[2022-02-02 10:09] LABS: Source Nasopharynx
[2022-02-02] MEDS: Albuterol/Ipratropium 3 ML UPD VIAL UPD (10:18)
[2022-02-02] MEDS: Omnipaque 350 MG/ML 100 ML BTL IJ (11:12)
--- NOTE | 2022-02-02 11:14 | DI.CT_ITS ---
Exam(s) CT CHEST PE CTA EXAM: CT CHEST PE CTA CLINICAL HISTORY: SOB. TECHNIQUE: Imaging Protocol: CT angiography of the chest was performed using pulmonary embolus adela col. Multi planar reconstructions were performed. CONTRAST MATERIAL: Intravenous: Omnipaque 350 Contrast volume: 120 cc COMPARISON: CT CT ABDOMEN PELVIS W from 02/28/2019 FINDINGS: CHEST: Apparently this patient was injected twice (60 cc each time) because the 1st injection was rock dequate timing for highlighting the pulmonary arterial tree. The 2nd injection was significantly mor e successful. PULMONARY ARTERIES: There are no intraluminal filling defects to suggest acute pulmonary emboli. LUNGS: There is prominent infiltrate in the right lower lobe basal segments. Also some infiltrate in the left lower lobe basal segments. Minimal pleural fluid on the right. Small pleural effusion on the left.. MEDIASTINUM: There is no hilar nor mediastinal adenopathy. Visualized thyroid unremarkable.Moderate s ize hiatal hernia noted. CARDIAC: Heart size is upper normal. There is no pericardial effusion.Caliber of the thoracic aorta is upper normal. No evidence of aortic dissection. There is no significant shift of the interventri cular septum. PARTIALLY VISUALIZED UPPERMOST ABDOMEN: No obvious findings OSSEOUS: No significant osseous lesions.. IMPRESSION: 1. No evidence of acute pulmonary emboli. However, there infiltrates in both lower lobes, right more so than left. There is a small left pleural effusion. 2. No evidence of aortic dissection. No pericardial effusion. 3. No intrathoracic adenopathy Report called by myself to ER. RADIATION DOSE DELIVERED: 399.82mGy.cm Total DLP DATA REPOSITORY: All CT scans at this facility are submitted to the National Radiology Data Registry (NRDR) Dose Index Registry (DIR) with the [employer] (ACR). RADIATION OPTIMIZATION: All CT scans at this facility use at least one of these dose optimization te chniques: automated exposure control; mA and/or kV adjustment per patient size (includes targeted exa ms where dose is matched to clinical indication); or iterative reconstruction.
[2022-02-02] MEDS: AZITHROMYCIN 500 MG in Normal Saline 250 ML 250 MG IVPB (11:39)
[2022-02-02 12:01] LABS: Troponin I < 50 ng/L (<or=60)
[2022-02-02] MEDS: Enoxaparin 40 MG/0.4 ML SYR SC (13:53)
[2022-02-02] MEDS: POTASSIUM CHLORIDE 20 MEQ/100 ML BAG 50 MEQ IVPB ×3 (13:53→22:45)
[2022-02-02] MEDS: PIPERACILLIN/TAZO 3.375 GM in Normal Saline 50 ML IVPB ×2 (14:33→21:16)
--- NOTE | 2022-02-02 16:06 | W.PM.HP.N ---
Date of service: 02/02/22 Time of Service: 14:00 Assessment and Plan Assessment and plan (1) Sepsis: Status: Acute Assessment and plan: Due to aspiration pneumonia, present on admission. Will treat with azithromycin + zosyn. Await blood cultures (?collected) and respiratory cultures. Consider IVF. She does not require ICU at this time and can be downgraded to medical surgical floor. (2) Aspiration pneumonia: Status: Acute Assessment and plan: As above. Also, obtain speech therapy consult. Will need general surgery follow up for esophageal dilatation as outpatient. (3) Acute exacerbation of chronic obstructive pulmonary disease (COPD): Status: Acute Assessment and plan: Due to above. Treat with abx, prednisone, scheduled + prn nebs, mucinex, IS/Acapella. Await sputum culture. (4) Acute respiratory failure with hypoxia: Status: Acute Assessment and plan: Due to above - as above (5) Discharge planning issues: Status: Acute Assessment and plan: Full code Transfer out of ICU. (6) DVT prophylaxis: Status: Acute Assessment and plan: Lovenox History of Present Illness History of Present Illness Chief Complaint: Shortness of breath Narrative: Ms Urban is a 81 year old female with PMHx of non-oxygen dependent COPD, dysphagia due to h/o esophageal strictures requiring dilation in the past, GERD, osteoporosis, who presented to [facility] ED today c/o SOB x 2 days with cough which is now productive of yellow sputum whereas it is normally white. The patient endorses frequently having episodes of food getting stuck in her esophagus and thinks she needs to have another dilatation. We discussed how this is typically done after pneumonia is treated and will likely have to be done as outpatient. The patient denies fevers at home, denies shortness of breath, reports chronic back pain and also L ear and facial pain after pushing her hearing aide into her left ear too hard 3 days ago - now resolved (and neurontin helped this). In the ED, the patient required humidified heated high flow O2 to help with her work of breathing, saturating 87% on RA. She is now on 3L of O2 by NC saturating 93%. She was started on azithromycin and ceftriaxone in the ED as well as nebulizer treatments and steroids. Hospitalist admission to the ICU was requested. Review of Systems All systems reviewed & are unremarkable except as noted in HPI and below PFSH All Active Problems (Updated 02/02/22 @ 16:32 by Linda López MD) Discharge planning issues (Acute) Dysphagia (Acute) DVT prophylaxis (Acute) Acute exacerbation of chronic obstructive pulmonary disease (COPD) (Acute) Aspiration pneumonia (Acute) Sepsis (Acute) Acute respiratory failure with hypoxia (Acute) Bilateral carotid bruits (Acute) Normocytic normochromic anemia (Acute) COPD (chronic obstructive pulmonary disease) (Chronic) Closed fracture of left distal femur (Acute 05/10/19) S/P ORIF on 05/12/19 Hiatal hernia (Chronic) Hypokalemia (Chronic) Hypomagnesemia (Chronic) GERD (gastroesophageal reflux disease) (Chronic) Medical History (Updated 02/02/22 @ 16:32 by Linda López MD) BCC (basal cell carcinoma), face Bilateral hip pain Breast cancer Chronic insomnia COPD exacerbation Depression Former smoker GERD (gastroesophageal reflux disease) History of breast cancer History of traumatic fracture of hip Irregular heart rate Left knee pain Low back pain Pneumonia Surgical History EGD - MAC (02/05/17) Dr Marcial, [facility], EGD with balloon dilation; repeat procedure 04/14/2019, Dr. Inez Ruffin S/P breast lumpectomy left breast lumpectomy; follow up XRT, 2002 Status post THR (total hip replacement) Family History Mother Lung disease Daughter Lung disease Substance abuse Hypertension Maternal Aunt Colon cancer Heart disease Social History Smoking/Tobacco Use Status: Current every day Tobacco Type: cigarettes Smoking risk assessment performed?: Yes Alcohol Intake: current Alcohol Intake frequency: holidays/special occasions only Drug use: Never Substance use type: does not use Household members: children Current gender identity: female What is your relationship status?: Panel score (0-1 are the most socially isolated patients): 0 Do you feel safe at home: Yes Do you feel safe in your relationship?: Yes History History 3 Para Hx # Term Pregnancies 3 Multiple births Hx # Pregnancies Ectopic pregnancies AB induced Hx Number of Living Children 2 AB spontaneous Meds Allergies and Home Medications Allergies Allergy/AdvReac Type Severity Reaction Status Date / Time varenicline [From Chantix] AdvReac stomach Verified 02/02/22 08:35 problems Home Medications Medication Instructions Recorded Confirmed Type aspirin 81 mg chewable tablet 81 mg PO DAILY 01/27/17 02/02/22 History calcium-vitamin D3-vitamin K 500 1 ea PO DAILY 01/27/17 02/02/22 History mg-1,000 unit-40 mcg chewable tablet multivitamin (Daily Multiple 1 ea PO DAILY 01/27/17 02/02/22 History tablet) atorvastatin 40 mg tablet (Lipitor) 40 mg PO QPM #30 tabs 05/15/19 02/02/22 Rx docusate sodium 100 mg capsule 100 mg PO TID PRN PRN #30 caps 05/15/19 02/02/22 Rx (Colace) diclofenac potassium 50 mg tablet 50 mg PO BID PRN PRN 12/15/19 02/02/22 History gabapentin 100 mg capsule 200 mg PO TID PRN PRN 12/15/19 02/02/22 History albuterol sulfate 90 mcg/actuation 1 puff inhalation Q4H PRN PRN 02/02/22 02/02/22 History aerosol inhaler bisacodyl 10 mg/30 mL enema (Fleet 10 mg [place] DAILY PRN PRN 02/02/22 02/02/22 History Bisacodyl) omeprazole 20 mg capsule,delayed 20 mg PO DAILY 02/02/22 02/02/22 History release sucralfate 1 gram tablet 1 g PO BID 02/02/22 02/02/22 History Exam Narrative Exam Narrative: General: Pleasant cachectic female who is A&Ox3, not visibly having respiratory distress, on 3L of O2 Neurological: A&Ox3, no focal deficits Psychiatric: Appropriate speech pattern/content Skin: Visible skin intact HEENT: Atraumatic, normocephalic, EOMI, MMM, otologic exam L ear normal, clear oropharynx, no submandibular or cervical lymphadenopathy, no goiter or JVD Cardiovascular: RRR, no m/r/g Lungs: Expiratory and inspiratory wheezing and crackles B Gastrointestinal: soft, nontender, nondistended Genitourinary: deferred Extremities: no edema BLEs, 1+ pedal pulses B Results Imaging Additional studies: CXR: Patchy infiltrate in the lower right lung field.? No obvious pleural effusions CTA chest: 1. No evidence of acute pulmonary emboli.? However, there infiltrates in both lower lobes, right more so than left.? There is a small left pleural effusion. 2. No evidence of aortic dissection.? No pericardial effusion. 3. No intrathoracic adenopathy EKG: HR 120, ST, no acute ischemia Labs Result diagrams: 02/02/22 09:15 02/02/22 09:15 Labs: Laboratory Results - last 24 hr 02/02/22 02/02/22 02/02/22 09:15 09:15 09:15 WBC 12.54 H RBC 3.84 L Hgb 10.7 L Hct 31.9 L MCV 83 MCH 27.9 MCHC 33.5 RDW 13.3 Plt Count 264 MPV 10.9 Immature Gran % 0.0 Neutrophils % 75.0 Band Neutrophils % 9 Lymphocytes % 8.0 Monocytes % 8.0 Eosinophils % 0.0 Basophils % 0.0 Nucleated RBC % 0.0 Absolute Neutrophils 10.53 H Absolute Lymphocytes 1.00 L Absolute Monocytes 1.00 H Absolute Eosinophils 0.00 Absolute Basophils 0.00 RBC Morphology Normal D-Dimer 2893 H VBG pH VBG pCO2 VBG pO2 VBG HCO3 VBG Total CO2 VBG O2 Saturation VBG Base Excess Sodium 125 L Potassium 3.0 L Chloride 88 L Carbon Dioxide 25.3 Anion Gap 11.7 H BUN 19 H Creatinine 0.7 Estimated GFR/1.73 m2 >= 60.00 Glucose 131 H Calcium 9.0 Magnesium 1.6 L Total Bilirubin 0.6 AST 20 ALT 23 Alkaline Phosphatase 107 Troponin I < 50 Total Protein 7.2 Albumin 2.8 L COVID-19 Source SARS-CoV-2 (PCR) Influenza Type A (PCR) Influenza Type B (PCR) RSV (PCR) 02/02/22 02/02/22 02/02/22 09:15 09:20 11:38 WBC RBC Hgb Hct MCV MCH MCHC RDW Plt Count MPV Immature Gran % Neutrophils % Band Neutrophils % Lymphocytes % Monocytes % Eosinophils % Basophils % Nucleated RBC % Absolute Neutrophils Absolute Lymphocytes Absolute Monocytes Absolute Eosinophils Absolute Basophils RBC Morphology D-Dimer VBG pH 7.31 VBG pCO2 51 VBG pO2 31 VBG HCO3 26 VBG Total CO2 24 VBG O2 Saturation 52 VBG Base Excess -1 Sodium Potassium Chloride Carbon Dioxide Anion Gap BUN Creatinine Estimated GFR/1.73 m2 Glucose Calcium Magnesium Total Bilirubin AST ALT Alkaline Phosphatase Troponin I < 50 Total Protein Albumin COVID-19 Source Nasopharynx SARS-CoV-2 (PCR) Negative Influenza Type A (PCR) Negative Influenza Type B (PCR) Negative RSV (PCR) Negative Last Vital Signs Temp 37.3 C 02/02/22 12:10 Pulse 109 H 02/02/22 12:30 Resp 33 H 02/02/22 13:44 BP 110/79 02/02/22 13:44 Pulse Ox 93 02/02/22 13:44
[2022-02-02] MEDS: Ipratropium 0.5 MG/2.5 ML UPD VIAL UPD ×2 (17:49→23:57)
[2022-02-02] MEDS: Normal Saline 1,000 ML 75 ML IV (19:16)
[2022-02-02] MEDS: Atorvastatin 40 MG TAB PO (20:03)
[2022-02-02] MEDS: Sucralfate 1 GM TAB PO (20:03)
[2022-02-02] MEDS: guaiFENesin 600 MG TABCR PO (20:04)
[2022-02-03] VITALS (16 sets, daily range): BP systolic 105–126; BP diastolic 63–72; PULSE 74–90; RESP 2–24; TEMP 31–37.4; O2SAT 91–99
[2022-02-03] MEDS: PIPERACILLIN/TAZO 3.375 GM in Normal Saline 50 ML IVPB ×4 (02:05→20:00)
[2022-02-03] MEDS: Levalbuterol 1.25 MG/3 ML UPD VIAL UPD (03:42)
[2022-02-03] MEDS: Gabapentin 100 MG CAP 200 MG PO ×2 (03:42→20:00)
[2022-02-03] MEDS: Ipratropium 0.5 MG/2.5 ML UPD VIAL UPD ×3 (05:54→17:46)
[2022-02-03 06:33] LABS: HCT 24.8 % (36.0-46.0); HGB 8.7 g/dL (11.2-15.7); MCH 28.9 pg (27.0-33.0); MCHC 35.1 % (32.0-36.0); MCV 82 fL (80-95); MPV 11.2 fL (8.0-11.0); Platelet Count 245 10^3/uL (130-400); RBC 3.01 10^6/uL (3.93-5.22); RDW 13.2 % (11.7-14.6); RDW-SD 39.7 fL
[2022-02-03 06:45] LABS: BUN 17 mg/dL (7-18); CREATININE 0.5 mg/dL (0.55-1.02); Calcium 8.2 mg/dL (8.5-10.1); Chloride 99 mmol/L (98-107); Glucose 149 mg/dL (74-106); Magnesium 1.7 mg/dL (1.8-2.4); Potassium 3.6 mmol/L (3.5-5.1); Sodium 131 mmol/L (136-145)
[2022-02-03 06:52] LABS: Absolute Lymphocyte Count 0.16 10^3/uL (1.2-3.4); Absolute Monocyte Count 0.64 10^3/uL (0.1-0.8); Absolute Neutrophil Count 14.95 10^3/uL (1.2-6.7); Bands % 6; Diff Comment Manual Differential; Metamyelocytes % 1; RBC Morphology Normal
[2022-02-03] MEDS: Budesonide/Formoterol 160/4.5 6 GM 60 PUFF INH IH ×2 (07:39→20:00)
[2022-02-03] MEDS: predniSONE 20 MG TAB 40 MG PO (08:53)
[2022-02-03] MEDS: Aspirin 81 MG CHEW PO (08:53)
[2022-02-03] MEDS: guaiFENesin 600 MG TABCR PO ×2 (08:53→20:00)
[2022-02-03] MEDS: Pantoprazole 40 MG TABCR PO (08:53)
[2022-02-03] MEDS: Sucralfate 1 GM TAB PO ×2 (08:54→20:00)
[2022-02-03] MEDS: Multivitamin TAB 1 TAB PO (08:54)
[2022-02-03] MEDS: Calcium 600mg/Vit D 200U TAB 1 TAB PO (08:54)
--- NOTE | 2022-02-03 10:36 | INITIAL_ITS ---
- If Service Date Differs Date of service: 02/03/22 Time of Service: 10:36 Care Management Initial Assess REASON FOR HOSPITALIZATION:: acute hypoxic resp failure, RLL PNA, COPD exacerbation PAST MEDICAL HISTORY/PAST SURGICAL HISTORY:: All Active Problems. Discharge planning issues (Acute). Dysphagia (Acute). DVT prophylaxis (Acute). Acute exacerbation of chronic obstructive pulmonary disease (COPD) (Acute). Aspiration pneumonia (Acute). Sepsis (Acute). Acute respiratory failure with hypoxia (Acute). Bilateral carotid bruits (Acute). Normocytic normochromic anemia (Acute). COPD (chronic obstructive pulmonary disease) (Chronic). Closed fracture of left distal femur (Acute 05/10/19). S/P ORIF on 05/12/19. Hiatal hernia (Chronic). Hypokalemia (Chronic). Hypomagnesemia (Chronic). GERD (gastroesophageal reflux disease) (Chronic). Medical History. BCC (basal cell carcinoma), face. Bilateral hip pain. Breast cancer. Chronic insomnia. COPD exacerbation. Depression. Former smoker. GERD (gastroesophageal reflux disease). History of breast cancer. History of traumatic fracture of hip. Irregular heart rate. Left knee pain. Low back pain. Pneumonia. Surgical History. EGD - MAC (02/05/17). Dr Marcial, [facility], EGD with balloon dilation; repeat procedure 04/14/2019, Dr. Inez Ruffin. S/P breast lumpectomy. left breast lumpectomy; follow up XRT, 2001. Status post THR (total hip replacement) PREVIOUS FUNCTIONAL STATUS/SOCIAL/FAMILY SUPPORTS:: Zulema resides in an apartment at her daughter and son in [facility] in [place]. She states that her home is very well suited for her, with a lift chair, a walk in shower with a bench, and laundry on the same floor as her living space. She has a son in [place], and step children scattered througout the . She reports her family is supportive. She is independent at baseline and transports herself. CURRENT FUNCTIONAL STATUS:: Zulema was sitting up in bed when CM met with her. She stated that she is feeling better, but still not well. She stated that she is not on O2 at baseline, and she is hoping that she can be weaned off O2 before going home. She met with speech therapy, who made recommendations for swallowing. She is on IV abx with blood cultures pending. CM will continue to follow. ADVANCE DIRECTIVES:: On file, Yamilka (daughter) listed as [facility] Has patient been provided with info about the portal/API?: Yes Did the patient sign up for the portal?: No CODE STATUS:: Full Code INSURANCE COVERAGE / FINANCIAL ISSUES:: [facility] MCR replacement CURRENT HOME/COMMUNITY SERVICES/EQUIPMENT:: No current services, shower chair, FWW, stair lift. She also has hearing aids and dentures. PRIMARY CARE PHYSICIAN:: Nia Delcid POTENTIAL DISCHARGE NEEDS:: Evaluations for further needs, follow up appointments. PATIENT/FAMILY EDUCATION NEEDS:: Review discharge instructions and limitations, discussion of self care needs including ask me three. ANTICIPATED BARRIERS TO DISCHARGE:: None identified. TRANSPORTATION:: Via private vehicle by family PLAN:: uZlema is being closely monitored on IV antibiotics and high flow NC O2. Anticipate Zulema will return home once medically cleared. Her daughter will drive her home via private vehicle when ready. She will follow up with her PCP and discharge plan of care. CM will continue to follow.
--- NOTE | 2022-02-03 10:43 | W.NUTCONSULT ---
Date of service: 02/03/22 Time of Service: 10:43 Nutritional Consult ASSESSMENT: 81 year old female admitted with aspiration PNA with respiratory failure. PMH: COPD, esophageal strictures. BMI 16 indicates underweight , however, typical weight in last couple of years. Estimated needs: 1247-5093 kcal, 45-55 g protein, 30-40 g fat. Needs to complete >50% of meals to meet nutrient requirements for weight maintenance. Enjoys milk shakes. PAYROLL OFFICER consult pending. Will need esophageal dilation in outpatient setting once PNA treated NUTRITIONAL DIAGNOSIS: Underweight in view of BMI INTERVENTION: Diet per PAYROLL OFFICER Supplement po intake with CIB shakes MONITORING AND EVALUATION: po intake, labs, wieght Time Spent in Nutritional Counseling and Treatment: 5
[2022-02-03] MEDS: Enoxaparin 40 MG/0.4 ML SYR SC (11:06)
[2022-02-03] MEDS: AZITHROMYCIN 500 MG in Normal Saline 250 ML 250 MG IVPB (11:06)
--- NOTE | 2022-02-03 12:00 | SP_ITS ---
Date of service: 02/03/22 Time of Service: 12:00 Subjective Clinical (Bedside) Swallow Evaluation - Speech Language Pathology Patient referred for Clinical Swallow Evaluation from Dr. López given aspiration pna and known esophageal dysphagia hx. Precautions: Standard, Full code, Aspiration ? HPI/Summary Patient is an 81 year old female with COPD, GERD and hiatal hernia, daily tobacco user, and esophageal dysphagia due to stricture and with a history of dilations. She was admitted to [facility] with sepsis secondary to aspiration pneumonia, acute exacerbation of COPD, and acute respiratory failure. Initially requiring humidified/heated high flow oxygenation to saturate in the high 80?s, later tolerating 3L by NC saturating at 93%. She was started on antibiotics and admitted to the ICU, later transferring to the med-surge unit. Predisposing dysphagia risk factors: esophageal dysphagia, GERD, age Clinical signs of possible chronic dysphagia: aspiration PNA Precipitating dysphagia risk factors / triggering event: ? CHEST CT - 02/02/2022 IMPRESSION: 1. No evidence of acute pulmonary emboli.? However, there infiltrates in both lower lobes, right more so than left.? There is a small left pleural effusion. 2. No evidence of aortic dissection.? No pericardial effusion. 3. No intrathoracic adenopathy PMHx: All Active Problems?(Updated 02/02/22 @ 16:32 by Linda López MD) Discharge planning issues (Acute) Dysphagia (Acute) DVT prophylaxis (Acute) Acute exacerbation of chronic obstructive pulmonary disease (COPD) (Acute) Aspiration pneumonia (Acute) Sepsis (Acute) Acute respiratory failure with hypoxia (Acute) Bilateral carotid bruits (Acute) Normocytic normochromic anemia (Acute) COPD (chronic obstructive pulmonary disease) (Chronic) Closed fracture of left distal femur (Acute 05/10/19) S/P ORIF on 05/12/19 Hiatal hernia (Chronic) Hypokalemia (Chronic) Hypomagnesemia (Chronic) GERD (gastroesophageal reflux disease) (Chronic) Medical History?(Updated 02/02/22 @ 16:32 by Linda López MD) BCC (basal cell carcinoma), face Bilateral hip pain Breast cancer Chronic insomnia COPD exacerbation Depression Former smoker GERD (gastroesophageal reflux disease) History of breast cancer History of traumatic fracture of hip Irregular heart rate Left knee pain Low back pain Pneumonia Surgical History? EGD - MAC (02/05/17) Dr Marcial, [facility], EGD with balloon dilation; repeat procedure 04/14/2019, Dr. Inez Ruffin S/P breast lumpectomy left breast lumpectomy; follow up XRT, 2002 Status post THR (total hip replacement)Social History/Home Situation: Pt lives alone, receives caregiver assist during day. He is reliant on wheelchair to ambulate. ? ? SUBJECTIVE: Patient received alert/awake, upright in her bed, agreeable to evaluation, able to communicate wants/needs effectively; able to demonstrate comprehension of recommendations for safe p.o. intake upon discharge once deemed medically stable.? She denies notable s/sx aspiration during meals such as coughing, choking, voice changes. She endorses history of moderate esophageal dysphagia for many years. She thinks it has been at least since 2019 that she has not had a repeat dilation. She endorses long history with GERD which she feels is being well-managed with medications (she states omeprezole and sucralfate). She notes that with recent illness, she experiences pronounced difficulty coordinating breathing and swallowing and increased shortness of breath when eating as well as when talking. Prior to this, she does not recall experiencing difficulty breathing during mealtimes. OBJECTIVE: Respiratory status: No telemetry displayed, some dyspnea apparent on what apepared to be 1L/min O2? via nasal cannula (short breath groups, high work of breathing). Patient with baseline congestive coughing productive of thick [place] sputum. ? Cranial nerve exam / Oral Motor: Largely edentulous with upper dentures and partial lower plate. Oral care/mucosa appeared good Preserved facial/lingual strength, ROM coordination though noting some difficulty with lingual resistance to lateralization. Volitional cough strong & sharp as well as glottal coup Velum elevates bilaterally to phonation. Volitional swallow; suspect mild reduced hyolaryngeal motility and mild difficulty with initiation. Voice clear/dry, able to sustain clear phonation without dysphonic/aphonic breaks. Language: occasional word finding difficulty Mental Status: AAOx3, recall of current events intact Speech: WFL ? Food items tested: ?? IDDSI 0: IDDSI 4: IDDSI 6: IDDSI 7: Oral phase: WFL , Leakage from mouth Difficulty with bolus manipulation Difficulty with a-p transport X Difficulty chewing ? mild prolonged masication with complete recollection Pocketing Residue Pharyngeal phase: WFL Delayed swallow initiation x Reduced hyolaryngeal elevation/excursion ? suspected ? cannot rule in/out at bedside Cough after swallow Voice change after swallow? Throat clearing? x Endorsed stasis ? localized to proximal esophagus Education: Provided education to patient, RN re: anatomy/physiology of swallowing mechanism, overt s/sx to monitor for re: potential aspiration of food liquids, recommendations for improved oral care, relationship between respiratory function changes and deglutition, rationale for risk management strategies including reflux management as outlined below. IMPRESSIONS: While Patient did not demonstrate any s/sx aspiration during this evaluation, she is at moderate risk for aspiration-related pulmonary complication, given significantly reduced respiratory function with increased work of breathing during meals at this time and in setting of existing chronic esophageal dysphagia; ?improvements in physical mobility, oral care, and overall pulmonary function likely to further reduce this risk. Diet modification is indicated to reduce work of mastication and decrease risks posed by increased dyspnea during mealtimes. Further inpatient GRASSLAND CONSERVATIONIST services: are warranted to ensure diet tolerance with special attention to aspiration risk in setting of increased dyspneal/coordination of swallowing/breathing during mealtimes. Instrumentation: N/A; MBSS may be appropriate pending results of dilation procedure. Discharge Recommendations: Recommend proceed with outpatient esophageal dilation; if concern remains for dysphagia after that point she would be appropriate for outpatient GR[employer]SLAND CONSERVATIONIST referral and/or MBSS referral. Diet Texture Modification(s): IDDSI Level(s) 6-Soft & Bite-Sized Solids 0-Thin Liquids Medication Intake: Whole, one at a time, with pudding or applesauce, rinse with water RISK MANAGEMENT: Oral hygiene BID/2x per day and before/after PO intake using friction with toothbrush on all oral structures as tolerated Suction PRN HOB upright as tolerated; upright for all PO intake. Encourage physical mobility as tolerated. Level of Assistance/Supervision: Distant supervision for all PO intake PO intake only when awake/alert? Strategies/Adaptations/Assistive Equipment: Reduce auditory and/or visual distractions when eating, Provide verbal and/or visual cues to use recommended strategies (patient may reference reminders on white board), Small sips and bites when eating, Slow rate of intake, Alternate intake of liquids and solids, Small+frequent meals throughout day Posture/Positioning Needs: Maintain upright position at least 30 minutes after meals, Avoid meals/snacks 2- 3 hours prior to reclining/sleeping, Sleep with head of bed elevated to reduce likelihood of nocturnal reflux PLAN: GRASSLAND CONSERVATIONIST to follow while on unit. GOALS: Patient will tolerate safest/least restrictive diet without s/sx aspiration. Patient/caregiver will be independent with aspiration & reflux precautions, diet modifications, and safe swallowing strategies. Patient/caregiver will verbalize/demonstrate understanding of education r/t anatomy/physiology of normal vs disordered swallowing mechanism, overt s/sx to monitor for re: potential aspiration of food liquids, recommendations for improved oral care, relationship between respiratory function changes and d eglutition, rationale for risk management strategies. Annemarie Ma Speech Language Pathologist [phone] ? GRASSLAND CONSERVATIONIST CPT Code: 42658 Clinical Swallowing Evaluation Time spent: 40 min Coding
--- NOTE | 2022-02-03 13:26 | W.PM.PROGNOT ---
Date of Service Date of service: 02/03/22 Time of Service: 13:29 Assessment and Plan Assessment and plan (1) Sepsis: Status: Acute Assessment and plan: Resolved. Due to aspiration pneumonia, present on admission. Will treat with azithromycin + zosyn. Blood cxs pending. (2) Aspiration pneumonia: Status: Acute Assessment and plan: As above. Also, obtain speech therapy consult. Will need general surgery follow up for esophageal dilatation as outpatient. (3) Acute exacerbation of chronic obstructive pulmonary disease (COPD): Status: Acute Assessment and plan: Due to above. Treat with abx, prednisone, scheduled + prn nebs, mucinex, IS/Acapella. sputum with normal bashir; cx pending. (4) Acute respiratory failure with hypoxia: Status: Acute Assessment and plan: Due to above - as above Currently on 4L NC; doesn't have home O2. Will perform exercise oximetry prior to dc. (5) Discharge planning issues: Status: Acute Assessment and plan: Full code Transfer out of ICU. (6) DVT prophylaxis: Status: Acute Assessment and plan: Lovenox Subjective Subjective Patient reports: feels better, tolerating a regular diet, shortness of breath (Improved) and afebrile; denies nausea Exam Narrative Exam Narrative: General: Pleasant cachectic female. Sitting upright in bed. Neurological: A&Ox3, no focal deficits Psychiatric: Appropriate speech pattern/content. Normal affect. Skin: Visible skin intact HEENT: sclera clear. MMM Cardiovascular: RRR, no murmur Lungs: Faint, coarse bilateral expiratory wheezes. Generalized diminished breath sounds. Gastrointestinal: soft, nontender, nondistended Genitourinary: deferred Extremities: no edema BLEs Objective Last Vital Signs Temp 36.5 C 02/03/22 11:05 Pulse 84 02/03/22 11:46 Resp 20 02/03/22 11:05 BP 107/64 02/03/22 11:05 Pulse Ox 99 02/03/22 11:46 Laboratory Results - last 24 hr 02/03/22 02/03/22 05:58 05:58 WBC 15.90 H RBC 3.01 L Hgb 8.7 L D Hct 24.8 L MCV 82 MCH 28.9 MCHC 35.1 D RDW 13.2 Plt Count 245 MPV 11.2 H Immature Gran % 0.0 Neutrophils % 88.0 Band Neutrophils % 6 Lymphocytes % 1.0 Monocytes % 4.0 Eosinophils % 0.0 Basophils % 0.0 Metamyelocytes % 1 Nucleated RBC % 0.0 Absolute Neutrophils 14.95 H Absolute Lymphocytes 0.16 L Absolute Monocytes 0.64 Absolute Eosinophils 0.00 Absolute Basophils 0.00 RBC Morphology Normal Sodium 131 L Potassium 3.6 Chloride 99 Carbon Dioxide 21.0 Anion Gap 11.0 BUN 17 Creatinine 0.5 L Estimated GFR/1.73 m2 >= 60.00 Glucose 149 H Calcium 8.2 L Magnesium 1.7 L
--- NOTE | 2022-02-03 15:34 | CHAPLAIN ---
Zulema was sitting up in bed when I visited, and eating a banana. She was pleasant and easily engaged in a conversation. Zulema lives in a basement apartment at daughter and son in law's and moved here a few years ago to live with them. Zulema is a member of [employer] in [place] and her diet consultant drove over to visit Zulema yesterday and provided a blessing for her.
[2022-02-03] MEDS: Atorvastatin 40 MG TAB PO (20:00)
[2022-02-04 00:17] VITALS: BP 138/80; PULSE 80; RESP 22; TEMP 36.4; O2SAT 90
[2022-02-04] MEDS: Ipratropium 0.5 MG/2.5 ML UPD VIAL UPD ×2 (00:17→06:27)
[2022-02-04] MEDS: PIPERACILLIN/TAZO 3.375 GM in Normal Saline 50 ML IVPB ×2 (02:30→07:40)
[2022-02-04 03:30] VITALS: BP 132/78; PULSE 80; RESP 22; TEMP 36.6; O2SAT 92
[2022-02-04 06:27] VITALS: RESP 4
[2022-02-04] MEDS: Sucralfate 1 GM TAB PO (06:27)
[2022-02-04] MEDS: Normal Saline Flush 10 ML SYR IVP (07:39)
[2022-02-04] MEDS: Pantoprazole 40 MG TABCR PO (07:40)
[2022-02-04] MEDS: Calcium 600mg/Vit D 200U TAB 1 TAB PO (07:40)
[2022-02-04] MEDS: Aspirin 81 MG CHEW PO (07:40)
[2022-02-04] MEDS: predniSONE 20 MG TAB 40 MG PO (07:40)
[2022-02-04] MEDS: Multivitamin TAB 1 TAB PO (07:40)
[2022-02-04] MEDS: guaiFENesin 600 MG TABCR PO (07:40)
[2022-02-04] MEDS: Magnesium Oxide 400 MG TAB PO (07:45)
[2022-02-04 07:54] VITALS: BP 139/72; PULSE 74; RESP 18; TEMP 36.4; O2SAT 91
[2022-02-04 08:11] LABS: HCT 27.4 % (36.0-46.0); HGB 9.3 g/dL (11.2-15.7); MCH 28.4 pg (27.0-33.0); MCHC 33.9 % (32.0-36.0); MCV 84 fL (80-95); MPV 10.4 fL (8.0-11.0); Platelet Count 320 10^3/uL (130-400); RBC 3.28 10^6/uL (3.93-5.22); RDW 13.5 % (11.7-14.6); RDW-SD 41.4 fL; WBC 14.33 10^3/uL (4.4-10.8)
[2022-02-04] MEDS: Budesonide/Formoterol 160/4.5 6 GM 60 PUFF INH IH (08:20)
[2022-02-04 08:45] LABS: Absolute Monocyte Count 1.15 10^3/uL (0.1-0.8); Absolute Neutrophil Count 11.61 10^3/uL (1.2-6.7); Atypical Lymphocytes % 3; Bands % 3
[2022-02-04 08:46] LABS: Diff Comment Manual Differential; Metamyelocytes % 1; Myelocytes % 3
[2022-02-04 08:47] LABS: Burr Cells (echinocyte) 2+
[2022-02-04] MEDS: AZITHROMYCIN 500 MG in Normal Saline 250 ML 250 MG IVPB (09:24)
[2022-02-04 11:12] VITALS: PULSE 102; PULSE 109; PULSE 85; RESP 17; RESP 18; RESP 20; O2SAT 89; O2SAT 92
[2022-02-04 11:14] VITALS: BP 119/68; PULSE 86; RESP 18; TEMP 36.3; O2SAT 92
--- NOTE | 2022-02-04 11:48 | DSE_ITS ---
Date of service: 02/04/22 Time of Service: 12:05 DS: Diagnosis Discharge Diagnosis (1) Sepsis: Status: Acute (2) Aspiration pneumonia: Status: Acute (3) Acute exacerbation of chronic obstructive pulmonary disease (COPD): Status: Acute (4) Acute respiratory failure with hypoxia: Status: Acute (5) Discharge planning issues: Status: Acute (6) DVT prophylaxis: Status: Acute Discharge Plan Disposition Patient Disposition: HOME Condition: Good Discharge Details Reason For Visit: Acute Hypoxic Resp.Failure,RLL PNA,COPD Excerbatio Admit Date/Time: 02/02/22 10:10 Admit Provider: Linda López Attending Provider: Linda López Primary Care Provider: Nia Delcid [facility] Course Hospital Course: Ms Urban is a 81 year old female with PMHx of non-oxygen dependent COPD, dysphagia due to h/o esophageal strictures requiring dilation in the past, GERD,? osteoporosis, who presented to [facility] ED today c/o SOB x 2 days with cough which is now productive of yellow sputum whereas it is normally white. The patient endorses frequently having episodes of food getting stuck in her esophagus and thinks she needs to have another dilatation. We discussed how this is typically done after pneumonia is treated and will likely have to be done as outpatient. The patient denies fevers at home, denies shortness of breath, reports chronic back pain and also L ear and facial pain after pushing her hearing aide into her left ear too hard 3 days ago - now resolved (and neurontin helped this). In the ED, the patient required humidified heated high flow O2 to help with her work of breathing, saturating 87% on RA. She was placed on 3L of O2 by NV with saturation improving to 93%. She was started on azithromycin and ceftriaxone in the ED as well as nebulizer treatments and steroids. Hospitalist admission to the ICU was requested. She steadily improved with easing shortness of air. On day of admission she required no supplemental O2 either while at rest or with walking. Her initial WBC count was 12. It increased to 15, then down to 14. There is likely a steroid effect; taking prednisone 40mg daily. She prefers no oral steroid; causes insomnia. She is encouraged to remain active to prevent atelectasis. She was start on Symbicort and this will be continued as an outpt. She will d/c on Augmentin 875mg po BID for 10 doses. Patient prescribed a nebulizer and Duonebs to use prn PCP f/u in 1-2 weeks. [address] to [facility] general surgery for EGD and esopahageal dilation if found to be necessary. Referral sent Dr. Garner, pulmonary medicine, for COPD. Home Meds and New Rx's Prescriptions: New budesonide-formoterol [Symbicort] 160-4.5 mcg/actuation Hfa Aerosol Inhaler 2 puff inhalation BID Qty: 1 0RF amoxicillin-pot clavulanate 875-125 mg tablet 1 tab PO BID Qty: 10 0RF Rx Instructions: First dose, night of 03/06. Continued multivitamin [Daily Multiple] 1 EACH tablet 1 ea PO DAILY aspirin 81 MG tablet,chewable 81 mg PO DAILY calcium-vitamin D3-vitamin K 1 EACH tablet,chewable 1 ea PO DAILY atorvastatin [Lipitor] 40 mg Tablet 40 mg PO QPM Qty: 30 0RF docusate sodium [Colace] 100 mg Capsule 100 mg PO TID PRN PRNQty: 30 0RF diclofenac potassium 50 mg Tablet 50 mg PO BID PRN PRN gabapentin 100 mg Capsule 200 mg PO TID PRN PRN omeprazole 20 mg Capsule,Delayed Release(Dr/Ec) 20 mg PO DAILY sucralfate 1 gram Tablet 1 g PO BID albuterol sulfate 90 mcg/actuation Hfa Aerosol Inhaler 1 puff INHALATION Q4H PRN PRN Fleet Bisacodyl 10 mg/30 mL Enema 10 mg MN DAILY PRN PRN Discharge Instructions Instructions: COPD (Chronic Obstructive Pulmonary Disease) (DC) Stand Alone Forms: Nursing Discharge Form Referrals: Iesha Garner MD [ [facility] STAFF PHYSICIAN] - (COPD) Amita Montes De Oca MD [ [facility] STAFF PHYSICIAN] - (Esophageal stricture history. Aspiration PNA Request EGD for evaluation of need for dilation. ) Activity:: Activity as Tolerated Equipment/Supplies:: Nebulizer Diet:: resume usual diet Discharge Orders Discharge Orders: Discharge Order (Routine); Ordered 02/04/22 Ordered By: Efren Santoyo DS: Summary Time Spent with Patient providing and/or coordinating discharge services: Greater than 30 minutes Status at Discharge Functional status at discharge: independent ambulation Overall status at discharge: patient is progressing back to baseline Mental Status: mental status grossly normal Speech and Movement: speech and movement normal Mood: congruent mood Affect: normal affect Exam Psych Mental Status: mental status grossly normal Speech and Movement: speech and movement normal Mood: congruent mood Affect: normal affect DS: Data Vitals/I&O Vitals and I&O: Vital Signs Temperature 36.4 C L 02/04/22 07:54 Temperature Source Tympanic 02/04/22 07:54 Pulse 74 02/04/22 07:54 Pulse Rhythm Regular 02/04/22 10:00 Pulse 95 H 02/02/22 16:33 Respiratory Rate 18 02/04/22 07:54 Respiratory Effort 02/04/22 10:00 Respiratory Depth Normal 02/04/22 10:00 Respiratory Pattern Normal 02/04/22 10:00 Blood Pressure 139/72 02/04/22 07:54 Blood Pressure Mean 66 02/02/22 16:33 Blood Pressure Position Supine 02/02/22 12:30 Pulse Oximetry 91 L 02/04/22 07:54 Oxygen Delivery Method Room Air 02/04/22 07:54 Oxygen Flow Rate 0 02/04/22 07:54 Fraction of Inspired Oxygen (FIO2) 36 02/03/22 07:41 Pain Level 0 02/04/22 07:54 Comment 02/04/22 00:17 Intake & Output 02/03/22 02/03/22 02/04/22 11:59 23:59 11:59 Intake Total 200 / 830 630 / 830 590 / 590 Output Total 250 / 250 Balance -50 / 580 630 / 580 590 / 590 Weight 42 kg 42 kg Intake: IV 200 / 550 350 / 550 350 / 350 Oral 280 / 280 240 / 240 Output: Urine 250 / 250 Other: Urine Color Yellow Urine Appearance Clear Clear Clear Comment pT stated that she does not need to use the bathroom at this time. pT went to the bathroom independently. Voiding Methods Bedside Commode Toilet Toilet Data Completed and Pending Labs on day of discharge: Labs from last 24 hours 02/04/22 08:05 WBC 14.33 H RBC 3.28 L Hgb 9.3 L Hct 27.4 L MCV 84 MCH 28.4 MCHC 33.9 D RDW 13.5 Plt Count 320 MPV 10.4 Immature Gran % 0.0 Neutrophils % 78.0 Band Neutrophils % 3 Lymphocytes % 4.0 Atypical Lymphs % 3 Monocytes % 8.0 Eosinophils % 0.0 Basophils % 0.0 Metamyelocytes % 1 Myelocytes % 3 Nucleated RBC % 0.0 Absolute Neutrophils 11.61 H Absolute Lymphocytes 1.00 L Absolute Monocytes 1.15 H Absolute Eosinophils 0.00 Absolute Basophils 0.00 RBC Morphology See Below Rosalva Cells/Echinocytes 2+ Preliminary micro results at discharge 02/02/22 12:50 Sputum Culture - Preliminary Sputum Normal Lauren 02/02/22 16:50 Blood Culture - Preliminary Blood NO GROWTH 24 HOURS 02/02/22 16:50 Blood Culture - Preliminary Blood NO GROWTH 24 HOURS PFSH All Active Problems Discharge planning issues (Acute) Dysphagia (Acute) DVT prophylaxis (Acute) Acute exacerbation of chronic obstructive pulmonary disease (COPD) (Acute) Aspiration pneumonia (Acute) Sepsis (Acute) Acute respiratory failure with hypoxia (Acute) Bilateral carotid bruits (Acute) Normocytic normochromic anemia (Acute) COPD (chronic obstructive pulmonary disease) (Chronic) Closed fracture of left distal femur (Acute 05/10/19) S/P ORIF on 05/12/19 Hiatal hernia (Chronic) Hypokalemia (Chronic) Hypomagnesemia (Chronic) GERD (gastroesophageal reflux disease) (Chronic) Medical History BCC (basal cell carcinoma), face Bilateral hip pain Breast cancer Chronic insomnia COPD exacerbation Depression Former smoker GERD (gastroesophageal reflux disease) History of breast cancer History of traumatic fracture of hip Irregular heart rate Left knee pain Low back pain Pneumonia Surgical History EGD - MAC (02/05/17) Dr Marcial, [facility], EGD with balloon dilation; repeat procedure 04/14/2019, Dr. Inez Ruffin S/P breast lumpectomy left breast lumpectomy; follow up XRT, 2002 Status post THR (total hip replacement) Family History Mother Lung disease Daughter Lung disease Substance abuse Hypertension Maternal Aunt Colon cancer Heart disease Social History Smoking/Tobacco Use Status: Current every day Tobacco Type: cigarettes Smoking risk assessment performed?: Yes Alcohol Intake: current Alcohol Intake frequency: holidays/special occasions only Drug use: Never Substance use type: does not use Household members: children Current gender identity: female What is your relationship status?: Panel score (0-1 are the most socially isolated patients): 0 Do you feel safe at home: Yes Do you feel safe in your relationship?: Yes History History 3 Para Hx # Term Pregnancies 3 Multiple births Hx # Pregnancies Ectopic pregnancies AB induced Hx Number of Living Children 2 AB spontaneous
--- NOTE | 2022-02-04 14:44 | PDOC.CMDIS ---
- If Service Date Differs Date of service: 02/04/22 Time of Service: 14:44 LACE Index Scoring Tool - Questions: Length of Stay (in days): 2 Acuity (Admit via E.D.?): Yes Comorbidities: Chronic Pulmonary Disease E.D. Visits: 1 - Answers: Total Score: 8 Risk of Readmission: Low Risk Care Management Discharge Reason for Hospitalization: acute hypoxic resp failure, RLL PNA, COPD exacerbation Discharge Plan: Zulema returned home today with no new services. Her daughter was present for discharge and will drive her home via private vehicle. She will follow up with her PCP and discharge plan of care. She is happy to be going home, and very appreciative of the care she has received. Patient/Family Education Needs: Review discharge instructions and limitations, discussion of self care needs including ask me three.
== END 2022-02-04 13:07 | disposition home or self-care (01) | DRG 871 ==
LOC: ER 11:35 → MS 02-03 10:20 → ICU 02-04 10:04
PROVIDERS: Family Medicine; Admitting Provider Internal Medicine; Emergency Provider Student in an Organized Health Care Education/Training Program; PCP Family Medicine; Visit Provider Internal Medicine
DX: A41.9 Sepsis, unspecified organism (principal); J69.0 Pneumonitis due to inhalation of food and vomit; J96.01 Acute respiratory failure with hypoxia; J44.1 Chronic obstructive pulmonary disease with (acute) exacerbation; R64 Cachexia; Z68.1 Body mass index [BMI] 19.9 or less, adult; K22.2 Esophageal obstruction; M81.0 Age-related osteoporosis without current pathological fracture; G89.29 Other chronic pain; M54.9 Dorsalgia, unspecified; D64.9 Anemia, unspecified; E87.6 Hypokalemia; E83.42 Hypomagnesemia; K21.9 Gastro-esophageal reflux disease without esophagitis; F17.210 Nicotine dependence, cigarettes, uncomplicated; Z85.3 Personal history of malignant neoplasm of breast
CPT/HCPCS: 36410; 36415; 71275; 80048; 80053; 82805; 87040; 87637; 92610; 93005; 94618; 94640; 96361; 96365; 96366; 96367; 96368; 99291; J1650; 71045; 83735; 84484; 85025; 85379; 87070; 87205; 93010; 94660; 99223; 99232; 99239; J0456; J0696; J2543; J3480; J3490; J7512; J7614; J7620; J7644

== ENCOUNTER → 2022-03-04 10:03 | Outpatient (BNVA) | payer OTHER, SELFPAY | PROVIDERS: PCP Family Medicine; Referring Provider Family Medicine; Visit Provider Surgery | DX: R13.10 Dysphagia, unspecified (principal) | CPT/HCPCS: 99214; 99241 ==

== ENCOUNTER 2022-03-25 02:09 | Outpatient (CLI) | payer MEDICARE, SELFPAY ==
[2022-03-25 10:34] LABS: Source Nasal/Nares
[2022-03-25 12:57] LABS: COVID-19 PCR Negative (Negative)
== END 2022-03-25 02:10 | disposition home or self-care (01) ==
LOC: LBO 02:10
PROVIDERS: PCP Family Medicine; Visit Provider Surgery
DX: Z20.822 Contact with and (suspected) exposure to COVID-19 (principal); Z01.818 Encounter for other preprocedural examination
CPT/HCPCS: 87635

== ENCOUNTER 2022-03-27 11:00 | Day surgery (SDC) | payer MEDICARE, SELFPAY ==
[2022-03-27] VITALS (7 sets, daily range): BP systolic 107–149; BP diastolic 56–88; PULSE 79–94; RESP 11–27; TEMP 36.4–36.8; O2SAT 95–99; BMI 16.0
--- NOTE | 2022-03-27 10:47 | W.ANESPRE ---
General Info Height: 5 ft 2 in Weight: 39.066 kg Body Mass Index (BMI): 15.7 Surgical Procedure: Operation Date: 03/27/22 11:35 Proposed Procedure Side Surgeon p Gastroscopy Tor Nelson MD Meds Allergies and Home Medications Allergies Allergy/AdvReac Type Severity Reaction Status Date / Time varenicline [From Chantix] AdvReac stomach Verified 03/26/22 11:44 problems, depression Home Medication Medication Instructions Recorded aspirin 81 mg chewable tablet 81 mg PO DAILY 01/27/17 calcium-vitamin D3-vitamin K 500 1 ea PO DAILY 01/27/17 mg-1,000 unit-40 mcg chewable tablet multivitamin (Daily Multiple 1 ea PO DAILY 01/27/17 tablet) atorvastatin 40 mg tablet (Lipitor) 40 mg PO QPM #30 tabs 05/15/19 docusate sodium 100 mg capsule 100 mg PO TID PRN PRN #30 caps 05/15/19 (Colace) diclofenac potassium 50 mg tablet 50 mg PO BID PRN PRN 12/15/19 gabapentin 100 mg capsule 200 mg PO TID PRN PRN 12/15/19 omeprazole 20 mg capsule,delayed 20 mg PO DAILY 02/02/22 release sucralfate 1 gram tablet 1 g PO BID 02/02/22 albuterol sulfate 90 mcg/actuation 1 inh inhalation Q4H 02/25/22 aerosol inhaler (Ventolin HFA) vitamins A,C,L-nzhb-xiqerx 14,320 1 cap PO BID 03/04/22 unit-226 mg-200 unit capsule (PreserVision AREDS) Current Visit Medications: Current Medications Generic Name Dose Route Start Last Admin Trade Name Freq PRN Reason Stop Dose Admin Ringer's Solution 1,000 mls @ 80 mls/hr 03/27/22 06:00 IV 04/25/22 23:59 INFUSION SHAKIRA IV Miscellaneous Supplies 1 each 03/27/22 06:00 Iv Access IV 04/25/22 23:59 DIRECTED SHAKIRA Sodium Chloride 0 ml 03/27/22 06:00 Normal Saline Flush 10 Ml Syr IV 04/25/22 23:59 PRN PRN Sodium Chloride 0 ml 03/27/22 06:00 Normal Saline 10 Ml Vial IJ 04/25/22 23:59 DIRECTED PRN Sterile Water 0 ml 03/27/22 06:00 Water,Injection,Sterile 10 Ml Vial IJ 04/25/22 23:59 DIRECTED PRN PFS Active Problems Active Problems: Problem Status Onset Code COPD (chronic obstructive pulmonary disease) J44.9 GERD (gastroesophageal reflux disease) K21.9 Dysphagia R13.10 Hiatal hernia K44.9 Normocytic normochromic anemia D64.9 Bilateral carotid bruits R09.89 Aspiration pneumonia J69.0 Medical History Medical History (Updated 03/26/22 @ 11:11 by Quintin Murray) BCC (basal cell carcinoma), face Bilateral hip pain Breast cancer Chronic insomnia COPD exacerbation Depression Former smoker GERD (gastroesophageal reflux disease) History of breast cancer History of traumatic fracture of hip Hypokalemia Hypomagnesemia Irregular heart rate pt. denies Left knee pain Low back pain Pneumonia Pneumonia Surgical History Surgical History (Updated 03/26/22 @ 11:11 by Quintin Murray) Closed fracture of left distal femur (05/10/19) S/P ORIF on 05/12/19 EGD - MAC (02/05/17) Dr Marcial, [facility], EGD with balloon dilation; repeat procedure 04/14/2019, Dr. Inez Ruffin S/P breast lumpectomy left breast lumpectomy; follow up XRT, 2002 Status post THR (total hip replacement) pt. denies replacement-states just rods inserted Tobacco Smoking/Tobacco Use Status: Current every day Tobacco Type: cigarettes Alcohol Alcohol Intake: current Alcohol intake frequency: holidays/special occasions only Substance Use Substance use: Never Substance use type: does not use Prental History History 3 Para Hx # Term Pregnancies 3 Multiple births Hx # Pregnancies Ectopic pregnancies AB induced Hx Number of Living Children 2 AB spontaneous Vital Signs and Lab Results Lab Results Blood Type / Crossmatch: No Data to Display Complete Blood Count: No Data to Display Complete Metabolic Panel: No Data to Display Liver Function Panel: No Data to Display Coagulation Panel: No Data to Display Cardiac Panel: No Data to Display Arterial Blood Gas: No Data to Display Venous Blood Gas: No Data to Display Pancreas Panel: No Data to Display Thyroid Panel: No Data to Display Infectious Disease: Coronavirus (COVID-19)(PCR) Negative (Negative) 03/25/22 10:12 Coronavirus 2019 Source Nasal/Nares 03/25/22 10:12 Blood Cultures: No Data to Display Toxicology Panel: No Data to Display Imaging and Studies Imaging and Studies Study information below may be from another EMR and interpreted by another provider. Please see original notes in EMR for more complete details. EKG Summary: 01/28: sinus tach. PVCs Carotid Artery Summary:: 05/2019: >70% stenosis proximal left ICA. Anesthesia Assessment and Plan Anesthesia History Personal History: No History of Anesthesia Complications Family History: No Family History of Anesthesia Complications Implantable Cardiac Device Does patient have a Pacemaker or an ICD?: No ASA Classification ASA Score: ASA 3 Emergency Case?: No Anesthesia Plan Resuscitation Status: Full Code Anesthesia Technique: General Anesthesia Monitors Used: Standard Monitors Preoperative Comments:: 82 yo female for EGD Sig PMHx: COPD, dysphagia, hiatal hernia Previous Anes: glide 3 grade 1, easy mask. 2 previous EGD with prop/lido without issues.
--- NOTE | 2022-03-27 11:13 | PDOC.DSDIS_ITS ---
Discharge Plan Disposition Patient Disposition: HOME Condition: Good Discharge Details Reason For Visit: egd Attending Provider: Tor Nelson Primary Care Provider: Nia Delcid Home Meds and New Rx's Prescriptions: Continued PreserVision AREDS [id number] capsule 1 cap PO BID multivitamin [Daily Multiple] 1 EACH tablet 1 ea PO DAILY aspirin 81 MG tablet,chewable 81 mg PO DAILY calcium-vitamin D3-vitamin K 1 EACH tablet,chewable 1 ea PO DAILY albuterol sulfate [Ventolin HFA] 90 mcg/actuation HFA aerosol inhaler 1 inh inhalation Q4H atorvastatin [Lipitor] 40 mg Tablet 40 mg PO QPM Qty: 30 0RF docusate sodium [Colace] 100 mg Capsule 100 mg PO TID PRN PRNQty: 30 0RF diclofenac potassium [Cataflam] 50 mg Tablet 50 mg PO BID PRN PRN gabapentin 100 mg Capsule 200 mg PO TID PRN PRN omeprazole 20 mg Capsule,Delayed Release(Dr/Ec) 20 mg PO DAILY sucralfate 1 gram Tablet 1 g PO BID Discharge Instructions Instructions: Upper Endoscopy (DC), Esophageal Dilation (DC) Additional Instructions: 1. If tolerated, consume a soft, low fiber diet for 1-2 days[address] not drive, drink alcohol, operate machinery, make critical decisions, or do activities that require coordination or balance for 24 hours. 3. You may experience a sore throat for 24 to 48 hours. You may use throat lozenges or gargle with warm salt water to relieve the discomfort. 4. Because air was put into your stomach during the procedure, you may experience some belching. 5. Go directly to the emergency room if you notice any of the following: Develop chills (warm to touch), or if you have a thermometer and your temperature is above 101 Difficulty breathing or difficultly swallowing Persistent vomiting Severe abdominal pain, other than gas cramps Severe chest pain Black, tarry stools Any bleeding ? exceeding one tablespoon 6. Call your physician if the site where your intravenous was started becomes red, swollen, painful, and warm to touch. 7. Your physician has reviewed your pre-procedure medications. Please continue to take those medications as previously ordered. You will be given specific information/education regarding any changes to your medications before leaving. Referrals: Tor Nelson MD [ [facility] STAFF PHYSICIAN] - Activity:: Activity as Tolerated Diet:: As Tolerated Discharge Orders Discharge Orders: Discharge Order (Routine); Ordered 03/27/22 Ordered By: Tor Nelson DS: Diagnosis Discharge Diagnosis (1) Dysphagia: Status: Acute Asessment and Plan: esophageal stricture
--- NOTE | 2022-03-27 11:15 | W.PM.ENDDOP ---
Date of service: 03/27/22 Time of Service: 12:11 Endoscopy Report DATE OF PROCEDURE: 03/27/22 PRE-OP DIAGNOSIS: dysphagia POST-OP DIAGNOSIS: other (esophageal stricture, hypopharyngeal mass) PROCEDURE: EGD with dilation SURGEON: Tor Nelson ANESTHESIA TYPE: General:No Airway ESTIMATED BLOOD LOSS: 20 PATHOLOGY: none sent DISPOSITION: same day INDICATIONS: Gabino is an 82-year-old woman with longstanding gastroesophageal reflux disease, and history of esophageal stricture. She has undergone endoscopic dilation in the past, and has recurrent symptoms of dysphagia, with the sensation of sticking food bolus. 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 It is slightly friable or, at least irritated. I was able to pass the scope beyond this into the proximal esophageal, which is normal. Around 25 centimeters, there is a circumferential narrowing of the esophagus. I estimated this to be around 12 mm in diameter. Under the direct vision of the scope. I advanced the 10-11-12 balloon across the lesion and dilated to 12 mm, which was loose. I was able to exchange this for a 15-18 mm balloon, which I dilated to 16.5 mm. She tolerated this fine without any worrisome bleeding. After this, I was able to pass the scope across the area without difficulty. I advanced down the esophagus into the stomach.? Once I entered the stomach, I performed a brief inspection, followed by retroflexion towards the gastric cardia.? This appeared normal.? After that, I gently advanced the scope around the incisura angularis and examined the pylorus.? This also appeared normal.? Next, I advanced the scope through the pylorus into the duodenum.? The mucosa was pink and healthy appearing.? There were no abnormalities.? I was able to visualize bile draining into the duodenum through the ampulla Vater. I then gently desufflated some of the stomach, and withdrew the endoscope into the distal esophagus. ?Finally, I withdrew the scope along the length of the esophagus taking great care to examine the entirety of the mucosa.? I did not appreciate any other abnormalities. I did not perform biopsies of the esophageal stricture, or the proximal esophageal lesion. After the procedure, I did discuss these findings with the patient and her daughter. We will meet in the office to discuss how to proceed next. Certainly, tissue diagnosis with biopsy would be most useful, but I prefer to discuss risks and benefits with her prior to moving forward.
[2022-03-27] MEDS: Lactated Ringers 1,000 ML 80 ML IV (11:23)
--- NOTE | 2022-03-27 11:32 | ANES.PREOP_ITS ---
General Info Date of Service Date Performed: 03/27/22 Height: 5 ft 2 in Weight: 39.6 kg Body Mass Index (BMI): 16.0 Surgical Procedure: Operation Date: 03/27/22 10:20 Proposed Procedure Side Surgeon p Gastroscopy Tor Nelson MD Meds Allergies and Home Medications Allergies Allergy/AdvReac Type Severity Reaction Status Date / Time varenicline [From Chantix] AdvReac stomach Verified 03/27/22 11:26 problems, depression Home Medication Medication Instructions Recorded aspirin 81 mg chewable tablet 81 mg PO DAILY 01/27/17 calcium-vitamin D3-vitamin K 500 1 ea PO DAILY 01/27/17 mg-1,000 unit-40 mcg chewable tablet multivitamin (Daily Multiple 1 ea PO DAILY 01/27/17 tablet) atorvastatin 40 mg tablet (Lipitor) 40 mg PO QPM #30 tabs 05/15/19 docusate sodium 100 mg capsule 100 mg PO TID PRN PRN #30 caps 05/15/19 (Colace) diclofenac potassium 50 mg tablet 50 mg PO BID PRN PRN 12/15/19 (Cataflam) gabapentin 100 mg capsule 200 mg PO TID PRN PRN 12/15/19 omeprazole 20 mg capsule,delayed 20 mg PO DAILY 02/02/22 release sucralfate 1 gram tablet 1 g PO BID 02/02/22 albuterol sulfate 90 mcg/actuation 1 inh inhalation Q4H 02/25/22 aerosol inhaler (Ventolin HFA) vitamins A,C,R-cmew-zmjcqz 14,320 1 cap PO BID 03/04/22 unit-226 mg-200 unit capsule (PreserVision AREDS) Current Visit Medications: Current Medications Generic Name Dose Route Start Last Admin Trade Name Freq PRN Reason Stop Dose Admin Ringer's Solution 1,000 mls @ 80 mls/hr 03/27/22 06:00 03/27/22 11:23 IV 04/25/22 23:59 80 mls/hr INFUSION SHAKIRA Administration IV Miscellaneous Supplies 1 each 03/27/22 06:00 Iv Access IV 04/25/22 23:59 DIRECTED SHAKIRA Sodium Chloride 0 ml 03/27/22 06:00 Normal Saline Flush 10 Ml Syr IV 04/25/22 23:59 PRN PRN Sodium Chloride 0 ml 03/27/22 06:00 Normal Saline 10 Ml Vial IJ 04/25/22 23:59 DIRECTED PRN Sterile Water 0 ml 03/27/22 06:00 Water,Injection,Sterile 10 Ml Vial IJ 04/25/22 23:59 DIRECTED PRN PFSH Active Problems Active Problems: Problem Status Onset Code COPD (chronic obstructive pulmonary disease) J44.9 GERD (gastroesophageal reflux disease) K21.9 Dysphagia R13.10 Hiatal hernia K44.9 Normocytic normochromic anemia D64.9 Bilateral carotid bruits R09.89 Aspiration pneumonia J69.0 Medical History Medical History BCC (basal cell carcinoma), face Bilateral hip pain Breast cancer Chronic insomnia COPD exacerbation Depression Former smoker GERD (gastroesophageal reflux disease) History of breast cancer History of traumatic fracture of hip Hypokalemia Hypomagnesemia Irregular heart rate pt. denies Left knee pain Low back pain Pneumonia Pneumonia Surgical History Surgical History Closed fracture of left distal femur (05/10/19) S/P ORIF on 05/12/19 EGD - MAC (02/05/17) Dr Marcial, [facility], EGD with balloon dilation; repeat procedure 04/14/2019, Dr. Inez Ruffin S/P breast lumpectomy left breast lumpectomy; follow up XRT, 2002 Status post THR (total hip replacement) pt. denies replacement-states just rods inserted Tobacco Smoking/Tobacco Use Status: Current every day Tobacco Type: cigarettes Alcohol Alcohol Intake: current Alcohol intake frequency: holidays/special occasions only Substance Use Substance use: Never Substance use type: does not use Prental History History 3 Para Hx # Term Pregnancies 3 Multiple births Hx # Pregnancies Ectopic pregnancies AB induced Hx Number of Living Children 2 AB spontaneous Vital Signs and Lab Results Vital Signs Most Recent Vital Signs in EMR: Most Recent Vital Signs Temp Pulse Resp BP Pulse Ox 36.8 C 94 H 19 149/78 H 95 03/27/22 11:13 03/27/22 11:13 03/27/22 11:13 03/27/22 11:13 03/27/22 11:13 Lab Results Blood Type / Crossmatch: No Data to Display Complete Blood Count: No Data to Display Complete Metabolic Panel: No Data to Display Liver Function Panel: No Data to Display Coagulation Panel: No Data to Display Cardiac Panel: No Data to Display Arterial Blood Gas: No Data to Display Venous Blood Gas: No Data to Display Pancreas Panel: No Data to Display Thyroid Panel: No Data to Display Infectious Disease: Coronavirus (COVID-19)(PCR) Negative (Negative) 03/25/22 10:12 Coronavirus 2019 Source Nasal/Nares 03/25/22 10:12 Blood Cultures: No Data to Display Toxicology Panel: No Data to Display Imaging and Studies Imaging and Studies Study information below may be from another EMR and interpreted by another provider. Please see original notes in EMR for more complete details. EKG Summary: 01/28: sinus tach. PVCs Carotid Artery Summary:: 05/2019: >70% stenosis proximal left ICA. Anesthesia Assessment and Plan Anesthesia History Personal History: No History of Anesthesia Complications Family History: No Family History of Anesthesia Complications Exercise Tolerance Exercise Tolerance: Metabolic Equivalents>4 Pertinent Negatives Pertinent Negatives: No Major Cardiovascular Symptoms or Complaints, No Major Pulmonary Symptoms or Complaints (Smoker) and No History of CVA/TIA Cardiac & Pulmonary Exam Cardiac Exam: Normal S1/S2 Heart Sounds and Other Pulmonary Exam: Clear Bilateral Breath Sounds Implantable Cardiac Device Does patient have a Pacemaker or an ICD?: No Airway Exam Known Difficult Airway: No Mallampati Class: 1 Mouth Opening: Normal (> 3cm) Thyromental Distance: Greater than 3 cm Neck Range of Motion: Full ROM Neck Circumference: Normal Teeth Condition: Removable Dentures/Plates Upper and Removable Dentures/Plates Lower ASA Classification ASA Score: ASA 2 Emergency Case?: No NPO Status NPO Status: NPO Clears >2 hours, Solids >8 hours Anesthesia Plan Resuscitation Status: Full Code Anesthesia Technique: General Anesthesia Airway Planned: Endotracheal Tube Monitors Used: Standard Monitors
--- NOTE | 2022-03-27 12:36 | W.ANESPOSTOP ---
Postoperative Evaluation Date, Time and Location Date Performed: 03/27/22 Time Performed: 12:36 Patient Location: Day Surgery Unit Vital Signs Most Recent Imported Vital Signs: Most Recent Vital Signs Temp Pulse Resp BP Pulse Ox 36.4 C L 84 11 L 107/56 L 99 03/27/22 12:33 03/27/22 12:33 03/27/22 12:33 03/27/22 12:33 03/27/22 12:33 Pain Score Most Recent Pain Score: Most Recent Pain Score Pain Level 0 03/27/22 11:13 Assessment Mental Status: Awake (Alert & Oriented to Patient Baseline) Airway and Respiratory Function: Patent airway with normal (patient baseline) respiratory exam Cardiovascular Function: Hemodynamically Stable Hydration Status: Adequately Hydrated Nausea & Vomiting: No Nausea or Vomiting Pain: Pt. Denies Any Pain Peripheral Nerve Block: Patient did not receive a nerve block
== END 2022-03-27 13:40 | disposition home or self-care (01) ==
PROVIDERS: PCP Family Medicine; Visit Provider Surgery
PROC: 0DJ68ZZ Inspection of Stomach, Via Natural or Artificial Opening Endoscopic (ICD-10-PCS; CPT 43235; principal; 2022-03-27 10:15)
DX: D49.0 Neoplasm of unspecified behavior of digestive system (principal); R13.10 Dysphagia, unspecified; K22.2 Esophageal obstruction
CPT/HCPCS: 43235

== ENCOUNTER → 2022-04-08 13:16 | Outpatient (BNVA) | payer MEDICARE, SELFPAY | PROVIDERS: PCP Family Medicine; Referring Provider Family Medicine; Visit Provider Surgery | DX: K22.2 Esophageal obstruction (principal); D49.0 Neoplasm of unspecified behavior of digestive system; R13.10 Dysphagia, unspecified | CPT/HCPCS: 99213 ==

== ENCOUNTER 2022-04-14 02:04 | Outpatient (CLI) | payer MEDICARE, SELFPAY ==
[2022-04-14 11:53] LABS: Source Nasal/Nares
[2022-04-14 16:17] LABS: COVID-19 PCR Positive (Negative)
== END 2022-04-14 02:05 | disposition home or self-care (01) ==
PROVIDERS: PCP Family Medicine; Visit Provider Surgery
DX: Z01.818 Encounter for other preprocedural examination (principal); Z20.822 Contact with and (suspected) exposure to COVID-19
CPT/HCPCS: 87635

== ENCOUNTER 2022-04-24 12:46 | Day surgery (SDC) | payer MEDICARE, SELFPAY ==
[2022-04-24 13:10] VITALS: BP 156/81; PULSE 83; RESP 18; TEMP 36.6; O2SAT 99
[2022-04-24] MEDS: Lactated Ringers 1,000 ML 80 ML IV (13:55)
--- NOTE | 2022-04-24 14:22 | W.ANESPRE ---
General Info Date of Service Date Performed: 04/24/22 Height: 5 ft 2 in Weight: 39.6 kg Body Mass Index (BMI): 16.0 Surgical Procedure: Operation Date: 04/24/22 14:05 Proposed Procedure Side Surgeon p Gastroscopy w/Biopsies Tor Nelson MD Meds Allergies and Home Medications Allergies Allergy/AdvReac Type Severity Reaction Status Date / Time varenicline [From Chantix] AdvReac stomach Verified 04/24/22 13:32 problems, depression Home Medication Medication Instructions Recorded aspirin 81 mg chewable tablet 81 mg PO DAILY 01/27/17 calcium-vitamin D3-vitamin K 500 1 ea PO DAILY 01/27/17 mg-1,000 unit-40 mcg chewable tablet multivitamin (Daily Multiple 1 ea PO DAILY 01/27/17 tablet) atorvastatin 40 mg tablet (Lipitor) 40 mg PO QPM #30 tabs 05/15/19 docusate sodium 100 mg capsule 100 mg PO TID PRN PRN #30 caps 05/15/19 (Colace) diclofenac potassium 50 mg tablet 50 mg PO BID PRN PRN 12/15/19 (Cataflam) gabapentin 100 mg capsule 200 mg PO TID PRN PRN 12/15/19 omeprazole 20 mg capsule,delayed 20 mg PO DAILY 02/02/22 release sucralfate 1 gram tablet 1 g PO BID 02/02/22 albuterol sulfate 90 mcg/actuation 1 inh inhalation Q4H 02/25/22 aerosol inhaler (Ventolin HFA) vitamins A,C,U-wmhk-xbcfom 14,320 1 cap PO BID 03/04/22 unit-226 mg-200 unit capsule (PreserVision AREDS) Current Visit Medications: Current Medications Generic Name Dose Route Start Last Admin Trade Name Freq PRN Reason Stop Dose Admin Ringer's Solution 1,000 mls @ 80 mls/hr 04/24/22 06:00 04/24/22 13:55 IV 05/23/22 23:59 80 mls/hr INFUSION SHAKIRA Administration IV Miscellaneous Supplies 1 each 04/24/22 06:00 Iv Access IV 05/23/22 23:59 DIRECTED SHAKIRA Sodium Chloride 0 ml 04/24/22 06:00 Normal Saline Flush 10 Ml Syr IV 05/23/22 23:59 PRN PRN Sodium Chloride 0 ml 04/24/22 06:00 Normal Saline 10 Ml Vial IJ 05/23/22 23:59 DIRECTED PRN Sterile Water 0 ml 04/24/22 06:00 Water,Injection,Sterile 10 Ml Vial IJ 05/23/22 23:59 DIRECTED PRN PFSH Active Problems Active Problems: Problem Status Onset Code COPD (chronic obstructive pulmonary disease) J44.9 GERD (gastroesophageal reflux disease) K21.9 Dysphagia R13.10 Hiatal hernia K44.9 Normocytic normochromic anemia D64.9 Bilateral carotid bruits R09.89 Aspiration pneumonia J69.0 Medical History Medical History BCC (basal cell carcinoma), face Bilateral hip pain Breast cancer Chronic insomnia COPD exacerbation COVID 04/14/22 Depression Former smoker GERD (gastroesophageal reflux disease) History of breast cancer 2008 History of traumatic fracture of hip Hypokalemia Hypomagnesemia Irregular heart rate pt. denies Left knee pain Low back pain Pneumonia Pneumonia Medical History Comments:: Pt. COVID Positive 04/14 stated she was mostly asymptomatic with a slight raspy voice but states that was all Surgical History Surgical History Closed fracture of left distal femur (05/10/19) S/P ORIF on 05/12/19 EGD - MAC (02/05/17) Dr Marcial, [facility], EGD with balloon dilation; repeat procedure 04/14/2019, Dr. Inez Ruffin S/P breast lumpectomy left breast lumpectomy; follow up XRT, 2002 Status post THR (total hip replacement) pt. denies replacement-states just rods inserted Tobacco Smoking/Tobacco Use Status: Current every day Tobacco Type: cigarettes Smoking cigarettes per day: 6 Alcohol Alcohol Intake: current Alcohol intake frequency: holidays/special occasions only Substance Use Substance use: Never Substance use type: does not use Prental History History 3 Para Hx # Term Pregnancies 3 Multiple births Hx # Pregnancies Ectopic pregnancies AB induced Hx Number of Living Children 2 AB spontaneous Vital Signs and Lab Results Vital Signs Most Recent Vital Signs in EMR: Most Recent Vital Signs Temp Pulse Resp BP Pulse Ox 36.6 C 83 18 156/81 H 99 04/24/22 13:10 04/24/22 13:10 04/24/22 13:10 04/24/22 13:10 04/24/22 13:10 Lab Results Blood Type / Crossmatch: No Data to Display Complete Blood Count: No Data to Display Complete Metabolic Panel: No Data to Display Liver Function Panel: No Data to Display Coagulation Panel: No Data to Display Cardiac Panel: No Data to Display Arterial Blood Gas: No Data to Display Venous Blood Gas: No Data to Display Pancreas Panel: No Data to Display Thyroid Panel: No Data to Display Infectious Disease: Coronavirus (COVID-19)(PCR) Positive (Negative) A* 04/14/22 10:10 Coronavirus 2019 Source Nasal/Nares 04/14/22 10:10 Blood Cultures: No Data to Display Toxicology Panel: No Data to Display Imaging and Studies Imaging and Studies Study information below may be from another EMR and interpreted by another provider. Please see original notes in EMR for more complete details. EKG Summary: 01/28: sinus tach. PVCs Carotid Artery Summary:: 05/2019: >70% stenosis proximal left ICA. Anesthesia Assessment and Plan Anesthesia History Personal History: No History of Anesthesia Complications Family History: No Family History of Anesthesia Complications Exercise Tolerance Exercise Tolerance: Metabolic Equivalents>4 Pertinent Negatives Pertinent Negatives: No Symptoms of GERD, No Major Cardiovascular Symptoms or Complaints and No Major Pulmonary Symptoms or Complaints (COPD 1/4 ppd cigarettes ) Cardiac & Pulmonary Exam Cardiac Exam: Normal S1/S2 Heart Sounds Pulmonary Exam: Clear Bilateral Breath Sounds Implantable Cardiac Device Does patient have a Pacemaker or an ICD?: No Airway Exam Known Difficult Airway: No Mallampati Class: 1 Mouth Opening: Normal (> 3cm) Thyromental Distance: Greater than 3 cm Neck Range of Motion: Full ROM Neck Circumference: Normal Teeth Condition: Removable Dentures/Plates Upper and Removable Dentures/Plates Lower ASA Classification ASA Score: ASA 2 Emergency Case?: No NPO Status NPO Status: NPO Clears >2 hours, Solids >8 hours Anesthesia Plan Resuscitation Status: Full Code Anesthesia Technique: General Anesthesia Airway Planned: Natural Airway Monitors Used: Standard Monitors
[2022-04-24 14:24] VITALS: BMI 16.0
--- NOTE | 2022-04-24 15:45 | ESO_PTH ---
PATIENT: Zulema Urban LOC: [facility] U#:[id number] AGE/SX: 82/F ROOM: RE04/24/[address]: Tor Nelson MD : 1940 BED: DIS: 04/24/2022 SPEC #: [id number] RECD: 04/24/22 18:43 STATUS: [place] RE #: [id number] KERRI: 04/24/22 15:[address]: Tor Nelson DEPT: Surgical Specimen RECD BY: Alicia Anderson ENTERED: 04/24/22 18:43 SP TYPE: Eso IRAM DR: Nia Delcid Tissues: 1 - ESOPHAGUS BIOPSY Procedures: GROSS AND MICRO LEVEL 4 Comments: [id number]
[2022-04-24 15:58] VITALS: BP 131/74; PULSE 81; RESP 24; TEMP 37.1; O2SAT 95
--- NOTE | 2022-04-24 16:01 | PDOC.DSDIS_ITS ---
Discharge Plan Disposition Patient Disposition: HOME Condition: Good Discharge Details Reason For Visit: diagnostic EGD Attending Provider: Tor Nelson Primary Care Provider: Nia Delcid Home Meds and New Rx's Prescriptions: Continued PreserVision AREDS [id number] lvvc-[id number] capsule 1 cap PO BID multivitamin [Daily Multiple] 1 EACH tablet 1 ea PO DAILY aspirin 81 MG tablet,chewable 81 mg PO DAILY calcium-vitamin D3-vitamin K 1 EACH tablet,chewable 1 ea PO DAILY albuterol sulfate [Ventolin HFA] 90 mcg/actuation HFA aerosol inhaler 1 inh inhalation Q4H atorvastatin [Lipitor] 40 mg Tablet 40 mg PO QPM Qty: 30 0RF docusate sodium [Colace] 100 mg Capsule 100 mg PO TID PRN PRNQty: 30 0RF diclofenac potassium [Cataflam] 50 mg Tablet 50 mg PO BID PRN PRN gabapentin 100 mg Capsule 200 mg PO TID PRN PRN omeprazole 20 mg Capsule,Delayed Release(Dr/Ec) 20 mg PO DAILY sucralfate 1 gram Tablet 1 g PO BID Discharge Instructions Instructions: Upper Endoscopy (DC) Additional Instructions: 1. If tolerated, consume a soft, low fiber diet for 1-2 days. 2. You may experience a sore throat for 24 to 48 hours. You may use throat lozenges or gargle with warm salt water to relieve the discomfort. 3. Because air was put into your stomach during the procedure, you may experience some belching. 4. Go directly to the emergency room if you notice any of the following: Develop chills (warm to touch), or if you have a thermometer and your temperature is above 101 Difficulty breathing or difficultly swallowing Persistent vomiting Severe abdominal pain, other than gas cramps Severe chest pain Black, tarry stools Any bleeding ? exceeding one tablespoon 5. Call your physician if the site where your intravenous was started becomes red, swollen, painful, and warm to touch. 6. Your physician has reviewed your pre-procedure medications. Please continue to take those medications as previously ordered. You will be given specific information/education regarding any changes to your medications before leaving. Referrals: Tor Nelson MD [ [facility] STAFF PHYSICIAN] - (2 weeks to discuss biopsy results) Activity:: Activity as Tolerated Diet:: As Tolerated Discharge Orders Discharge Orders: Discharge Order (Routine); Ordered 04/24/22 Ordered By: Tor Nelson DS: Diagnosis Discharge Diagnosis (1) Esophageal stricture: Status: Acute Asessment and Plan: I will contact you with results of the biopsies
--- NOTE | 2022-04-24 16:12 | ENDO_ITS ---
Date of service: 04/24/22 Time of Service: 16:12 Endoscopy Report DATE OF PROCEDURE: 04/24/22 PRE-OP DIAGNOSIS: Pharyngeolaryngeal mass POST-OP DIAGNOSIS: other (normal hypopharynx, esophageal stricture at 27 cm) PROCEDURE: Diagnostic EGD with biopsies SURGEON: Tor Nelson ANESTHESIA TYPE: General:No Airway ESTIMATED BLOOD LOSS: 10 PATHOLOGY: other (esophageal stricture biopsies x3) COMPLICATIONS: None DISPOSITION: same day INDICATIONS: Gabino Barnett is an 82-year-old woman with a past medical history that is most significant for an esophageal stricture. Several weeks ago, I performed an EGD with esophageal dilation. During that procedure, there was an abnormality in the hypopharynx, immediately posterior to the glottis in the vallecula. It appeared to be right at the origin of the upper esophagus. At that time, I was not prepared to biopsy it as I did not have consent, and I had some concerns about its proximity to the airway. Therefore, we reviewed the images of her upper endoscopy, and made plans for repeat endoscopy with biopsies today. FINDINGS: stricture at 27 cm PROCEDURE DESCRIPTION: After the initiation of monitored anesthetic care, and with the assistance of a bite block, I advanced a standard gastroscope through the mouth past the hypopharynx and into the esophagus.? I took great care as I passed the uvula into the pharynx. I was able to visualize the vallecula and the aryepiglottic folds as well as the vocal cords anteriorly. I gently advance the endoscope towards the hypopharynx and upper esophagus. The tissue all appeared soft and healthy. I did not see any evidence of any mass here. There was no erythema or any changes to the mucosa. I gently advance the endoscope down into the esophagus, which was normal-appearing along its length to about 27 cm. This is around the area where I performed previous esophageal dilation. 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 I did perform some biopsies along an abnormal appearing Z- line just beyond the stricture edge. Biopsies were performed using cold forc eps, and there was minimal bleeding. Unlike her previous endoscopy, I was easily able to traverse the stricture without any difficulty. The folds of the stomach were visualized just beyond the GE junction. Next, I began retracting the endoscope. Again the main portion of the esophagus up to its origin all appeared totally normal. Again, I took great care to examine the previous area in question. This time, I did not see any abnormalities in this area. I withdrew the endoscope, and transferred her over to the same-day surgery unit for monitoring as she awoke from anesthesia.
--- NOTE | 2022-04-24 16:12 | W.ANESPOSTOP ---
Postoperative Evaluation Date, Time and Location Date Performed: 04/24/22 Time Performed: 16:12 Patient Location: Day Surgery Unit Vital Signs Most Recent Imported Vital Signs: Most Recent Vital Signs Temp Pulse Resp BP Pulse Ox 37.1 C 81 24 131/74 95 04/24/22 15:58 04/24/22 15:58 04/24/22 15:58 04/24/22 15:58 04/24/22 15:58 Most Recent Manually Entered Vital Signs: Adult Blood Pressure: 128/72 Heart Rate: 81 Respirations: 12 Oxygen Saturation (%): 97 Temperature (C): 36.3 C Pain Score (0-10 Scale): 0 Pain Score Most Recent Pain Score: Most Recent Pain Score Pain Level 0 04/24/22 15:58 Assessment Mental Status: Awake (Alert & Oriented to Patient Baseline) Airway and Respiratory Function: Patent airway with normal (patient baseline) respiratory exam Cardiovascular Function: Hemodynamically Stable Hydration Status: Adequately Hydrated Nausea & Vomiting: No Nausea or Vomiting Pain: Pt. Denies Any Pain Peripheral Nerve Block: Patient did not receive a nerve block
[2022-04-24 16:13] VITALS: BP 128/72; PULSE 81; RESP 12; TEMPC 36.3; O2SAT 97
[2022-04-24 16:25] VITALS: BP 140/85; PULSE 80; RESP 18; TEMP 36.8; O2SAT 97
== END 2022-04-24 16:49 | disposition home or self-care (01) ==
PROVIDERS: PCP Family Medicine; Visit Provider Surgery
PROC: 0DJ68ZZ Inspection of Stomach, Via Natural or Artificial Opening Endoscopic (ICD-10-PCS; CPT 43235; principal; 2022-04-24 14:00)
DX: K22.2 Esophageal obstruction (principal); K22.89 Other specified disease of esophagus; K31.A0 Gastric intestinal metaplasia, unspecified; K21.00 Gastro-esophageal reflux disease with esophagitis, without bleeding
CPT/HCPCS: 43239; 88305

== ENCOUNTER 2023-02-22 15:34 | Outpatient (REF) | payer MEDICARE, SELFPAY ==
[2023-02-22 15:13] LABS: HCT 30.4 % (36.0-46.0); HGB 9.6 g/dL (11.2-15.7); MCH 24.3 pg (27.0-33.0); MCHC 31.6 % (32.0-36.0); MCV 77 fL (80-95); MPV 12.6 fL (8.0-11.0); Platelet Count 295 10^3/uL (130-400); RBC 3.95 10^6/uL (3.93-5.22); RDW 16.7 % (11.7-14.6); RDW-SD 45.6 fL; WBC 8.48 10^3/uL (4.4-10.8)
[2023-02-22 15:41] LABS: ALT 20 U/L (14-59); AST 20 U/L (15-37); Albumin 3.8 g/dL (3.4-5.0); Alkaline Phosphatase 78 U/L (46-116); Anion Gap 9.7 mmol/L (3-11); BUN 9 mg/dL (7-18); Bilirubin, Total 0.5 mg/dL (0.2-1.0); CO2 27.3 mmol/L (21.0-32.0); CREATININE 0.6 mg/dL (0.55-1.02); Calcium 9.4 mg/dL (8.5-10.1); Chloride 96 mmol/L (98-107); Estimated GFR 90.68 (mL/min/1.73m2); Glucose 110 mg/dL (74-106); Potassium 3.2 mmol/L (3.5-5.1); Sodium 133 mmol/L (136-145); Total Protein 7.9 g/dL (6.4-8.2)
== END 2023-02-22 15:35 | disposition home or self-care (01) ==
LOC: NCHCN 15:34
PROVIDERS: PCP Family Medicine; Visit Provider Family Medicine
DX: J44.9 Chronic obstructive pulmonary disease, unspecified (principal); I65.29 Occlusion and stenosis of unspecified carotid artery
CPT/HCPCS: 80053; 85027

== ENCOUNTER 2023-03-01 16:38 | Outpatient (REF) | payer MEDICARE, SELFPAY ==
[2023-03-01 21:18] LABS: Reticulocyte 1.1 % (0.5-2.4)
[2023-03-01 21:27] LABS: Iron 16 ug/dL (50-170)
[2023-03-01 21:54] LABS: Ferritin 21 ng/mL (8-252); Vitamin B12 770 pg/mL (193-986)
== END 2023-03-01 16:39 | disposition home or self-care (01) ==
LOC: NCHCN 16:38
PROVIDERS: PCP Family Medicine; Visit Provider Family Medicine
DX: D49.2 Neoplasm of unspecified behavior of bone, soft tissue, and skin (principal); I49.9 Cardiac arrhythmia, unspecified; R63.6 Underweight
CPT/HCPCS: 82607; 82728; 83540; 85045

== ENCOUNTER 2023-03-26 18:44 | Outpatient (REF) | payer MEDICARE, SELFPAY ==
[2023-03-26 21:15] LABS: HGB 9.8 g/dL (11.2-15.7); MCH 24.3 pg (27.0-33.0); MCHC 31.6 % (32.0-36.0); MCV 77 fL (80-95); MPV 12.6 fL (8.0-11.0); Platelet Count 212 10^3/uL (130-400); RBC 4.03 10^6/uL (3.93-5.22); RDW 19.2 % (11.7-14.6); RDW-SD 53.1 fL; WBC 8.58 10^3/uL (4.4-10.8)
[2023-03-29 09:00] LABS: Iron 77 ug/dL (50-170)
== END 2023-03-26 18:45 | disposition home or self-care (01) ==
LOC: NCHCN 18:44
PROVIDERS: PCP Family Medicine; Visit Provider Family Medicine
DX: D50.9 Iron deficiency anemia, unspecified (principal)
CPT/HCPCS: 85027; 83540

== ENCOUNTER 2023-04-02 14:48 | Observation (INO) | payer MEDICARE, SELFPAY ==
[2023-04-02] VITALS (35 sets, daily range): BP systolic 94–147; BP diastolic 40–78; PULSE 98–132; RESP 12–34; TEMP 36.8–37.3; O2SAT 92–93
--- NOTE | 2023-04-02 14:45 | RT.EKG_ITS ---
APPROVED REPORT Exam: Resting ECG Reason for Exam: SOB Patient Location: E HR:113 bpm ECG Measurements Heart Rate 113 AXIS MD 142 P 81 QRSd 83 QRS 51 QT 328 T 73 QTc 448 Conclusion Sinus tachycardia...rate> 99 Atrial premature complex...SV complex w/ short R-R interval
--- NOTE | 2023-04-02 15:00 | DI.CT_ITS ---
Exam(s) CT CHEST PE CTA EXAM: CT CHEST PE CTA CLINICAL HISTORY: shortness of breath, tachycardia. TECHNIQUE: Imaging Protocol: CT angiography of the chest was performed using pulmonary embolus adela col. Multi planar reconstructions were performed. CONTRAST MATERIAL: Intravenous: Omnipaque 350 Contrast volume: 100 cc COMPARISON: CT CT CHEST PE CTA from 02/02/2022 FINDINGS: CHEST: PULMONARY ARTERIES: There are no intraluminal filling defects to suggest acute pulmonary emboli. LUNGS: There are extensive infiltrates in the posterior and lateral basal segments of both lower lobe s. No pleural effusions. No involvement of the upper lobes nor of the right middle lobe nor of the lingular segment of the left lung.. No significant mucous in the trachea and mainstem bronchi. MEDIASTINUM: Mildly prominent lymph nodes in the left hilum. Right hilum unremarkable. No subcarina l adenopathy. No adenopathy evident in the anterior mediastinal fat CARDIAC: Heart size is upper normal. There is no pericardial effusion.Caliber of the thoracic aorta is within normal limits. No dissection there is no significant shift of the interventricular septum. PARTIALLY VISUALIZED UPPERMOST ABDOMEN: Moderate size hiatal hernia. No splenomegaly. OSSEOUS: No significant osseous lesions.. IMPRESSION: 1. There are extensive bilateral lower lobe infiltrates.No pleural effusions. 2. No evidence of acute pulmonary emboli. 3. Normal heart size. No pericardial effusion. Called by myself to ER physician. RADIATION DOSE DELIVERED: 144.38mGy.cm Total DLP DATA REPOSITORY: All CT scans at this facility are submitted to the National Radiology Data Registry (NRDR) Dose Index Registry (DIR) with the [employer] ([employer]). RADIATION OPTIMIZATION: All CT scans at this facility use at least one of these dose optimization te chniques: automated exposure control; mA and/or kV adjustment per patient size (includes targeted exa ms where dose is matched to clinical indication); or iterative reconstruction.
--- NOTE | 2023-04-02 15:10 | W.ED.GENAD ---
Discharge Plan Disposition Patient Disposition: Admit to [facility] Condition: Stable Discharge Details Chief Complaint: SOB Clinical Impression: Pneumonia, COPD exacerbation Primary Care Provider: Nia Delcid ED Provider: Gordy Patrick Home Meds and New Rx's Prescriptions: No Action PreserVision AREDS [id number] [id number] capsule 1 cap PO BID multivitamin [Daily Multiple] 1 EACH tablet 1 ea PO DAILY aspirin 81 MG tablet,chewable 81 mg PO DAILY calcium-vitamin D3-vitamin K 1 EACH tablet,chewable 1 ea PO DAILY albuterol sulfate [Ventolin HFA] 90 mcg/actuation HFA aerosol inhaler 1 inh inhalation Q4H PRN atorvastatin [Lipitor] 40 mg Tablet 40 mg PO QPM Qty: 30 0RF docusate sodium [Colace] 100 mg Capsule 100 mg PO TID PRN PRNQty: 30 0RF Patient Comments: not on pt list diclofenac potassium [Cataflam] 50 mg Tablet 50 mg PO BID PRN PRN gabapentin 100 mg Capsule 200 mg PO TID PRN PRN budesonide-formoterol [Symbicort] 160-4.5 mcg/actuation Hfa Aerosol Inhaler 2 inh INHALATION BID omeprazole 20 mg Capsule,Delayed Release(Dr/Ec) 20 mg PO DAILY sucralfate 1 gram Tablet 1 g PO BID Medical Decision Making 83 yo female with hx of copd and continued smoker, anemia, who comes in with 2 days of dyspnea especially with exertion. also notes a cough but is unsure if this is increased from her baseline daily smoker's cough. She denies chest pain/pressure, fever/chills, leg pain or swelling. ARrives caox4 speaking clearly with diffuse wheezing on lung exam. 92% on room air during my exam and HR 110, bp 147/74 and afebrile. NO jvd, no leg swelling or calf tenderness. Suspect copd exacerbation, will treat with solumedrol and duoneb and reassess. Will also evaluate for other potential causes with ekg/troponin, cbc, cmp, and CTA of the chest to evaluate for PE vs pneumonia imaging shows no PE, has infiltrates, is now having saturaitons in the mid to high 80's, 93% on 2L NC, will discuss with hospitalist about admission Differential Diagnosis Differential Diagnosis: copd, PE, pneumonia Medical Records Medical records reviewed: Yes I reviewed the patient's medical records. Lab Data Lab results reviewed: Yes I reviewed the patient's lab results. ECG Data Attestation: I personally reviewed and interpreted this ECG (s) as follows: Prior ECG tracings: available for review Interpretation: sinus tachycardia, rate of 113, pr 142, no stemi HPI General Date/Time Provider Initiated Documentation: 04/02/23 14:52. Limitations to Documentation: no limitations. Information obtained by: patient. History of Present Illness 83 year old F presents to the emergency department with the chief complaint of shortness of breath, described as moderate, Patient started experiencing this day(s) (2) and it has been constant. Rest improves symptom(s), Movement worsens symptoms . Patient notes cough; denies chest pain and fever/chills. Related Data Home Medications Medication Instructions Recorded Confirmed aspirin 81 mg chewable tablet 81 mg PO DAILY 01/27/17 04/02/23 calcium-vitamin D3-vitamin K 500 1 ea PO DAILY 01/27/17 04/02/23 mg-1,000 unit-40 mcg chewable tablet multivitamin (Daily Multiple 1 ea PO DAILY 01/27/17 04/02/23 tablet) atorvastatin 40 mg tablet (Lipitor) 40 mg PO QPM #30 tabs 05/15/19 04/02/23 docusate sodium 100 mg capsule 100 mg PO TID PRN PRN #30 caps 05/15/19 04/24/22 (Colace) diclofenac potassium 50 mg tablet 50 mg PO BID PRN PRN 12/15/19 04/02/23 (Cataflam) gabapentin 100 mg capsule 200 mg PO TID PRN PRN 12/15/19 04/02/23 omeprazole 20 mg capsule,delayed 20 mg PO DAILY 02/02/22 04/02/23 release sucralfate 1 gram tablet 1 g PO BID 02/02/22 04/02/23 albuterol sulfate 90 mcg/actuation 1 inh inhalation Q4H PRN 02/25/22 04/02/23 aerosol inhaler (Ventolin HFA) vitamins A,C,F-sewt-gzmilr 4,296 1 cap PO BID 03/04/22 04/02/23 mcg-226 mg-90 mg capsule (PreserVision AREDS) budesonide-formoterol HFA 160 2 inh inhalation BID 04/02/23 04/02/23 mcg-4.5 mcg/actuation aerosol inhaler (Symbicort) Previous Rx's Medication Instructions Recorded atorvastatin 40 mg tablet (Lipitor) 40 mg PO QPM #30 tabs 05/15/19 docusate sodium 100 mg capsule 100 mg PO TID PRN PRN #30 caps 05/15/19 (Colace) Allergies Allergy/AdvReac Type Severity Reaction Status Date / Time varenicline [From Chantix] AdvReac stomach Verified 04/24/22 13:32 problems, depression General Stated Complaint: SOB YADY: 2 Review of Systems All systems reviewed & are unremarkable except as noted in HPI and below Constitutional Constitutional: Denies chills, Denies fever(s) and Denies weakness Cardiovascular Cardiovascular: Denies chest pain and Reports dyspnea Respiratory Respiratory: Reports cough and Reports dyspnea Gastrointestinal Gastrointestinal: Denies abdominal pain, Denies nausea and Denies vomiting Musculoskeletal Musculoskeletal: Denies joint swelling Integumentary/Breasts Skin/Breast: Denies rash Neurologic Neurologic: Denies weakness PFSH All Active Problems (Updated 04/02/23 @ 18:46 by Gordy Patrick MD) Pneumonia (Acute) COPD exacerbation (Acute) Esophageal stricture (Acute) COPD (chronic obstructive pulmonary disease) (Chronic) GERD (gastroesophageal reflux disease) (Chronic) Dysphagia (Acute) Hiatal hernia (Chronic) Normocytic normochromic anemia (Acute) Bilateral carotid bruits (Acute) Aspiration pneumonia (Acute) Medical History (Updated 04/02/23 @ 18:46 by Gordy Patrick MD) BCC (basal cell carcinoma), face Bilateral hip pain Breast cancer Chronic insomnia COPD exacerbation COVID 04/14/22 Depression Former smoker GERD (gastroesophageal reflux disease) History of breast cancer 2008 History of traumatic fracture of hip Hypokalemia Hypomagnesemia Irregular heart rate pt. denies Left knee pain Low back pain Pneumonia Pneumonia Surgical History Closed fracture of left distal femur (05/10/19) S/P ORIF on 05/12/19 EGD - MAC (02/05/17) Dr Marcial, [facility], EGD with balloon dilation; repeat procedure 04/14/2019, Dr. Inez Ruffin S/P breast lumpectomy left breast lumpectomy; follow up XRT, 2002 Status post THR (total hip replacement) pt. denies replacement-states just rods inserted Family History Mother Lung disease Daughter Lung disease Substance abuse Hypertension Maternal Aunt Colon cancer Heart disease Social History Smoking/Tobacco Use Status: Current every day Tobacco Type: cigarettes Smoking risk assessment performed?: Yes Alcohol Intake: current Alcohol Intake frequency: holidays/special occasions only Drug use: Never Substance use type: does not use Household members: children Current gender identity: female What is your relationship status?: Panel score (0-1 are the most socially isolated patients): 0 Do you feel safe at home: Yes Do you feel safe in your relationship?: Yes History History 3 Para Hx # Term Pregnancies 3 Multiple births Hx # Pregnancies Ectopic pregnancies AB induced Hx Number of Living Children 2 AB spontaneous Exam Const General: no acute distress Orientation: alert HENMT Head: normal to inspection Ears: external ears normal General nose exam: external nose normal Mouth: moist mucous membranes Eyes General: appearance normal, both eyes and all related structures Neck Neck: normal visual inspection Resp Auscultation: wheezes Cardio Rate: regular rate Heart Sounds: no murmurs GI Palpation: soft and nontender Skin General skin exam: no rashes or lesions noted Neuro General: patient alert and patient oriented x3 Extrem General: normal to inspection Psych Mental Status: mental status grossly normal Course Vital Signs Vital signs: Vital Signs Temperature 36.8 C 04/02/23 14:50 Pulse 119 H 04/02/23 14:50 Respiratory Rate 14 04/02/23 14:50 Blood Pressure 147/73 H 04/02/23 14:50 Pulse Oximetry 93 04/02/23 14:50 Temperature 36.8 C 04/02/23 14:50 Temperature Source Oral 04/02/23 14:50 Pulse 119 H 04/02/23 14:50 Respiratory Rate 14 04/02/23 14:50 Blood Pressure 147/73 H 04/02/23 14:50 Pulse Oximetry 93 04/02/23 14:50 Oxygen Delivery Method Room Air 04/02/23 14:50 Oxygen Flow Rate 0 04/02/23 14:50 Pain Level 0 04/02/23 14:50 Comment had a headache earlier 04/02/23 14:50 Lab/Test Results Lab/Test Results: 04/02/23 15:01 Blood Blood Culture - Pending 04/02/23 15:01 Blood Blood Culture - Pending
[2023-04-02 15:20] LABS: Source Nasal/Nares
[2023-04-02] MEDS: Albuterol/Ipratropium 3 ML UPD VIAL UPD ×3 (15:31→22:52)
[2023-04-02] MEDS: methylPREDNISolone SUCC 125 MG VIAL IVP (15:32)
[2023-04-02 15:51] LABS: COVID-19 PCR Negative (Negative)
[2023-04-02 15:54] LABS: BE (Venous) 3 mmol/L (-2-3); HCO3 (Venous) 26 mmol/L (23-28); O2 Sat (Venous) 61 %; TCO2 (Venous) 25 mmol/L (24-29); pCO2 (Venous) 35 mmHg (41-51); pH (Venous) 7.48 (7.31-7.41); pO2 (Venous) 31 mmHg
[2023-04-02 15:56] LABS: Abs Immature Grans 0.08 10^3/uL (0.0-0.06); Absolute Basophil Count 0.01 10^3/uL (0.0-0.2); Absolute Lymphocyte Count 0.53 10^3/uL (1.2-3.4); Basophils % 0.1; HCT 27.6 % (36.0-46.0); HGB 9.3 g/dL (11.2-15.7); Immature Grans % 0.6; Lymphocytes % 3.9; MCH 24.5 pg (27.0-33.0); MCHC 33.7 % (32.0-36.0); MCV 73 fL (80-95); MPV 10.8 fL (8.0-11.0); Monocytes % 10.3; Neutrophils % 85.1; Platelet Count 232 10^3/uL (130-400); RDW 18.4 % (11.7-14.6); RDW-SD 48.5 fL
[2023-04-02 15:57] LABS: Absolute Neutrophil Count 11.57 10^3/uL (1.2-6.7)
[2023-04-02 16:15] LABS: INR 1.1 (0.9-1.1); PTT Activated 30.1 sec (21.5-31.9); Prothrombin Time 11.3 sec (9.3-11.0)
[2023-04-02 16:38] LABS: ALT 18 U/L (14-59); AST 16 U/L (15-37); Alkaline Phosphatase 82 U/L (46-116); Anion Gap 11.6 mmol/L (3-11); BUN 17 mg/dL (7-18); Bilirubin, Total 0.5 mg/dL (0.2-1.0); CO2 25.4 mmol/L (21.0-32.0); CREATININE 0.8 mg/dL (0.55-1.02); Calcium 9.1 mg/dL (8.5-10.1); Chloride 91 mmol/L (98-107); Estimated GFR 73.98 (mL/min/1.73m2); Glucose 133 mg/dL (74-106); Magnesium 1.1 mg/dL (1.8-2.4); NT-proBNP 275 pg/mL (<300); Sodium 128 mmol/L (136-145); Total Protein 7.1 g/dL (6.4-8.2); Troponin I < 50 ng/L (<or=60)
[2023-04-02 16:44] LABS: Procalcitonin 0.4 ng/mL
[2023-04-02] MEDS: Normal Saline Flush 10 ML SYR IVP (16:53)
[2023-04-02] MEDS: Omnipaque 350 MG/ML 100 ML BTL IJ (16:54)
[2023-04-02] MEDS: Normal Saline - Diluent 50 ML VIAL IJ (16:55)
[2023-04-02] MEDS: MAGNESIUM SULFATE 2 GM/50 ML BAG IVPB ×2 (17:21→22:53)
[2023-04-02] MEDS: Potassium Chloride 20 MEQ TABCR 40 MEQ PO (17:21)
[2023-04-02] MEDS: POTASSIUM CHLORIDE 10 MEQ/100 ML BAG 100 MEQ IVPB (17:22)
[2023-04-02 18:27] LABS: Troponin I < 50 ng/L (<or=60)
[2023-04-02] MEDS: levoFLOXacin 750 MG/150 ML BAG 100 MG IVPB (19:38)
--- NOTE | 2023-04-02 21:48 | W.PM.HP.N ---
Date of service: 04/02/23 Time of Service: 21:48 Assessment and Plan Assessment and plan (1) Pneumonia: Start date: 04/02/23 Status: Acute Assessment and plan: 83-year-old lady with bibasilar pneumonia with hypoxemia which is new. She is having increasing symptoms of exertional dyspnea while weaning tobacco use which is ongoing. Patient also has exacerbation of COPD. She will be admitted for treatment of pneumonia and oxygen supplementation while treating exacerbation of COPD with Solu-Medrol. She is a full code. (2) COPD exacerbation: Start date: 04/02/23 Status: Acute Assessment and plan: IV Solu-Medrol with aggressive nebulizer treatments. Treat pneumonia. (3) Hypoxemia: Start date: 04/02/23 Status: Acute Assessment and plan: Aggressively treat acute processes and chronic processes as above. Patient may require home O2 chronically which can be assessed upon discharge. (4) Hyperlipidemia: Status: Chronic Assessment and plan: Continue statin therapy which patient takes at night. (5) Low back pain: Assessment and plan: Continue gabapentin with patient concerned about night dosing which also helps her sleep. History of Present Illness History of Present Illness Chief Complaint: Increased baseline cough with worsening shortness of breath. Narrative: This is an 83-year-old female patient who has a long history of COPD and continues to smoke tobacco presents to the ED with increasing shortness of breath and cough worsening over the last 2 days prior to admission. She was having worsening exertional symptoms. She had no chest pain and in the ED had a negative acute cardiac work-up. She denies any hemoptysis and has had no fever or swelling. She was hypoxic requiring O2 in the ED which is a new problem for her and imaging did reveal bilateral lower lobe infiltrates without effusions. She was also having increased wheezing and appeared to have exacerbation of her baseline COPD. She did respond to nebulizer treatments and IV Solu-Medrol and was initiated on Levaquin for antibiotic coverage. This was adjusted to her renal function. Patient offered no other new complaints. She is chronically thin and malnourished appearing but is able to live independently. She is a full code. Review of Systems Narrative: 13 point review of systems otherwise unrevealing or stable. FOR[facility]LY [facility], [facility] All Active Problems (Updated 04/03/23 @ 06:46 by Sandeep Garland) Hyperlipidemia (Chronic) Hypoxemia (Acute) Pneumonia (Acute) COPD exacerbation (Acute) Esophageal stricture (Acute) COPD (chronic obstructive pulmonary disease) (Chronic) GERD (gastroesophageal reflux disease) (Chronic) Dysphagia (Acute) Hiatal hernia (Chronic) Normocytic normochromic anemia (Acute) Bilateral carotid bruits (Acute) Aspiration pneumonia (Acute) Medical History BCC (basal cell carcinoma), face Bilateral hip pain Breast cancer Chronic insomnia COPD exacerbation COVID 04/14/22 Depression Former smoker GERD (gastroesophageal reflux disease) History of breast cancer 2008 History of traumatic fracture of hip Hypokalemia Hypomagnesemia Irregular heart rate pt. denies Left knee pain Low back pain Pneumonia Pneumonia Surgical History Closed fracture of left distal femur (05/10/19) S/P ORIF on 05/12/19 EGD - MAC (02/05/17) Dr Marcial, [facility], EGD with balloon dilation; repeat procedure 04/14/2019, Dr. Inez Ruffin S/P breast lumpectomy left breast lumpectomy; follow up XRT, 2002 Status post THR (total hip replacement) pt. denies replacement-states just rods inserted Family History Mother Lung disease Daughter Lung disease Substance abuse Hypertension Maternal Aunt Colon cancer Heart disease Social History Smoking/Tobacco Use Status: Current every day Tobacco Type: cigarettes Smoking risk assessment performed?: Yes Alcohol Intake: current Alcohol Intake frequency: holidays/special occasions only Drug use: Never Substance use type: does not use Household members: children Housing: apartment Current gender identity: female What is your relationship status?: Panel score (0-1 are the most socially isolated patients): 0 Do you feel safe at home: Yes Do you feel safe in your relationship?: Yes History History 3 Para Hx # Term Pregnancies 3 Multiple births Hx # Pregnancies Ectopic pregnancies AB induced Hx Number of Living Children 2 AB spontaneous Meds Allergies and Home Medications Allergies Allergy/AdvReac Type Severity Reaction Status Date / Time varenicline [From Chantix] AdvReac stomach Verified 04/24/22 13:32 problems, depression Home Medications Medication Instructions Recorded Confirmed Type aspirin 81 mg chewable tablet 81 mg PO DAILY 01/27/17 04/24/22 History calcium-vitamin D3-vitamin K 500 1 ea PO DAILY 01/27/17 04/02/23 History mg-1,000 unit-40 mcg chewable tablet multivitamin (Daily Multiple 1 ea PO DAILY 01/27/17 04/02/23 History tablet) atorvastatin 40 mg tablet (Lipitor) 40 mg PO QPM #30 tabs 05/15/19 04/02/23 Rx docusate sodium 100 mg capsule 100 mg PO TID PRN PRN #30 caps 05/15/19 04/24/22 Rx (Colace) diclofenac potassium 50 mg tablet 50 mg PO BID PRN PRN 12/15/19 04/02/23 History (Cataflam) gabapentin 100 mg capsule 200 mg PO TID PRN PRN 12/15/19 04/02/23 History omeprazole 20 mg capsule,delayed 20 mg PO DAILY 02/02/22 04/02/23 History release sucralfate 1 gram tablet 1 g PO BID 02/02/22 04/02/23 History albuterol sulfate 90 mcg/actuation 1 inh inhalation Q4H PRN 02/25/22 04/02/23 History aerosol inhaler (Ventolin HFA) vitamins A,C,Y-cetb-dzuqwk 4,296 1 cap PO BID 03/04/22 04/02/23 History mcg-226 mg-90 mg capsule (PreserVision AREDS) budesonide-formoterol HFA 160 2 inh inhalation BID 04/02/23 04/02/23 History mcg-4.5 mcg/actuation aerosol inhaler (Symbicort) Exam Narrative Exam Narrative: General: Patient appears appropriate for age, thinly built sitting up in bed in no acute distress. She is alert and oriented x3. HEENT: Normocephalic, eyes with pupils equal and react light symmetrically, extraocular movements and sclera anicteric. Oropharynx with slightly dry mucosa and missing teeth especially over upper dentition. Discoloration of face. Neck: Supple without JVD. Back: Kyphotic without CVA tenderness. Lungs: Bronchovesicular breath sounds diffusely with increased expiratory phase and expiratory wheeze sparsely throughout, expiratory coarse crackles both bases without rales. Decreased aeration at bases. Overall poor aeration. Breast: Exam deferred. Heart: Regular rate and rhythm with no appreciable murmur or gallop. Abdomen: Scaphoid contour, soft nontender to palpation with no palpable hepatosplenomegaly. Bowel sounds positive all quadrants. Genitalia/rectal: Exam deferred. Extremities: Without clubbing, cyanosis or grossly pitting edema. Muscle wasting diffusely. Fair capillary refill. Skin: Normal color, warm and dry. Neuro: Cranial nerves II through XII grossly intact, no focalizing motor deficits. No tremor. Psych: Normal affect and mood with no abnormal thought processes. Remote and recent memory grossly intact. Results Imaging Imaging Studies: EXAM: ? CT CHEST PE CTA CLINICAL HISTORY: ? shortness of breath, tachycardia. ? TECHNIQUE:? Imaging Protocol: CT angiography of the chest was performed using pulmonary embolus protocol.? Multi planar reconstructions were performed. CONTRAST MATERIAL:? Intravenous: Omnipaque 350 Contrast volume: 100 cc COMPARISON:? CT CT CHEST PE CTA from 02/02/2022 FINDINGS: CHEST: PULMONARY ARTERIES: There are no intraluminal filling defects to suggest acute pulmonary emboli. LUNGS: There are extensive infiltrates in the posterior and lateral basal segments of both lower lobes.? No pleural effusions.? No involvement of the upper lobes nor of the right middle lobe nor of the lingular segment of the left lung..? No significant mucous in the trachea and mainstem bronchi. MEDIASTINUM: Mildly prominent lymph nodes in the left hilum.? Right hilum unremarkable.? No subcarinal adenopathy.? No adenopathy evident in the anterior mediastinal fat CARDIAC: Heart size is upper normal.? There is no pericardial effusion.Caliber of the thoracic aorta is within normal limits. No dissection there is no significant shift of the interventricular septum. PARTIALLY VISUALIZED UPPERMOST ABDOMEN: Moderate size hiatal hernia.? No splenomegaly. OSSEOUS: No significant osseous lesions.. IMPRESSION: 1. There are extensive bilateral lower lobe infiltrates.No pleural effusions. 2. No evidence of acute pulmonary emboli. 3. Normal heart size.? No pericardial effusion. Labs 04/02/23 15:30 04/02/23 15:30 Labs: Laboratory Results - last 24 hr 04/02/23 04/02/23 04/02/23 15:15 15:30 15:30 WBC RBC Hgb Hct MCV MCH MCHC RDW Plt Count MPV Immature Gran % Neutrophils % Lymphocytes % Monocytes % Eosinophils % Basophils % Nucleated RBC % Absolute Neutrophils Absolute Lymphocytes Absolute Monocytes Absolute Eosinophils Absolute Basophils PT INR APTT VBG pH 7.48 H VBG pCO2 35 L VBG pO2 31 VBG HCO3 26 VBG Total CO2 25 VBG O2 Saturation 61 VBG Base Excess 3 Sodium 128 L Potassium 3.0 L Chloride 91 L Carbon Dioxide 25.4 Anion Gap 11.6 H BUN 17 Creatinine 0.8 Est GFR (CKD-EPI 2020) 73.98 Glucose 133 H Calcium 9.1 Magnesium 1.1 L Total Bilirubin 0.5 AST 16 ALT 18 Alkaline Phosphatase 82 Troponin I < 50 NT-Pro-B Natriuret Pep 275 Total Protein 7.1 Albumin 3.0 L Procalcitonin COVID-19 Source Nasal/Nares SARS-CoV-2 (PCR) Negative 04/02/23 04/02/23 04/02/23 15:30 15:30 15:30 WBC 13.60 H RBC 3.80 L Hgb 9.3 L Hct 27.6 L MCV 73 L MCH 24.5 L MCHC 33.7 RDW 18.4 H Plt Count 232 MPV 10.8 Immature Gran % 0.6 Neutrophils % 85.1 Lymphocytes % 3.9 Monocytes % 10.3 Eosinophils % 0.0 Basophils % 0.1 Nucleated RBC % 0.0 Absolute Neutrophils 11.57 H Absolute Lymphocytes 0.53 L Absolute Monocytes 1.40 H Absolute Eosinophils 0.00 Absolute Basophils 0.01 PT 11.3 H INR 1.1 APTT 30.1 VBG pH VBG pCO2 VBG pO2 VBG HCO3 VBG Total CO2 VBG O2 Saturation VBG Base Excess Sodium Potassium Chloride Carbon Dioxide Anion Gap BUN Creatinine Est GFR (CKD-EPI 2020) Glucose Calcium Magnesium Total Bilirubin AST ALT Alkaline Phosphatase Troponin I NT-Pro-B Natriuret Pep Total Protein Albumin Procalcitonin 0.4 COVID-19 Source SARS-CoV-2 (PCR) 04/02/23 18:02 WBC RBC Hgb Hct MCV MCH MCHC RDW Plt Count MPV Immature Gran % Neutrophils % Lymphocytes % Monocytes % Eosinophils % Basophils % Nucleated RBC % Absolute Neutrophils Absolute Lymphocytes Absolute Monocytes Absolute Eosinophils Absolute Basophils PT INR APTT VBG pH VBG pCO2 VBG pO2 VBG HCO3 VBG Total CO2 VBG O2 Saturation VBG Base Excess Sodium Potassium Chloride Carbon Dioxide Anion Gap BUN Creatinine Est GFR (CKD-EPI 2020) Glucose Calcium Magnesium Total Bilirubin AST ALT Alkaline Phosphatase Troponin I < 50 NT-Pro-B Natriuret Pep Total Protein Albumin Procalcitonin COVID-19 Source SARS-CoV-2 (PCR) Last Vital Signs Temp 37.3 C 04/02/23 20:10 Pulse 105 H 04/02/23 20:10 Resp 22 04/02/23 20:10 BP 100/55 L 04/02/23 20:10 Pulse Ox 93 04/02/23 20:10 Time Spent Time spent with Patient: 55-74 minutes Time was spent: preparing to see the patient(eg.review tests), obtaining and/or reviewing separately otained hiistory, ordering medications,tests, procedures, indepentently interpreting results and care coordination
[2023-04-02] MEDS: methylPREDNISolone SUCC 125 MG VIAL 80 MG IVP (22:51)
[2023-04-02] MEDS: POTASSIUM CHLORIDE/0.9% NACL 1,000 ML 125 MEQ IV (22:52)
[2023-04-02] MEDS: Heparin 5,000 UNITS/ML VIAL 5000 UNITS SC (22:52)
[2023-04-02] MEDS: Gabapentin 100 MG CAP 200 MG PO (22:52)
[2023-04-02] MEDS: Atorvastatin 40 MG TAB PO (22:54)
[2023-04-02] MEDS: Water,Injection,Sterile 10 ML VIAL (23:07)
[2023-04-03] VITALS (11 sets, daily range): BP systolic 104–129; BP diastolic 56–71; PULSE 82–152; RESP 17–18; TEMP 36.1–36.9; O2SAT 91–99
[2023-04-03] MEDS: Water,Injection,Sterile 10 ML VIAL (05:21)
[2023-04-03] MEDS: methylPREDNISolone SUCC 125 MG VIAL 80 MG IVP (05:21)
[2023-04-03] MEDS: Heparin 5,000 UNITS/ML VIAL 5000 UNITS SC ×2 (05:22→13:23)
[2023-04-03] MEDS: Albuterol/Ipratropium 3 ML UPD VIAL UPD ×3 (05:22→16:25)
[2023-04-03] MEDS: Normal Saline Flush 10 ML SYR IVP ×2 (05:23→08:28)
--- NOTE | 2023-04-03 06:28 | NUR.NOTE ---
Nursing Note: Pt SpO2 @ 99% on 3L NC. Titrated pt down to 2L NC; SpO2 93%. Pt not currently c/o SOB.
[2023-04-03 07:11] LABS: HCT 27.7 % (36.0-46.0); HGB 8.9 g/dL (11.2-15.7); MCH 23.9 pg (27.0-33.0); MCHC 32.1 % (32.0-36.0); MCV 74 fL (80-95); MPV 11.9 fL (8.0-11.0); Platelet Count 212 10^3/uL (130-400); RBC 3.73 10^6/uL (3.93-5.22); RDW 18.7 % (11.7-14.6); RDW-SD 50.5 fL; WBC 8.82 10^3/uL (4.4-10.8)
[2023-04-03 07:26] LABS: Iron 7 ug/dL (50-170)
[2023-04-03 07:34] LABS: ALT 20 U/L (14-59); AST 15 U/L (15-37); Albumin 2.6 g/dL (3.4-5.0); Alkaline Phosphatase 90 U/L (46-116); Anion Gap 10.6 mmol/L (3-11); BUN 17 mg/dL (7-18); Bilirubin, Total 0.4 mg/dL (0.2-1.0); CO2 22.4 mmol/L (21.0-32.0); CREATININE 0.7 mg/dL (0.55-1.02); Calcium 8.8 mg/dL (8.5-10.1); Chloride 101 mmol/L (98-107); Estimated GFR 86.83 (mL/min/1.73m2); Glucose 163 mg/dL (74-106); Potassium 3.7 mmol/L (3.5-5.1); Sodium 134 mmol/L (136-145); Total Protein 6.6 g/dL (6.4-8.2)
[2023-04-03 07:42] LABS: Ferritin 51 ng/mL (8-252); TSH (W/Ref FT4) 0.14 uIU/mL (0.36-3.74)
[2023-04-03 07:56] LABS: Folate 19.1 ng/mL (8.6-20.0); Vitamin B12 1809 pg/mL (193-986)
[2023-04-03] MEDS: Sucralfate 1 GM TAB PO (08:27)
[2023-04-03] MEDS: Multivitamin TAB 1 TAB PO (08:28)
[2023-04-03] MEDS: Ascorbic Acid 500 MG TAB PO (08:28)
[2023-04-03] MEDS: Ferrous Sulfate 325 MG TAB PO (08:28)
[2023-04-03] MEDS: Omeprazole 20 MG CAPCR PO (08:28)
[2023-04-03] MEDS: Calcium 600mg/Vit D 200U TAB 1 TAB PO (08:29)
[2023-04-03 08:55] LABS: FREE T4 1.64 ng/dL (0.76-1.46)
[2023-04-03] MEDS: Budesonide/Formoterol 160/4.5 6 GM 60 PUFF INH IH (08:59)
[2023-04-03] MEDS: POTASSIUM CHLORIDE/0.9% NACL 1,000 ML 125 MEQ IV (10:14)
--- NOTE | 2023-04-03 13:56 | W.PM.DS.N ---
Date of service: 04/03/23 Time of Service: 13:56 DS: Diagnosis Discharge Diagnosis (1) Pneumonia: Status: Acute (2) COPD exacerbation: Status: Acute (3) Hypoxemia: Status: Acute Asessment and Plan: resolved and weaned off oxygen (4) Hyperlipidemia: Status: Chronic (5) Low back pain: Discharge Plan Disposition Patient Disposition: Home Condition: Improving Discharge Details Reason For Visit: COPD Exacerbation, Pneumonia with Hypoxemia Admit Date/Time: 04/02/23 18:26 Admit Provider: Sandeep Garland Attending Provider: Sandeep Garland Primary Care Provider: Nia Delcid Hospital Course Hospital Course: This is an 83-year-old female patient with a past medical history significant for COPD GERD hyperlipidemia who presented to the emergency department with cough upper respiratory symptoms and was noted to be hypoxic. Her work-up in the emergency department was concerning for pneumonia bilateral with COPD exacerbation. She was started on Levaquin and steroids and admitted on hospitalist services. Overnight she was weaned off oxygen and feeling much improved. She was eating and taking adequate p.o. fluids. Bowels and bladder functioning. She was requesting discharge to home. I do think it is reasonable to down step her to oral steroids she is on Levaquin which is equally bioavailable IV or p.o. Vitals have been stable she is afebrile she will be discharged to home to continue with steroid burst and a 7-day course of levofloxacin follow-up with primary care provider or return sooner for new or worsening symptoms discharge is discussed with Dr. Santoyo Crump Meds and New Rx's Prescriptions: New levofloxacin 750 mg tablet 750 mg PO DAILY Qty: 6 0RF prednisone 20 mg tablet 40 mg PO DAILY Qty: 10 0RF Continued PreserVision AREDS [id number] capsule 1 cap PO BID multivitamin [Daily Multiple] 1 EACH tablet 1 ea PO DAILY aspirin 81 MG tablet,chewable 81 mg PO DAILY Patient Comments: Pt reports PCP D/C'd calcium-vitamin D3-vitamin K 1 EACH tablet,chewable 1 ea PO DAILY albuterol sulfate [Ventolin HFA] 90 mcg/actuation HFA aerosol inhaler 1 inh inhalation Q4H PRN atorvastatin [Lipitor] 40 mg Tablet 40 mg PO QPM Qty: 30 0RF docusate sodium [Colace] 100 mg Capsule 100 mg PO TID PRN PRNQty: 30 0RF Patient Comments: not on pt list diclofenac potassium [Cataflam] 50 mg Tablet 50 mg PO BID PRN PRN gabapentin 100 mg Capsule 200 mg PO TID PRN PRN budesonide-formoterol [Symbicort] 160-4.5 mcg/actuation Hfa Aerosol Inhaler 2 inh INHALATION BID omeprazole 20 mg Capsule,Delayed Release(Dr/Ec) 20 mg PO DAILY sucralfate 1 gram Tablet 1 g PO BID Discharge Instructions Instructions: Pneumonia (DC) Stand Alone Forms: Nursing Discharge Form Referrals: Nia Delcid [Primary Care Provider] - (PLEASE CALL YOUR Primary Care Provider THURSDAY 04/05 [facility] ) Activity:: Activity as Tolerated Equipment/Supplies:: No Equipment Needed Diet:: As Tolerated Discharge Orders Discharge Orders: Discharge Order (Routine); Ordered 04/03/23 Ordered By: Galina Mckoy Discharge Data Discharge Date/Time-TO BE ENTERED AT DEPARTURE: 04/03/23 16:37 DS: Summary Time Spent with Patient providing and/or coordinating discharge services: Less than 30 minutes Status at Discharge Functional status at discharge: independent ambulation Overall status at discharge: patient is progressing back to baseline Mental Status: mental status grossly normal Speech and Movement: speech and movement normal Mood: congruent mood Affect: normal affect Exam Const General: frail appearing Nutritional Appearance: thin Orientation: alert, awake and oriented x3 HENMT Head: normal to inspection, normocephalic and atraumatic Mouth: oral mucosae normal Chest Chest: normal inspection of the chest Resp Effort & Inspection: normal respiratory effort Auscultation: rhonchi (left greater than right, no wheezing) lower bilaterally Cardio Rate: regular rate Rhythm: regular rhythm GI Inspection: normal to inspection Palpation: soft Skin General skin exam: no rashes or lesions noted Neuro General: patient alert, patient awake, patient oriented x3 and no focal motor deficits Extrem General: normal to inspection, full ROM and no pedal edema Psych Mental Status: mental status grossly normal Speech and Movement: speech and movement normal Mood: congruent mood Affect: normal affect DS: Data Vitals/I&O Vitals and I&O: Vital Signs Temperature 36.8 C 04/03/23 10:57 Temperature Source Tympanic 04/03/23 10:57 Pulse 87 04/03/23 13:13 Pulse Rhythm Regular 04/03/23 08:38 Pulse 112 H 04/02/23 19:50 Respiratory Rate 18 04/03/23 10:57 Respiratory Effort Normal, Non-Labored 04/03/23 08:38 Respiratory Depth Normal 04/03/23 08:38 Respiratory Pattern Normal 04/03/23 08:38 Blood Pressure 104/63 04/03/23 10:57 Blood Pressure Mean 71 04/02/23 18:30 Pulse Oximetry 92 04/03/23 13:13 Oxygen Delivery Method Room Air 04/03/23 13:13 Oxygen Flow Rate 0 04/03/23 13:13 Pain Level 0 04/03/23 08:42 Comment had a headache earlier 04/02/23 14:50 Intake & Output 04/02/23 04/03/23 04/03/23 23:59 11:59 23:59 Intake Total 300 / 300 1187.5 / 1187.5 Balance 300 / 300 1187.5 / 1187.5 Weight 39 kg 40.4 kg Intake: IV 300 / 300 1187.5 / 1187.5 Other: Urine Color Pale Yellow Urine Appearance Clear Urine Odor None Comment occurance Stool Size Moderate Stool Characteristics Formed Data Completed and Pending Labs on day of discharge: Labs from last 24 hours 04/03/23 04/03/23 04/03/23 06:40 06:40 06:40 WBC 8.82 RBC 3.73 L Hgb 8.9 L Hct 27.7 L MCV 74 L MCH 23.9 L MCHC 32.1 RDW 18.7 H Plt Count 212 MPV 11.9 H Reticulocyte % (Auto) 1.0 Immature Gran % Neutrophils % Lymphocytes % Monocytes % Eosinophils % Basophils % Nucleated RBC % Absolute Neutrophils Absolute Lymphocytes Absolute Monocytes Absolute Eosinophils Absolute Basophils Haptoglobin PT INR APTT VBG pH VBG pCO2 VBG pO2 VBG HCO3 VBG Total CO2 VBG O2 Saturation VBG Base Excess Sodium 134 L Potassium 3.7 Chloride 101 Carbon Dioxide 22.4 Anion Gap 10.6 BUN 17 Creatinine 0.7 Est GFR (CKD-EPI 2020) 86.83 Glucose 163 H Calcium 8.8 Magnesium 2.0 Iron Ferritin Total Bilirubin 0.4 AST 15 ALT 20 Alkaline Phosphatase 90 Troponin I NT-Pro-B Natriuret Pep Total Protein 6.6 Albumin 2.6 L Vitamin B12 Folate Procalcitonin TSH Free T4 COVID-19 Source SARS-CoV-2 (PCR) 04/03/23 04/03/23 04/03/23 06:40 06:40 06:40 WBC RBC Hgb Hct MCV MCH MCHC RDW Plt Count MPV Reticulocyte % (Auto) Immature Gran % Neutrophils % Lymphocytes % Monocytes % Eosinophils % Basophils % Nucleated RBC % Absolute Neutrophils Absolute Lymphocytes Absolute Monocytes Absolute Eosinophils Absolute Basophils Haptoglobin Pending PT INR APTT VBG pH VBG pCO2 VBG pO2 VBG HCO3 VBG Total CO2 VBG O2 Saturation VBG Base Excess Sodium Potassium Chloride Carbon Dioxide Anion Gap BUN Creatinine Est GFR (CKD-EPI 2020) Glucose Calcium Magnesium Iron 7 L Ferritin Total Bilirubin AST ALT Alkaline Phosphatase Troponin I NT-Pro-B Natriuret Pep Total Protein Albumin Vitamin B12 1809 H Folate 19.1 Procalcitonin TSH Free T4 COVID-19 Source SARS-CoV-2 (PCR) 04/03/23 04/02/23 04/02/23 06:40 18:02 15:30 WBC RBC Hgb Hct MCV MCH MCHC RDW Plt Count MPV Reticulocyte % (Auto) Immature Gran % Neutrophils % Lymphocytes % Monocytes % Eosinophils % Basophils % Nucleated RBC % Absolute Neutrophils Absolute Lymphocytes Absolute Monocytes Absolute Eosinophils Absolute Basophils Haptoglobin PT 11.3 H INR 1.1 APTT 30.1 VBG pH VBG pCO2 VBG pO2 VBG HCO3 VBG Total CO2 VBG O2 Saturation VBG Base Excess Sodium Potassium Chloride Carbon Dioxide Anion Gap BUN Creatinine Est GFR (CKD-EPI 2020) Glucose Calcium Magnesium Iron Ferritin 51 Total Bilirubin AST ALT Alkaline Phosphatase Troponin I < 50 NT-Pro-B Natriuret Pep Total Protein Albumin Vitamin B12 Folate Procalcitonin TSH 0.14 L Free T4 1.64 H COVID-19 Source SARS-CoV-2 (PCR) 04/02/23 04/02/23 04/02/23 15:30 15:30 15:30 WBC 13.60 H RBC 3.80 L Hgb 9.3 L Hct 27.6 L MCV 73 L MCH 24.5 L MCHC 33.7 RDW 18.4 H Plt Count 232 MPV 10.8 Reticulocyte % (Auto) Immature Gran % 0.6 Neutrophils % 85.1 Lymphocytes % 3.9 Monocytes % 10.3 Eosinophils % 0.0 Basophils % 0.1 Nucleated RBC % 0.0 Absolute Neutrophils 11.57 H Absolute Lymphocytes 0.53 L Absolute Monocytes 1.40 H Absolute Eosinophils 0.00 Absolute Basophils 0.01 Haptoglobin PT INR APTT VBG pH 7.48 H VBG pCO2 35 L VBG pO2 31 VBG HCO3 26 VBG Total CO2 25 VBG O2 Saturation 61 VBG Base Excess 3 Sodium Potassium Chloride Carbon Dioxide Anion Gap BUN Creatinine Est GFR (CKD-EPI 2020) Glucose Calcium Magnesium Iron Ferritin Total Bilirubin AST ALT Alkaline Phosphatase Troponin I NT-Pro-B Natriuret Pep Total Protein Albumin Vitamin B12 Folate Procalcitonin 0.4 TSH Free T4 COVID-19 Source SARS-CoV-2 (PCR) 04/02/23 04/02/23 15:30 15:15 WBC RBC Hgb Hct MCV MCH MCHC RDW Plt Count MPV Reticulocyte % (Auto) Immature Gran % Neutrophils % Lymphocytes % Monocytes % Eosinophils % Basophils % Nucleated RBC % Absolute Neutrophils Absolute Lymphocytes Absolute Monocytes Absolute Eosinophils Absolute Basophils Haptoglobin PT INR APTT VBG pH VBG pCO2 VBG pO2 VBG HCO3 VBG Total CO2 VBG O2 Saturation VBG Base Excess Sodium 128 L Potassium 3.0 L Chloride 91 L Carbon Dioxide 25.4 Anion Gap 11.6 H BUN 17 Creatinine 0.8 Est GFR (CKD-EPI 2020) 73.98 Glucose 133 H Calcium 9.1 Magnesium 1.1 L Iron Ferritin Total Bilirubin 0.5 AST 16 ALT 18 Alkaline Phosphatase 82 Troponin I < 50 NT-Pro-B Natriuret Pep 275 Total Protein 7.1 Albumin 3.0 L Vitamin B12 Folate Procalcitonin TSH Free T4 COVID-19 Source Nasal/Nares SARS-CoV-2 (PCR) Negative 04/02/23 15:30 Blood Blood Culture - Pending 04/02/23 15:30 Blood Blood Culture - Pending Preliminary micro results at discharge 04/02/23 15:30 Blood Culture - Pending Blood 04/02/23 15:30 Blood Culture - Pending Blood [facility] All Active Problems (Updated 04/03/23 @ 06:46 by Sandeep Garland) Hyperlipidemia (Chronic) Hypoxemia (Acute) Pneumonia (Acute) COPD exacerbation (Acute) Esophageal stricture (Acute) COPD (chronic obstructive pulmonary disease) (Chronic) GERD (gastroesophageal reflux disease) (Chronic) Dysphagia (Acute) Hiatal hernia (Chronic) Normocytic normochromic anemia (Acute) Bilateral carotid bruits (Acute) Aspiration pneumonia (Acute) Medical History BCC (basal cell carcinoma), face Bilateral hip pain Breast cancer Chronic insomnia COPD exacerbation COVID 04/14/22 Depression Former smoker GERD (gastroesophageal reflux disease) History of breast cancer 2008 History of traumatic fracture of hip Hypokalemia Hypomagnesemia Irregular heart rate pt. denies Left knee pain Low back pain Pneumonia Pneumonia Surgical History Closed fracture of left distal femur (05/10/19) S/P ORIF on 05/12/19 EGD - MAC (02/05/17) Dr Marcial, [facility], EGD with balloon dilation; repeat procedure 04/14/2019, Dr. Inez Ruffin S/P breast lumpectomy left breast lumpectomy; follow up XRT, 2001 Status post THR (total hip replacement) pt. denies replacement-states just rods inserted Family History Mother Lung disease Daughter Lung disease Substance abuse Hypertension Maternal Aunt Colon cancer Heart disease Social History Smoking/Tobacco Use Status: Current every day Tobacco Type: cigarettes Smoking risk assessment performed?: Yes Alcohol Intake: current Alcohol Intake frequency: holidays/special occasions only Drug use: Never Substance use type: does not use Household members: children Housing: apartment Current gender identity: female What is your relationship status?: Panel score (0-1 are the most socially isolated patients): 0 Do you feel safe at home: Yes Do you feel safe in your relationship?: Yes History History 3 Para Hx # Term Pregnancies 3 Multiple births Hx # Pregnancies Ectopic pregnancies AB induced Hx Number of Living Children 2 AB spontaneous Time Spent with Patient Time Spent with Patient: <45 minutes Time was spent: preparing to see the patient(eg.review tests), ordering medications,tests, procedures and counseling the patient
[2023-04-03] MEDS: levoFLOXacin 500 MG, levoFLOXacin 250 MG 750 MG PO (16:21)
--- NOTE | 2023-04-03 18:11 | PDOC.CMIN ---
Date of service: 04/03/23 Time of Service: 18:12 Care Management Initial Assmt Initial Assessment REASON FOR HOSPITALIZATION:: COPD Exacerbation PREVIOUS FUNCTIONAL STATUS/SOCIAL/FAMILY SUPPORTS:: Zulema, who prefers to be called Gricelda, lives in a basement apartment in her daughter's home in [place]. She moved to [place] from [facility] in 2016. Gricelda has a son who lives in [place] and lost a daughter in 2008. Gricelda has 19 grandchildren and 10 great grandchildren. She is independent, does her own cooking and continues to drive. Gricelda does use a cane outside. Gricelda's retired at age 58 and Gricelda stopped working at the same time. Her of coronary disease in 2011. CURRENT FUNCTIONAL STATUS:: Gricelda was sitting up in bed waiting to be discharged when CM met with her. She was pleasant in interaction and agreeable to conversation. Gricelda denied the need for services and stated she is looking forward to going home. ADVANCE DIRECTIVES:: On file. daughter Yamilka Bojorquez and her Tor cruz. Has patient been provided with info about the portal/API?: Yes Did the patient sign up for the portal?: No CODE STATUS:: Full Code INSURANCE COVERAGE / FINANCIAL ISSUES:: [facility] Medicare replacement Plan CURRENT HOME/COMMUNITY SERVICES/EQUIPMENT:: cane PRIMARY CARE PHYSICIAN:: Nia Delcid POTENTIAL DISCHARGE NEEDS:: follow up with PCP and plan of care PATIENT/FAMILY EDUCATION NEEDS:: Review of discharge instructions, limitations, medications, follow up plan, discuss Ask Me Three TRANSPORTATION:: via private vehicle with family PLAN:: Gricelda will be discharged home with no new services. She will follow up with her community providers and plan of care and transport with family. PFSH All Active Problems (Updated 04/03/23 @ 06:46 by Sandeep Garland) Hyperlipidemia (Chronic) Hypoxemia (Acute) Pneumonia (Acute) COPD exacerbation (Acute) Esophageal stricture (Acute) COPD (chronic obstructive pulmonary disease) (Chronic) GERD (gastroesophageal reflux disease) (Chronic) Dysphagia (Acute) Hiatal hernia (Chronic) Normocytic normochromic anemia (Acute) Bilateral carotid bruits (Acute) Aspiration pneumonia (Acute) Medical History BCC (basal cell carcinoma), face Bilateral hip pain Breast cancer Chronic insomnia COPD exacerbation COVID 04/14/22 Depression Former smoker GERD (gastroesophageal reflux disease) History of breast cancer 2008 History of traumatic fracture of hip Hypokalemia Hypomagnesemia Irregular heart rate pt. denies Left knee pain Low back pain Pneumonia Pneumonia Surgical History Closed fracture of left distal femur (05/10/19) S/P ORIF on 05/12/19 EGD - MAC (02/05/17) Dr Marcial, [facility], EGD with balloon dilation; repeat procedure 04/14/2019, Dr. Inez Ruffin S/P breast lumpectomy left breast lumpectomy; follow up XRT, 2001 Status post THR (total hip replacement) pt. denies replacement-states just rods inserted Family History Mother Lung disease Daughter Lung disease Substance abuse Hypertension Maternal Aunt Colon cancer Heart disease Social History Smoking/Tobacco Use Status: Current every day Tobacco Type: cigarettes Smoking risk assessment performed?: Yes Alcohol Intake: current Alcohol Intake frequency: holidays/special occasions only Drug use: Never Substance use type: does not use Household members: children Housing: apartment Current gender identity: female What is your relationship status?: Panel score (0-1 are the most socially isolated patients): 0 Do you feel safe at home: Yes Do you feel safe in your relationship?: Yes History History 3 Para Hx # Term Pregnancies 3 Multiple births Hx # Pregnancies Ectopic pregnancies AB induced Hx Number of Living Children 2 AB spontaneous
[2023-04-05 09:31] LABS: Haptoglobin 408 mg/dL (32-197)
== END 2023-04-03 16:37 | disposition home or self-care (01) ==
LOC: ER 18:46 → MS 20:09
PROVIDERS: Admitting Provider Family Medicine; Emergency Provider Emergency Medicine; PCP Family Medicine; Visit Provider Family Medicine
DX: J18.9 Pneumonia, unspecified organism; J44.0 Chronic obstructive pulmonary disease with (acute) lower respiratory infection; J44.1 Chronic obstructive pulmonary disease with (acute) exacerbation; R09.02 Hypoxemia; M54.50 Low back pain, unspecified; E78.5 Hyperlipidemia, unspecified; R00.0 Tachycardia, unspecified; R06.02 Shortness of breath; D50.9 Iron deficiency anemia, unspecified; Z79.899 Other long term (current) drug therapy; F17.210 Nicotine dependence, cigarettes, uncomplicated; K22.2 Esophageal obstruction; K21.9 Gastro-esophageal reflux disease without esophagitis; R13.10 Dysphagia, unspecified; K44.9 Diaphragmatic hernia without obstruction or gangrene; R09.89 Other specified symptoms and signs involving the circulatory and respiratory systems; Z85.3 Personal history of malignant neoplasm of breast; F51.04 Psychophysiologic insomnia; F32.A Depression, unspecified
CPT/HCPCS: 36415; 71275; 80053; 82805; 84145; 85027; 87040; 87635; 93005; 94640; 96365; 96366; 96367; 96368; 96372; 96375; 99285; 82607; 82728; 82746; 83010; 83540; 83735; 83880; 84439; 84443; 84484; 85025; 85045; 85610; 85730; 93010; 94664; 94760; 99222; 99238; G0378; J1644; J1956; J2930; J3480; J3490; J7620

== ENCOUNTER 2023-05-03 13:05 | Outpatient (REF) | payer MEDICARE, SELFPAY ==
[2023-05-03 15:44] LABS: HCT 32.6 % (36.0-46.0); HGB 10.1 g/dL (11.2-15.7); MCH 23.9 pg (27.0-33.0); MCV 77 fL (80-95); Platelet Count 229 10^3/uL (130-400); RBC 4.22 10^6/uL (3.93-5.22); RDW 19.6 % (11.7-14.6); RDW-SD 54.8 fL; Reticulocyte 1.1 % (0.5-2.4); WBC 4.72 10^3/uL (4.4-10.8)
[2023-05-03 16:07] LABS: Iron 19 ug/dL (50-170)
== END 2023-05-03 13:06 | disposition home or self-care (01) ==
LOC: NCHCN 13:05
PROVIDERS: PCP Family Medicine; Visit Provider Family Medicine
DX: D50.9 Iron deficiency anemia, unspecified (principal)
CPT/HCPCS: 85027; 83540; 85045

== ENCOUNTER 2023-06-28 22:04 | Outpatient (REF) | payer MEDICARE, SELFPAY ==
[2023-06-28 22:16] LABS: Iron 25 ug/dL (50-170)
== END 2023-06-28 22:05 | disposition home or self-care (01) ==
LOC: NCHCN 22:04
PROVIDERS: PCP Family Medicine; Visit Provider Family Medicine
DX: D50.9 Iron deficiency anemia, unspecified (principal)
CPT/HCPCS: 83540

== ENCOUNTER 2023-07-14 16:24 | Outpatient (REF) | payer MEDICARE, SELFPAY ==
[2023-07-14 21:06] LABS: Abs Immature Grans 0.01 10^3/uL (0.0-0.06); Absolute Basophil Count 0.01 10^3/uL (0.0-0.2); Absolute Eosinophil Count 0.38 10^3/uL (0.0-0.7); Absolute Lymphocyte Count 1.59 10^3/uL (1.2-3.4); Absolute Monocyte Count 0.98 10^3/uL (0.1-0.8); Absolute Neutrophil Count 4.32 10^3/uL (1.2-6.7); Basophils % 0.1; Eosinophils % 5.2; HCT 35.8 % (36.0-46.0); HGB 11.6 g/dL (11.2-15.7); Immature Grans % 0.1; Lymphocytes % 21.8; MCH 26.9 pg (27.0-33.0); MCHC 32.4 % (32.0-36.0); MCV 83 fL (80-95); MPV 12.9 fL (8.0-11.0); Monocytes % 13.4; Neutrophils % 59.4; Platelet Count 245 10^3/uL (130-400); RBC 4.32 10^6/uL (3.93-5.22); RDW 19.8 % (11.7-14.6); RDW-SD 59.3 fL; WBC 7.29 10^3/uL (4.4-10.8)
[2023-07-14 21:35] LABS: Iron 23 ug/dL (50-170); Total Iron Binding Capacity 303 ug/dL (250-450); Transferrin Sat 8 % (15-50)
[2023-07-14 21:46] LABS: Ferritin 109 ng/mL (8-252); TSH (W/Ref FT4) 0.45 uIU/mL (0.36-3.74)
== END 2023-07-14 16:25 | disposition home or self-care (01) ==
LOC: NCHCN 16:24
PROVIDERS: PCP Family Medicine; Visit Provider Family Medicine
DX: D50.9 Iron deficiency anemia, unspecified (principal); R94.6 Abnormal results of thyroid function studies
CPT/HCPCS: 82728; 83540; 83550; 84443; 85025

== ENCOUNTER → 2023-08-30 03:20 | Outpatient (CLI) | payer MEDICARE, SELFPAY ==
--- NOTE | 2023-08-30 | DI.US_ITS ---
Exam(s) US HERNIA EXAM: US HERNIA CLINICAL HISTORY: LEFT GROIN MASS R19.00. TECHNIQUE: Ultrasound was performed using standard protocol. COMPARISON: No exams were available for comparison FINDINGS: Sonographic assessment utilizing grayscale and color Doppler imaging was performed and targeted to th e area of clinical concern. No sonographic evidence of a soft tissue mass or inguinal hernia sonographically. IMPRESSION: No evidence of an inguinal hernia or mass. If there is continued concern, a CT scan may be obtained for further evaluation. DATA REPOSITORY:
== END ==
PROVIDERS: PCP Family Medicine; Visit Provider Family Medicine
DX: R19.04 Left lower quadrant abdominal swelling, mass and lump (principal)
CPT/HCPCS: 76857

== ENCOUNTER 2023-09-12 09:52 | Emergency (ER) | payer MEDICARE, SELFPAY ==
[2023-09-12 09:57] VITALS: BP 168/74; PULSE 88; RESP 18; TEMP 36.7; O2SAT 96
[2023-09-12 10:13] VITALS: BP 190/92; PULSE 89; RESP 18; O2SAT 95
--- NOTE | 2023-09-12 11:13 | ED.GENADUL_ITS ---
HPI General Mode of arrival: ambulatory . Date/Time Provider Initiated Documentation: 09/12/23 09:58 . Limitations to Documentation: no limitations . Information obtained by: patient, family and RN notes reviewed . History of Present Illness 83 year old F presents to the emergency department with the chief complaint of right knee injury, described as moderate, and is localized to the right and lower extremity. Patient started experiencing this day(s) (1) and it has been constant. Immobilization improves symptom(s), Movement worsens symptoms . Patient did receive the following treatments prior to arrival, other (Acetaminophen) Related Data Home Medications Medication Instructions Recorded Confirmed aspirin 81 mg chewable tablet 81 mg PO DAILY 01/27/17 09/12/23 calcium-vitamin D3-vitamin K 500 1 ea PO DAILY 01/27/17 09/12/23 mg-1,000 unit-40 mcg chewable tablet multivitamin (Daily Multiple 1 ea PO DAILY 01/27/17 09/12/23 tablet) atorvastatin 40 mg tablet (Lipitor) 40 mg PO QPM #30 tabs 05/15/19 09/12/23 docusate sodium 100 mg capsule 100 mg PO TID PRN PRN #30 caps 05/15/19 09/12/23 (Colace) diclofenac potassium 50 mg tablet 50 mg PO BID PRN PRN 12/15/19 09/12/23 (Cataflam) gabapentin 100 mg capsule 200 mg PO TID PRN PRN 12/15/19 09/12/23 omeprazole 20 mg capsule,delayed 20 mg PO DAILY 02/02/22 09/12/23 release sucralfate 1 gram tablet 1 g PO BID 02/02/22 09/12/23 albuterol sulfate 90 mcg/actuation 1 inh inhalation Q4H PRN 02/25/22 09/12/23 aerosol inhaler (Ventolin HFA) vitamins A,C,R-pfyd-ucikbs 4,296 1 cap PO BID 03/04/22 09/12/23 mcg-226 mg-90 mg capsule (PreserVision AREDS) budesonide-formoterol HFA 160 2 inh inhalation BID 04/02/23 09/12/23 mcg-4.5 mcg/actuation aerosol inhaler (Symbicort) levofloxacin 750 mg tablet 750 mg PO DAILY #6 tabs 08/26/23 02/04/24 prednisone 20 mg tablet 40 mg (2 x 20 mg) PO DAILY #10 tabs 04/03/23 09/12/23 diclofenac sodium 1 % topical gel 1 g topical QID PRN pain #100 grams 09/12/23 (Voltaren Arthritis Pain) lidocaine 5 % topical patch 1 patch topical DAILY PRN pain #15 09/12/23 ea Previous Rx's Medication Instructions Recorded atorvastatin 40 mg tablet (Lipitor) 40 mg PO QPM #30 tabs 05/15/19 docusate sodium 100 mg capsule 100 mg PO TID PRN PRN #30 caps 05/15/19 (Colace) levofloxacin 750 mg tablet 750 mg PO DAILY #6 tabs 04/03/23 prednisone 20 mg tablet 40 mg (2 x 20 mg) PO DAILY #10 tabs 04/03/23 diclofenac sodium 1 % topical gel 1 g topical QID PRN pain #100 grams 09/12/23 (Voltaren Arthritis Pain) lidocaine 5 % topical patch 1 patch topical DAILY PRN pain #15 09/12/23 ea Allergies Allergy/AdvReac Type Severity Reaction Status Date / Time varenicline [From Chantix] AdvReac stomach Verified 09/12/23 12:20 problems, depression General Stated Complaint: Orthopedic YADY: 4 Review of Systems Constitutional Constitutional: Denies frequent falls Cardiovascular Cardiovascular: Denies chest pain and Denies dyspnea Respiratory Respiratory: Denies dyspnea Gastrointestinal Gastrointestinal: Denies abdominal pain Musculoskeletal Musculoskeletal: Reports as per HPI, Reports arthralgias, Reports stiffness and Reports other (left rib pain ) Neurologic Neurologic: Denies frequent falls Exam Const General: cooperative, no acute distress and not ill appearing Orientation: alert, awake and oriented x3 HENGA Mouth: moist mucous membranes Chest Chest: tenderness rib posterior-axillary line involving the 6th rib, involving the 7th rib, involving the 8th rib and involving the 9th rib Resp Effort & Inspection: normal respiratory effort, able to speak in complete sentences and no respiratory distress Auscultation: clear to auscultation bilaterally Cardio Rate: regular rate Rhythm: regular rhythm Heart Sounds: S1 normal and S2 normal Skin General skin exam: no rashes or lesions noted Neuro General: patient alert, patient awake, patient oriented x3, moves all extremities and no focal motor deficits Sensory Exam: no sensory deficits noted Extrem General: normal exam except as noted Right lower extremity: hip/thigh Details: tenderness Location: of the mid upper leg Location: anteriorly and knee Details: tenderness Location: of the medial joint line, normal ROM and knee ligament exam abnormal Details: valgus stress test normal Details: pain noted; no ecchymosis and no crepitus Course Vital Signs Vital signs: Vital Signs Temperature 36.7 C 09/12/23 09:57 Pulse 88 09/12/23 09:57 Respiratory Rate 18 09/12/23 09:57 Blood Pressure 168/74 H 09/12/23 09:57 Pulse Oximetry 96 09/12/23 09:57 Temperature 36.7 C 09/12/23 09:57 Temperature Source Skin 09/12/23 09:57 Pulse 89 09/12/23 10:13 Respiratory Rate 18 09/12/23 10:13 Blood Pressure 190/92 H 09/12/23 10:13 Pulse Oximetry 95 09/12/23 10:13 Oxygen Delivery Method Room Air 09/12/23 10:13 Oxygen Flow Rate 0 09/12/23 10:13 Pain Level 3 09/12/23 09:57 Comment tylenol at 6am 09/12/23 09:57 Medical Decision Making Patient presenting to the emergency department for chief complaint of right knee injury. She states she was attempting to clean underneath her sink yesterday when her hand slipped from holding the counter and she landed hard on her knee. During the injury she also reinjured her left chest wall which initially started having pain 2 to 3 days after her surgery over a month ago. Patient denies any syncope, head injury, abdominal pain nausea vomiting. Physical exam shows left lateral rib tenderness, and tenderness to the medial joint line and pain with valgus testing. Exam is otherwise noncontributory. Will plan on performing radiological imaging given patient's significant past medical history of fractures secondary to osteoporosis. Review of radiological imaging shows no acute findings within the knee or femur. Radiologist interpretation does show a fracture of the seventh eighth and ninth ribs. While I do not feel this is acute from the fall that patient suffered it is odd that she started having pain in this area postoperatively. Recommended l idocaine patch along with ketorolac gel. Patient otherwise continue to use acetaminophen as needed for discomfort. After discussion of diagnosis and plan of care patient and family member has no further needs, questions, or concerns and states clear understanding to return to the emergency department for any worsening symptoms. This documentation was generated using [employer] system, please disregard any oddities of phrase or misspellings. Imaging Data Radiologic Study: Imaging: X-Ray Radiologist's impression: Exam(s) PROCEDURE INFORMATION: Exam: XR Left Ribs Exam date and time: 09/12/2023 11:01 AM Age: 83 years old Clinical indication: Other: Pain, fall; Painful respiration and other: Fall TECHNIQUE: Imaging protocol: Radiologic exam of the left ribs. Views: 2 views. COMPARISON: CT CHEST PE CTA 04/02/2023 5:06 PM FINDINGS: Bones/joints: There are nondisplaced fractures of the left posterior lateral 7th, 8th and 9th ribs. There is moderate to marked dextroscoliosis with a apex at L1-L2. There is a partially visualized estevan in the right femur. Soft tissues: There are surgical clips in the left lateral chest wall and axilla. IMPRESSION: Nondisplaced fracture of left posterolateral 7th, 8th and 9th ribs. PROCEDURE INFORMATION: Exam: XR Chest Exam date and time: 09/12/2023 11:01 AM Age: 83 years old Clinical indication: Other: Pain, fall; Painful respiration and other: Fall TECHNIQUE: Imaging protocol: Radiologic exam of the chest. Views: 2 views. COMPARISON: CT CHEST PE CTA 04/02/2023 5:06 PM FINDINGS: Lungs: Lungs are consistent with COPD and emphysema. No consolidation. Pleural spaces: Unremarkable. No pleural effusion. No pneumothorax. Heart/Mediastinum: Unremarkable. No cardiomegaly. Bones/joints: There are nondisplaced fractures of the lateral 7th, 8th and 9th ribs. There is moderate to marked dextroscoliosis with a apex at L1-L2. IMPRESSION: 1. No acute pulmonary process. 2. COPD pattern. Radiologic Study #2: Imaging: X-Ray Radiologist's impression: Exam(s) PROCEDURE INFORMATION: Exam: XR Left Knee Exam date and time: 09/12/2023 11:13 AM Age: 83 years old Clinical indication: Other: Fall TECHNIQUE: Imaging protocol: Radiologic exam of the left knee. Views: 4 or more views. COMPARISON: No relevant prior studies available. FINDINGS: Bones/joints: There is no acute fracture or dislocation. Mild enthesopathic spurring the superior patella. Soft tissues: Normal. IMPRESSION: No acute fracture or dislocation. Exam(s) PROCEDURE INFORMATION: Exam: XR Right Femur Exam date and time: 09/12/2023 11:14 AM Age: 83 years old Clinical indication: Other: Fall TECHNIQUE: Imaging protocol: Radiologic exam of the right femur. Views: 2 views. COMPARISON: CT ABDOMEN PELVIS W 02/28/2019 2:55 PM FINDINGS: Bones/joints: There is intramedullary estevan with screw in the proximal right femur. There is adjacent heterotrophic ossification. The estevan is overlying chronic healed fracture of the right intertrochanteric region . There are chronic fractures of the right superior inferior pubic rami unchanged Soft tissues: Unremarkable. IMPRESSION: 1. No acute fracture or dislocation. 2. Estevan and screw in the proximal femur overlying chronic healed fracture. There are chronic fractures of the right superior and inferior pubic rami, similar to prior. Quality:SDOH Health Related Social Needs: No Data to Display PFSH All Active Problems (Updated 09/12/23 @ 12:24 by Kenny Lara NP) Elevated blood pressure reading (Acute) Right knee injury (Acute) Fracture, ribs (Acute) Hyperlipidemia (Chronic) Hypoxemia (Acute) Pneumonia (Acute) COPD exacerbation (Acute) Esophageal stricture (Acute) COPD (chronic obstructive pulmonary disease) (Chronic) GERD (gastroesophageal reflux disease) (Chronic) Dysphagia (Acute) Hiatal hernia (Chronic) Normocytic normochromic anemia (Acute) Bilateral carotid bruits (Acute) Aspiration pneumonia (Acute) Medical History BCC (basal cell carcinoma), face Bilateral hip pain Breast cancer Chronic insomnia COPD exacerbation COVID 04/14/22 Depression Former smoker GERD (gastroesophageal reflux disease) History of breast cancer 2008 History of traumatic fracture of hip Hypokalemia Hypomagnesemia Irregular heart rate pt. denies Left knee pain Low back pain Pneumonia Pneumonia Surgical History Closed fracture of left distal femur (05/10/19) S/P ORIF on 05/12/19 EGD - MAC (02/05/17) Dr Marcial, [facility], EGD with balloon dilation; repeat procedure 04/14/2019, Dr. Inez Ruffin S/P breast lumpectomy left breast lumpectomy; follow up XRT, 2002 Status post THR (total hip replacement) pt. denies replacement-states just rods inserted Family History Mother Lung disease Daughter Lung disease Substance abuse Hypertension Maternal Aunt Colon cancer Heart disease Social History Smoking/Tobacco Use Status: Current every day Tobacco Type: cigarettes Smoking risk assessment performed?: Yes Alcohol Intake: current Alcohol Intake frequency: holidays/special occasions only Drug use: Never Substance use type: does not use Household members: children Housing: apartment Current gender identity: female What is your relationship status?: Panel score (0-1 are the most socially isolated patients): 0 Do you feel safe at home: Yes Do you feel safe in your relationship?: Yes History History 3 Para Hx # Term Pregnancies 3 Multiple births Hx # Pregnancies Ectopic pregnancies AB induced Hx Number of Living Children 2 AB spontaneous Discharge Plan Disposition Patient Disposition: Home Discharge Details Clinical Impression: Fracture, ribs, Right knee injury, Elevated blood pressure reading Primary Care Provider: Shea Bonner ED Provider: Kenny Lara Home Meds and New Rx's Prescriptions: New diclofenac sodium [Voltaren Arthritis Pain] 1 % gel 1 g topical QID PRN (Reason: pain) Qty: 100 1RF Rx Instructions: apply to single elbow, wrist or hand; for hand includes palm/fingers/back of hand lidocaine 5 % adhesive patch,medicated 1 patch topical DAILY PRN (Reason: pain) Qty: 15 1RF Rx Instructions: leave on most painful area for 12 hrs No Action PreserVision AREDS [id number] capsule 1 cap PO BID multivitamin [Daily Multiple] 1 EACH tablet 1 ea PO DAILY aspirin 81 MG tablet,chewable 81 mg PO DAILY Patient Comments: Pt reports PCP D/C'd calcium-vitamin D3-vitamin K 1 EACH tablet,chewable 1 ea PO DAILY albuterol sulfate [Ventolin HFA] 90 mcg/actuation HFA aerosol inhaler 1 inh inhalation Q4H PRN atorvastatin [Lipitor] 40 mg Tablet 40 mg PO QPM Qty: 30 0RF docusate sodium [Colace] 100 mg Capsule 100 mg PO TID PRN PRNQty: 30 0RF Patient Comments: not on pt list diclofenac potassium [Cataflam] 50 mg Tablet 50 mg PO BID PRN PRN gabapentin 100 mg Capsule 200 mg PO TID PRN PRN budesonide-formoterol [Symbicort] 160-4.5 mcg/actuation Hfa Aerosol Inhaler 2 inh INHALATION BID levofloxacin 750 mg tablet 750 mg PO DAILY Qty: 6 0RF prednisone 20 mg tablet 40 mg PO DAILY Qty: 10 0RF omeprazole 20 mg Capsule,Delayed Release(Dr/Ec) 20 mg PO DAILY sucralfate 1 gram Tablet 1 g PO BID Discharge Instructions Instructions: Rib Fracture (ED), Swollen Knee Joint (ED) Additional Instructions: You may perform light duty activities as tolerated. Return to the emergency department immediately for any new or significant worsening of symptoms otherwise follow-up with your primary care provider if not improving in the next week. Please follow-up with your primary care provider for reassessment of your elevated blood pressure. Referrals: Shea Bonner [Primary Care Provider] - 1 week (as needed for reassessment) Discharge Data Discharge Date/Time-TO BE ENTERED AT DEPARTURE: 09/12/23 12:36
[2023-09-12] MEDS: Diclofenac 1% Gel 100 GM TUBE TP (11:31)
--- NOTE | 2023-09-12 11:36 | DI.RAD_ITS ---
Exam(s) XR RIBS LT W PA LAT CHEST EXAM: XR RIBS LT W PA LAT CHEST CLINICAL HISTORY: fall. TECHNIQUE: 2D digital imaging was performed. COMPARISON: CR XR PORTABLE CHEST AP from 02/02/2022 FINDINGS: Total views=6 LEFT RIBS FOUR VIEWS: There fractures of the posterolateral aspect left 7th 8th 9th ribs. These may be subacute. No osseous lesions. Scoliosis noted. No lysis action clips in left axilla noted. CHEST TWO VIEWS: Heart size normal. Mediastinum is not widened. No infiltrates nor pleural effusion s. No pulmonary edema. No pneumothorax. No lung contusion. Scoliosis noted convex right. IMPRESSION: Fractures of the left 7th 8th and 9th ribs. Probably subacute. No acute pulmonary findings. No pneumothorax. Previous left mastectomy and left axillary no dissection. No pulmonary nodules. DATA REPOSITORY: RADIATION DOSE DELIVERED:
--- NOTE | 2023-09-12 11:37 | DI.RAD_ITS ---
Exam(s) XR FEMUR RT EXAM: XR FEMUR RT CLINICAL HISTORY: fall. TECHNIQUE: 2D digital imaging was performed. COMPARISON: CR XR FEMUR LT from 06/01/[address] CHEST PE CTA from 04/02/2023 FINDINGS: Four views. There is a lag screw with supporting broad across healing intertrochanteric fracture of the right hip . No acute fractures evident. No hardware loosening nor migration. There are no acute fractures in the femur. There fractures evident in the superior and inferior pubi c rami on the right side seen in the field of view of this study. These may not be acute. IMPRESSION: No evidence of right femur fracture. Fractures of the ipsilateral superior and inferior pubic rami which are probably not acute but correl ation with site tenderness recommended DATA REPOSITORY: RADIATION DOSE DELIVERED:
--- NOTE | 2023-09-12 11:37 | DI.RAD_ITS ---
Exam(s) XR KNEE RT 4V AP,LAT,RANDA,PAT EXAM: XR KNEE RT 4V AP,LAT,RANDA,PAT CLINICAL HISTORY: fall. TECHNIQUE: 2D digital imaging was performed. COMPARISON: CR XR KNEE LT 2V AP,LAT from 10/02/2019 FINDINGS: Five views. There is age-related osteopenia but no evidence of acute fracture nor joint effusion. There is no korey int space narrowing in all 3 compartments. No osteophytes. No osteochondral defects. IMPRESSION: No acute osseous findings in the knee and no joint effusion evident. DATA REPOSITORY: RADIATION DOSE DELIVERED:
--- NOTE | 2023-09-12 11:50 | DI.VRAD_ITS ---
PROCEDURE INFORMATION: Exam: XR Left Ribs Exam date and time: 09/12/2023 11:01 AM Age: 83 years old Clinical indication: Other: Pain, fall; Painful respiration and other: Fall TECHNIQUE: Imaging protocol: Radiologic exam of the left ribs. Views: 2 views. COMPARISON: CT CHEST PE CTA 04/02/2023 5:06 PM FINDINGS: Bones/joints: There are nondisplaced fractures of the left posterior lateral 7th, 8th and 9th ribs. There is moderate to marked dextroscoliosis with a apex at L1-L2. There is a partially visualized jane in the right femur. Soft tissues: There are surgical clips in the left lateral chest wall and axilla. IMPRESSION: Nondisplaced fracture of left posterolateral 7th, 8th and 9th ribs. PROCEDURE INFORMATION: Exam: XR Chest Exam date and time: 09/12/2023 11:01 AM Age: 83 years old Clinical indication: Other: Pain, fall; Painful respiration and other: Fall TECHNIQUE: Imaging protocol: Radiologic exam of the chest. Views: 2 views. COMPARISON: CT CHEST PE CTA 04/02/2023 5:06 PM FINDINGS: Lungs: Lungs are consistent with COPD and emphysema. No consolidation. Pleural spaces: Unremarkable. No pleural effusion. No pneumothorax. Heart/Mediastinum: Unremarkable. No cardiomegaly. Bones/joints: There are nondisplaced fractures of the lateral 7th, 8th and 9th ribs. There is moderate to marked dextroscoliosis with a apex at L1-L2. IMPRESSION: 1. No acute pulmonary process. 2. COPD pattern. Dictated and Authenticated by: George Mars MD. Ordering:SUHAIL Cox MD
--- NOTE | 2023-09-12 11:51 | DI.VRAD_ITS ---
PROCEDURE INFORMATION: Exam: XR Left Knee Exam date and time: 09/12/2023 11:13 AM Age: 83 years old Clinical indication: Other: Fall TECHNIQUE: Imaging protocol: Radiologic exam of the left knee. Views: 4 or more views. COMPARISON: No relevant prior studies available. FINDINGS: Bones/joints: There is no acute fracture or dislocation. Mild enthesopathic spurring the superior patella. Soft tissues: Normal. IMPRESSION: No acute fracture or dislocation. Dictated and Authenticated by: George Mars MD. Ordering:SUHAIL Cox MD
--- NOTE | 2023-09-12 11:57 | DI.VRAD_ITS ---
PROCEDURE INFORMATION: Exam: XR Right Femur Exam date and time: 09/12/2023 11:14 AM Age: 83 years old Clinical indication: Other: Fall TECHNIQUE: Imaging protocol: Radiologic exam of the right femur. Views: 2 views. COMPARISON: CT ABDOMEN PELVIS W 02/28/2019 2:55 PM FINDINGS: Bones/joints: There is intramedullary estevan with screw in the proximal right femur. There is adjacent heterotrophic ossification. The estevan is overlying chronic healed fracture of the right intertrochanteric region . There are chronic fractures of the right superior inferior pubic rami unchanged Soft tissues: Unremarkable. IMPRESSION: 1. No acute fracture or dislocation. 2. Estevan and screw in the proximal femur overlying chronic healed fracture. There are chronic fractures of the right superior and inferior pubic rami, similar to prior. Dictated and Authenticated by: George Mars MD. Ordering:SUHAIL Cox MD
[2023-09-12 12:20] VITALS: BP 166/86; PULSE 82; RESP 14; TEMP 36.9; O2SAT 97
[2023-09-12] MEDS: Lidocaine 5% Patch 1 PATCH TP (12:21)
== END 2023-09-12 12:36 | disposition home or self-care (01) ==
PROVIDERS: Emergency Provider Nurse Practitioner Family; PCP Family Medicine
DX: S22.42XA Multiple fractures of ribs, left side, initial encounter for closed fracture (principal); S89.81XA Other specified injuries of right lower leg, initial encounter; J44.9 Chronic obstructive pulmonary disease, unspecified; F17.210 Nicotine dependence, cigarettes, uncomplicated; Z79.82 Long term (current) use of aspirin; W18.39XA Other fall on same level, initial encounter; Y93.E9 Activity, other interior property and clothing maintenance; Y92.010 Kitchen of single-family (private) house as the place of occurrence of the external cause
CPT/HCPCS: 73552; 99284; 71046; 71100; 73564

== ENCOUNTER 2023-10-13 15:02 | Outpatient (REF) | payer MEDICARE, SELFPAY ==
[2023-10-13 14:35] LABS: HCT 38.1 % (36.0-46.0); HGB 12.3 g/dL (11.2-15.7); MCH 29.7 pg (27.0-33.0); MCHC 32.3 % (32.0-36.0); MCV 92 fL (80-95); MPV 12.5 fL (8.0-11.0); Platelet Count 230 10^3/uL (130-400); RBC 4.14 10^6/uL (3.93-5.22); RDW 14.5 % (11.7-14.6); RDW-SD 48.9 fL
[2023-10-13 15:18] LABS: Anion Gap 7.8 mmol/L (3-11); BUN 14 mg/dL (7-18); CO2 29.2 mmol/L (21.0-32.0); CREATININE 0.7 mg/dL (0.55-1.02); Calcium 9.9 mg/dL (8.5-10.1); Chloride 100 mmol/L (98-107); Estimated GFR 86.83 (mL/min/1.73m2); Ferritin 57 ng/mL (8-252); Glucose 104 mg/dL (74-106); Potassium 4.3 mmol/L (3.5-5.1); Sodium 137 mmol/L (136-145)
[2023-10-13 16:14] LABS: Iron 32 ug/dL (50-170); Total Iron Binding Capacity 327 ug/dL (250-450); Transferrin Sat 10 % (15-50)
== END 2023-10-13 15:03 | disposition home or self-care (01) ==
LOC: NCHCN 15:02
PROVIDERS: PCP Family Medicine; Referring Provider Family Medicine; Visit Provider Family Medicine
DX: D50.9 Iron deficiency anemia, unspecified (principal)
CPT/HCPCS: 80048; 85027; 82728; 83540; 83550

== ENCOUNTER → 2023-12-20 13:31 | Outpatient (BNVA) | payer MEDICARE, SELFPAY | PROVIDERS: PCP Family Medicine; Referring Provider Family Medicine; Visit Provider Surgery | DX: R13.10 Dysphagia, unspecified (principal); K22.2 Esophageal obstruction; K44.9 Diaphragmatic hernia without obstruction or gangrene; K22.70 Barrett's esophagus without dysplasia; D64.9 Anemia, unspecified | CPT/HCPCS: 99215 ==

== ENCOUNTER → 2023-12-21 08:09 | Outpatient (BNVA) | payer MEDICARE, SELFPAY | PROVIDERS: PCP Family Medicine; Referring Provider Family Medicine; Visit Provider Surgery ==

== ENCOUNTER 2023-12-24 06:13 | Day surgery (SDC) | payer MEDICARE, SELFPAY ==
--- NOTE | 2023-12-22 11:43 | DSU.FORM ---
Patient stated My doctor took me off aspirin yesterday. She said I didn't need to be on it any more. Patient reported her last dose of aspirin 81 mg taken was 12/21/23.
[2023-12-24 06:44] VITALS: BP 149/74; PULSE 83; RESP 16; TEMP 36.7; O2SAT 96
[2023-12-24] MEDS: Lactated Ringers 1,000 ML 80 ML IV (06:51)
--- NOTE | 2023-12-24 07:17 | W.ANESPRE ---
General Info Date of Service Date Performed: 12/24/23 Height: 5 ft 2 in Weight: 37.8 kg Body Mass Index (BMI): 15.2 Surgical Procedure: Operation Date: 12/24/23 07:35 Proposed Procedure Side Surgeon p Gastroscopy with Dilation Annemarie Thompson, Meds Allergies and Home Medications Allergies Allergy/AdvReac Type Severity Reaction Status Date / Time varenicline [From Chantix] AdvReac stomach Verified 12/24/23 06:24 problems, depression Home Medication Medication Instructions Recorded calcium-vitamin D3-vitamin K 500 1 ea PO DAILY 01/27/17 mg-1,000 unit-40 mcg chewable tablet multivitamin (Daily Multiple 1 ea PO DAILY 01/27/17 tablet) atorvastatin 40 mg tablet (Lipitor) 40 mg PO QPM #30 tabs 05/15/19 gabapentin 100 mg capsule 200 mg PO TID PRN PRN 12/15/19 sucralfate 1 gram tablet 1 g PO BID 02/02/22 albuterol sulfate 90 mcg/actuation 1 inh inhalation Q4H PRN 02/25/22 aerosol inhaler (Ventolin HFA) vitamins A,C,H-jnbc-wuqjpo 4,296 1 cap PO BID 03/04/22 mcg-226 mg-90 mg capsule (PreserVision AREDS) lidocaine 5 % topical patch 1 patch topical DAILY PRN pain #15 09/12/23 ea pantoprazole 40 mg tablet,delayed 40 mg PO DAILY #90 tabs 12/21/23 release (Protonix) latanoprost 0.005 % eye drops 1 drp ophthalmic (eye) QPM 12/22/23 Current Visit Medications: Current Medications Generic Name Dose Route Start Last Admin Trade Name Freq PRN Reason Stop Dose Admin Ringer's Solution 1,000 mls @ 80 mls/hr 12/24/23 06:00 12/24/23 06:51 IV 01/22/24 23:59 80 mls/hr INFUSION SHAKIRA Administration IV Miscellaneous Supplies 1 each 12/24/23 06:00 Iv Access IV 01/22/24 23:59 DIRECTED SHAKIRA Ondansetron HCl 4 mg 12/24/23 06:18 Ondansetron 4 Mg/2 Ml Vial IVP 01/23/24 06:17 Q4H PRN PRN Nausea / Vomiting Sodium Chloride 0 ml 12/24/23 06:00 Normal Saline Flush 10 Ml Syr IV 01/22/24 23:59 PRN PRN Sodium Chloride 0 ml 12/24/23 06:00 Normal Saline 10 Ml Vial IJ 01/22/24 23:59 DIRECTED PRN Sterile Water 0 ml 12/24/23 06:00 Water,Injection,Sterile 10 Ml Vial IJ 01/22/24 23:59 DIRECTED PRN PFSH Active Problems Active Problems: Problem Status Onset Code Hyperlipidemia E78.5 Hypoxemia R09.02 Pneumonia J18.9 COPD exacerbation J44.1 Esophageal stricture K22.2 COPD (chronic obstructive pulmonary disease) J44.9 GERD (gastroesophageal reflux disease) K21.9 Dysphagia R13.10 Hiatal hernia K44.9 Normocytic normochromic anemia D64.9 Bilateral carotid bruits R09.89 Aspiration pneumonia J69.0 Medical History Medical History (Updated 12/24/23 @ 07:27 by Annemarie Thompson DO) COVID 04/14/22 Pneumonia Depression Chronic insomnia BCC (basal cell carcinoma), face Bilateral hip pain History of traumatic fracture of hip History of breast cancer 2008 Low back pain Left knee pain Irregular heart rate pt. denies Former smoker Hypomagnesemia Hypokalemia Pneumonia COPD exacerbation GERD (gastroesophageal reflux disease) Breast cancer Medical History Comments:: Pt. COVID Positive 04/14 stated she was mostly asymptomatic with a slight raspy voice but states that was all Surgical History Surgical History History of colonoscopy Closed fracture of left distal femur (05/10/19) S/P ORIF on 05/12/19 S/P breast lumpectomy left breast lumpectomy; follow up XRT, 2001 Status post THR (total hip replacement) pt. denies replacement-states just rods inserted EGD - MAC (02/05/17) Dr Marcial, [facility], EGD with balloon dilation; repeat procedure 04/14/2019, Dr. Inez Ruffin Tobacco Smoking/Tobacco Use Status: Current every day Tobacco Type: cigarettes Smoking cigarettes per day: 6 Alcohol Alcohol Intake: current Alcohol intake frequency: holidays/special occasions only Substance Use Substance use: Never Substance use type: does not use Prental History History 3 Para Hx # Term Pregnancies 3 Multiple births Hx # Pregnancies Ectopic pregnancies AB induced Hx Number of Living Children 2 AB spontaneous Vital Signs and Lab Results Vital Signs Most Recent Vital Signs in EMR: Most Recent Vital Signs Temp Pulse Resp BP Pulse Ox 36.7 C 83 16 149/74 H 96 12/24/23 06:44 12/24/23 06:44 12/24/23 06:44 12/24/23 06:44 12/24/23 06:44 Lab Results Blood Type / Crossmatch: No Data to Display Complete Blood Count: No Data to Display Complete Metabolic Panel: No Data to Display Liver Function Panel: No Data to Display Coagulation Panel: No Data to Display Cardiac Panel: No Data to Display Arterial Blood Gas: No Data to Display Venous Blood Gas: No Data to Display Pancreas Panel: No Data to Display Thyroid Panel: No Data to Display Infectious Disease: No Data to Display Blood Cultures: No Data to Display Toxicology Panel: No Data to Display Imaging and Studies Imaging and Studies Study information below may be from another EMR and interpreted by another provider. Please see original notes in EMR for more complete details. EKG Summary: 01/28: sinus tach. PVCs Carotid Artery Summary:: 05/2019: >70% stenosis proximal left ICA. Anesthesia Assessment and Plan Anesthesia History Personal History: No History of Anesthesia Complications Family History: No Family History of Anesthesia Complications Exercise Tolerance Exercise Tolerance: Metabolic Equivalents<4 Pertinent Negatives Pertinent Negatives: No Major Cardiovascular Symptoms or Complaints Cardiac & Pulmonary Exam Cardiac Exam: Normal S1/S2 Heart Sounds Pulmonary Exam: Rhonchi Present (chronic cough and COPD) Implantable Cardiac Device Does patient have a Pacemaker or an ICD?: No Airway Exam Known Difficult Airway: No Mallampati Class: 1 Mouth Opening: Normal (> 3cm) Thyromental Distance: Greater than 3 cm Neck Range of Motion: Full ROM Neck Circumference: Normal Teeth Condition: Removable Dentures/Plates Upper and Removable Dentures/Plates Lower ASA Classification ASA Score: ASA 3 Emergency Case?: No NPO Status NPO Status: NPO Clears >2 hours, Solids >8 hours Anesthesia Plan Resuscitation Status: Full Code Anesthesia Technique: General Anesthesia Airway Planned: Natural Airway Monitors Used: Standard Monitors
[2023-12-24 07:19] VITALS: BMI 15.2
--- NOTE | 2023-12-24 07:47 | STOM_PTH ---
PATIENT: Zulema Urban LOC: [facility] U#:[id number] AGE/SX: 83/F ROOM: RE12/24/[address]: Annemarie Thompson : 1940 BED: DIS: 12/24/2023 SPEC #: [id number] RECD: 12/24/23 11:56 STATUS: ZELALEM BIANCHI #: [id number] KERRI: 12/24/23 07:[address]: Annemarie Thompson DEPT: Surgical Specimen RECD BY: Alicia Anderson ENTERED: 12/24/23 11:57 SP TYPE: STOMACH OTHR DR: Shea Bonner Tissues: 1 - STOMACH BIOPSY 2 - STOMACH BIOPSY 3 - ESOPHAGUS BIOPSY Procedures: GROSS AND MICRO LEVEL 4 Comments: [id number]
--- NOTE | 2023-12-24 08:06 | W.PM.ENDDOP ---
Date of service: 12/24/23 Time of Service: 08:07 Endoscopy Report DATE OF PROCEDURE: 12/24/23 PRE-OP DIAGNOSIS: Beasley's esophagitis/esophageal stricture/dysphagia POST-OP DIAGNOSIS: other (Severe esophagitis/benign esophageal stricture/hiatal hernia) PROCEDURE: EGD and esophageal dilation SURGEON: Annemarie Thompson ANESTHESIA TYPE: General:No Airway ESTIMATED BLOOD LOSS: 1 PATHOLOGY: other COMPLICATIONS: None DISPOSITION: same day PROCEDURE DESCRIPTION: After informed consent was obtained the patient was take to the procedure room and placed in a supine position. Monitors were applied and a time out was done. The patients name, date of , procedure type, allergies to medications and metal in their body was reviewed. A bite block was placed and the patient was sedated. Once sedated and comfortable the gastroscope was advanced through the oropharynx which was grossly normal into the esophagus. The proximal and mid-esophagus were normal. In the distal esophagus there was severe esophagitis and esophageal stricture. It does appear to be benign. She has a 2 cm sliding hiatal hernia the scope was advanced into the stomach and through the pylorus into the 3rd portion of the duodenum. The duodenum was noted to be normal. The scope was retracted back into the stomach and biopsies were done to rule out H. pylori. There were no gastritis or ulcers. The scope was retroflexed. The cardia and fundus were noted to be normal. The scope was retracted back into the esophagus and biopsies were done of the GE junction to rule out Beasely's. The GE junction was at 30 cm cm. The scope was removed and the patient was woken up and taken back to [facility] in stable condition.
[2023-12-24 08:11] VITALS: BP 94/75; PULSE 88; RESP 20; TEMP 36.5; O2SAT 96
--- NOTE | 2023-12-24 08:11 | PDOC.DSDIS_ITS ---
Date of service: 12/24/23 Time of Service: 08:11 Discharge Plan Disposition Patient Disposition: Home Condition: Improving Discharge Details Reason For Visit: EGD Attending Provider: Annemarie Thompson Primary Care Provider: Shea Bonner Home Meds and New Rx's Prescriptions: No Action PreserVision AREDS [id number] ewkd-oy-viex capsule 1 cap PO BID multivitamin [Daily Multiple] 1 EACH tablet 1 ea PO DAILY calcium-vitamin D3-vitamin K 1 EACH tablet,chewable 1 ea PO DAILY albuterol sulfate [Ventolin HFA] 90 mcg/actuation HFA aerosol inhaler 1 inh inhalation Q4H PRN pantoprazole [Protonix] 40 mg tablet,delayed release (DR/EC) 40 mg PO DAILY Qty: 90 4RF atorvastatin [Lipitor] 40 mg Tablet 40 mg PO QPM Qty: 30 0RF gabapentin 100 mg Capsule 200 mg PO TID PRN PRN lidocaine 5 % adhesive patch,medicated 1 patch topical DAILY PRN (Reason: pain) Qty: 15 1RF Rx Instructions: leave on most painful area for 12 hrs sucralfate 1 gram Tablet 1 g PO BID latanoprost 0.005 % drops 1 drp ophthalmic (eye) QPM Discharge Instructions Additional Instructions: Post EGD Instruction ?You had anesthesia for your EGD/stomach scope today.? For your safety, please do the following for the next twenty-four (24) hours: Do Not operate a motor vehicle (car, truck, motorcycle, etc.) Do Not drink alcoholic beverages or use any recreational drugs for the first 24 hours or while taking pain medications. The medications in your body may have a reaction that can be dangerous. Do Not make any important decisions or sign any important papers You have just had a gastroscopy (EGD) or upper GI tract examination. It is important for your smooth recovery that you carefully follow the recommendations below. Do not hesitate to call if any questions should arise about your anesthesia, condition, or care. -Symptoms you may experience during the next 24 hours: ?1. Mild abdominal pain or excessive gas or a bloated feeling which improves with rest, liquids, eating? slightly, and walking as tolerated. 2. Drowsiness and/or forgetfulness because of the medications you were given. ?3. Throat numbness for about 1 hour. 4. A sore throat which you can treat with throat lozenges or by gargling with salt water 4-5 times a day. 5. Redness at the site of your IV which you can treat with warm compresses. SPECIAL INSTRUCTIONS: 1. Liquids only for the next 24 hours. Then you can start with thick liquids such as puddings or yogurt. 2. Avoid any caffeine or alcohol for the next 24 hours 3. No aspirin or non-steroidal containing medication 4. No lifting over 20 pounds or strenuous activity for the first 24 hours after your procedure. After 24 hours there are no restrictions on your activity, but you may feel fatigued for a few days. Findings: Severe esophagitis esophageal stricture and Vivien Treatment: Will need repeated dilations. Follow-up in the office in 6 weeks time -Medications: Protonix twice a day and Carafate 4 times a day -Continue to follow lifestyle modifications: No alcohol, tobacco products, Aspirin or NSAID's (ibuprofen, Motrin, Naprosyn, aleve, etc).? Try to limit/avoid:? soda pop/any carbonated beverages, caffeine (including tea & chocolate), and acidic foods, (tomatoes, citrus, onions, peppermints) spicy or fried/fatty foods. Do not lie down for 30 minutes after eating, and do not eat 2 hours prior to bedtime. Avoid wearing tight fitting clothing/ belts. Follow up: -My office will send a letter with the results of your biopsy?s in 2-3wks time. Call the office at [phone] (Office) or [phone] (Hospital), or go to the ER right away if you notice any of the followin. Vomiting blood and /or ?coffee ground? material. ?2. Worsening of abdominal pain or cramping. ?3. Trouble with breathing, cough, and/or fever (temperature above 101.5 F). 4. Increasing pain with swallowing. ?5. Chest pain. 6. Any new symptoms. 7. Worsening of the redness at the IV site Activity:: See above Diet:: See above Discharge Orders Discharge Orders: Discharge Order (Routine); Ordered 12/24/23 Ordered By: Annemarie Thompson DS: Diagnosis Discharge Diagnosis (1) Hyperlipidemia: Status: Chronic (2) GERD (gastroesophageal reflux disease): Status: Chronic (3) Dysphagia: Status: Acute (4) Esophageal stricture: Status: Acute Asessment and Plan: Patient is seen and examined after they are endoscopy.? Patient has minimal sore throat.? They have been able to tolerate liquids.? They do not have any nausea vomiting.? They are not having any chest pain or shortness of breath.? They have been able to pass gas and are not having any abdominal pain or distention.? They have not vomited any blood.? The vital signs have been stable-see nursing notes. We discussed findings on their endoscopy. We reviewed the importance of lifestyle modification-see discharge instructions We reviewed any new medications that the patient may be prescribed-see discharge instructions Patient will either be sent a letter with the biopsy results or follow-up in the office-see discharge instructions. Patient was given explicit instructions to follow-up regarding post endoscopy- refer to discharge Patient verbalized understanding and discharged in stable and satisfactory condition.? See nursing notes. 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
--- NOTE | 2023-12-24 08:25 | W.ANESPOSTOP ---
Postoperative Evaluation Date, Time and Location Date Performed: 12/24/23 Time Performed: 08:25 Patient Location: Day Surgery Unit Vital Signs Most Recent Imported Vital Signs: Most Recent Vital Signs Temp Pulse Resp BP Pulse Ox 36.5 C 88 20 94/75 L 96 12/24/23 08:11 12/24/23 08:11 12/24/23 08:11 12/24/23 08:11 12/24/23 08:11 Pain Score Most Recent Pain Score: Most Recent Pain Score Pain Level 0 12/24/23 06:44 Assessment Mental Status: Awake (Alert & Oriented to Patient Baseline) Airway and Respiratory Function: Patent airway with normal (patient baseline) respiratory exam Cardiovascular Function: Hemodynamically Stable Hydration Status: Adequately Hydrated Nausea & Vomiting: No Nausea or Vomiting Pain: Pt. Denies Any Pain Peripheral Nerve Block: Patient did not receive a nerve block
[2023-12-24] MEDS: FLUCONAZOLE 200 MG/100 ML BAG 100 MG IVPB (08:27)
[2023-12-24 08:46] VITALS: BP 108/63; PULSE 79; RESP 18; TEMP 36.6; O2SAT 93
== END 2023-12-24 09:40 | disposition home or self-care (01) ==
PROVIDERS: PCP Family Medicine; Visit Provider Surgery
PROC: 0D758ZZ Dilation of Esophagus, Via Natural or Artificial Opening Endoscopic (ICD-10-PCS; CPT 43239; principal; 2023-12-24 07:30)
DX: R13.10 Dysphagia, unspecified (principal); K22.2 Esophageal obstruction; K44.9 Diaphragmatic hernia without obstruction or gangrene; K22.10 Ulcer of esophagus without bleeding; K31.9 Disease of stomach and duodenum, unspecified
CPT/HCPCS: 43239; 88305; J1450; J2405; J2704

== ENCOUNTER → 2024-02-07 12:18 | Outpatient (CLI) | payer MEDICARE, SELFPAY ==
--- NOTE | 2024-02-07 | DI.RAD_ITS ---
Exam(s) XR HIP PELVIS ADULT BL EXAM: XR HIP PELVIS ADULT BL CLINICAL HISTORY: ACUTE LOW BACK PAIN, LT SI JOINT TENDERNESSS, LT THIGH PAIN, ? FX. TECHNIQUE: 2D digital imaging was performed. COMPARISON: CT CT CHEST PE CTA from 04/02/2023 CR,XR XR FEMUR RT from 09/12/2023 FINDINGS: 3 views ORIF hardware is noted in both hips. There is also along lateral fixation plate in the left femur ex tending from the subtrochanteric region inferiorly beyond the field of view of this study. There is stable alignment of the hip joints. No significant hip joint space narrowing. No evidence of hardware loosening nor evidence of osteomyelitis. No obvious pelvic fractures. Calcified uterine fibroid noted in the right-side of the pelvis. Healed inferior and superior pubic ramus fractures on the right side are noted IMPRESSION: As above. DATA REPOSITORY: RADIATION DOSE DELIVERED:
--- NOTE | 2024-02-07 | DI.RAD_ITS ---
Exam(s) XR LUMBAR SPINE COMPLETE EXAM: XR LUMBAR SPINE COMPLETE CLINICAL HISTORY: ACUTE LOW BACK PAIN, M54.50,? FX, OSTEOPOROSIS. TECHNIQUE: 2D digital imaging was performed of the lumbar spine. Five images were obtained. AP, la teral, right oblique, left oblique and L5-S1 spot views were obtained. COMPARISON: CR,XR XR RIBS LT W PA LAT CHEST from 09/12/2023 FINDINGS: Examination is limited by patient body habitus and osteopenia. BONES: No fracture or destructive lesion. The bones are osteopenic. There are endplate osteophytes a t multiple levels of the lumbar spine. There are degenerative changes of the facets at L4-5 and L5-S 1. DISKS: There is disc space narrowing at multiple levels of the lumbar spine particularly T12-L1, L1-L 2 and L3-L4. ALIGNMENT: There is again seen a marked right convex scoliosis of the lumbar spine centered at the L1 -L2 level. No spondylolysis or spondylolisthesis. SOFT TISSUE: Atherosclerotic calcification is present. IMPRESSION: 1. Stable marked right convex thoracolumbar scoliosis. 2. Diffuse osteopenia. 3. Moderately severe degenerative changes in the lumbar spine. DATA REPOSITORY: RADIATION DOSE DELIVERED:
--- NOTE | 2024-02-07 | DI.RAD_ITS ---
Exam(s) XR FEMUR LT EXAM: XR FEMUR LT CLINICAL HISTORY: PAIN LT THIGH, M79.652. TECHNIQUE: 2D digital imaging was performed. Three images were obtained. AP and lateral views were obtained. COMPARISON: CR XR FEMUR LT from 06/01/2019 CR,XR XR FEMUR RT from 09/12/2023 FINDINGS: BONES: There are stable post operative changes present. No suspicious lucencies are seen in or about the orthopedic hardware. No new fracture or dislocation. JOINTS: There are degenerative changes seen in the knee. The hip is well maintained. SOFT TISSUE: Vascular calcifications are present. IMPRESSION: Stable postoperative changes. DATA REPOSITORY: RADIATION DOSE DELIVERED:
== END ==
PROVIDERS: PCP Family Medicine; Visit Provider Family Medicine
DX: M79.652 Pain in left thigh (principal); M54.50 Low back pain, unspecified
CPT/HCPCS: 73521; 73552; 72110

== ENCOUNTER 2024-02-07 15:52 | Outpatient (REF) | payer MEDICARE, SELFPAY ==
[2024-02-07 15:01] LABS: Abs Immature Grans 0.01 10^3/uL (0.0-0.06); Absolute Basophil Count 0.02 10^3/uL (0.0-0.2); Absolute Eosinophil Count 0.42 10^3/uL (0.0-0.7); Absolute Lymphocyte Count 1.29 10^3/uL (1.2-3.4); Absolute Monocyte Count 0.56 10^3/uL (0.1-0.8); Absolute Neutrophil Count 3.03 10^3/uL (1.2-6.7); Basophils % 0.4 %; Eosinophils % 7.9 %; HCT 35.2 % (36.0-46.0); HGB 11.1 g/dL (11.2-15.7); Immature Grans % 0.2 %; Lymphocytes % 24.2 %; MCH 26.3 pg (27.0-33.0); MCHC 31.5 % (32.0-36.0); MCV 83 fL (80-95); MPV 12.6 fL (8.0-11.0); Monocytes % 10.5 %; Neutrophils % 56.8 %; Platelet Count 254 10^3/uL (130-400); RBC 4.22 10^6/uL (3.93-5.22); RDW 14.3 % (11.7-14.6); RDW-SD 43.2 fL; WBC 5.33 10^3/uL (4.4-10.8)
[2024-02-07 15:29] LABS: Iron 36 ug/dL (50-170); Total Iron Binding Capacity 466 ug/dL (250-450); Transferrin Sat 8 % (15-50)
[2024-02-07 15:35] LABS: Ferritin 26 ng/mL (8-252)
== END 2024-02-07 15:53 | disposition home or self-care (01) ==
LOC: NCHCN 15:52
PROVIDERS: PCP Family Medicine; Visit Provider Family Medicine
DX: D50.9 Iron deficiency anemia, unspecified (principal)
CPT/HCPCS: 82728; 83540; 83550; 85025

== ENCOUNTER 2024-02-08 07:58 | Day surgery (SDC) | payer MEDICARE, SELFPAY ==
[2024-02-08 08:22] VITALS: BP 167/77; PULSE 88; RESP 16; TEMP 36.4; O2SAT 99
[2024-02-08] MEDS: Lactated Ringers 1,000 ML 80 ML IV (08:57)
--- NOTE | 2024-02-08 11:17 | W.PM.HP.N ---
Date of service: 02/08/24 Time of Service: 11:17 Assessment and Plan Assessment and plan (1) Bilateral carotid bruits: Status: Acute (2) Hyperlipidemia: Status: Chronic (3) Protein-calorie malnutrition, moderate: Status: Acute (4) GERD (gastroesophageal reflux disease): Status: Chronic Qualifiers: Esophagitis presence: with esophagitis Qualified Code(s): K21.0 - Gastro-esophageal reflux disease with esophagitis (5) Esophageal stricture: Status: Acute Assessment and plan: pt is here today for repeat EGD and dilation . (6) Beasley's esophagus determined by endoscopy: Status: Acute Assessment and plan: Informed consent is obtained for the procedural (explained in simple layman's terms that the pt. and/or family could understand) explaining risks vs benefits and alternatives to the procedure and consequences if we do not do the procedure and need/rational for the procedure. Risks include but are not limited to: bleeding, infection, perforation of esophagus, stomach, colon, small intestines, bronchus or trachea, or PTX. This would necessitate emergency surgery to repair the damage w/ possible ostomy; and other associated complications w/ the required surgery. Also complications of anesthesia including aspiration, MN/CVA/. (7) Chronic reflux esophagitis: Status: Acute (8) Hiatal hernia: Status: Chronic (9) COPD (chronic obstructive pulmonary disease): Status: Chronic Qualifiers: COPD type: unspecified COPD Qualified Code(s): J44.9 - Chronic obstructive pulmonary disease, unspecified (10) Aspiration pneumonia: Status: Acute (11) Pneumonia: Status: Acute (12) COPD exacerbation: Status: Acute (13) Hypoxemia: Status: Acute (14) History of breast cancer: (15) Former smoker: History of Present Illness Narrative: Patient is here today for egd and dilation for esophageal stricture.? They not having any chest pain or shortness of breath, currently.? They are not experiencing any fever or chills.? They deny any productive cough or upper respiratory tract infection signs or symptoms.? They are not having abdominal pain, or nausea and vomiting.? They have not had any changes in medications, past medical history or past surgical history since previously being seen in the office. They have not had any accidents or have been in the ER since the clinic pre-operative evaluation. ??I reviewed the procedure with the patient today, including risks and benefits of the procedure, and what they could expect at home for recovery.? All questions are answered to the patient?s satisfaction today, and they are stable to proceed with the proposed procedure. (1) Dysphagia: (2) Bilateral carotid bruits: (3) Hyperlipidemia: (4) GERD (gastroesophageal reflux disease): - Patient has severe chronic longstanding reflux characterized by Beasley's. She needs to stop the aspirin. She needs to be on a PPI She needs to be on Carafate lifelong. We will plan on doing a EGD with dilation. Informed consent is obtained for the procedural (explained in simple layman's terms that the pt. and/or family could understand) explaining risks vs benefits and alternatives to the procedure and consequences if we do not do the procedure and need/rational for the procedure. Risks include but are not limited to: bleeding, infection, perforation of esophagus, stomach, colon, small intestines, bronchus or trachea, or PTX. This would necessitate emergency surgery to repair the damage w/ possible ostomy; and other associated complications w/ the required surgery. Also complications of anesthesia including aspiration, MN/CVA/. She may have a sore throat afterwards. She have to stay on clear liquids for 24 hours after the procedure. There is a risk of perforation. (5) Esophageal stricture: (6) Hiatal hernia: (7) Normocytic normochromic anemia: (8) COPD (chronic obstructive pulmonary disease): (9) Former smoker: (10) Beasley's esophagus determined by endoscopy: (11) Chronic reflux esophagitis: ere with her daughter, Yamilka, who states they are very concerned with the inabliity of pts swallowing. Pt states she has had dilatation 4 times in the past, last time may have been 2-3 years ago. Pt states today she had difficulty with swallowing her pills, they became stuck. Patient had a mass on her last EGD and her larynx. Per the patient mass was gone on last EGD She can't swallow pills. She is able to swallow liquids. She is on carafate bid. No PPI He has never had any no H/I He does + cough. in am not assoc w/ eating. feels like a tickle. coughs up yellow sputum. very mucosy. She cdan get SOB w/ coughing. no O2. occ will get SOB w/ ADL's. not worse lately. no CP. not eating. wt loss+ She has a longstanding history of Beasley's and esophagitis/GERD. I did review her EGDs going back to 2017. She has severe reflux. Though she denies being symptomatic. She is on aspirin daily which I do not think is good for her given the severity of her reflux. She has a known stricture and has had multiple dilations in the past with no problems. At this point she can only swallow very thin liquids. She cannot swallow pills. Review of Systems All systems reviewed & are unremarkable except as noted in HPI and below PFSH All Active Problems Protein-calorie malnutrition, moderate (Acute) Chronic reflux esophagitis (Acute) Beasley's esophagus determined by endoscopy (Acute) Hyperlipidemia (Chronic) Hypoxemia (Acute) COPD exacerbation (Acute) Pneumonia (Acute) Esophageal stricture (Acute) Aspiration pneumonia (Acute) Bilateral carotid bruits (Acute) Normocytic normochromic anemia (Acute) Hiatal hernia (Chronic) Dysphagia (Acute) GERD (gastroesophageal reflux disease) (Chronic) COPD (chronic obstructive pulmonary disease) (Chronic) Medical History COVID 04/14/22 Pneumonia Depression Chronic insomnia BCC (basal cell carcinoma), face Bilateral hip pain History of traumatic fracture of hip History of breast cancer 2008 Low back pain Left knee pain Irregular heart rate pt. denies Former smoker Hypomagnesemia Hypokalemia Pneumonia COPD exacerbation GERD (gastroesophageal reflux disease) Breast cancer Surgical History H/O lumpectomy History of esophagogastroduodenoscopy (EGD) (~12/2023) with dilation History of colonoscopy Closed fracture of left distal femur (05/10/19) S/P ORIF on 05/12/19 S/P breast lumpectomy left breast lumpectomy; follow up XRT, 2001 Status post THR (total hip replacement) pt. denies replacement-states just rods inserted EGD - MAC (02/05/17) Dr Marcial, [facility], EGD with balloon dilation; repeat procedure 04/14/2019, Dr. Inez Ruffin Family History Mother Lung disease Daughter Lung disease Substance abuse Hypertension Maternal Aunt Colon cancer Heart disease Social History Smoking/Tobacco Use Status: Former Tobacco Use Smoking risk assessment performed?: Yes Alcohol Intake: current Alcohol Intake frequency: holidays/special occasions only Drug use: Never Substance use type: does not use Household members: children Housing: apartment Current gender identity: female What is your relationship status?: Panel score (0-1 are the most socially isolated patients): 0 Do you feel safe at home: Yes (unable to assess privately, lives with daughter) Do you feel safe in your relationship?: Yes History History 3 Para Hx # Term Pregnancies 3 Multiple births Hx # Pregnancies Ectopic pregnancies AB induced Hx Number of Living Children 2 AB spontaneous Meds Allergies and Home Medications Allergies Allergy/AdvReac Type Severity Reaction Status Date / Time varenicline [From Chantix] AdvReac stomach Verified 02/08/24 08:35 problems, depression Home Medications Medication Instructions Recorded Confirmed Type calcium-vitamin D3-vitamin K 500 1 ea PO DAILY 01/27/17 02/08/24 History mg-1,000 unit-40 mcg chewable tablet multivitamin (Daily Multiple 1 ea PO DAILY 01/27/17 02/08/24 History tablet) atorvastatin 40 mg tablet (Lipitor) 40 mg PO QPM #30 tabs 05/15/19 02/08/24 Rx gabapentin 100 mg capsule 200 mg PO TID PRN PRN 12/15/19 02/08/24 History albuterol sulfate 90 mcg/actuation 1 inh inhalation Q4H PRN 02/25/22 02/08/24 History aerosol inhaler (Ventolin HFA) vitamins A,C,S-gnbj-bccucb 4,296 1 cap PO BID 03/04/22 02/08/24 History mcg-226 mg-90 mg capsule (PreserVision AREDS) lidocaine 5 % topical patch 1 patch topical DAILY PRN pain #15 09/12/23 02/08/24 Rx ea latanoprost 0.005 % eye drops 1 drp ophthalmic (eye) QPM 12/22/23 02/08/24 History pantoprazole 40 mg tablet,delayed 40 mg PO BID #60 tabs 12/24/23 02/08/24 Rx release (Protonix) sucralfate 1 gram tablet (Carafate) 1 g PO QAS #120 tabs 01/05/24 02/08/24 Rx Exam Const Other: PHYSICAL EXAM GENERAL APPEARANCE: Alert, healthy appearance, oriented, x 3,? in no acute distress HYDRATION: Well hydrated HEAD, EYES, EARS, NECK, THROAT: Head is normocephalic, pupils equal, round, reactive to light and accommodation, ocular movement intact, sclera clear and no jaundice. ?Dentition intact. LUNGS: normal respiration/normal chest excursion. ?cta b/l ?HEART: Regular rate and rhythm. no murmurs ABDOMEN: soft and non-tender to palpation.? Normal bowel sounds.? c/o sciatic pain L ant thigh. palpable DP pulse. foot warm and pink prob radiating from back. No Fx on plain films Results Last Vital Signs Temp 36.4 C L 02/08/24 08:22 Pulse 88 02/08/24 08:22 Resp 16 02/08/24 08:22 BP 167/77 H 02/08/24 08:22 Pulse Ox 99 02/08/24 08:22 Time Spent Time spent with Patient: <40 minutes Time was spent: preparing to see the patient(eg.review tests), obtaining and/or reviewing separately otained hiistory, ordering medications,tests, procedures, referring, communicating with other health career discovery teacher, indepentently interpreting results, counseling the patient and care coordination
--- NOTE | 2024-02-08 11:23 | W.ANESPRE ---
General Info Date of Service Date Performed: 02/08/24 Height: 5 ft 2.5 in Weight: 36.8 kg Body Mass Index (BMI): 14.6 Surgical Procedure: Operation Date: 02/08/24 09:20 Proposed Procedure Side Surgeon p Gastroscopy Annemarie Thompson, Actual Procedure Side Surgeon p Gastroscopy Annemarie Thompson, Pre-Op Diagnosis Post-Op Diagnosis Dysphagia Dysphagia Meds Allergies and Home Medications Allergies Allergy/AdvReac Type Severity Reaction Status Date / Time varenicline [From Chantix] AdvReac stomach Verified 02/08/24 08:35 problems, depression Home Medication Medication Instructions Recorded calcium-vitamin D3-vitamin K 500 1 ea PO DAILY 01/27/17 mg-1,000 unit-40 mcg chewable tablet multivitamin (Daily Multiple 1 ea PO DAILY 01/27/17 tablet) atorvastatin 40 mg tablet (Lipitor) 40 mg PO QPM #30 tabs 05/15/19 gabapentin 100 mg capsule 200 mg PO TID PRN PRN 12/15/19 albuterol sulfate 90 mcg/actuation 1 inh inhalation Q4H PRN 02/25/22 aerosol inhaler (Ventolin HFA) vitamins A,C,K-geud-tuqxwh 4,296 1 cap PO BID 03/04/22 mcg-226 mg-90 mg capsule (PreserVision AREDS) lidocaine 5 % topical patch 1 patch topical DAILY PRN pain #15 09/12/23 ea latanoprost 0.005 % eye drops 1 drp ophthalmic (eye) QPM 12/22/23 pantoprazole 40 mg tablet,delayed 40 mg PO BID #60 tabs 12/24/23 release (Protonix) sucralfate 1 gram tablet (Carafate) 1 g PO QACHS #120 tabs 01/05/24 Current Visit Medications: Current Medications Generic Name Dose Route Start Last Admin Trade Name Freq PRN Reason Stop Dose Admin Hyoscyamine Sulfate 0.125 mg 02/08/24 01:10 Hyoscyamine 0.125 Mg Sl/Oral/Chew SL 03/09/24 01:09 DIRECTED PRN Ringer's Solution 1,000 mls @ 80 mls/hr 02/08/24 06:00 02/08/24 08:57 IV 03/08/24 23:59 80 mls/hr INFUSION SHAKIRA Administration IV Miscellaneous Supplies 1 each 02/08/24 06:00 Iv Access IV 03/08/24 23:59 DIRECTED SHAKIRA Ondansetron HCl 4 mg 02/08/24 01:10 Ondansetron 4 Mg/2 Ml Vial IVP 03/09/24 01:09 Q4H PRN PRN Nausea / Vomiting Sodium Chloride 0 ml 02/08/24 06:00 Normal Saline Flush 10 Ml Syr IV 03/08/24 23:59 PRN PRN Sodium Chloride 0 ml 02/08/24 06:00 Normal Saline 10 Ml Vial IJ 03/08/24 23:59 DIRECTED PRN Sterile Water 0 ml 02/08/24 06:00 Water,Injection,Sterile 10 Ml Vial IJ 03/08/24 23:59 DIRECTED PRN PFSH Active Problems Active Problems: Problem Status Onset Code Protein-calorie malnutrition, moderate E44.0 Chronic reflux esophagitis K21.00 Beasley's esophagus determined by endoscopy K22.70 Hyperlipidemia E78.5 Hypoxemia R09.02 COPD exacerbation J44.1 Pneumonia J18.9 Esophageal stricture K22.2 Aspiration pneumonia J69.0 Bilateral carotid bruits R09.89 Normocytic normochromic anemia D64.9 Hiatal hernia K44.9 Dysphagia R13.10 GERD (gastroesophageal reflux disease) K21.9 COPD (chronic obstructive pulmonary disease) J44.9 Medical History Medical History COVID 04/14/22 Pneumonia Depression Chronic insomnia BCC (basal cell carcinoma), face Bilateral hip pain History of traumatic fracture of hip History of breast cancer 2009 Low back pain Left knee pain Irregular heart rate pt. denies Former smoker Hypomagnesemia Hypokalemia Pneumonia COPD exacerbation GERD (gastroesophageal reflux disease) Breast cancer Medical History Comments:: Per patient currently having low back pain. Surgical History Surgical History H/O lumpectomy History of esophagogastroduodenoscopy (EGD) (~12/2023) with dilation History of colonoscopy Closed fracture of left distal femur (05/10/19) S/P ORIF on 05/12/19 S/P breast lumpectomy left breast lumpectomy; follow up XRT, 2002 Status post THR (total hip replacement) pt. denies replacement-states just rods inserted EGD - MAC (02/05/17) Dr Marcial, [facility], EGD with balloon dilation; repeat procedure 04/14/2019, Dr. Inez Ruffin Tobacco Smoking/Tobacco Use Status: Former Tobacco Use Alcohol Alcohol Intake: current Alcohol intake frequency: holidays/special occasions only Substance Use Substance use: Never Substance use type: does not use Prental History History 3 Para Hx # Term Pregnancies 3 Multiple births Hx # Pregnancies Ectopic pregnancies AB induced Hx Number of Living Children 2 AB spontaneous Vital Signs and Lab Results Vital Signs Most Recent Vital Signs in EMR: Most Recent Vital Signs Temp Pulse Resp BP Pulse Ox 36.4 C L 88 16 167/77 H 99 02/08/24 08:22 02/08/24 08:22 02/08/24 08:22 02/08/24 08:22 02/08/24 08:22 Lab Results Blood Type / Crossmatch: No Data to Display Complete Blood Count: White Blood Count 5.33 10^3/uL (4.4-10.8) 02/07/24 10:40 Red Blood Count 4.22 10^6/uL (3.93-5.22) 02/07/24 10:40 Hemoglobin 11.1 g/dL (11.2-15.7) L 02/07/24 10:40 Hematocrit 35.2 % (36.0-46.0) L 02/07/24 10:40 Platelet Count 254 10^3/uL (130-400) 02/07/24 10:40 Complete Metabolic Panel: No Data to Display Liver Function Panel: No Data to Display Coagulation Panel: No Data to Display Cardiac Panel: No Data to Display Arterial Blood Gas: No Data to Display Venous Blood Gas: No Data to Display Pancreas Panel: No Data to Display Thyroid Panel: No Data to Display Infectious Disease: No Data to Display Blood Cultures: No Data to Display Toxicology Panel: No Data to Display Imaging and Studies Imaging and Studies Study information below may be from another EMR and interpreted by another provider. Please see original notes in EMR for more complete details. EKG Summary: 01/28: sinus tach. PVCs Carotid Artery Summary:: 05/2019: >70% stenosis proximal left ICA. Anesthesia Assessment and Plan Anesthesia History Personal History: No History of Anesthesia Complications Family History: No Family History of Anesthesia Complications Exercise Tolerance Exercise Tolerance: Metabolic Equivalents<4 Pertinent Negatives Pertinent Negatives: No Symptoms of GERD and No Major Cardiovascular Symptoms or Complaints Cardiac & Pulmonary Exam Cardiac Exam: Normal S1/S2 Heart Sounds Pulmonary Exam: Wheezing Present and Rhonchi Present Cardiac and Pulmonary Comment:: Planned duoneb prior to procedure Implantable Cardiac Device Does patient have a Pacemaker or an ICD?: No Airway Exam Known Difficult Airway: No Mallampati Class: 1 Mouth Opening: Normal (> 3cm) Thyromental Distance: Greater than 3 cm Neck Range of Motion: Full ROM Neck Circumference: Normal Teeth Condition: Removable Dentures/Plates Upper and Removable Dentures/Plates Lower ASA Classification ASA Score: ASA 3 Emergency Case?: No NPO Status NPO Status: NPO Clears >2 hours, Solids >8 hours Anesthesia Plan Resuscitation Status: Full Code Anesthesia Technique: General Anesthesia Airway Planned: Natural Airway Monitors Used: Standard Monitors
--- NOTE | 2024-02-08 11:36 | W.PM.ENDDOP ---
Date of service: 02/08/24 Time of Service: 12:00 Endoscopy Report DATE OF PROCEDURE: 02/08/24 PRE-OP DIAGNOSIS: severe reflux esophagitis with Beasley's esophagus/And benign esophageal st POST-OP DIAGNOSIS: same PROCEDURE: Dilation of esophagus x 2 SURGEON: Annemarie Thompson ANESTHESIA TYPE: General:No Airway ESTIMATED BLOOD LOSS: 2 PATHOLOGY: none sent COMPLICATIONS: None DISPOSITION: PACU PROCEDURE DESCRIPTION: Patient gave informed consent for the procedure risks include but not limited to: Bleeding, infection, pneumonia, blood clots, aspiration, hematoma in the wall of theAnd benign esophageal stricture esophagus or tears to the esophagus. She will have a sore throat for a few days afterwards and can use cough drops or gargle with salt water. And keep a clear liquid diet for the next 24 hours. There is always risk of esophageal rupture. If that were to occur then she would have to have emergency surgery. There is always risks from anesthesia. Anesthesia addressed these. Patient is brought to the endoscopy suite and placed in the supine position. Anesthesia is administered per the department of anesthesia. Scope is then inserted down into the oropharynx and into the esophagus. The previously lubricated Olympus Her stricture is right at the GE junction we did 2 sets of dilation today with a 16 1718 balloon. Each dilation was carried out for 2 minutes. There was definitely improvement in the stricture after dilation was completed but I still and unable to pass the tip of the scope through the dilated area. There is some hematoma and bruising. This needs to be monitored. After a period of 5 minutes these do not seem to be enlarging. There is no active bleeding. The scope was then withdrawn. No biopsies are taken. Patient is taken to recovery room in stable condition See d/c orders _Pt has think secretions and poor defusion capacity and is not on an appropriate regimen of MDI for COPD. SHe is going to require serial dilations, so we need to get your lungs improved.
--- NOTE | 2024-02-08 11:47 | W.PM.DSUDISC ---
Date of service: 02/08/24 Time of Service: 12:51 Discharge Plan Disposition Patient Disposition: Home Condition: Good Discharge Details Reason For Visit: egd and dilation Attending Provider: Annemarie Thompson Primary Care Provider: Shea Bonner Home Meds and New Rx's Prescriptions: No Action PreserVision AREDS [phone] [id number] capsule 1 cap PO BID pantoprazole [Protonix] 40 mg tablet,delayed release (DR/EC) 40 mg PO BID Qty: 60 12RF multivitamin [Daily Multiple] 1 EACH tablet 1 ea PO DAILY calcium-vitamin D3-vitamin K 1 EACH tablet,chewable 1 ea PO DAILY albuterol sulfate [Ventolin HFA] 90 mcg/actuation HFA aerosol inhaler 1 inh inhalation Q4H PRN sucralfate [Carafate] 1 gram tablet 1 g PO QACHS Qty: 120 12RF Rx Instructions: dissolve tablet in 2 oz of water and than drink atorvastatin [Lipitor] 40 mg Tablet 40 mg PO QPM Qty: 30 0RF gabapentin 100 mg Capsule 200 mg PO TID PRN PRN lidocaine 5 % adhesive patch,medicated 1 patch topical DAILY PRN (Reason: pain) Qty: 15 1RF Rx Instructions: leave on most painful area for 12 hrs latanoprost 0.005 % drops 1 drp ophthalmic (eye) QPM Discharge Instructions Additional Instructions: Post EGD Instruction ?You had anesthesia for your EGD/stomach scope today.? For your safety, please do the following for the next twenty-four (24) hours: Do Not operate a motor vehicle (car, truck, motorcycle, etc.) Do Not drink alcoholic beverages or use any recreational drugs for the first 24 hours or while taking pain medications. The medications in your body may have a reaction that can be dangerous. Do Not make any important decisions or sign any important papers You have just had a gastroscopy (EGD) or upper GI tract examination. It is important for your smooth recovery that you carefully follow the recommendations below. Do not hesitate to call if any questions should arise about your anesthesia, condition, or care. -Symptoms you may experience during the next 24 hours: ?1. Mild abdominal pain or excessive gas or a bloated feeling which improves with rest, liquids, eating? slightly, and walking as tolerated. 2. Drowsiness and/or forgetfulness because of the medications you were given. 4. A sore throat which you can treat with throat lozenges or by gargling with salt water 4-5 times a day. 5. Redness at the site of your IV which you can treat with warm compresses. SPECIAL INSTRUCTIONS: 1. Liquid diet for the next 24hrs. 2. Resume regular medications in am 3. No aspirin or non-steroidal containing medication 4. No lifting over 20 pounds or strenuous activity for the first 24 hours after your procedure. After 24 hours there are no restrictions on your activity, but you may feel fatigued for a few days. Findings: GE stricture -Medications: Protonix daily -Repeat Dilation on 05/17, the hospital will call you the day before and tell you what time you need to be to the hospital -Referral placed for pulmonary medicine and speech. -We will set up account with [employer] to get the dressings. This can take up to 10 days to get supplies. You can change the dressing daily or leave it on for 2-3 days/until soiled. We will need to contact you for mailing address and insurance information. -Continue to follow lifestyle modifications: No alcohol, tobacco products, Aspirin or NSAID's (ibuprofen, Motrin, Naprosyn, aleve, etc).? Try to limit/avoid:? soda pop/any carbonated beverages, caffeine (including tea & chocolate), and acidic foods, (tomatoes, citrus, onions, peppermints) spicy or fried/fatty foods. Do not lie down for 30 minutes after eating, and do not eat 2 hours prior to bedtime. Avoid wearing tight fitting clothing/ belts. Call the office at [phone] (Office) or [phone] (Hospital), or go to the ER right away if you notice any of the followin. Vomiting blood and /or ?coffee ground? material. ?2. Worsening of abdominal pain or cramping. ?3. Trouble with breathing, cough, and/or fever (temperature above 101.5 F). 4. Increasing pain with swallowing. ?5. Chest pain. 6. Any new symptoms. 7. 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 Patient has minimal sore throat.? They have been able to tolerate liquids.? They do not have any nausea vomiting.? They are not having any chest pain or shortness of breath.? They have been able to pass gas and are not having any abdominal pain or distention.? They have not vomited any blood.? The vital signs have been stable-see nursing notes. We discussed findings on their endoscopy. We reviewed the importance of lifestyle modification-see discharge instructions We reviewed any new medications that the patient may be prescribed-see discharge instructions Patient will either be sent a letter with the biopsy results or follow-up in the office-see discharge instructions. Patient was given explicit instructions to follow-up regarding post endoscopy-refer to discharge Patient verbalized understanding and discharged in stable and satisfactory condition.? See nursing notes. (7) Chronic reflux esophagitis: Status: Acute (8) Hiatal hernia: Status: Chronic (9) COPD (chronic obstructive pulmonary disease): Status: Chronic (10) Aspiration pneumonia: Status: Acute (11) Pneumonia: Status: Acute (12) COPD exacerbation: Status: Acute (13) Hypoxemia: Status: Acute (14) History of breast cancer: (15) Former smoker:
[2024-02-08 11:50] VITALS: BMI 14.6
[2024-02-08 12:46] VITALS: BP 98/59; PULSE 80; RESP 12; TEMP 35.9; O2SAT 98
--- NOTE | 2024-02-08 13:10 | W.ANESPOSTOP ---
Postoperative Evaluation Date, Time and Location Date Performed: 02/08/24 Time Performed: 13:11 Patient Location: Day Surgery Unit Vital Signs Most Recent Imported Vital Signs: Most Recent Vital Signs Temp Pulse Resp BP Pulse Ox 35.9 C L 80 12 98/59 L 98 02/08/24 12:46 02/08/24 12:46 02/08/24 12:46 02/08/24 12:46 02/08/24 12:46 Pain Score Most Recent Pain Score: Most Recent Pain Score Pain Level 0 02/08/24 12:46 Assessment Mental Status: Awake (Alert & Oriented to Patient Baseline) Airway and Respiratory Function: Patent airway with normal (patient baseline) respiratory exam Cardiovascular Function: Hemodynamically Stable Hydration Status: Adequately Hydrated Nausea & Vomiting: No Nausea or Vomiting Pain: Pt. Denies Any Pain Peripheral Nerve Block: Patient did not receive a nerve block
[2024-02-08 13:14] VITALS: BP 142/72; PULSE 77; RESP 14; TEMP 36.5; O2SAT 94
== END 2024-02-08 13:56 | disposition home or self-care (01) ==
PROVIDERS: PCP Family Medicine; Visit Provider Surgery
PROC: 0DJ68ZZ Inspection of Stomach, Via Natural or Artificial Opening Endoscopic (ICD-10-PCS; CPT 43235; principal; 2024-02-08 09:15)
DX: K22.2 Esophageal obstruction (principal); R13.10 Dysphagia, unspecified; K22.70 Barrett's esophagus without dysplasia; K21.00 Gastro-esophageal reflux disease with esophagitis, without bleeding
CPT/HCPCS: 43249; J2001; J2371; J2704

== ENCOUNTER 2024-02-14 03:34 | Outpatient (CLI) | payer MEDICARE, SELFPAY ==
[2024-02-14] MEDS: Inhaler, Assist Device 1 EACH MC (14:45)
[2024-02-14] MEDS: Levalbuterol HFA 15 GM INH 4 PUFF IH (14:45)
--- NOTE | 2024-02-15 14:58 | W.PFT ---
Date of service: 02/14/24 Time of Service: 13:09 Pulmonary Function Test Result Requesting Provider Annemarie Thompson Indications: COPD Interpretation Spirometry: abnormal FEV1/FVC, FEV1 and FVC Lung Volumes: normal lung volumes w/ mild air trapping Diffusion Capacity: abnormal Impression Moderate obstructive ventilatory defect w/ significant reversibility after albuterol. Normal lung volumes w/ mild air trapping. Moderate decrease in diffusion. Flow volume curve suggests obstruction. Clinical Correlation therefore is recommended.
== END 2024-02-14 03:35 | disposition home or self-care (01) ==
LOC: RT 03:34
PROVIDERS: PCP Family Medicine; Visit Provider Surgery
DX: J44.9 Chronic obstructive pulmonary disease, unspecified (principal)
CPT/HCPCS: 00123; 94060; 94726; 94729

== ENCOUNTER → 2024-02-21 10:59 | Outpatient (BNVA) | payer MEDICARE, SELFPAY | PROVIDERS: PCP Family Medicine; Referring Provider Family Medicine; Visit Provider Physician Assistant Surgical | DX: J44.9 Chronic obstructive pulmonary disease, unspecified (principal); R13.10 Dysphagia, unspecified | CPT/HCPCS: 94618; 99215 ==

== ENCOUNTER → 2024-03-16 01:14 | Outpatient (CLI) | payer MEDICARE, SELFPAY ==
--- NOTE | 2024-03-16 | DI.MRI_ITS ---
Exam(s) MR LUMBAR SPINE WO EXAM: MR LUMBAR SPINE WO CLINICAL HISTORY: LUMBOSACRAL RADICULOPATHY, M54.17,. TECHNIQUE: Multiplanar multisequence MRI of the Lumbar spine was performed. COMPARISON: CR XR LUMBAR SPINE COMPLETE from 02/07/2024 FINDINGS: There is significant degenerative scoliosis, as seen on the recent plain films of 02/07/2024 and toda y's MRI. Conus medullaris is at normal level. There is no evidence of conus mass nor subjacent clumping of in trathecal nerve roots to suggest arachnoiditis. The distal thecal sac appears unremarkable.There is no evidence of Tarlov intrasacral cysts nor other significant findings within the sacral canal Bones:There are no fractures nor ominous osseous lesions in the lumbar vertebral bodies and visualize d sacrum. With respect to the individual levels... T12-L1: Mild annular bulging. No prominent disc herniation. No central canal stenosis. There is fo raminal stenosis on the left side due to the scoliosis. Less so on the right side. Chronic Schmorl' s node invagination in the inferior endplate of T12 noted. L1-2: This level exhibits chronic disc space narrowing more so on the left than the right side and th ere are lateral left osteophytes evident. There is annular bulging, slightly more so on the left. C entral canal dimensions are lower normal. No foraminal stenosis on the right side. There is mild-mo derate foraminal stenosis on the left side mostly due to the annular bulging extending into the floor of the exiting neural foramen and more prominent height loss on the left side of the disc space resu lting in an element of vertical foraminal stenosis.. The facet joints at this level exhibit only mil d degenerative change. L2-3: This level also exhibits asymmetric disc height loss with advanced disc space narrowing and mar ginal osteophytes on the left side and minimal disc height loss on the right side. There is annular bulging with extension into the floor of the exiting left neural foramen. There is minimal left-side d foraminal stenosis. No foraminal stenosis on the right side. Mild facet joint degenerative change s. No dominant disc herniation. L3-4: This level exhibits relatively preserved disc height on both sides. There is mild annular bulg ing, slightly more prominent on the left side and extending into the exiting left neural foramen. Th ere is minimal foraminal stenosis on the left side. No foraminal stenosis on the right side. Centra l canal dimensions are lower normal. Only mild degenerative changes in the facet joints. L4-5: This level exhibits normal disc height on the left side and advanced disc space narrowing on th e right side due to asymmetric advanced disc height loss on the right side and there also lateral rig ht osteophytes noted. There is broad relatively symmetrical annular bulging at this level. There is moderate-severe central spinal canal stenosis due to the broad annular bulging and short AP dimensio ns of the pedicles. There is no significant foraminal stenosis on the left side. However, there is severe foraminal stenosis on the right side due to the asymmetric disc height loss on the right side and annular bulging. Facet joints at this level exhibit degenerative change in the right facet joint and mild degenerative change in the left facet joint L5-S1: This level exhibits normal disc height on the left side and prominent disc space narrowing on the right side in similar fashion to L4-5 level. There is relatively symmetrical annular bulging whi ch extends into the floor of the exiting right neural foramen. There is significant right-sided neur al foraminal stenosis due to this annular bulging as well as the significant disc height loss on the right side. There is no foraminal stenosis on the left side at this level. Central canal dimensions are lower normal. Facet joints exhibit minimal degenerative change. Soft tissues: paraspinal soft tissues appear unremarkable. IMPRESSION: 1. Multilevel findings as described above with multilevel asymmetric severe foraminal stenosis relate d to the asymmetric disc height loss at multiple levels, as described individually above. Exiting ne rve root impingement is also related to annular bulging extending into the exiting neural foramen. 2. The only level which exhibits significant central spinal canal stenosis is at L4-5 (moderate-sever e). This level also exhibits severe right-sided foraminal stenosis due to asymmetric disc height los s on the right side but no foraminal stenosis on the left side. DATA REPOSITORY:
== END ==
PROVIDERS: PCP Family Medicine; Visit Provider Family Medicine
DX: M54.17 Radiculopathy, lumbosacral region (principal); M48.061 Spinal stenosis, lumbar region without neurogenic claudication; M51.36 Other intervertebral disc degeneration, lumbar region
CPT/HCPCS: 72148

== ENCOUNTER 2024-03-27 15:29 | Outpatient (CLI) | payer MEDICARE, SELFPAY ==
[2024-03-27 12:51] LABS: ALT 25 U/L (14-59); AST 20 U/L (15-37); Albumin 3.7 g/dL (3.4-5.0); Alkaline Phosphatase 97 U/L (46-116); Anion Gap 8.3 mmol/L (3-11); BUN 16 mg/dL (7-18); Bilirubin, Total 0.44 mg/dL (0.2-1.0); CO2 29.7 mmol/L (21.0-32.0); CREATININE 0.6 mg/dL (0.55-1.02); Calcium 9.4 mg/dL (8.5-10.1); Chloride 97 mmol/L (98-107); Estimated GFR 89.56 (mL/min/1.73m2); Glucose 75 mg/dL (74-106); Sodium 135 mmol/L (136-145); Total Protein 7.4 g/dL (6.4-8.2)
== END 2024-03-27 15:30 | disposition home or self-care (01) ==
LOC: LBO 04-05 15:29
PROVIDERS: PCP Family Medicine; Visit Provider Family Medicine
DX: R63.4 Abnormal weight loss (principal)
CPT/HCPCS: 36415; 80053

== ENCOUNTER 2024-03-29 01:05 | Outpatient (CLI) | payer MEDICARE, SELFPAY ==
--- NOTE | 2024-03-29 | DI.RAD_ITS ---
Exam(s) RF BARIUM SWALLOW EXAM: RF BARIUM SWALLOW CLINICAL HISTORY: DYSPHAGIA,SEVERE WITH STRICTURE,R13.10 TECHNIQUE: 2D and realtime digital imaging was performed. CONTRAST MATERIAL: Thick and thin barium and barium tablet were administered. COMPARISON: CR,XR XR RIBS LT W PA LAT CHEST from 09/12/2023 FINDINGS: The PA chest filmsshow normal heart size and clear lung flores. Prominent scoliosis at the thoracolu mbar junction. The lateral green chainer view of the neck is shows degenerative changes of the cervical spine. Esophagus: The patient swallowed barium without difficulty. No aspiration. Noevidence for mucosal e rosions. Nofold thickening. No mass is visible. Motility: There is a normal primary stripping wave. No tertiary contractions were noted. Tiny Zenker diverticulum. There is a small hiatal hernia. narrowing at the GE junction. The barium tablet stuck at this locat ion. Gastroesophageal reflux. IMPRESSION: Hiatal hernia. Narrowing at the GE junction. The barium tablet did not pass through this location. Gastroesophageal reflux. RADIATION DOSE DELIVERED: kareem Mcgraw=5.27 mGy
[2024-03-29] MEDS: Simethicone/Sod Bicarb/Cit Ac, 4 gram PACKET 1 PACKET PO (10:12)
[2024-03-29] MEDS: Barium Sulfate 60% W/V 355 ML BTL PO (10:14)
[2024-03-29] MEDS: Barium Sulfate 98% W/W 140 ML BTL PO (10:16)
== END 2024-03-29 01:25 ==
PROVIDERS: PCP Family Medicine; Visit Provider Student in an Organized Health Care Education/Training Program
DX: K44.9 Diaphragmatic hernia without obstruction or gangrene (principal)
CPT/HCPCS: 74221; J3490

== ENCOUNTER 2024-07-26 14:53 | Outpatient (REF) | payer MEDICARE, SELFPAY ==
[2024-07-26 21:28] LABS: Anion Gap 5.2 mmol/L (3-11); BUN 14 mg/dL (7-18); CO2 29.8 mmol/L (21.0-32.0); CREATININE 0.7 mg/dL (0.55-1.02); Calcium 9.8 mg/dL (8.5-10.1); Chloride 95 mmol/L (98-107); Glucose 86 mg/dL (74-106); Potassium 3.8 mmol/L (3.5-5.1); Sodium 130 mmol/L (136-145)
[2024-07-26 21:31] LABS: Iron 9 ug/dL (50-170); Total Iron Binding Capacity 294 ug/dL (250-450); Transferrin Sat 3 % (15-50)
[2024-07-26 21:49] LABS: HCT 38.8 % (36.0-46.0); HGB 12.6 g/dL (11.2-15.7); MCH 29.8 pg (27.0-33.0); MCHC 32.5 % (32.0-36.0); MCV 92 fL (80-95); Platelet Count 185 10^3/uL (130-400); RBC 4.23 10^6/uL (3.93-5.22); RDW 15.7 % (11.7-14.6); RDW-SD 52.6 fL; WBC 11.88 10^3/uL (4.4-10.8)
== END 2024-07-26 14:54 | disposition home or self-care (01) ==
LOC: NCHCN 14:53
PROVIDERS: PCP Family Medicine; Visit Provider Family Medicine
DX: D50.9 Iron deficiency anemia, unspecified (principal); R63.6 Underweight
CPT/HCPCS: 80048; 85027; 83540; 83550

== ENCOUNTER 2024-08-07 17:48 | Outpatient (REF) | payer MEDICARE, SELFPAY ==
[2024-08-07 15:33] LABS: Anion Gap 9.5 mmol/L (3-11); BUN 11 mg/dL (7-18); CO2 29.5 mmol/L (21.0-32.0); CREATININE 0.7 mg/dL (0.55-1.02); Calcium 9.5 mg/dL (8.5-10.1); Chloride 97 mmol/L (98-107); Glucose 111 mg/dL (74-106); Potassium 4.2 mmol/L (3.5-5.1); Sodium 136 mmol/L (136-145)
== END 2024-08-07 17:49 | disposition home or self-care (01) ==
LOC: NCHCN 17:48
PROVIDERS: PCP Family Medicine; Visit Provider Family Medicine
DX: E87.1 Hypo-osmolality and hyponatremia (principal)
CPT/HCPCS: 80048

== ENCOUNTER 2024-08-17 03:50 | Outpatient (CLI) | payer MEDICARE, SELFPAY ==
--- NOTE | 2024-08-17 | DI.CT_ITS ---
Exam(s) CT CHEST/ABD/PEL W EXAM: CT CHEST/ABD/PEL W CLINICAL HISTORY: Abnl wt loss, R63.4 TECHNIQUE: Imaging Protocol: Axial computed tomography images with coronal and sagittal reformatted images were created and reviewed. Lung Computer Aided Detection (CAD) was utilized. CONTRAST MATERIAL: Intravenous: Omnipaque 350 contrast volume:80 mL Oral: Yes COMPARISON: CT CT ABDOMEN PELVIS W from 02/28/[address] CHEST PE CTA from 04/02/2023 FINDINGS: CHEST: Tracheobronchial tree: Patent where visualized. No evidence of bronchiectasis. Pulmonary parenchyma: No consolidation or dominant measurable mass. Moderate centrilobular emphysemat ous changes are present. There is a new 7 mm area spiculation in the right upper lobe (series 13, im age 48). No focal areas of consolidation are seen. There is again seen a peripheral area of scarrin g in the left upper lobe. Visualized thyroid gland: There is a heterogeneous thyroid gland. There is a 1.3 cm hypodense lesion in the left lobe. Nonemergent thyroid ultrasound may be obtained for further evaluation. Mediastinum and Latanya: There again seen enlarged lymph nodes in the mediastinum. The largest measures 1.6 x 1 cm. The esophagus is unremarkable. There is a small hiatal hernia. Pleura: No effusion or pneumothorax. Heart: The heart is not dilated. Three vessel coronary artery calcification is present. No pericardi al effusion. Pulmonary arteries: No pulmonary emboli are identified. Aorta: The ascending thoracic aorta measures 3.7 x 3.7 cm. Atherosclerotic calcification is present. There is no evidence of dissection. Lymph nodes: No significant axillary or supraclavicular adenopathy is present. There are surgical cl ips seen in the left axilla. Soft tissues: Unremarkable. Bones:Within normal limits for the patient's age. There is an old healed right rib fracture. 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 ABDOMEN: Liver: Normal density. No measurable mass. Portal, Superior Mesenteric, and Splenic Veins: Unremarkable. Gallbladder and Biliary Tract: There is a gallstone present. No biliary ductal dilatation is present . Pancreas: Normal density, no abnormal calcifications or inflammatory process. Spleen: Normal. Adrenals: No masses seen. Kidneys: Normal size, contour and axis. No radiodense stones or obstructive uropathy. No masses seen. Abdominal Aorta: Abdominal portion non-dilated. Atherosclerotic calcification is present. Bowel: There is a large amount of stool throughout the colon suggesting constipation. No evidence of bowel obstruction or bowel wall thickening is seen. There is no evidence of appendicitis. The stom ach is incompletely distended limiting evaluation. No gross abnormalities identified. Peritoneal Cavity: No ascites, collection or mesenteric inflammatory response. No free air. Lymph Nodes: Within normal limits. Bones: Within normal limits for the patient's age. There is a right convex thoracolumbar scoliosis. Old healed right pelvic fractures are present. Intramedullary rods are seen in the femurs bilateral ly. Soft Tissues: Unremarkable. PELVIS: Bladder: Symmetric distention, no gross wall thickening. Reproductive Organs: Unremarkable as visualized. Lymph Nodes: Within normal limits. Bones: Within normal limits. IMPRESSION: 1. Small new spiculated area in the right upper lobe. Neoplasm cannot be excluded. 2. Moderate centrilobular emphysematous changes. 3. Multinodular thyroid gland. Nonemergent thyroid ultrasound may be obtained for further evaluation . 4. Large amount of stool in the colon suggesting constipation. 5. Cholelithiasis. No biliary ductal dilatation. 6. No acute abdominal or pelvic process. RADIATION DOSE DELIVERED: 172.54mGy.cm Total DLP DATA REPOSITORY: All CT scans at this facility are submitted to the National Radiology Data Registry (NRDR) Dose Index Registry (DIR) with the [employer] (ACR). RADIATION OPTIMIZATION: All CT scans at this facility use at least one of these dose optimization te chniques: automated exposure control; mA and/or kV adjustment per patient size (includes targeted exa ms where dose is matched to clinical indication); or iterative reconstruction.
[2024-08-17] MEDS: Barium Sulfate 2% W/V-Berry Smoothie 450 ML BTL PO ×2 (08:09→08:10)
[2024-08-17] MEDS: Omnipaque 350 MG/ML 100 ML BTL 80 ML IJ (10:12)
[2024-08-17] MEDS: Normal Saline - Diluent 50 ML VIAL IJ (10:12)
== END 2024-08-17 04:10 ==
PROVIDERS: PCP Family Medicine; Visit Provider Family Medicine
DX: K80.80 Other cholelithiasis without obstruction (principal); R91.8 Other nonspecific abnormal finding of lung field
CPT/HCPCS: 74177; 71260; J3490

== ENCOUNTER 2024-09-13 00:20 | Outpatient (CLI) | payer MEDICARE, SELFPAY ==
--- NOTE | 2024-09-13 | DI.US_ITS ---
Exam(s) US THYROID EXAM: US THYROID CLINICAL HISTORY: Nontoxic single thyroid nodule, E04.1. TECHNIQUE: Ultrasound thyroid performed using standard protocol. COMPARISON: CT CT CHEST PE CTA from 01/29/[address] CHEST PE CTA from 02/02/[address] CHEST PE CTA from 04/02/[address] CHEST/ABD/PEL W from 08/17/2024 FINDINGS: ISTHMUS: 2 mm RIGHT LOBE: Size: 4.5 x 1.7 x 1.6 cm Echogenicity: Diffusely heterogeneous. Vascularity: Normal. Nodules: Innumerable diffuse small nodules. LEFT LOBE: Size: 3.9 x 1.3 x 1.6 cm Echogenicity: Diffusely heterogeneous. Vascularity: Normal. Nodules: Circumscribed 2.5 x 0.8 x 1.6 centimeter mixed echogenicity nodule with a few macrocalcifica tions. TR 3. Borderline size for FNA.. OTHER FINDINGS: None. IMPRESSION: Innumerable bilateral small thyroid nodules. The dominant nodule is on the left side TR 3. Borderli ne size for FNA. DATA REPOSITORY:
== END 2024-09-13 00:40 ==
LOC: DI 00:20
PROVIDERS: PCP Family Medicine; Visit Provider Family Medicine
DX: E04.2 Nontoxic multinodular goiter (principal)
CPT/HCPCS: 76536

== ENCOUNTER 2024-10-04 17:29 | Outpatient (CLI) | payer MEDICARE, SELFPAY ==
[2024-10-04 14:14] LABS: Absolute Basophil Count 0.02 10^3/uL (0.0-0.2); Absolute Eosinophil Count 0.17 10^3/uL (0.0-0.7); Absolute Lymphocyte Count 1.75 10^3/uL (1.2-3.4); Absolute Monocyte Count 0.85 10^3/uL (0.1-0.8); Absolute Neutrophil Count 2.31 10^3/uL (1.2-6.7); Basophils % 0.4 %; Eosinophils % 3.3 %; HCT 40.3 % (36.0-46.0); HGB 13.5 g/dL (11.2-15.7); Lymphocytes % 34.3 %; MCH 30.6 pg (27.0-33.0); MCHC 33.5 % (32.0-36.0); MCV 91 fL (80-95); MPV 12.2 fL (8.0-11.0); Monocytes % 16.7 %; Neutrophils % 45.3 %; Platelet Count 165 10^3/uL (130-400); RBC 4.41 10^6/uL (3.93-5.22); RDW 14.7 % (11.7-14.6); RDW-SD 49.2 fL
[2024-10-04 14:59] LABS: ALT 22 U/L (14-59); AST 22 U/L (15-37); Albumin 4.2 g/dL (3.4-5.0); Alkaline Phosphatase 105 U/L (46-116); Anion Gap 8.7 mmol/L (3-11); BUN 15 mg/dL (7-18); Bilirubin, Total 0.65 mg/dL (0.2-1.0); CO2 29.3 mmol/L (21.0-32.0); CREATININE 0.6 mg/dL (0.55-1.02); Calcium 9.7 mg/dL (8.5-10.1); Chloride 96 mmol/L (98-107); Estimated GFR 89.56 (mL/min/1.73m2); Ferritin 56 ng/mL (8-252); Glucose 110 mg/dL (74-106); Potassium 3.6 mmol/L (3.5-5.1); Sodium 134 mmol/L (136-145); Total Protein 7.9 g/dL (6.4-8.2)
[2024-10-04 15:01] LABS: Iron 87 ug/dL (50-170); Total Iron Binding Capacity 369 ug/dL (250-450); Transferrin Sat 24 % (15-50)
[2024-10-04 15:36] LABS: TSH 1.52 uIU/mL (0.36-3.74)
[2024-10-04 15:53] LABS: FREE T4 1.44 ng/dL (0.76-1.46)
== END 2024-10-04 17:30 | disposition home or self-care (01) ==
LOC: LBO 17:39
PROVIDERS: PCP Family Medicine; Visit Provider Internal Medicine Hematology & Oncology
DX: D50.9 Iron deficiency anemia, unspecified (principal); E04.1 Nontoxic single thyroid nodule
CPT/HCPCS: 36415; 80053; 82728; 83540; 83550; 84439; 84443; 85025

== ENCOUNTER 2024-11-16 01:13 | Outpatient (CLI) | payer MEDICARE, SELFPAY ==
--- NOTE | 2024-11-16 | DI.CT_ITS ---
Exam(s) CT CHEST WO EXAM: CT CHEST WO CLINICAL HISTORY: Solitary pulmonary nodule, R91.1; 3-mo f/u new lung nodule TECHNIQUE: Imaging Protocol: Axial computed tomography images with coronal and sagittal reformatted images were created and reviewed. Computer aided detection (CAD) was utilized. CONTRAST MATERIAL: Intravenous: Omnipaque 350 Contrast volume:structured data ml. COMPARISON: CT CT CHEST PE CTA from 04/02/[address] CHEST/ABD/PEL W from 08/17/2024 FINDINGS: Pulmonary parenchyma: No consolidation. Scarring in the upper lobes. Emphysematous changes and scar ring in present greater in the upper lobes. Previously questioned area of mass on the prior exam is less prominent on the current exam and appears to represent an area of scarring. Tracheobronchial tree: No bronchiectasis or mucous plugging. Mediastinum and Latanya: Small hiatal hernia. Stable mediastinal lymph node. Pleura: No effusion. No pneumothorax. Heart: The heart is not dilated. Severe coronary artery calcifications are seen. Aorta: Stable dilatation of the ascending aorta to 3.7 cm. Mild atherosclerotic changes. Upper abdomen: No acute findings. Bones: Scoliosis anddegenerative changes in the spine. Old healed right rib fractures. Soft tissues: Unremarkable. IMPRESSION: Area of scarring in the right upper lobe . No visible mass. Emphysematous changes. RADIATION DOSE DELIVERED: 131.65mGy.cm Total DLP DATA REPOSITORY: All CT scans at this facility are submitted to the National Radiology Data Registry (NRDR) Dose Index Registry (DIR) with the [employer] (ACR). RADIATION OPTIMIZATION: All CT scans at this facility use at least one of these dose optimization te chniques: automated exposure control; mA and/or kV adjustment per patient size (includes targeted exa ms where dose is matched to clinical indication); or iterative reconstruction.
== END 2024-11-16 01:33 ==
LOC: DI 01:13
PROVIDERS: PCP Family Medicine; Visit Provider Family Medicine
DX: R91.1 Solitary pulmonary nodule (principal)
CPT/HCPCS: 71250

== ENCOUNTER 2025-01-03 02:08 | Outpatient (CLI) | payer MEDICARE, SELFPAY ==
[2025-01-03 10:01] LABS: Abs Immature Grans 0.02 10^3/uL (0.0-0.06); Absolute Basophil Count 0.01 10^3/uL (0.0-0.2); Absolute Eosinophil Count 0.28 10^3/uL (0.0-0.7); Absolute Lymphocyte Count 1.25 10^3/uL (1.2-3.4); Absolute Monocyte Count 0.83 10^3/uL (0.1-0.8); Basophils % 0.1 %; Eosinophils % 3.5 %; HCT 39.2 % (36.0-46.0); HGB 12.9 g/dL (11.2-15.7); Immature Grans % 0.3 %; Lymphocytes % 15.6 %; MCH 30.4 pg (27.0-33.0); MCHC 32.9 % (32.0-36.0); MCV 93 fL (80-95); MPV 11.9 fL (8.0-11.0); Monocytes % 10.4 %; Neutrophils % 70.1 %; Platelet Count 192 10^3/uL (130-400); RBC 4.24 10^6/uL (3.93-5.22); RDW 13.6 % (11.7-14.6); RDW-SD 46.4 fL; WBC 7.99 10^3/uL (4.4-10.8)
[2025-01-03 10:26] LABS: ALT 26 U/L (14-59); AST 23 U/L (15-37); Albumin 3.9 g/dL (3.4-5.0); Alkaline Phosphatase 107 U/L (46-116); Anion Gap 9.2 mmol/L (3-11); BUN 14 mg/dL (7-18); Bilirubin, Total 0.8 mg/dL (0.2-1.0); CO2 31.8 mmol/L (21.0-32.0); CREATININE 0.6 mg/dL (0.55-1.02); Calcium 9.5 mg/dL (8.5-10.1); Chloride 97 mmol/L (98-107); Estimated GFR 89.56 (mL/min/1.73m2); Glucose 103 mg/dL (74-106); Potassium 3.7 mmol/L (3.5-5.1); Sodium 138 mmol/L (136-145); Total Protein 7.6 g/dL (6.4-8.2)
[2025-01-03 10:44] LABS: Iron 75 ug/dL (50-170); Total Iron Binding Capacity 264 ug/dL (250-450); Transferrin Sat 28 % (15-50)
[2025-01-03 15:46] LABS: Ferritin 475 ng/mL (8-252)
== END 2025-01-03 02:09 | disposition home or self-care (01) ==
LOC: LBO 02:08
PROVIDERS: PCP Family Medicine; Visit Provider Internal Medicine Hematology & Oncology
DX: D50.9 Iron deficiency anemia, unspecified (principal)
CPT/HCPCS: 36415; 80053; 82728; 83540; 83550; 85025

== ENCOUNTER 2025-02-21 00:26 | Emergency (ER) | payer MEDICARE, SELFPAY ==
[2025-02-21] VITALS (8 sets, daily range): BP systolic 143–185; BP diastolic 68–100; PULSE 80–92; RESP 16–23; TEMP 36.3; O2SAT 93–99
--- NOTE | 2025-02-21 00:30 | RT.EKG_ITS ---
APPROVED REPORT Exam: Resting ECG Reason for Exam: Shortness of breath Patient Location: E HR:85 bpm ECG Measurements Heart Rate 85 AXIS MN 165 P 87 QRSd 76 QRS -8 QT 366 T 75 QTc 435 Conclusion Sinus rhythm...normal P axis, V-rate 60- 99 Normal Hartly/Interval Normal ST Normal Electrocardiogram
--- NOTE | 2025-02-21 00:33 | W.ED.GENAD ---
Discharge Plan Disposition Patient Disposition: Home Condition: Stable Discharge Details Clinical Impression: Constipation, Pulmonary lesion, left Primary Care Provider: Shea Bonner ED Provider: Alex Wellington Lafe Meds and New Rx's Prescriptions: New magnesium citrate Solution 300 ml PO DIRECTED Qty: 0 0RF Continued PreserVision AREDS [id number] capsule 1 cap PO BID pantoprazole [Protonix] 40 mg tablet,delayed release (DR/EC) 40 mg PO DAILY multivitamin [Daily Multiple] 1 EACH tablet 1 ea PO DAILY calcium-vitamin D3-vitamin K 1 EACH tablet,chewable 1 ea PO DAILY albuterol sulfate [Ventolin HFA] 90 mcg/actuation HFA aerosol inhaler 1 inh inhalation Q4H PRN fluticasone propion-salmeterol [Advair HFA] 115-21 mcg/actuation HFA aerosol inhaler 2 puff inhalation BID Qty: 12 12RF Rx Instructions: administer with spacer atorvastatin [Lipitor] 40 mg Tablet 40 mg PO QPM Qty: 30 0RF gabapentin 100 mg Capsule 200 mg PO TID PRN PRN lidocaine 5 % adhesive patch,medicated 1 patch topical DAILY PRN (Reason: pain) Qty: 15 1RF Rx Instructions: leave on most painful area for 12 hrs Discharge Instructions Instructions: Constipation, Adult ED Additional Instructions: You were seen for abdominal pain and discomfort. Your exam, labs, CT scan are reassuring. Your CT scan shows a large amount of stool consistent with constipation. We have provided you a bottle of magnesium citrate. Begin taking 2 ounces every 2 hours over the course of today until you begin having soft/easy bowel movements. Be sure to drink plenty of fluids to stay hydrated. Of note there is mention of a spiculated lung opacification/lesion in the left base which if new will need follow-up. Please discuss with primary care. You should make a follow-up appointment with them for next week. Return to ED for any fever, vomiting, increasing shortness of breath, worsening abdominal pain, other concerns. Referrals: Shea Bonner [Primary Care Provider, Medicine] HPI General Mode of arrival: ambulatory. Date/Time Provider Initiated Documentation: 02/21/25 00:27. Limitations to Documentation: no limitations. Information obtained by: patient, RN notes reviewed and old records reviewed. HPI Narrative: Patient presents to ED with complaint of abdominal discomfort and left side pain. Patient reports feeling like she has a tightness or a heavy belt around her waist. She is having pain on the left side that seems to be getting worse. Symptoms began on Wednesday about 5 days ago. Initially thought it was related to constipation and has been taking MiraLAX. Has still not had any normal bowel movements. She denies having fever, anorexia, vomiting. Tonight pain seems to be going into the back as well. She denies any type of chest pain or pressure. She feels a little more short of breath than usual but does have history of COPD and reports that humidity and weather definitely affects her breathing. She has had no previous abdominal surgeries. She was seen by primary care yesterday who thought symptoms were related to her scoliosis and described it to patient as the left rib and pelvis rubbing on each other. She does admit that movement does seem to make the pain worse. She denies any urinary symptoms. Related Data Home Medications ?Medication ?Instructions ?Recorded ?Confirmed calcium 500 mg-vitamin D3 1,000 1 ea PO DAILY 01/27/17 02/21/25 unit-vitamin K 40 mcg chewable tablet multivitamin (Daily Multiple 1 ea PO DAILY 01/27/17 02/21/25 tablet) atorvastatin 40 mg tablet (Lipitor) 40 mg PO QPM #30 tabs 05/15/19 02/21/25 gabapentin 100 mg capsule 200 mg PO TID PRN PRN 12/15/19 02/21/25 albuterol sulfate 90 mcg/actuation 1 inh inhalation Q4H PRN 02/25/22 02/21/25 aerosol inhaler (Ventolin HFA) vitamins A,C,W-qxfj-atuaqs 4,296 1 cap PO BID 03/04/22 02/21/25 mcg-226 mg-90 mg capsule (PreserVision AREDS) lidocaine 5 % topical patch 1 patch topical DAILY PRN pain #15 09/12/23 02/21/25 ea pantoprazole 40 mg tablet,delayed 40 mg PO DAILY 02/21/24 02/21/25 release (Protonix) fluticasone propionate 115 2 puff inhalation BID #12 grams 04/25/24 02/21/25 mcg-salmeterol 21 mcg/actuation HFA inhaler (Advair HFA) magnesium citrate 300 ml PO DIRECTED #0 mL 02/21/25 Previous Rx's ?Medication ?Instructions ?Recorded atorvastatin 40 mg tablet (Lipitor) 40 mg PO QPM #30 tabs 05/15/19 lidocaine 5 % topical patch 1 patch topical DAILY PRN pain #15 09/12/23 ea fluticasone propionate 115 2 puff inhalation BID #12 grams 04/25/24 mcg-salmeterol 21 mcg/actuation HFA inhaler (Advair HFA) magnesium citrate 300 ml PO DIRECTED #0 mL 02/21/25 Allergies Allergy/AdvReac Type Severity Reaction Status Date / Time varenicline (From [employer]) AdvReac stomach Verified 02/21/25 00:35 problems, depression General YADY: 4 Exam Narrative Exam Narrative: Const: Thin elderly female in NAD. VS per triage. HEENT: NC/AT. Normal facial exam. Neck: Supple. Trachea midline. Lungs: Mild tachypnea. Lungs are clear. Cor: RRR without murmur. Good radial pulses. GI: Soft/ND. Tender in the suprapubic and left lower quadrant, mild voluntary guarding. Back: Mild tenderness along the left lumbar and costovertebral angle. Neuro: A+O x 3. Normal speech, mentation. Cranial nerves II - XII grossly intact. No gross motor or sensory deficit. Medical Decision Making Patient presenting to ED with worsening abdominal discomfort and now actual pain in the left side and back. She is tender mostly in the left lower quadrant over into the suprapubic area. Some discomfort in the left CVA. No fever, cough, chest pain, vomiting, urinary symptoms. Does feel constipated. No previous abdominal surgeries. Nursing did obtain EKG which per my read is sinus rhythm with no acute ST changes. Concern for intra-abdominal process such as diverticulitis. Will have IV placed and start fluids. Laboratory studies, urinalysis, CT of the abdomen pelvis ordered. Patient made n.p.o. for time being. Patient's laboratory studies are unremarkable. Lactic acid is normal. Venous pH and pCO2 are normal. White count is normal. Chemistries, liver function, lipase all normal. Troponin is normal. Urinalysis negative for infection. CT scan preliminary read shows significant stool burden and severe constipation. No evidence of diverticulitis. Also noted to have a spiculated opacification measuring 2.6 x 2.6 in the left lung which potentially could represent neoplasm versus infectious process versus other. Given lack of fever or cough, normal white count, no complaint of chest pain would not treat with antibiotics. I have made patient and daughter aware of findings. They will discuss this with primary care. After discussion with patient and daughter we will begin dosing of magnesium citrate in the morning. Discussed taking small doses every 2 hours until she begins having good soft bowel movements. Discussed staying hydrated. Return precautions provided. Medical Records Medical records reviewed: Yes I reviewed the patient's medical records. Medical records narrative: PCP records in [facility] Imaging Data Radiologic Study: Imaging: CT Scan (abd/pelvis w/ contrast) Radiologist's impression: IMPRESSION: Spiculated opacification in the left lower lobe measuring 2.6 x 2.6 cm this could represent infectious process however, underlying lung neoplasm can not be excluded. Severe stool burden, correlate for constipation. Chronic noncritical findings as described above. Thank you for allowing us to participate in the care of your patient. Dictated and Authenticated by: Ana Pederson MD Lab Data Lab results reviewed: Yes I reviewed the patient's lab results. 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 denies Former smoker GERD (gastroesophageal reflux disease) Surgical History H/O lumpectomy History of esophagogastroduodenoscopy (EGD) (~12/2023) with dilation History of colonoscopy Closed fracture of left distal femur (05/10/19) S/P ORIF on 05/12/19 S/P breast lumpectomy left breast lumpectomy; follow up XRT, 2002 Status post THR (total hip replacement) pt. denies replacement-states just rods inserted EGD - MAC (02/05/17) Dr Marcial, [facility], EGD with balloon dilation; repeat procedure 04/14/2019, Dr. Ienz Ruffin Family History (Updated 02/21/24 @ 11:10 by Beba Bach RN, RN) Mother Lung disease Asthma Daughter Lung disease Substance abuse Hypertension Maternal Aunt Colon cancer Heart disease Social History Smoking/Tobacco Use Status: Former Tobacco Use Tobacco: How many years used: 65 Smoking risk assessment performed?: Yes Alcohol Intake: current Alcohol Intake frequency: holidays/special occasions only Drug use: Never Substance use type: does not use Household members: children Housing: apartment Current gender identity: female What is your relationship status?: Panel score (0-1 are the most socially isolated patients): 0 Do you feel safe at home: Yes (unable to assess privately, lives with daughter) Do you feel safe in your relationship?: Yes History History 3 Para Hx # Term Pregnancies 3 Multiple births Hx # Pregnancies Ectopic pregnancies AB induced Hx Number of Living Children 2 AB spontaneous
--- NOTE | 2025-02-21 00:45 | DI.CT_ITS ---
Exam(s) CT ABDOMEN PELVIS W EXAM: CT ABDOMEN PELVIS W CLINICAL HISTORY: LLQ pain/tenderness TECHNIQUE: Imaging Protocol: Axial computed tomography images with coronal and sagittal reformatted images were created and reviewed. CONTRAST MATERIAL: Intravenous: Omnipaque 350 Contrast volume:60 mL Oral: No COMPARISON: CT CT ABDOMEN PELVIS W from 02/28/[address] CHEST PE CTA from 04/02/[address] CHEST/ABD/PEL W from 08/17/[address] CHEST WO from 11/16/2024 FINDINGS: There is artifact in the pelvis from the patient's bilateral femoral intramedullary rods. ABDOMEN: Lung Bases: There is a small hiatal hernia. Emphysematous changes are seen in the lung bases. There is a new opacity in the left lower lobe. Liver: Normal density. No measurable mass. Portal, Superior Mesenteric, and Splenic Veins: Unremarkable. Gallbladder and Biliary Tract: There is a gallstone. No biliary ductal dilatation. Pancreas: Normal density, no abnormal calcifications or inflammatory process. Spleen: Normal. Adrenals: No masses seen. Kidneys: Normal size, contour and axis. No radiodense stones or obstructive uropathy. No masses seen. Abdominal Aorta: Abdominal portion non-dilated. Atherosclerotic calcification is present. Bowel: There is stool throughout the colon consistent with constipation. There is no bowel wall thickening or obstruction. The stomach is incompletely distended limiting evaluation. There is no evidence of appendicitis. Peritoneal Cavity: No ascites, collection or mesenteric inflammatory response. No free air. Lymph Nodes: Within normal limits. Bones: Within normal limits for the patient's age. There are old healed right inferior and superior pubic rami fractures. There are intramedullary rods in the proximal femurs bilaterally. The bones are osteopenic. There is a right convex scoliosis. Soft Tissues: Unremarkable. PELVIS: Bladder: Symmetric distention, no gross wall thickening. Reproductive Organs: There is a calcified uterine fibroid. Lymph Nodes: Within normal limits. Bones: Within normal limits for the patient's age. IMPRESSION: 1. Constipation. 2. New opacity in the left lower lobe. This was not present on the examination from 11/16/2024. This likely reflects infectious or inflammatory process. Neoplasm cannot be entirely excluded. 3. The preliminary [facility] report was reviewed. RADIATION DOSE DELIVERED: 162.79mGy.cm Total DLP DATA REPOSITORY: All CT scans at this facility are submitted to the National Radiology Data Registry (NRDR) Dose Index Registry (DIR) with the [employer] ([employer]). RADIATION OPTIMIZATION: All CT scans at this facility use at least one of these dose optimization techniques: automated exposure control; mA and/or kV adjustment per patient size (includes targeted exams where dose is matched to clinical indication); or iterative reconstruction.
[2025-02-21] MEDS: Normal Saline 500 ML IV (01:18)
[2025-02-21 01:20] LABS: BE (Venous) 4 mmol/L (-2-3); HCO3 (Venous) 29 mmol/L (23-28); O2 Sat (Venous) 60 %; TCO2 (Venous) 27 mmol/L (24-29); pCO2 (Venous) 47 mmHg (41-51); pO2 (Venous) 32 mmHg
[2025-02-21 01:23] LABS: Abs Immature Grans 0.02 10^3/uL (0.0-0.06); HCT 35.0 % (36.0-46.0); HGB 11.7 g/dL (11.2-15.7); Immature Grans % 0.3 %; MCH 30.5 pg (27.0-33.0); MCHC 33.4 % (32.0-36.0); MCV 91 fL (80-95); MPV 11.6 fL (8.0-11.0); Platelet Count 174 10^3/uL (130-400); RBC 3.84 10^6/uL (3.93-5.22); RDW 14.0 % (11.7-14.6); RDW-SD 46.8 fL; WBC 5.92 10^3/uL (4.4-10.8)
[2025-02-21 01:25] LABS: Glucose Negative (Negative)
[2025-02-21 01:41] LABS: ALT 32 U/L (14-59); AST 24 U/L (15-37); Albumin 3.4 g/dL (3.4-5.0); Alkaline Phosphatase 94 U/L (46-116); Anion Gap 9.0 mmol/L (3-11); BUN 15 mg/dL (7-18); Bilirubin, Total 0.4 mg/dL (0.2-1.0); CO2 30.0 mmol/L (21.0-32.0); Calcium 9.3 mg/dL (8.5-10.1); Chloride 92 mmol/L (98-107); Estimated GFR 89.56 (mL/min/1.73m2); Glucose 105 mg/dL (74-106); Lipase 54 U/L (<78); Magnesium 1.8 mg/dL (1.8-2.4); Potassium 3.9 mmol/L (3.5-5.1); Sodium 131 mmol/L (136-145); Total Protein 7.2 g/dL (6.4-8.2); Troponin I 4 ng/L (<or=51)
[2025-02-21] MEDS: Normal Saline Flush 10 ML SYR IVP (01:45)
[2025-02-21] MEDS: Omnipaque 350 MG/ML 100 ML BTL IJ (01:46)
[2025-02-21] MEDS: Normal Saline - Diluent 50 ML VIAL IJ (01:47)
--- NOTE | 2025-02-21 03:16 | DI.[facility]_ITS ---
PROCEDURE INFORMATION: Exam: CT Abdomen And Pelvis With Contrast Exam date and time: 02/21/2025 1:46 AM Age: 84 years old Clinical indication: Abdominal pain; Left lower quadrant (llq); Llq tenderness, TECHNIQUE: Imaging protocol: Computed tomography of the abdomen and pelvis with contrast. Radiation optimization: All CT scans at this facility use at least one of these dose optimization techniques: automated exposure control; mA and/or kV adjustment per patient size (includes targeted exams where dose is matched to clinical indication); or iterative reconstruction. Contrast material: OMNIPAQUE 350; Contrast volume: 60 ml; Contrast route: INTRAVENOUS (IV); COMPARISON: CT CHEST/ABD/PEL W 08/17/2024 10:14 AM FINDINGS: Lungs: Spiculated opacification in the left lower lobe measuring 2.6 x 2.6 cm this could represent infectious process however, underlying lung neoplasm can not be excluded. There is diffuse pulmonary emphysema. Diaphragm: Large hiatal hernia. Liver: The liver is unremarkable. Gallbladder and biliary ducts: Multiple gallstones are present. No pericholecystic inflammatory changes to suggest cholecystitis. Pancreas: The pancreas is unremarkable. Spleen: No splenomegaly. No lesions. Adrenal glands: The adrenal glands are unremarkable. Kidneys and ureters: The kidneys are normal. Stomach and bowel: Large amount of stool throughout the colon and rectum. Appendix: Appendix is not seen but there is no pericecal inflammatory change. Intraperitoneal space: Unremarkable. No free air. No significant fluid collection. Vasculature: There is severe diffuse atherosclerotic disease of the abdominal aorta. Lymph nodes: Unremarkable. No enlarged lymph nodes. Urinary bladder: No focal wall thickening of the urinary bladder. Reproductive: Degenerating fibroids within the uterus surgical rods in the bilateral proximal femurs. Bones/joints: Old right superior and inferior pubic rami fractures. The lumbar spine demonstrates marked degenerative changes at multiple levels. Severe disc space narrowing with osteophyte formation. Old compression fractures at L2 and L5. Moderate dextroscoliosis. Soft tissues: Unremarkable. IMPRESSION: Spiculated opacification in the left lower lobe measuring 2.6 x 2.6 cm this could represent infectious process however, underlying lung neoplasm can not be excluded. Severe stool burden, correlate for constipation. Chronic noncritical findings as described above. Dictated and Authenticated by: Ana Pederson MD. Orderin Amish Johnson MD
== END 2025-02-21 03:42 | disposition home or self-care (01) ==
LOC: ER 03:54
PROVIDERS: Emergency Provider Emergency Medicine; PCP Family Medicine
DX: K59.00 Constipation, unspecified (principal); J98.4 Other disorders of lung; E78.5 Hyperlipidemia, unspecified; J44.9 Chronic obstructive pulmonary disease, unspecified; Z87.891 Personal history of nicotine dependence
CPT/HCPCS: 36415; 80053; 82805; 83690; 93005; 96360; 99285; 74177; 81003; 83605; 83735; 84484; 85025; 93010; 99284; J3490

== ENCOUNTER 2025-02-26 08:13 | Emergency (ER) | payer MEDICARE, SELFPAY ==
--- NOTE | 2025-02-26 08:24 | W.ED.GENAD ---
Discharge Plan Disposition Patient Disposition: Home Condition: Stable Discharge Details Clinical Impression: Left lower lobe pneumonia, Closed wedge compression fracture of eleventh thoracic vertebra Primary Care Provider: Shea Bonner ED Provider: Nury Clements Home Meds and New Rx's Prescriptions: New doxycycline hyclate 100 mg tablet 100 mg PO BID 10 Days Qty: 20 0RF Rx Instructions: Please take 1 tablet by mouth twice daily for the next 10 days Continued PreserVision AREDS [id number] capsule 1 cap PO BID pantoprazole [Protonix] 40 mg tablet,delayed release (DR/EC) 40 mg PO DAILY multivitamin [Daily Multiple] 1 EACH tablet 1 ea PO DAILY calcium-vitamin D3-vitamin K 1 EACH tablet,chewable 1 ea PO DAILY albuterol sulfate [Ventolin HFA] 90 mcg/actuation HFA aerosol inhaler 1 inh inhalation Q4H PRN fluticasone propion-salmeterol [Advair HFA] 115-21 mcg/actuation HFA aerosol inhaler 2 puff inhalation BID Qty: 12 12RF Rx Instructions: administer with spacer atorvastatin [Lipitor] 40 mg Tablet 40 mg PO QPM Qty: 30 0RF gabapentin 100 mg Capsule 200 mg PO TID PRN PRN lidocaine 5 % adhesive patch,medicated 1 patch topical DAILY PRN (Reason: pain) Qty: 15 1RF Rx Instructions: leave on most painful area for 12 hrs magnesium citrate Solution 300 ml PO DIRECTED Qty: 0 0RF Discharge Instructions Instructions: Pneumonia, Adult ED, Vertebral Compression Fracture ED Additional Instructions: At this time the chest CT shows a left lower lobe pneumonia. You were given the first dose of antibiotics here in the emergency department. Please take the doxycycline twice daily for the next 10 days. Take the antibiotic with yogurt or a probiotic. Please call your primary care provider within the next 2 to 3 days to make an appointment within [address] results including the increased calcifications of your coronary arteries, the left lower lobe pneumonia, and the T11 compression fracture. Please consider taking a chewable baby aspirin once daily, use the lidocaine patches that you have at home to your left lower rib cage as directed, do not use longer than 7 days. Return to the ER or be seen sooner for any worsening productive cough, fever above 100.8, worsening chest pain, sweatiness, nausea increased weakness or fatigue or concerns. Referrals: Shea Bonner [Primary Care Provider, Medicine] - 2 weeks Referral Note: ER follow-up Clinical Impression: Closed wedge compression fracture of eleventh thoracic vertebra; Left lower lobe pneumonia Discharge Data Discharge Date/Time-TO BE ENTERED AT DEPARTURE: 02/26/25 10:12 HPI General Mode of arrival: wheelchair. Date/Time Provider Initiated Documentation: 02/26/25 08:16. Limitations to Documentation: no limitations. Information obtained by: patient, RN notes reviewed and old records reviewed. HPI Narrative: Patient was seen here 02/21 for LUQ abd pain which radiates into back, she reports bowel movement after receiving Mag citrate with her last ER visit. Reports 03/18 pain. Has been taking OTC pain meds for relief (Tylenol @ 0500 this am). Afebrile upon arrival. A&O x4. Denies any Diaphoresis, dizziness, SOB, reports chronic cough. Past medical history includes COPD GERD hiatal hernia, Beasley's esophagus, esophagitis, peripheral artery disease, breast cancer, basal cell carcinoma. Related Data Home Medications ?Medication ?Instructions ?Recorded ?Confirmed calcium 500 mg-vitamin D3 1,000 1 ea PO DAILY 01/27/17 02/26/25 unit-vitamin K 40 mcg chewable tablet multivitamin (Daily Multiple 1 ea PO DAILY 01/27/17 02/26/25 tablet) atorvastatin 40 mg tablet (Lipitor) 40 mg PO QPM #30 tabs 05/15/19 02/26/25 gabapentin 100 mg capsule 200 mg PO TID PRN PRN 12/15/19 02/26/25 albuterol sulfate 90 mcg/actuation 1 inh inhalation Q4H PRN 02/25/22 02/26/25 aerosol inhaler (Ventolin HFA) vitamins A,C,D-rzwn-wdvyfv 4,296 1 cap PO BID 03/04/22 02/26/25 mcg-226 mg-90 mg capsule (PreserVision AREDS) lidocaine 5 % topical patch 1 patch topical DAILY PRN pain #15 09/12/23 02/26/25 ea pantoprazole 40 mg tablet,delayed 40 mg PO DAILY 02/21/24 02/26/25 release (Protonix) fluticasone propionate 115 2 puff inhalation BID #12 grams 04/25/24 02/26/25 mcg-salmeterol 21 mcg/actuation HFA inhaler (Advair HFA) magnesium citrate 300 ml PO DIRECTED #0 mL 02/21/25 02/26/25 doxycycline hyclate 100 mg tablet 100 mg PO BID Pneumonia 10 days 02/26/25 #20 tabs Previous Rx's ?Medication ?Instructions ?Recorded atorvastatin 40 mg tablet (Lipitor) 40 mg PO QPM #30 tabs 05/15/19 lidocaine 5 % topical patch 1 patch topical DAILY PRN pain #15 09/12/23 ea fluticasone propionate 115 2 puff inhalation BID #12 grams 04/25/24 mcg-salmeterol 21 mcg/actuation HFA inhaler (Advair HFA) magnesium citrate 300 ml PO DIRECTED #0 mL 02/21/25 doxycycline hyclate 100 mg tablet 100 mg PO BID Pneumonia 10 days 02/26/25 #20 tabs Allergies Allergy/AdvReac Type Severity Reaction Status Date / Time varenicline (From AltruiktiStem) AdvReac stomach Verified 02/26/25 08:27 problems, depression General YADY: 4 Review of Systems All systems reviewed & are unremarkable except as noted in HPI and below Cardiovascular Cardiovascular: Reports chest pain (Left lower chest wall pain over the rib cage), Denies dyspnea and Denies dyspnea on exertion Respiratory Respiratory: Reports cough (Chronic), Denies excessive phlegm production, Reports pain with cough, Denies dyspnea, Denies dyspnea on exertion and Denies wheezing Gastrointestinal Gastrointestinal: Reports as per HPI and Reports abdominal pain Allergic/Immunologic Allergic/Immunologic: Denies wheezing Exam Narrative Exam Narrative: Constitutional: Alert and oriented x3. Appears stated age. Normal body habitus. Head: Normocephalic, no trauma. Eyes: Pupils PERRL, Eyelids symmetrical without lesions, discharge, or swelling. Chest: RRR, Normal S1, S2, distal pulses intact. Left lower anterior chest pain with palpation no crepitus or step-off. Resp: Lungs clear to auscultation bilaterally, no wheezes, rales, or rhonchi. Abdomen: Soft, non-distended, Normoactive bowel sounds all 4 quads. Nontender to palpation all 4 quadrants. Musculoskeletal: Uses a cane, unable to assess gait, Skin: No suspicious rashes or lesions. Capillary refill less than 2 sec. Neurologic: Cranial nerves II-XII intact. Alert and oriented x 3. Sensory: Intact bilaterally all 4 extremities. Hematologic/Lymphatic: No ecchymosis, no lymphadenopathy. Medical Decision Making Patient was seen here 02/21 for LUQ abd pain which radiates into back, she reports bowel movement after receiving Mag citrate with her last ER visit. Reports 8/10 pain. Has been taking OTC pain meds for relief (Tylenol @ 0500 this am). Afebrile upon arrival. A&O x4. Denies any Diaphoresis, dizziness, SOB, reports chronic cough. Past medical history includes COPD GERD hiatal hernia, Beasley's esophagus, esophagitis, peripheral artery disease, breast cancer, basal cell carcinoma. Upon further examination the patient's complaint is actually her left lower rib cage. After review of the patient's previous visit 5 days prior and her medical records determined that a CT of her chest without contrast is appropriate. Patient did have a opacity noted on the CT abdomen pelvis had a full workup with labs, EKG and was determined to be constipated. She was given mag citrate reports that she has had bowel movement but continues to have this pain. Denies any diaphoresis dizziness or concerning symptoms for CAD. CT scan of chest without contrast shows opacity left lower lobe likely reflecting infectious or inflammatory process rather than neoplasm. No significant change from the thoracic aortic dilatation at 3.8 cm. There is some calcifications in the coronary arteries. Please see official report below. I will place patient on antibiotics for possible left lower lobe pneumonia, will give a lidocaine patch to her left lower chest and give her a 81 mg baby aspirin and encouraged close follow-up with her PCP which is already scheduled for March. Discussed results with patient and daughter of the CT. Discussed plan of care and follow-up care. They do have a PCP Shea Barnett but the appointment is not until August which was noted upon further discussion. Patient states that she was taking a baby aspirin but was taken off within the last year. I did discuss home care follow-up care and strict return instructions to return if any worsening shortness of breath, productive cough, fever above 100.8 or increasing fatigue or weakness. Patient and family instructed to call her primary care provider to be seen sooner within the next week or 2 for urgent follow-up. Discussed tricked return instructions. Patient remained alert and oriented hemodynamically stable throughout the remainder of her stay and was discharged into the care of her daughter. This text was generated using Bubb[employer]ation system, please disregard any oddities of phrase or misspellings. Medical Records Medical records reviewed: Yes I reviewed the patient's medical records. Medical records narrative: Last visit from 02-21, CT abdomen pelvis shows no evidence of bowel obstruction. EKG shows no acute abnormality. Labs reviewed. Imaging Data Radiologic Study: Imaging: CT Scan Radiologist's impression: Exam(s) CT CHEST WO EXAM: CT CHEST WO CLINICAL HISTORY: Left lower chest pain, Eval opacity. TECHNIQUE: Imaging protocol: Axial computed tomography images were obtained and coronal and sagittal reformatted images were created and reviewed. Computer aided detection (CAD) was utilized. CONTRAST MATERIAL: Noncontrast COMPARISON: CT CT CHEST WO from 11/16/[address] ABDOMEN PELVIS W from 02/21/2025 FINDINGS: Pulmonary parenchyma: Some improvement in previously noted opacity at the left posterior lower lobe, likely reflecting infectious or inflammatory process rather than neoplasm. No suspicious nodules. Interstitial changes: None. Emphysema: Moderate central lobular emphysematous changes. Tracheobronchial tree: Mild bronchial wall thickening in the left lower lobe. No mucous plugging. No bronchiectasis . Pleura: No effusion or pneumothorax. Heart: The heart is mildly dilated. The coronary arteries show severe calcifications. Aorta: Thoracic aorta dilated to 3.8 cm. Not significantly changed from prior. Mild atherosclerotic changes. Lymph nodes: No enlarged lymph nodes. Bones: Scoliosis and degenerative changes are seen. Mild to moderate compression fracture of T11, new from 16 November 2024. Upper abdomen: Small hiatal hernia. Soft tissues: Unremarkable. IMPRESSION: Some improvement in left lower lobe opacity consistent with infectious or inflammatory process. Further follow-up could be considered. [facility] All Active Problems (Updated 02/26/25 @ 09:51 by Nury Clements NP) Closed wedge compression fracture of eleventh thoracic vertebra (Acute) Left lower lobe pneumonia (Acute) Pulmonary lesion, left (Acute) Constipation (Acute) PAD (peripheral artery disease) (Acute) Swallowing dysfunction (Acute) Protein-calorie malnutrition, moderate (Acute) Chronic reflux esophagitis (Acute) Beasley's esophagus determined by endoscopy (Acute) Hyperlipidemia (Chronic) Hypoxemia (Acute) Esophageal stricture (Acute) Bilateral carotid bruits (Acute) Normocytic normochromic anemia (Acute) Hiatal hernia (Chronic) Dysphagia (Acute) GERD (gastroesophageal reflux disease) (Chronic) COPD (chronic obstructive pulmonary disease) (Chronic) Medical History COVID 04/14/22 Depression Chronic insomnia BCC (basal cell carcinoma), face Bilateral hip pain History of traumatic fracture of hip History of breast cancer 2008 Irregular heart rate pt. denies Former smoker GERD (gastroesophageal reflux disease) Surgical History H/O lumpectomy History of esophagogastroduodenoscopy (EGD) (~12/2023) with dilation History of colonoscopy Closed fracture of left distal femur (05/10/19) S/P ORIF on 05/12/19 S/P breast lumpectomy left breast lumpectomy; follow up XRT, 2001 Status post THR (total hip replacement) pt. denies replacement-states just rods inserted EGD - MAC (02/05/17) Dr Marcial, [facility], EGD with balloon dilation; repeat procedure 04/14/2019, Dr. Inez Ruffin Family History (Updated 02/21/24 @ 11:10 by Beba Bach RN, RN) Mother Lung disease Asthma Daughter Lung disease Substance abuse Hypertension Maternal Aunt Colon cancer Heart disease Social History Smoking/Tobacco Use Status: Former Tobacco Use Tobacco: How many years used: 65 Smoking risk assessment performed?: Yes Alcohol Intake: current Alcohol Intake frequency: holidays/special occasions only Drug use: Never Substance use type: does not use Household members: children Housing: apartment Current gender identity: female What is your relationship status?: Panel score (0-1 are the most socially isolated patients): 0 Do you feel safe at home: Yes (unable to assess privately, lives with daughter) Do you feel safe in your relationship?: Yes History History 3 Para Hx # Term Pregnancies 3 Multiple births Hx # Pregnancies Ectopic pregnancies AB induced Hx Number of Living Children 2 AB spontaneous
[2025-02-26 08:25] VITALS: BP 109/79; PULSE 84; RESP 16; TEMP 36.8; O2SAT 94
--- NOTE | 2025-02-26 08:30 | DI.CT_ITS ---
Exam(s) CT CHEST WO EXAM: CT CHEST WO CLINICAL HISTORY: Left lower chest pain, Eval opacity. TECHNIQUE: Imaging protocol: Axial computed tomography images were obtained and coronal and sagittal reformatted images were created and reviewed. Computer aided detection (CAD) was utilized. CONTRAST MATERIAL: Noncontrast COMPARISON: CT CT CHEST WO from 11/16/[address] ABDOMEN PELVIS W from 02/21/2025 FINDINGS: Pulmonary parenchyma: Some improvement in previously noted opacity at the left posterior lower lobe, likely reflecting infectious or inflammatory process rather than neoplasm. No suspicious nodules. Interstitial changes: None. Emphysema: Moderate central lobular emphysematous changes. Tracheobronchial tree: Mild bronchial wall thickening in the left lower lobe. No mucous plugging. No bronchiectasis . Pleura: No effusion or pneumothorax. Heart: The heart is mildly dilated. The coronary arteries show severe calcifications. Aorta: Thoracic aorta dilated to 3.8 cm. Not significantly changed from prior. Mild atherosclerotic changes. Lymph nodes: No enlarged lymph nodes. Bones: Scoliosis and degenerative changes are seen. Mild to moderate compression fracture of T11, new from 16 November 2024. Upper abdomen: Small hiatal hernia. Soft tissues: Unremarkable. IMPRESSION: Some improvement in left lower lobe opacity consistent with infectious or inflammatory process. Further follow-up could be considered. RADIATION DOSE DELIVERED: 106.76mGy.cm Total DLP 106.76mGy.cm Total DLP DATA REPOSITORY: All CT scans at this facility are submitted to the National Radiology Data Registry (NRDR) Dose Index Registry (DIR) with the [employer] ([employer]). RADIATION OPTIMIZATION: All CT scans at this facility use at least one of these dose optimization techniques: automated exposure control; mA and/or kV adjustment per patient size (includes targeted exams where dose is matched to clinical indication); or iterative reconstruction.
[2025-02-26] MEDS: Doxycycline Hyclate 100 MG CAP PO (09:58)
[2025-02-26] MEDS: Aspirin 81 MG CHEW CH (09:59)
[2025-02-26] MEDS: Lidocaine 5% Patch 1 PATCH TP (09:59)
== END 2025-02-26 10:12 | disposition home or self-care (01) ==
PROVIDERS: Emergency Provider Registered Nurse Emergency; PCP Family Medicine
DX: J18.9 Pneumonia, unspecified organism (principal); R10.32 Left lower quadrant pain; M48.54XA Collapsed vertebra, not elsewhere classified, thoracic region, initial encounter for fracture; E78.5 Hyperlipidemia, unspecified; Z87.891 Personal history of nicotine dependence
CPT/HCPCS: 71250; 99284

== ENCOUNTER 2025-03-01 20:18 | Outpatient (REF) | payer MEDICARE, SELFPAY ==
[2025-03-01 21:56] LABS: Vitamin D 25 Total 60 ng/mL (30-100)
== END 2025-03-01 20:19 | disposition home or self-care (01) ==
LOC: NCHCN 20:18
PROVIDERS: PCP Family Medicine; Visit Provider Family Medicine
DX: S22.000A Wedge compression fracture of unspecified thoracic vertebra, initial encounter for closed fracture (principal)
CPT/HCPCS: 82306

== ENCOUNTER 2025-04-05 17:21 | Outpatient (REF) | payer MEDICARE, SELFPAY ==
[2025-04-05 15:24] LABS: HCT 38.6 % (36.0-46.0); HGB 12.7 g/dL (11.2-15.7); MCH 31.1 pg (27.0-33.0); MCHC 32.9 % (32.0-36.0); MCV 95 fL (80-95); MPV 12.4 fL (8.0-11.0); Platelet Count 191 10^3/uL (130-400); RBC 4.08 10^6/uL (3.93-5.22); RDW 15.0 % (11.7-14.6); RDW-SD 52.3 fL; WBC 7.31 10^3/uL (4.4-10.8)
[2025-04-05 15:35] LABS: Iron 80 ug/dL (50-170); Total Iron Binding Capacity 322 ug/dL (250-450); Transferrin Sat 25 % (15-50)
[2025-04-05 16:03] LABS: Ferritin 420 ng/mL (8-252)
== END 2025-04-05 17:22 | disposition home or self-care (01) ==
LOC: NCHCN 17:21
PROVIDERS: PCP Family Medicine; Visit Provider Family Medicine
DX: D50.9 Iron deficiency anemia, unspecified (principal)
CPT/HCPCS: 85027; 82728; 83540; 83550

== ENCOUNTER 2025-04-12 13:39 | Outpatient (CLI) | payer MEDICARE, SELFPAY ==
--- NOTE | 2025-04-12 | DI.DEXA_ITS ---
Exam(s) XR DEXA BONE DENSITY W/WO JAQUAN EXAM: XR DEXA BONE DENSITY W/WO JAQUAN CLINICAL HISTORY: WEDGE COMPRESSION FX THORACIC VERTEBRA S22.000A TECHNIQUE: [employer] C densitometer analysis of the lumbar spine and left forearm. Lateral survey image of the thoracic and lumbar spine. Hip bone mineral density measurements were not performed due to presence of bilateral hardware. COMPARISON: MR MR LUMBAR SPINE WO from 03/16/[address] ABDOMEN PELVIS W from 02/21/[address] CHEST WO from 02/26/2025 FINDINGS: Lateral view of the thoracic and lumbar spine is suboptimal due to scoliosis. The vertebral bodies are not well profiled. Bone mineral density measurements of the lumbar spine correspond to a total T- score of -3.7, in the osteoporotic range. Theleft forearm bone mineral density measurements correspond to a T-score of the distal 3rd of -5.1, in the osteoporotic range.. 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
== END 2025-04-12 13:59 ==
LOC: DI 13:40
PROVIDERS: PCP Family Medicine; Visit Provider Family Medicine
DX: S22.000D Wedge compression fracture of unspecified thoracic vertebra, subsequent encounter for fracture with routine healing (principal); X58.XXXD Exposure to other specified factors, subsequent encounter; N81.0 Urethrocele
CPT/HCPCS: 77080

== ENCOUNTER 2025-04-19 15:08 | Outpatient (REF) | payer MEDICARE, SELFPAY ==
[2025-04-19 21:42] LABS: Creatinine,Urine 33.21 mg/dL
[2025-04-19 21:50] LABS: Creatinine,24hr Ur 0.40 g/24hr (0.60-1.80); Total Volume 1200 ml
[2025-04-21 08:46] LABS: Calcium Urine 6.7 mg/dL (See Note); Timed Urine Volume 1200 mL
== END 2025-04-19 15:09 | disposition home or self-care (01) ==
LOC: LBN 15:08
PROVIDERS: PCP Family Medicine; Visit Provider Nurse Practitioner Primary Care
DX: M80.00XD Age-related osteoporosis with current pathological fracture, unspecified site, subsequent encounter for fracture with routine healing (principal)
CPT/HCPCS: 81050; 82340; 82570

== ENCOUNTER 2025-06-06 09:31 | Outpatient (REF) | payer MEDICARE, SELFPAY ==
[2025-06-06 10:15] LABS: Creatinine,Urine 31.19 mg/dL
[2025-06-06 10:17] LABS: Creatinine,24hr Ur 0.44 g/24hr (0.60-1.80); Total Volume 1450 ml
[2025-06-07 09:23] LABS: Calcium Urine 5.9 mg/dL (See Note); Timed Urine Volume 1450 mL
== END 2025-06-06 09:32 | disposition home or self-care (01) ==
LOC: LBN 09:31
PROVIDERS: PCP Family Medicine; Visit Provider Nurse Practitioner Primary Care
DX: M80.00XD Age-related osteoporosis with current pathological fracture, unspecified site, subsequent encounter for fracture with routine healing (principal)
CPT/HCPCS: 81050; 82340; 82570